=== PATIENT | female | born 1960 | race Caucasian/White ===

== ENCOUNTER → 2018-01-27 | Outpatient (CLI) | payer BC | END | disposition home or self-care (01) | LOC: KCIC 16:02 | DX: S13.150A Subluxation of C4/C5 cervical vertebrae, initial encounter (principal); M19.042 Primary osteoarthritis, left hand; M53.82 Other specified dorsopathies, cervical region; M47.892 Other spondylosis, cervical region; M25.78 Osteophyte, vertebrae; M48.02 Spinal stenosis, cervical region; X58.XXXA Exposure to other specified factors, initial encounter; Y93.89 Activity, other specified; Y92.89 Other specified places as the place of occurrence of the external cause; Y99.8 Other external cause status | CPT/HCPCS: 72020; 72170; 73120; 73565; 73620 ==

== ENCOUNTER → 2019-06-08 | Outpatient (CLI) | payer BC ==
--- NOTE | 2019-06-08 09:03 | KCIC ---
MRI of the thoracic spine without contrast 06/08/2019 CLINICAL HISTORY: Mid back pain. Thoracic compression fracture. TECHNIQUE: Unenhanced T1-weighted, T2-weighted and inversion recovery sagittal and T1-weighted and T2-weighted axial images of the thoracic spine were obtained. FINDINGS: Comparison is made to radiographs of the thoracic spine dated 06/01/2019. Mild S-shaped curvature of the thoracolumbar spine is seen degenerative signal changes are seen involving all of the disks of the thoracic spine. An acute compression fracture is seen involving the superior aspect of the T9 vertebral body. This vertebral body has lost approximately 15 percent of its normal height, centrally. No retropulsion of bone fragments into the central spinal canal is seen. No additional acute compression fracture of the thoracic vertebrae is noted. No area of abnormal signal intensity is seen involving the thoracic spinal cord. Prominent perineural cysts are seen scattered throughout the thoracic spine. These measure 8 mm to 2.6 cm in size. On the axial images relatively mild degenerative changes are seen involving the thoracic disc spaces. These consist of minimal to mild generalized disc bulges with small superimposed focal disc protrusions which measure 2 mm in AP diameter along with degenerative changes involving the facet joints. These findings do not result in significant central spinal canal or neural foraminal stenosis at any level. IMPRESSION: An acute compression fracture is seen involving the T9 vertebral body. No retropulsion of bone fragments into the central spinal canal is seen. Electronically signed by: Zackery Ernandez MD (06/08/2019 9:00 AM) [facility]
== END | disposition home or self-care (01) ==
LOC: KCIC MRI 07:43
PROVIDERS: ATTEND Physician Assistant Medical
DX: S22.070A Wedge compression fracture of T9-T10 vertebra, initial encounter for closed fracture (principal); M47.814 Spondylosis without myelopathy or radiculopathy, thoracic region; M51.24 Other intervertebral disc displacement, thoracic region; X58.XXXA Exposure to other specified factors, initial encounter; Y93.89 Activity, other specified; Y92.89 Other specified places as the place of occurrence of the external cause; Y99.8 Other external cause status
CPT/HCPCS: 72146

== ENCOUNTER → 2019-06-23 | Day surgery (SDC) | payer BC ==
[~2019-06-23] MED LIST: ESOM20CA PO; IV RINGERS,LACTATED 1000ML 1,000 ML IV SCH; LIDOCAINE 2% PF 5 ML VIAL. ONE; LORA1TAB47 PO; PROPOFOL 40 ML IV ONE; SULF500T7 PO; TRAM50TA PO
[2019-06-23 17:16] VITALS: BP 124/74
--- NOTE | 2019-06-26 08:45 | PATHOLOGY ---
[facility] Accession Number: [id number] . 01 Material submitted: . esophagus - DISTAL ESOPHAGUS BX. Modifiers: distal . 01 Clinical history: . Pre-OP DX: Thickness of stomach wall Post-OP DX: Reflux, esophagitis, rule out Narayanan's . 02 Diagnosis: Esophageal biopsies, distal esophagus: - Segments of hyperplastic squamous esophageal mucosa consistent with reflux esophagitis. (JPM:[facility] 06/25/2019) QTP/06/25/2019 . 02 Comment: Sections of the distal esophageal biopsy reveal segments of focally tangentially oriented hyperplastic squamous esophageal mucosa. There is focal acute inflammatory exudate. The findings are consistent with reflux esophagitis. There is no evidence of Narayanan's change, dysplasia, or malignancy. (JPM:[facility] 06/25/2019) . 02 Electronically signed: . Palomo Zeng MD, Pathologist NPI- [id number] . 01 Gross description: . Received in formalin labeled "Mayi Simpson, distal esophagus BX," are multiple segments of hewitt soft tissue measuring 1.5 x 0.3 x 0.1 cm in aggregate dimensions. The specimen is filtered and entirely submitted in cassette A1. (TSD; 06/24/2019) TOB/TOB . 02 Pathologist provided ICD-10: K21.0 . 02 CPT . 184862 Specimen Comment: A courtesy copy of this report has been sent to Specimen Comment: [phone], . Specimen Comment: Report sent to and Performed at: [address], [place], [place] [id number] MD Reed Puente MD Phone: [phone] Performed at: 02 [facility] [address] [place], [place] [id number] MD Palomo Zeng MD Phone: [phone]
== END ==
LOC: ENDOS 15:53
PROVIDERS: ATTEND Internal Medicine Gastroenterology
DX: K29.50 Unspecified chronic gastritis without bleeding (principal); K21.0 Gastro-esophageal reflux disease with esophagitis; F15.90 Other stimulant use, unspecified, uncomplicated; Z72.89 Other problems related to lifestyle; Z88.5 Allergy status to narcotic agent; Z87.39 Personal history of other diseases of the musculoskeletal system and connective tissue; Z87.891 Personal history of nicotine dependence; Z98.51 Tubal ligation status; Z98.890 Other specified postprocedural states
CPT/HCPCS: 43239; 88305; J2001; J2704

== ENCOUNTER 2020-05-25 15:15 | Inpatient (IN) | payer BC ==
[~2020-05-25] VITALS: Ht 167.6 cm; Wt 79.4 kg
[2020-05-25 15:15] VITALS: BP 128/71
[~2020-05-25 15:15] MED LIST changes: -IV RINGERS,LACTATED 1000ML 1,000 ML IV SCH; -LIDOCAINE 2% PF 5 ML VIAL. ONE; -PROPOFOL 40 ML IV ONE
[2020-05-25] MEDS ORDERED: ONDANSETRON PF 4 MG/2 ML VIAL. IVP PRN (15:30)
[2020-05-25] MEDS ORDERED: PANT20TA2 PO (16:07)
[2020-05-25] MEDS ORDERED: SULF500T7 PO (16:07)
[2020-05-25 16:33] LABS: PROTHROMBIN TIME PATIENT 13.7 SEC (11.7-14.0)
[2020-05-25] MEDS: PIPERACILLIN/TAZOBACTAM 3.375 GM in IV NORMAL SALINE 50ML 50 ML IV SCH (16:58)
[2020-05-25] MEDS: POTASSIUM CL 20MEQ D5-0.45NACL 1,000 ML IV SCH (16:59)
[2020-05-25] MEDS ORDERED: ACETAMINOPHEN 650 MG SUPP.RECT. PR PRN (18:00)
[2020-05-25] MEDS ORDERED: ACETAMINOPHEN 325 MG TABLET. PO PRN (18:00)
[2020-05-25] MEDS: fentaNYL PF VIAL 100 MCG/2 ML VIAL IVP PRN (18:23)
[2020-05-25 19:00] VITALS: BP 105/56
[2020-05-25 23:00] VITALS: BP 101/62
[2020-05-26] MEDS: POTASSIUM CL 20MEQ D5-0.45NACL 1,000 ML IV SCH ×2 (00:32→11:52)
[2020-05-26] MEDS: PIPERACILLIN/TAZOBACTAM 3.375 GM in IV NORMAL SALINE 50ML 50 ML IV SCH ×5 (00:32→23:59)
[2020-05-26 03:00] VITALS: BP 106/64
[2020-05-26] MEDS: fentaNYL PF VIAL 100 MCG/2 ML VIAL IVP PRN ×4 (03:08→16:47)
[2020-05-26 05:52] LABS: BASO % 0 % (0-3); EOS % 0 % (0-3); HEMATOCRIT 36.7 % (36.0-47.0); HEMOGLOBIN 12.2 g/dL (12.0-15.5); LYMPH # 0.8 x10^3/uL (1.0-4.8); LYMPH % 6 % (24-48); MEAN CORPUSCULAR HEMOGLOBIN 30 pg (25-35); MEAN CORPUSCULAR HGB CONC 33 g/dL (31-37); MEAN CORPUSCULAR VOLUME 90 fL (79-100); MONO # 0.8 x10^3/uL (0.0-1.1); MONO % 5 % (0-9); NEUT % 88 % (31-73); PLATELET COUNT 180 x10^3/uL (140-400); RED CELL DISTRIBUTION WIDTH 18.1 % (11.5-14.5); WHITE BLOOD COUNT 14.7 x10^3/uL (4.0-11.0)
[2020-05-26 06:22] LABS: ALBUMIN 2.6 g/dL (3.4-5.0); CALCIUM 8.1 mg/dL (8.5-10.1); CREATININE 0.8 mg/dL (0.6-1.0); GFR 72.9; POTASSIUM 3.4 mmol/L (3.5-5.1); TOTAL BILIRUBIN 0.7 mg/dL (0.2-1.0); TOTAL PROTEIN 5.2 g/dL (6.4-8.2)
[2020-05-26 07:00] VITALS: BP 112/72
[2020-05-26 07:55] LABS: PROTHROMBIN TIME PATIENT 14.9 SEC (11.7-14.0)
--- NOTE | 2020-05-26 08:53 | PDOC2 ---
ANGÉLICA HENRY FACILITY MANAGER HISTOLOGY 05/26/20 0853: CONSULT Date of Consult Date of Consult DATE: 05/26/20 TIME: 08:45 Reason for Consult Reason for Consult: diverticulitis with abscess Referring Physician Referring Physician: Dr Gupta Identification/Chief Complaint Chief Complaint abdominal pain Source Source: Chart review, Patient History of Present Illness Reason for Visit: Worsening of ongoing issues. Notes has been having trouble for a couple months, has been on steroids and antibiotics. Cts noted from January and early April for acute diverticulitis. She was scheduled for a colonoscopy but had worsening pain. CT concerning for abscess and ongoing diverticulitis. + weight gain with steroids. Loose stools but no diarrhea, + blood in stool. Eating aggravates symptoms. Associated nausea and emesis. Past Medical History Pulmonary: Asthma GI: GERD Past Surgical History Past Surgical History: (x2) Family History Family History: Other (noncontributory to current illness ) Social History No ALCOHOL: occassional Drugs: None Lives: with Family Current Medications Current Medications Current Medications Fentanyl Citrate (Fentanyl 2ml Vial) 50 mcg PRN Q3HRS PRN IVP PAIN Last administered on 05/26/20at 06:14; Start 05/25/20 at 15:30 Ondansetron HCl (Zofran) 4 mg PRN Q4HRS PRN IVP NAUSEA/VOMITING; Start 05/25/20 at 15:30 Piperacillin Sod/ Tazobactam Sod 3.375 gm/Sodium Chloride 50 ml @ 100 mls/hr Q6HRS IV Last administered on 05/26/20at 06:02; Start 05/25/20 at 18:00 Potassium Chloride/Dextrose/ Sod Cl 1,000 ml @ 100 mls/hr Q10H IV Last ad ministered on 05/26/20at 00:32; Start 05/25/20 at 15:30 Acetaminophen (Tylenol) 650 mg PRN Q6HRS PRN PO FEVER > 100.5'F Last adm inistered on 05/25/20at 18:18; Start 05/25/20 at 18:00 Acetaminophen (Tylenol Supp) 650 mg PRN Q6HRS PRN [place] MILD PAIN / TEMP > 1 00.3'F; Start 05/25/20 at 18:00 Active Scripts Active Reported Protonix (Pantoprazole Sodium) 20 Mg Tablet.dr 40 Mg PO DAILY Sulfasalazine 500 Mg Tablet 1,000 Mg PO BID Claritin-D 12 Hour Tablet (Loratadine/Pseudoephedrine) 1 Each Tab.er.12h 1 Tab PO BID Nexium Capsule (Esomeprazole Magnesium) 20 Mg Capsule.dr 20 Mg PO DAILYAC Tramadol Hcl 50 Mg Tablet 50 Mg PO Q6HRS PRN Sulfasalazine 500 Mg Tablet 500 Mg PO QID Allergies Allergies: Coded Allergies: tizanidine (Verified Allergy, Severe, 05/25/20) Swelling of the tongue and throat oxycodone (Verified Allergy, Intermediate, PRURITIS, 05/25/20) ROS General: YES: Chills, Fatigue PSYCHOLOGICAL ROS: No: Anxiety, Depression Eyes: No Blurry vision, No Double vision HEENT: No: Heacaches, Sore Throat Hematological and Lymphatic: No: Bleeding Problems, Blood Clots Respiratory: No: Cough, Shortness of breath Cardiovascular: No Chest Pain, No Palpitations Gastrointestinal: Yes Other (see HPI) Genitourinary: YES Dysuria; No Hematuria Musculoskeletal: No Joint Pain, No Muscle Pain Neurological: No Impaired Coord/balance, No Numbness/Tingling Skin: No Pruritus, No Rash Physical Exam General: Alert, Oriented X3, Cooperative HEENT: Atraumatic, PERRLA Lungs: Clear to auscultation, Normal air movement Heart: Regular rate, Normal S1, Normal S2 Abdomen: Soft, Other (moderate TTP LLQ with guarding, mdiline scar from c secti ons ) Extremities: No clubbing, No cyanosis Skin: No rashes, No breakdown Neuro: Normal gait, Normal speech Psych/Mental Status: Mental status NL, Mood NL MUSCULOSKELETAL: No deformity, No swelling Vitals VITALS Vital Signs Date Time Temp Pulse Resp B/P (MAP) Pulse Ox O2 Delivery O2 Flow Rate FiO2 05/26/20 07:12 16 Room Air 05/26/20 07:00 97.8 86 112/72 (85) 93 97.8 Labs Labs Laboratory Tests Test 05/25/20 16:15 05/26/20 05:10 Prothrombin Time 13.7 SEC (11.7-14.0) 14.9 SEC (11.7-14.0) Prothromb Time International Ratio 1.1 (0.8-1.1) 1.2 (0.8-1.1) White Blood Count 14.7 x10^3/uL (4.0-11.0) Red Blood Count 4.10 x10^6/uL (3.50-5.40) Hemoglobin 12.2 g/dL (12.0-15.5) Hematocrit 36.7 % (36.0-47.0) Mean Corpuscular Volume 90 fL (79-100) Mean Corpuscular Hemoglobin 30 pg (25-35) Mean Corpuscular Hemoglobin Concent 33 g/dL (31-37) Red Cell Distribution Width 18.1 % (11.5-14.5) Platelet Count 180 x10^3/uL (140-400) Neutrophils (%) (Auto) 88 % (31-73) Lymphocytes (%) (Auto) 6 % (24-48) Monocytes (%) (Auto) 5 % (0-9) Eosinophils (%) (Auto) 0 % (0-3) Basophils (%) (Auto) 0 % (0-3) Neutrophils # (Auto) 13.0 x10^3/uL (1.8-7.7) Lymphocytes # (Auto) 0.8 x10^3/uL (1.0-4.8) Monocytes # (Auto) 0.8 x10^3/uL (0.0-1.1) Eosinophils # (Auto) 0.0 x10^3/uL (0.0-0.7) Basophils # (Auto) 0.0 x10^3/uL (0.0-0.2) Sodium Level 138 mmol/L (136-145) Potassium Level 3.4 mmol/L (3.5-5.1) Chloride Level 105 mmol/L (98-107) Carbon Dioxide Level 25 mmol/L (21-32) Anion Gap 8 (6-14) Blood Urea Nitrogen 10 mg/dL (7-20) Creatinine 0.8 mg/dL (0.6-1.0) Estimated GFR (Cockcroft-Gault) 72.9 BUN/Creatinine Ratio 13 (6-20) Glucose Level 136 mg/dL (70-99) Calcium Level 8.1 mg/dL (8.5-10.1) Total Bilirubin 0.7 mg/dL (0.2-1.0) Aspartate Amino Transf (AST/SGOT) 10 U/L (15-37) Alanine Aminotransferase (ALT/SGPT) 14 U/L (14-59) Alkaline Phosphatase 71 U/L (46-116) Total Protein 5.2 g/dL (6.4-8.2) Albumin 2.6 g/dL (3.4-5.0) Albumin/Globulin Ratio 1.0 (1.0-1.7) Laboratory Tests Test 05/25/20 16:15 05/26/20 05:10 Prothrombin Time 13.7 SEC (11.7-14.0) 14.9 SEC (11.7-14.0) Prothromb Time International Ratio 1.1 (0.8-1.1) 1.2 (0.8-1.1) White Blood Count 14.7 x10^3/uL (4.0-11.0) Red Blood Count 4.10 x10^6/uL (3.50-5.40) Hemoglobin 12.2 g/dL (12.0-15.5) Hematocrit 36.7 % (36.0-47.0) Mean Corpuscular Volume 90 fL (79-100) Mean Corpuscular Hemoglobin 30 pg (25-35) Mean Corpuscular Hemoglobin Concent 33 g/dL (31-37) Red Cell Distribution Width 18.1 % (11.5-14.5) Platelet Count 180 x10^3/uL (140-400) Neutrophils (%) (Auto) 88 % (31-73) Lymphocytes (%) (Auto) 6 % (24-48) Monocytes (%) (Auto) 5 % (0-9) Eosinophils (%) (Auto) 0 % (0-3) Basophils (%) (Auto) 0 % (0-3) Neutrophils # (Auto) 13.0 x10^3/uL (1.8-7.7) Lymphocytes # (Auto) 0.8 x10^3/uL (1.0-4.8) Monocytes # (Auto) 0.8 x10^3/uL (0.0-1.1) Eosinophils # (Auto) 0.0 x10^3/uL (0.0-0.7) Basophils # (Auto) 0.0 x10^3/uL (0.0-0.2) Sodium Level 138 mmol/L (136-145) Potassium Level 3.4 mmol/L (3.5-5.1) Chloride Level 105 mmol/L (98-107) Carbon Dioxide Level 25 mmol/L (21-32) Anion Gap 8 (6-14) Blood Urea Nitrogen 10 mg/dL (7-20) Creatinine 0.8 mg/dL (0.6-1.0) Estimated GFR (Cockcroft-Gault) 72.9 BUN/Creatinine Ratio 13 (6-20) Glucose Level 136 mg/dL (70-99) Calcium Level 8.1 mg/dL (8.5-10.1) Total Bilirubin 0.7 mg/dL (0.2-1.0) Aspartate Amino Transf (AST/SGOT) 10 U/L (15-37) Alanine Aminotransferase (ALT/SGPT) 14 U/L (14-59) Alkaline Phosphatase 71 U/L (46-116) Total Protein 5.2 g/dL (6.4-8.2) Albumin 2.6 g/dL (3.4-5.0) Albumin/Globulin Ratio 1.0 (1.0-1.7) Assessment/Plan Assessment/Plan diverticulitis, abscess will ask IR to eval if amendable to perc drain IV abx bowel rest HERNANDEZ GARZA MD 05/27/20 2213: CONSULT Assessment/Plan Assessment/Plan Pt seen and examined on 05/26 (late entry of note); Pt presented with lower abdominal pain, prior outpatient treatment of diverticulitis; pt was on abx/steroids by PCP; ER evaluation showed diverticulitis with abscess; PMH/PSH/ROS/SH as above; exam: alert, oriented, no distress, no neck masses, lungs clear, heart RR and R, abdomen soft, tender with palpation low abdomen, ext neg for edema; CT and labs reviewed; A/P) Suspect diverticulitis with abscess, IR consulted, prefers medical management at this time; we will follow ANGÉLICA HENRY APRN May 26, 2020 08:53 HERNANDEZ GARZA MD May 27, 2020 22:13
[2020-05-26 09:04] LABS: % BANDS 1 % (0-9); % LYMPHS 8 % (24-48); % MONOS 3 % (0-10); % SEGS 88 % (35-66); ANISOCYTOSIS SLIGHT; PLT ESTIMATE ADEQUATE (ADEQUATE)
--- NOTE | 2020-05-26 09:36 | PDOC ---
Infectious Disease Note Vital Sign Vital Signs Vital Signs Date Time Temp Pulse Resp B/P (MAP) Pulse Ox O2 Delivery O2 Flow Rate FiO2 05/26/20 08:48 Room Air 05/26/20 07:12 16 05/26/20 07:00 97.8 86 112/72 (85) 93 97.8 Labs Lab Laboratory Tests Test 05/25/20 16:15 05/26/20 05:10 Prothrombin Time 13.7 SEC (11.7-14.0) 14.9 SEC (11.7-14.0) Prothromb Time International Ratio 1.1 (0.8-1.1) 1.2 (0.8-1.1) White Blood Count 14.7 x10^3/uL (4.0-11.0) Red Blood Count 4.10 x10^6/uL (3.50-5.40) Hemoglobin 12.2 g/dL (12.0-15.5) Hematocrit 36.7 % (36.0-47.0) Mean Corpuscular Volume 90 fL (79-100) Mean Corpuscular Hemoglobin 30 pg (25-35) Mean Corpuscular Hemoglobin Concent 33 g/dL (31-37) Red Cell Distribution Width 18.1 % (11.5-14.5) Platelet Count 180 x10^3/uL (140-400) Neutrophils (%) (Auto) 88 % (31-73) Lymphocytes (%) (Auto) 6 % (24-48) Monocytes (%) (Auto) 5 % (0-9) Eosinophils (%) (Auto) 0 % (0-3) Basophils (%) (Auto) 0 % (0-3) Neutrophils # (Auto) 13.0 x10^3/uL (1.8-7.7) Lymphocytes # (Auto) 0.8 x10^3/uL (1.0-4.8) Monocytes # (Auto) 0.8 x10^3/uL (0.0-1.1) Eosinophils # (Auto) 0.0 x10^3/uL (0.0-0.7) Basophils # (Auto) 0.0 x10^3/uL (0.0-0.2) Segmented Neutrophils % 88 % (35-66) Band Neutrophils % 1 % (0-9) Lymphocytes % 8 % (24-48) Monocytes % 3 % (0-10) Platelet Estimate Adequate (ADEQUATE) Anisocytosis Slight Sodium Level 138 mmol/L (136-145) Potassium Level 3.4 mmol/L (3.5-5.1) Chloride Level 105 mmol/L (98-107) Carbon Dioxide Level 25 mmol/L (21-32) Anion Gap 8 (6-14) Blood Urea Nitrogen 10 mg/dL (7-20) Creatinine 0.8 mg/dL (0.6-1.0) Estimated GFR (Cockcroft-Gault) 72.9 BUN/Creatinine Ratio 13 (6-20) Glucose Level 136 mg/dL (70-99) Calcium Level 8.1 mg/dL (8.5-10.1) Total Bilirubin 0.7 mg/dL (0.2-1.0) Aspartate Amino Transf (AST/SGOT) 10 U/L (15-37) Alanine Aminotransferase (ALT/SGPT) 14 U/L (14-59) Alkaline Phosphatase 71 U/L (46-116) Total Protein 5.2 g/dL (6.4-8.2) Albumin 2.6 g/dL (3.4-5.0) Albumin/Globulin Ratio 1.0 (1.0-1.7) Objective Assessment Diverticulitis Intra-abd abcess Immunosuppression - on steroids T 11 compression fracture RA Plan Plan of Care Cont Zosyn Add Fluconazole given abx use and steroids F/u labs and cults Await IR eval Compression fracture per primary D/w nursing D/w D/w Karley HABITAT CONSERVATION PLANNER - Gen surg Thank you # [id number] CASI PICHARDO MD May 26, 2020 09:36
--- NOTE | 2020-05-26 09:58 | PDOC ---
Provider Note Provider Note IR NOTE Consulted for possible drainage of diverticular abscess. CT reviewed. Abscess is small, and of a size where antibiotic therapy alone will be effective in the majority of cases. CT going back to january shows the same area of the colon to be thickened and inflamed. Given persistence over time, despite therapy endoscopy should be considered, when clinically feasible, to rule out an underlying neoplasm. Given failure to resolve with standard treatment, could consider aspiration of the abscess for cultures to guide antimicrobial therapy? Would defer to surgery/ID if that would be helpful.... Justicifation of Admission Dx: Justifications for Admission: Justification of Admission Dx: Yes Comments: Pericolonic abscess. Defer to primary service for admission criterion KYMBERLY STOREY MD May 26, 2020 09:58
--- NOTE | 2020-05-26 10:02 | CONS ---
DATE OF CONSULTATION: 05/26/2020 LOCATION: The patient's room is 426. REQUESTING PHYSICIAN: Tino Gupta MD REASON FOR CONSULTATION: Diverticulitis. HISTORY OF PRESENT ILLNESS: The patient is a 59-year-old female with a known history of rheumatoid arthritis for about 15 years, who in late February began to have some complications with some abdominal pain, subsequently was diagnosed with diverticulitis and had a CAT scan performed on 04/05. She was placed on ciprofloxacin as well as prednisone, but continued to have complications on 04/28, she began a 14-day course of Augmentin and Flagyl and was continued on prednisone as well. She then had a repeat CT scan on 05/09 and was then set up for evaluation by Dr. Schneider. She began to take a bowel prep the other day and was supposed to have her colonoscopy yesterday; however, her abdominal pain became very severe and she therefore presented to [facility]. She had a white count of 22.6. Creatinine was 1.1. She underwent a CT scan, which showed extensive inflammatory changes surrounding the mid sigmoid colon that has progressed since 04/28. There was an abscess that measures 3.5 x 4 x 4.6 along the sigmoid colon. Additionally, she was found to have a new superior endplate compression fracture around T11. She subsequently was stabilized and transferred to [facility] for further care and evaluation. She was placed on IV Zosyn. Currently, the patient is lying in bed. She is comfortable, but she states after the pain medicine wears off, her pain goes back to approximately an 8. She has not had any gross fevers or chills. She has some sweats. She has chronic sinus issues. She has no sore throat. No cough or chest pain. She was having some loose stools, but again she was having a bowel prep and she did just recently have a bloody stool since she has gotten here. She had a little bit of nausea. No dysuria, frequency or urgency, but she did vomit. Denies any rashes. PAST MEDICAL HISTORY: Positive for rheumatoid arthritis, gastroesophageal reflux disease, history of COPD, history of strep pneumonia for which she was treated with IV ceftriaxone. Also, history of urinary tract infection. PAST SURGICAL HISTORY: Positive for x 2, tonsillectomy after a mass was found, breast surgery after a mass was found, an ablation and hemorrhoids. REVIEW OF SYSTEMS: Otherwise negative except for what is mentioned above. ALLERGIES: LISTED MAGIC MOUTHWASH CAUSES SWELLING, OXYCODONE AND TIZANIDINE. SOCIAL HISTORY: Quit tobacco 6 years ago. She is , has a pit bull at home. FAMILY HISTORY: Positive for rheumatoid arthritis in her hand, diabetes in her family and her grandmother had stomach cancer and also breast cancers in the family as well. CURRENT MEDICATIONS: Include Zosyn, fentanyl, p.r.n. medications. PHYSICAL EXAMINATION: VITAL SIGNS: She has been afebrile since her presentation, temperature is 97.8, respirations 16, blood pressure 112/72, satting 93% on room air. CONSTITUTIONAL: She is lying in bed. She is cooperative. She is in no acute distress. She looks fairly comfortable currently. HEENT: Pupils equal and reactive. She had normal conjunctivae. Oral cavity, pharynx was clear. NECK: Supple. Good range of motion. LUNGS: Clear to auscultation bilaterally. HEART: S1, S2. ABDOMEN: Distended, soft. There is some tenderness and guarding. EXTREMITIES: Without clubbing, cyanosis or gross edema. SKIN: Warm to touch without signs of rash. NEUROLOGIC: She is nonfocal. PSYCHIATRIC: Affect is pleasant. LABORATORY DATA: White count of 14.7, hemoglobin of 12.2, platelets of 180, neutrophils were 88, bands were 1. Creatinine is 0.8, glucose 136, AST 10, ALT 14. RADIOLOGY: Reviewed in the history of present illness. IMPRESSION: 1. Diverticulitis. 2. Intraabdominal abscess. 3. Immunosuppression, had been on steroids. 4. T11 compression fracture. 5. Rheumatoid arthritis. RECOMMENDATIONS: We will continue the Zosyn for now. Given her immunosuppression, on steroids and recent antibiotic use, we will add fluconazole. Follow up labs and cultures. Await Interventional Radiology evaluation of compression fracture per primary. This was discussed with nursing, discussed with , discussed with Karley nurse practitioner for General Surgery. Thank you for letting me participate in the patient's care. Should you have any questions, please do not hesitate to contact me. CASI PICHARDO MD DR: MANDIE/rodo JOB#: [id number] / [id number] GRAYSON
[2020-05-26 11:00] VITALS: BP 120/76
--- NOTE | 2020-05-26 11:06 | NUR ---
SW following. Discussed with RN, pt from home with , room air, NPO. Some discussion about a drain with IR or a surgery and ID consult. SW will continue to follow.
[2020-05-26] MEDS: MORPHINE SULFATE 4 MG/ML VIAL. IV PRN ×2 (11:50→15:42)
[2020-05-26] MEDS: FLUCONAZOLE 400MG/200ML PREMIX 200 ML IV SCH (11:51)
[2020-05-26] MEDS: PANTOPRAZOLE 40 MG TABLET.DR. PO SCH (12:00)
--- NOTE | 2020-05-26 12:56 | PN ---
DATE: 05/26/2020 SUBJECTIVE: The patient is resting slightly propped up in bed, in no apparent distress. She was admitted last night as a transfer from [facility] Emergency Room where she was evaluated and was found to have acute diverticulitis and abscess. We did consult surgical team as well as the interventional radiologist and Infectious Disease, the surgical team did not recommend any surgical intervention and consulted Dr. Carter, and Dr. Carter apparently reviewed the CT scan. The abscess is small and of a size that with antibiotic therapy alone will be effective in the majority of cases. Apparently, ____, which showed the same area of the colon to be thickened and inflamed. Given persistence over time despite therapy, endoscopy would be considered when clinically feasible to rule out an underlying neoplasm given failure to resolve with standard treatment, could consider aspiration of the abscess for culture to guide antimicrobial therapy ____ ID if that would be helpful. PHYSICAL EXAMINATION: Helpful GENERAL: When I examined her this morning, she looked well and was clearly in no apparent respiratory distress. No pallor, jaundice, cyanosis, or thyromegaly. No jugular venous distention or limb edema. VITAL SIGNS: Her heart rate was 82, blood pressure was 120/76, temperature was 98.4, respiratory rate was 18, and oxygen saturation was 94%. HEENT: Normocephalic, atraumatic. NECK: Supple. HEART: Showed normal first and second heart sounds. No gallop or murmur. CHEST: Clear to auscultation. No crepitation or rhonchi. ABDOMEN: Distended with diffuse tenderness mostly in the lower quadrant. No guarding or rigidity. No organomegaly. All hernial orifice intact. Bowel sounds normal. NEUROLOGIC: She was grossly intact. Her intake and output are incompletely recorded. LABORATORY DATA: Her lab work this morning showed a white cell count 14,700, hemoglobin 12.2, hematocrit 36.7, MCV 90, and platelet count of 180,000. Her chemistry showed a serum sodium of 138, potassium of 3.4, chloride of 105, bicarbonate of 25, anion gap of 8, BUN 10, creatinine 0.8, estimated GFR was 73 mL per minute. Her glucose 136, calcium was 8.1. Total bilirubin, AST, ALT, alkaline phosphatase were normal. Total protein was 5.2, albumin was 2.6. Her prothrombin time was 14.9 and INR 1.2. IMPRESSION AND PLAN: In summary, this is a 59-year-old female patient with: 1. Acute diverticulitis. 2. Intraabdominal abscesses. 3. Immune suppression. She was given a large dose of steroids for T11 compression fracture. 4. Rheumatoid arthritis. The patient was continued on Zosyn and the Infectious Disease has added fluconazole. I will consult Dr. Schneider to assist with her management. ANIBAL HUSSEIN MD DR: JEFFREY/rodo JOB#: [id number] / [id number]
--- NOTE | 2020-05-26 14:30 | PDOC2 ---
CONSULT Date of Consult Date of Consult DATE: 05/26/20 TIME: 14:28 Reason for Consult Reason for Consult: Diverticulitis- with segmental colitis and abscess Past Medical History Pulmonary: Asthma GI: GERD Past Surgical History Past Surgical History: (x2) Family History Family History: Other (noncontributory to current illness ) Social History No ALCOHOL: occassional Drugs: None Lives: with Family Current Medications Current Medications Current Medications Fentanyl Citrate (Fentanyl 2ml Vial) 50 mcg PRN Q3HRS PRN IVP PAIN Last adminis tered on 05/26/20at 08:48; Start 05/25/20 at 15:30 Ondansetron HCl (Zofran) 4 mg PRN Q4HRS PRN IVP NAUSEA/VOMITING; Start 05/25/20 at 15:30 Piperacillin Sod/ Tazobactam Sod 3.375 gm/Sodium Chloride 50 ml @ 100 mls/hr Q6HRS IV Last administered on 05/26/20at 11:52; Start 05/25/20 at 18:00 Potassium Chloride/Dextrose/ Sod Cl 1,000 ml @ 100 mls/hr Q10H IV Last administered on 05/26/20at 11:52; Start 05/25/20 at 15:30 Acetaminophen (Tylenol) 650 mg PRN Q6HRS PRN PO FEVER > 100.5'F Last administered on 05/25/20at 18:18; Start 05/25/20 at 18:00 Acetaminophen (Tylenol Supp) 650 mg PRN Q6HRS PRN [place] MILD PAIN / TEMP > 100.3'F; Start 05/25/20 at 18:00 Fluconazole/ Sodium Chloride 200 ml @ 100 mls/hr Q24H IV Last administered on 05/26/20at 11:51; Start 05/26/20 at 10:00 Morphine Sulfate (Morphine Sulfate) 4 mg PRN Q4HRS PRN IV MODERATE TO SEVERE PAIN Last administered on 05/26/20at 11:50; Start 05/26/20 at 11:15 Sulfasalazine (Azulfidine) 1,000 mg BID PO ; Start 05/26/20 at 12:00 Pantoprazole Sodium (Protonix) 40 mg DAILYAC PO ; Start 05/26/20 at 12:00 Active Scripts Active Reported Protonix (Pantoprazole Sodium) 20 Mg Tablet.dr 40 Mg PO DAILY Sulfasalazine 500 Mg Tablet 1,000 Mg PO BID Claritin-D 12 Hour Tablet (Loratadine/Pseudoephedrine) 1 Each Tab.er.12h 1 Tab PO BID Nexium Capsule (Esomeprazole Magnesium) 20 Mg Capsule.dr 20 Mg PO DAILYAC Tramadol Hcl 50 Mg Tablet 50 Mg PO Q6HRS PRN Sulfasalazine 500 Mg Tablet 500 Mg PO QID Allergies Allergies: Coded Allergies: tizanidine (Verified Allergy, Severe, 05/25/20) Swelling of the tongue and throat oxycodone (Verified Allergy, Intermediate, PRURITIS, 05/25/20) Vitals VITALS Vital Signs Date Time Temp Pulse Resp B/P (MAP) Pulse Ox O2 Delivery O2 Flow Rate FiO2 05/26/20 11:50 Room Air 05/26/20 11:00 98.4 82 18 120/76 (91) 94 98.4 Labs Labs Laboratory Tests Test 05/25/20 16:15 05/26/20 05:10 Prothrombin Time 13.7 SEC (11.7-14.0) 14.9 SEC (11.7-14.0) Prothromb Time International Ratio 1.1 (0.8-1.1) 1.2 (0.8-1.1) White Blood Count 14.7 x10^3/uL (4.0-11.0) Red Blood Count 4.10 x10^6/uL (3.50-5.40) Hemoglobin 12.2 g/dL (12.0-15.5) Hematocrit 36.7 % (36.0-47.0) Mean Corpuscular Volume 90 fL (79-100) Mean Corpuscular Hemoglobin 30 pg (25-35) Mean Corpuscular Hemoglobin Concent 33 g/dL (31-37) Red Cell Distribution Width 18.1 % (11.5-14.5) Platelet Count 180 x10^3/uL (140-400) Neutrophils (%) (Auto) 88 % (31-73) Lymphocytes (%) (Auto) 6 % (24-48) Monocytes (%) (Auto) 5 % (0-9) Eosinophils (%) (Auto) 0 % (0-3) Basophils (%) (Auto) 0 % (0-3) Neutrophils # (Auto) 13.0 x10^3/uL (1.8-7.7) Lymphocytes # (Auto) 0.8 x10^3/uL (1.0-4.8) Monocytes # (Auto) 0.8 x10^3/uL (0.0-1.1) Eosinophils # (Auto) 0.0 x10^3/uL (0.0-0.7) Basophils # (Auto) 0.0 x10^3/uL (0.0-0.2) Segmented Neutrophils % 88 % (35-66) Band Neutrophils % 1 % (0-9) Lymphocytes % 8 % (24-48) Monocytes % 3 % (0-10) Platelet Estimate Adequate (ADEQUATE) Anisocytosis Slight Sodium Level 138 mmol/L (136-145) Potassium Level 3.4 mmol/L (3.5-5.1) Chloride Level 105 mmol/L (98-107) Carbon Dioxide Level 25 mmol/L (21-32) Anion Gap 8 (6-14) Blood Urea Nitrogen 10 mg/dL (7-20) Creatinine 0.8 mg/dL (0.6-1.0) Estimated GFR (Cockcroft-Gault) 72.9 BUN/Creatinine Ratio 13 (6-20) Glucose Level 136 mg/dL (70-99) Calcium Level 8.1 mg/dL (8.5-10.1) Total Bilirubin 0.7 mg/dL (0.2-1.0) Aspartate Amino Transf (AST/SGOT) 10 U/L (15-37) Alanine Aminotransferase (ALT/SGPT) 14 U/L (14-59) Alkaline Phosphatase 71 U/L (46-116) Total Protein 5.2 g/dL (6.4-8.2) Albumin 2.6 g/dL (3.4-5.0) Albumin/Globulin Ratio 1.0 (1.0-1.7) Laboratory Tests Test 05/25/20 16:15 05/26/20 05:10 Prothrombin Time 13.7 SEC (11.7-14.0) 14.9 SEC (11.7-14.0) Prothromb Time International Ratio 1.1 (0.8-1.1) 1.2 (0.8-1.1) White Blood Count 14.7 x10^3/uL (4.0-11.0) Red Blood Count 4.10 x10^6/uL (3.50-5.40) Hemoglobin 12.2 g/dL (12.0-15.5) Hematocrit 36.7 % (36.0-47.0) Mean Corpuscular Volume 90 fL (79-100) Mean Corpuscular Hemoglobin 30 pg (25-35) Mean Corpuscular Hemoglobin Concent 33 g/dL (31-37) Red Cell Distribution Width 18.1 % (11.5-14.5) Platelet Count 180 x10^3/uL (140-400) Neutrophils (%) (Auto) 88 % (31-73) Lymphocytes (%) (Auto) 6 % (24-48) Monocytes (%) (Auto) 5 % (0-9) Eosinophils (%) (Auto) 0 % (0-3) Basophils (%) (Auto) 0 % (0-3) Neutrophils # (Auto) 13.0 x10^3/uL (1.8-7.7) Lymphocytes # (Auto) 0.8 x10^3/uL (1.0-4.8) Monocytes # (Auto) 0.8 x10^3/uL (0.0-1.1) Eosinophils # (Auto) 0.0 x10^3/uL (0.0-0.7) Basophils # (Auto) 0.0 x10^3/uL (0.0-0.2) Segmented Neutrophils % 88 % (35-66) Band Neutrophils % 1 % (0-9) Lymphocytes % 8 % (24-48) Monocytes % 3 % (0-10) Platelet Estimate Adequate (ADEQUATE) Anisocytosis Slight Sodium Level 138 mmol/L (136-145) Potassium Level 3.4 mmol/L (3.5-5.1) Chloride Level 105 mmol/L (98-107) Carbon Dioxide Level 25 mmol/L (21-32) Anion Gap 8 (6-14) Blood Urea Nitrogen 10 mg/dL (7-20) Creatinine 0.8 mg/dL (0.6-1.0) Estimated GFR (Cockcroft-Gault) 72.9 BUN/Creatinine Ratio 13 (6-20) Glucose Level 136 mg/dL (70-99) Calcium Level 8.1 mg/dL (8.5-10.1) Total Bilirubin 0.7 mg/dL (0.2-1.0) Aspartate Amino Transf (AST/SGOT) 10 U/L (15-37) Alanine Aminotransferase (ALT/SGPT) 14 U/L (14-59) Alkaline Phosphatase 71 U/L (46-116) Total Protein 5.2 g/dL (6.4-8.2) Albumin 2.6 g/dL (3.4-5.0) Albumin/Globulin Ratio 1.0 (1.0-1.7) Assessment/Plan Assessment/Plan LLQ abdominal pain- secondary to complicated diverticulitis with both segmental colitis and abscess on CT imaging Plan antibiotics/gut rset with TPN serial CBCs FULL NOTE DICTATED HERNANDEZ CLARKE MD May 26, 2020 14:30
[2020-05-26 15:00] VITALS: BP 119/80
[2020-05-26] MEDS: sulfaSALAzine 500 MG TABLET PO SCH ×2 (15:42→21:24)
[2020-05-26] MEDS ORDERED: TPN PER PHARMACY MC PRN (16:15)
[2020-05-26] MEDS: KETOROLAC 15 MG/ML VIAL. IVP PRN (17:39)
--- NOTE | 2020-05-26 18:08 | HP ---
ADMIT DATE: 05/25/2020 HISTORY OF PRESENT ILLNESS: The patient is a 59-year-old female patient who is noted to have history of rheumatoid arthritis for the last ____. She apparently developed abdominal pain in late February and was subsequently diagnosed with diverticulitis and had a CT scan performed on 04/05/2020. She was placed on ciprofloxacin as well as prednisone, but continued to have complications. On 03/29/2020, she began a 14-day course of Augmentin and Flagyl was continued, prednisone as well and has had a repeat CT scan on 05/09/2020 and was then set up for evaluation by Dr. Schneider. She began to take a bowel prep and was supposed to have her colonoscopy done yesterday; however, her abdominal pain became very severe and [facility] was evaluated in the Emergency Room, was found to have a white cell count 22,600. She had another CT scan, which showed extensive inflammatory changes surrounding the mid sigmoid colon that has progressed since 04/28/2020. There was an abscess that measures 3.5 x 4 x 4.6 along the sigmoid colon. Additionally, she was found to have a new superior endplate compression fracture around T11. She subsequently was transferred [facility] for further evaluation to consult the surgical team as well as the Infectious Disease team as well as the interventional radiologist. PAST MEDICAL HISTORY: Significant for rheumatoid arthritis, gastroesophageal reflux disease, history of COPD, and has had a history of Streptococcus pneumoniae for which she was treated with IV ceftriaxone and history of urinary tract infection. PAST SURGICAL HISTORY: Significant for 2 C-sections, tonsillectomy after a mass was found, breast surgery after a mass was found and ablation as well as hemorrhoidectomy. ALLERGIES: SHE IS ALLERGIC TO MAGIC MOUTHWASH THAT CAUSED SWELLING, OXYCODONE, AND TIZANIDINE. FAMILY HISTORY: Positive for rheumatoid arthritis and diabetes in her family. Her grandmother had stomach cancer and also breast cancer in her family as well. SOCIAL HISTORY: She is and lives with her . She has 2 sons. Quit smoking about 6 years ago. Does not drink alcohol or use any recreational drugs. 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 MEDICATIONS: She is currently on following medications: She is on loratadine, pseudoephedrine, Claritin-D twice a day, sulfasalazine 500 mg 4 times a day, sulfasalazine 1000 mg twice a day, tramadol 50 mg every 6 hours, Nexium 20 mg once a day, and Protonix 40 mg once a day. PHYSICAL EXAMINATION: GENERAL: On arrival to the Emergency Room, she looked well and was clearly in no apparent respiratory distress. There is no pallor, jaundice, cyanosis or thyromegaly. No jugular venous distention. No lower limb edema. VITAL SIGNS: Her heart rate was 92, blood pressure was 129/78, temperature was 98.6, respiratory rate was 18 and oxygen saturation was 97%. HEAD, EYES, EARS, NOSE AND THROAT: Showed normocephalic, atraumatic. NECK: Supple. HEART: Showed normal first and second heart sounds. No gallop, rub or murmur. CHEST: Clear to auscultation. No crepitation or rhonchi. ABDOMEN: Distended with diffuse tenderness mostly in left lower quadrant; however, there are no pulsatile masses. No tenderness. No guarding or rigidity. Bowel sounds audible. NEUROLOGIC: She was awake, alert, oriented x 3 with normal motor and sensory function. LABORATORY DATA: While in the Emergency Room, she has had lab work done, which showed white cell count of 2600, hemoglobin 14.6, hematocrit 44.7, MCV 90 and platelet count 221,000 with a manual differential showed 90% polymorphs, 4% lymphocytes and 5% monocytes. Her chemistry showed a serum sodium 137, potassium 3.7, chloride 101, bicarbonate 29, anion gap of 7, BUN 15, creatinine 1.1, estimated GFR was 50 mL per minute. Her glucose was 144, calcium was 9. Total bilirubin, AST, ALT, alkaline phosphatase were normal. Total protein was 6.7, albumin was 3.7. Urinalysis was essentially unremarkable. She has had a CT scan of the abdomen and pelvis, which basically showed that she has worsened inflammatory changes centered around the mid sigmoid colon since 04/28/2020 given background diverticulosis. This is most compatible with worsening diverticulitis. There is now a rim enhancing fluid collection containing gas compatible with an abscess that tracks along both the right and left aspect of the sigmoid colon over a short length and extending down to about the upper margin of the uterus measuring up to 3.5 cm craniocaudal x 4 x 4.6 meters in anteroposterior diameter, small amount of free pelvic fluid elsewhere without peripheral enhancement to suggest an additional abscess. She has new from 04/28/2020, but appearing subacute to the superior endplate compression fracture of T11 with up to approximately 30-40% central height loss and no retropulsion. Therefore, the patient was started on Zosyn and was transferred to [facility], was kept n.p.o., continued IV fluid, IV antibiotic, IV pain medication, antiemetic and we did consult the surgical team, road roller operator as well as the interventional radiologist. ANIBAL HUSSEIN MD DR: JEFFREY/rodo JOB#: [id number] / [id number]
[2020-05-26 19:00] VITALS: BP 111/68
--- NOTE | 2020-05-26 20:28 | CONS ---
DATE OF CONSULTATION: 05/26/2020 REASONS FOR CONSULTATION: Diverticulitis, segmental colitis, and abscess. HISTORY OF PRESENT ILLNESS: This is a 59-year-old female, whose past medical history is significant for diverticular disease, rheumatoid arthritis, gastroesophageal reflux disease, strep pneumonia, chronic obstructive pulmonary disease, and urinary tract infection, is admitted to [facility] with worsening abdominal pain, diarrhea, and bleeding. The patient's imaging did reveal progression of her diverticular disease despite antibiotics and oral therapy and an abscess was found to be 3 x 4 x 4.5 cm in the sigmoid colon. She otherwise presently is feeling better with pain control with morphine and is without additional complaints. PAST MEDICAL HISTORY: Diverticulitis, rheumatoid arthritis, gastroesophageal reflux disease, chronic obstructive pulmonary disease, strep pneumonia, and urinary tract infection. PAST SURGICAL HISTORY: section x2, tonsillectomy, breast biopsy, ablation, hemorrhoid surgery. ALLERGIES: OXYCODONE AND TIZANIDINE. MEDICATIONS: Presently include pantoprazole, sulfasalazine, morphine, fluconazole, and piperacillin. SOCIAL HISTORY: She does not drink or smoke. FAMILY HISTORY: Noncontributory. REVIEW OF SYSTEMS: Per records. PHYSICAL EXAMINATION: GENERAL: Reveals a female, who is alert and cooperative, in mild distress. VITAL SIGNS: Temperature 98.4, pulse 80, respiratory rate 18, and blood pressure 120/76. LUNGS: Clear. CARDIOVASCULAR: Reveals S1 and S2 without S3, S4, or appreciable murmur. ABDOMEN: Reveals a soft abdomen with left lower quadrant tenderness to deep palpation without appreciable hepatosplenomegaly with multiple surgical incisions. EXTREMITIES: Reveal no cyanosis, clubbing, or edema. LABORATORY STUDIES: Sodium 138, potassium 3.4, chloride 105, BUN 10, creatinine 0.8, glucose 136, calcium is 8.1, total bilirubin 0.7, AST of 10, ALT of 14, alkaline phosphatase of 71, total protein 5.2; hemoglobin is 12.2, hematocrit 36.7, white count 14.7, and platelet count is 180,000; INR is 1.2. IMAGING: CT scan reveals a sigmoid abscess measuring 3.5 x 4 x 4.5 cm in size. IMPRESSION AND PLAN: Left lower quadrant abdominal pain, most likely secondary to diverticulitis with both the segmental colitis as well as the interval abscesses. We therefore recommend medical therapy, total parenteral nutrition, gut rest, serial blood counts, and antibiotics. I would like to thank Dr. Gupta for allowing us to consult and participate in the patient's care. HERNANDEZ CLARKE MD DR: PHOEBE/rodo JOB#: [id number] / [id number] ecc ,
[2020-05-26 22:09] LABS: CA 125 7.5 U/mL (0.0-38.1)
[2020-05-26 23:00] VITALS: BP 109/66
[2020-05-27] MEDS: POTASSIUM CL 20MEQ D5-0.45NACL 1,000 ML IV SCH ×3 (00:06→17:06)
[2020-05-27 03:00] VITALS: BP 110/61
[2020-05-27] MEDS: fentaNYL PF VIAL 100 MCG/2 ML VIAL IVP PRN (03:02)
[2020-05-27 04:20] LABS: BASO % 0 % (0-3); EOS # 0.1 x10^3/uL (0.0-0.7); EOS % 1 % (0-3); HEMOGLOBIN 11.4 g/dL (12.0-15.5); LYMPH # 0.8 x10^3/uL (1.0-4.8); LYMPH % 9 % (24-48); MEAN CORPUSCULAR HEMOGLOBIN 30 pg (25-35); MEAN CORPUSCULAR HGB CONC 34 g/dL (31-37); MEAN CORPUSCULAR VOLUME 91 fL (79-100); MONO # 0.5 x10^3/uL (0.0-1.1); MONO % 6 % (0-9); NEUT # 8.2 x10^3/uL (1.8-7.7); NEUT % 85 % (31-73); PLATELET COUNT 162 x10^3/uL (140-400); RED BLOOD COUNT 3.76 x10^6/uL (3.50-5.40); RED CELL DISTRIBUTION WIDTH 17.4 % (11.5-14.5); WHITE BLOOD COUNT 9.7 x10^3/uL (4.0-11.0)
[2020-05-27 04:39] LABS: CALCIUM 8.3 mg/dL (8.5-10.1); CREATININE 0.9 mg/dL (0.6-1.0); GFR 63.7; POTASSIUM 3.7 mmol/L (3.5-5.1)
[2020-05-27] MEDS: PIPERACILLIN/TAZOBACTAM 3.375 GM in IV NORMAL SALINE 50ML 50 ML IV SCH ×4 (05:41→23:45)
[2020-05-27] MEDS: KETOROLAC 15 MG/ML VIAL. IVP PRN ×3 (05:42→11:50)
[2020-05-27] MEDS: PANTOPRAZOLE 40 MG TABLET.DR. PO SCH (05:42)
[2020-05-27 07:44] VITALS: BP 134/71
[2020-05-27] MEDS: sulfaSALAzine 500 MG TABLET PO SCH ×2 (09:31→20:38)
[2020-05-27] MEDS: FLUCONAZOLE 400MG/200ML PREMIX 200 ML IV SCH (09:42)
--- NOTE | 2020-05-27 09:43 | PN ---
DATE: 05/27/2020 SUBJECTIVE: The patient is resting, slightly propped up in bed, in no apparent respiratory distress. On questioning her, she is feeling generally much better. Her pain is much better controlled. She was seen by Dr. Schneider and he recommended n.p.o., TPN and IV antibiotic. PHYSICAL EXAMINATION: GENERAL: When I examined her this morning, she looked well and was clearly in no apparent respiratory distress. Slightly pale, but no jaundice, cyanosis or thyromegaly. No jugular venous distention. No limb edema. VITAL SIGNS: Her heart rate was 74, blood pressure was 134/71, temperature 98.4, respiratory rate was 17, and oxygen saturation was 96%. HEAD, EYES, EARS, NOSE AND THROAT: Normocephalic, atraumatic. NECK: Supple. HEART: Normal first and second heart sounds. No gallop, rub or murmur. CHEST: Clear to auscultation. No crepitation or rhonchi. ABDOMEN: Distended, soft with tenderness mostly in the left lower quadrant. NEUROLOGIC: She was grossly intact. Her intake was 1050, no output was recorded. LABORATORY DATA: Her lab work as of this morning showed her white cell count is down to 9700, hemoglobin 11, hematocrit 34, MCV 91, and platelet count of 162,000. Serum sodium was 139, potassium 3.7, chloride 106, bicarbonate 25, anion gap of 8, BUN 5, creatinine 0.9, and estimated GFR was 64 mL per minute. Her glucose 121 and calcium was 8.3. Her prothrombin time and INR slightly elevated. ASSESSMENT: 1. Acute diverticulitis. 2. Intraabdominal abscess. 3. Immunosuppression. She was given large dose of steroids. 4. T11 compression fracture. 5. Rheumatoid arthritis. PLAN: To continue with IV Zosyn and fluconazole. The patient will be n.p.o. We will arrange for her to have a PICC line and start her on TPN. ANIBAL HUSSEIN MD DR: JEFFREY/rodo JOB#: [id number] / [id number]
--- NOTE | 2020-05-27 09:56 | PDOC ---
G I PROGRESS NOTE Reason for Follow-up Diverticulitis/LLQ pain Subjective Feeling better this am Physical Exam Lungs clear CV S1 S2 ABD hypoactive BS, +LLQ tenderness to palpation Review of Relevant I have reviewed the following items ladarius (where applicable) has been applied. Labs Laboratory Tests Test 05/25/20 16:15 05/26/20 05:10 05/27/20 03:45 Prothrombin Time 13.7 SEC (11.7-14.0) 14.9 SEC (11.7-14.0) Prothromb Time International Ratio 1.1 (0.8-1.1) 1.2 (0.8-1.1) White Blood Count 14.7 x10^3/uL (4.0-11.0) 9.7 x10^3/uL (4.0-11.0) Red Blood Count 4.10 x10^6/uL (3.50-5.40) 3.76 x10^6/uL (3.50-5.40) Hemoglobin 12.2 g/dL (12.0-15.5) 11.4 g/dL (12.0-15.5) Hematocrit 36.7 % (36.0-47.0) 34.0 % (36.0-47.0) Mean Corpuscular Volume 90 fL (79-100) 91 fL (79-100) Mean Corpuscular Hemoglobin 30 pg (25-35) 30 pg (25-35) Mean Corpuscular Hemoglobin Concent 33 g/dL (31-37) 34 g/dL (31-37) Red Cell Distribution Width 18.1 % (11.5-14.5) 17.4 % (11.5-14.5) Platelet Count 180 x10^3/uL (140-400) 162 x10^3/uL (140-400) Neutrophils (%) (Auto) 88 % (31-73) 85 % (31-73) Lymphocytes (%) (Auto) 6 % (24-48) 9 % (24-48) Monocytes (%) (Auto) 5 % (0-9) 6 % (0-9) Eosinophils (%) (Auto) 0 % (0-3) 1 % (0-3) Basophils (%) (Auto) 0 % (0-3) 0 % (0-3) Neutrophils # (Auto) 13.0 x10^3/uL (1.8-7.7) 8.2 x10^3/uL (1.8-7.7) Lymphocytes # (Auto) 0.8 x10^3/uL (1.0-4.8) 0.8 x10^3/uL (1.0-4.8) Monocytes # (Auto) 0.8 x10^3/uL (0.0-1.1) 0.5 x10^3/uL (0.0-1.1) Eosinophils # (Auto) 0.0 x10^3/uL (0.0-0.7) 0.1 x10^3/uL (0.0-0.7) Basophils # (Auto) 0.0 x10^3/uL (0.0-0.2) 0.0 x10^3/uL (0.0-0.2) Segmented Neutrophils % 88 % (35-66) Band Neutrophils % 1 % (0-9) Lymphocytes % 8 % (24-48) Monocytes % 3 % (0-10) Platelet Estimate Adequate (ADEQUATE) Anisocytosis Slight Sodium Level 138 mmol/L (136-145) 139 mmol/L (136-145) Potassium Level 3.4 mmol/L (3.5-5.1) 3.7 mmol/L (3.5-5.1) Chloride Level 105 mmol/L (98-107) 106 mmol/L (98-107) Carbon Dioxide Level 25 mmol/L (21-32) 25 mmol/L (21-32) Anion Gap 8 (6-14) 8 (6-14) Blood Urea Nitrogen 10 mg/dL (7-20) 5 mg/dL (7-20) Creatinine 0.8 mg/dL (0.6-1.0) 0.9 mg/dL (0.6-1.0) Estimated GFR (Cockcroft-Gault) 72.9 63.7 BUN/Creatinine Ratio 13 (6-20) Glucose Level 136 mg/dL (70-99) 121 mg/dL (70-99) Calcium Level 8.1 mg/dL (8.5-10.1) 8.3 mg/dL (8.5-10.1) Total Bilirubin 0.7 mg/dL (0.2-1.0) Aspartate Amino Transf (AST/SGOT) 10 U/L (15-37) Alanine Aminotransferase (ALT/SGPT) 14 U/L (14-59) Alkaline Phosphatase 71 U/L (46-116) Total Protein 5.2 g/dL (6.4-8.2) Albumin 2.6 g/dL (3.4-5.0) Albumin/Globulin Ratio 1.0 (1.0-1.7) CA 125 Antigen 7.5 U/mL (0.0-38.1) Laboratory Tests Test 05/27/20 03:45 White Blood Count 9.7 x10^3/uL (4.0-11.0) Red Blood Count 3.76 x10^6/uL (3.50-5.40) Hemoglobin 11.4 g/dL (12.0-15.5) Hematocrit 34.0 % (36.0-47.0) Mean Corpuscular Volume 91 fL (79-100) Mean Corpuscular Hemoglobin 30 pg (25-35) Mean Corpuscular Hemoglobin Concent 34 g/dL (31-37) Red Cell Distribution Width 17.4 % (11.5-14.5) Platelet Count 162 x10^3/uL (140-400) Neutrophils (%) (Auto) 85 % (31-73) Lymphocytes (%) (Auto) 9 % (24-48) Monocytes (%) (Auto) 6 % (0-9) Eosinophils (%) (Auto) 1 % (0-3) Basophils (%) (Auto) 0 % (0-3) Neutrophils # (Auto) 8.2 x10^3/uL (1.8-7.7) Lymphocytes # (Auto) 0.8 x10^3/uL (1.0-4.8) Monocytes # (Auto) 0.5 x10^3/uL (0.0-1.1) Eosinophils # (Auto) 0.1 x10^3/uL (0.0-0.7) Basophils # (Auto) 0.0 x10^3/uL (0.0-0.2) Sodium Level 139 mmol/L (136-145) Potassium Level 3.7 mmol/L (3.5-5.1) Chloride Level 106 mmol/L (98-107) Carbon Dioxide Level 25 mmol/L (21-32) Anion Gap 8 (6-14) Blood Urea Nitrogen 5 mg/dL (7-20) Creatinine 0.9 mg/dL (0.6-1.0) Estimated GFR (Cockcroft-Gault) 63.7 Glucose Level 121 mg/dL (70-99) Calcium Level 8.3 mg/dL (8.5-10.1) Medications Current Medications Fentanyl Citrate (Fentanyl 2ml Vial) 50 mcg PRN Q3HRS PRN IVP PAIN Last administered on 05/27/20 03:02; Start 05/25/20 at 15:30 Ondansetron HCl (Zofran) 4 mg PRN Q4HRS PRN IVP NAUSEA/VOMITING; Start 05/25/20 at 15:30 Piperacillin Sod/ Tazobactam Sod 3.375 gm/Sodium Chloride 50 ml @ 100 mls/hr Q6HRS IV Last administered on 05/27/20 05:41; Start 05/25/20 at 18:00 Potassium Chloride/Dextrose/ Sod Cl 1,000 ml @ 100 mls/hr Q10H IV Last administered on 05/27/20 09:42; Start 05/25/20 at 15:30 Acetaminophen (Tylenol) 650 mg PRN Q6HRS PRN PO FEVER > 100.5'F Last administered on 05/25/20at 18:18; Start 05/25/20 at 18:00 Acetaminophen (Tylenol Supp) 650 mg PRN Q6HRS PRN [place] MILD PAIN / TEMP > 100.3'F; Start 05/25/20 at 18:00 Fluconazole/ Sodium Chloride 200 ml @ 100 mls/hr Q24H IV Last administered on 05/27/20 09:42; Start 05/26/20 at 10:00 Morphine Sulfate (Morphine Sulfate) 4 mg PRN Q4HRS PRN IV MODERATE TO SEVERE PAIN Last administered on 05/26/20 15:42; Start 05/26/20 at 11:15 Sulfasalazine (Azulfidine) 1,000 mg BID PO Last administered on 05/27/20 09:31; Start 05/26/20 at 12:00 Pantoprazole Sodium (Protonix) 40 mg DAILYAC PO Last administered on 7/31/20at 05:42; Start 05/26/20 at 12:00 Info (Tpn Per Pharmacy) 1 each PRN DAILY PRN [facility] SEE COMMENTS; Start 05/26/20 at 16:15; Status Cancel Ketorolac Tromethamine (Toradol 15mg Vial) 15 mg PRN Q6HRS PRN IVP MODERATE PAIN Last administered on 05/27/20at 05:42; Start 05/26/20 at 17:00; Stop 05/27/20 at 17:00 Info (Tpn Per Pharmacy) 1 each PRN DAILY PRN [facility] SEE COMMENTS; Start 05/27/20 at 09:45 Active Scripts Active Reported Protonix (Pantoprazole Sodium) 20 Mg Tablet.dr 40 Mg PO DAILY Sulfasalazine 500 Mg Tablet 1,000 Mg PO BID Claritin-D 12 Hour Tablet (Loratadine/Pseudoephedrine) 1 Each Tab.er.12h 1 Tab PO BID Nexium Capsule (Esomeprazole Magnesium) 20 Mg Capsule.dr 20 Mg PO DAILYAC Tramadol Hcl 50 Mg Tablet 50 Mg PO Q6HRS PRN Sulfasalazine 500 Mg Tablet 500 Mg PO QID Vitals/I & O Vital Sign - Last 24 Hours 05/26/20 05/26/20 05/26/20 05/26/20 11:00 11:50 12:20 15:00 Temp 98.4 97.8 98.4 97.8 Pulse 82 74 Resp 18 18 B/P (MAP) 120/76 (91) 119/80 (93) Pulse Ox 94 98 O2 Delivery Room Air Room Air Room Air Room Air 05/26/20 05/26/20 05/26/20 05/26/20 15:42 16:12 16:47 17:17 O2 Delivery Room Air Room Air Room Air Room Air 05/26/20 05/26/20 05/26/20 05/27/20 19:00 20:00 23:00 03:00 Temp 98.8 99.0 98.2 98.8 99.0 98.2 Pulse 68 85 72 Resp 18 18 18 B/P (MAP) 111/68 (82) 109/66 (80) 110/61 (77) Pulse Ox 94 93 95 O2 Delivery Room Air Room Air Room Air Room Air 05/27/20 05/27/20 05/27/20 03:02 03:31 07:44 Temp 98.4 98.4 Pulse 74 Resp 18 17 B/P (MAP) 134/71 (92) Pulse Ox 93 93 96 O2 Delivery Room Air Room Air Room Air Intake and Output 0 05/26/20 05/26/20 05/27/20 15:00 23:00 07:00 Intake Total 50 ml 1050 ml Balance 50 ml 1050 ml Problem List Diverticulitis- with abscess, possible drainage last night per patient, continue with antibiotics and analgesics, interval CT early next week to reassess abscess, CPM Justicifation of Admission Dx: Justifications for Admission: Justification of Admission Dx: Yes HERNANDEZ CLARKE MD May 27, 2020 09:56
--- NOTE | 2020-05-27 10:04 | NUR ---
SW following. Discussed with RN, pt from home, room air, IV abx, NPo - getting PICC line today to start TPN tonight. RN advised pt will be here throughout the weekend. SW will continue to follow.
--- NOTE | 2020-05-27 10:29 | PDOC ---
ANGÉLICA HENRY BAG MACHINE OPERATOR 05/27/20 1029: SURGICAL PROGRESS NOTE Subjective feels much better no n/v Vital Signs Vital Signs Date Time Temp Pulse Resp B/P (MAP) Pulse Ox O2 Delivery O2 Flow Rate FiO2 05/27/20 07:44 98.4 74 17 134/71 (92) 96 Room Air 98.4 I&O Intake and Output 05/27/20 07:00 Intake Total 1100 ml Balance 1100 ml IV Total 1100 ml # Voids 4 General: Alert, Oriented X3, Cooperative Abdomen: Soft, No tenderness Labs Laboratory Tests Test 05/25/20 16:15 05/26/20 05:10 05/27/20 03:45 Prothrombin Time 13.7 SEC (11.7-14.0) 14.9 SEC (11.7-14.0) Prothromb Time International Ratio 1.1 (0.8-1.1) 1.2 (0.8-1.1) White Blood Count 14.7 x10^3/uL (4.0-11.0) 9.7 x10^3/uL (4.0-11.0) Red Blood Count 4.10 x10^6/uL (3.50-5.40) 3.76 x10^6/uL (3.50-5.40) Hemoglobin 12.2 g/dL (12.0-15.5) 11.4 g/dL (12.0-15.5) Hematocrit 36.7 % (36.0-47.0) 34.0 % (36.0-47.0) Mean Corpuscular Volume 90 fL (79-100) 91 fL (79-100) Mean Corpuscular Hemoglobin 30 pg (25-35) 30 pg (25-35) Mean Corpuscular Hemoglobin Concent 33 g/dL (31-37) 34 g/dL (31-37) Red Cell Distribution Width 18.1 % (11.5-14.5) 17.4 % (11.5-14.5) Platelet Count 180 x10^3/uL (140-400) 162 x10^3/uL (140-400) Neutrophils (%) (Auto) 88 % (31-73) 85 % (31-73) Lymphocytes (%) (Auto) 6 % (24-48) 9 % (24-48) Monocytes (%) (Auto) 5 % (0-9) 6 % (0-9) Eosinophils (%) (Auto) 0 % (0-3) 1 % (0-3) Basophils (%) (Auto) 0 % (0-3) 0 % (0-3) Neutrophils # (Auto) 13.0 x10^3/uL (1.8-7.7) 8.2 x10^3/uL (1.8-7.7) Lymphocytes # (Auto) 0.8 x10^3/uL (1.0-4.8) 0.8 x10^3/uL (1.0-4.8) Monocytes # (Auto) 0.8 x10^3/uL (0.0-1.1) 0.5 x10^3/uL (0.0-1.1) Eosinophils # (Auto) 0.0 x10^3/uL (0.0-0.7) 0.1 x10^3/uL (0.0-0.7) Basophils # (Auto) 0.0 x10^3/uL (0.0-0.2) 0.0 x10^3/uL (0.0-0.2) Segmented Neutrophils % 88 % (35-66) Band Neutrophils % 1 % (0-9) Lymphocytes % 8 % (24-48) Monocytes % 3 % (0-10) Platelet Estimate Adequate (ADEQUATE) Anisocytosis Slight Sodium Level 138 mmol/L (136-145) 139 mmol/L (136-145) Potassium Level 3.4 mmol/L (3.5-5.1) 3.7 mmol/L (3.5-5.1) Chloride Level 105 mmol/L (98-107) 106 mmol/L (98-107) Carbon Dioxide Level 25 mmol/L (21-32) 25 mmol/L (21-32) Anion Gap 8 (6-14) 8 (6-14) Blood Urea Nitrogen 10 mg/dL (7-20) 5 mg/dL (7-20) Creatinine 0.8 mg/dL (0.6-1.0) 0.9 mg/dL (0.6-1.0) Estimated GFR (Cockcroft-Gault) 72.9 63.7 BUN/Creatinine Ratio 13 (6-20) Glucose Level 136 mg/dL (70-99) 121 mg/dL (70-99) Calcium Level 8.1 mg/dL (8.5-10.1) 8.3 mg/dL (8.5-10.1) Total Bilirubin 0.7 mg/dL (0.2-1.0) Aspartate Amino Transf (AST/SGOT) 10 U/L (15-37) Alanine Aminotransferase (ALT/SGPT) 14 U/L (14-59) Alkaline Phosphatase 71 U/L (46-116) Total Protein 5.2 g/dL (6.4-8.2) Albumin 2.6 g/dL (3.4-5.0) Albumin/Globulin Ratio 1.0 (1.0-1.7) CA 125 Antigen 7.5 U/mL (0.0-38.1) Laboratory Tests Test 05/27/20 03:45 White Blood Count 9.7 x10^3/uL (4.0-11.0) Red Blood Count 3.76 x10^6/uL (3.50-5.40) Hemoglobin 11.4 g/dL (12.0-15.5) Hematocrit 34.0 % (36.0-47.0) Mean Corpuscular Volume 91 fL (79-100) Mean Corpuscular Hemoglobin 30 pg (25-35) Mean Corpuscular Hemoglobin Concent 34 g/dL (31-37) Red Cell Distribution Width 17.4 % (11.5-14.5) Platelet Count 162 x10^3/uL (140-400) Neutrophils (%) (Auto) 85 % (31-73) Lymphocytes (%) (Auto) 9 % (24-48) Monocytes (%) (Auto) 6 % (0-9) Eosinophils (%) (Auto) 1 % (0-3) Basophils (%) (Auto) 0 % (0-3) Neutrophils # (Auto) 8.2 x10^3/uL (1.8-7.7) Lymphocytes # (Auto) 0.8 x10^3/uL (1.0-4.8) Monocytes # (Auto) 0.5 x10^3/uL (0.0-1.1) Eosinophils # (Auto) 0.1 x10^3/uL (0.0-0.7) Basophils # (Auto) 0.0 x10^3/uL (0.0-0.2) Sodium Level 139 mmol/L (136-145) Potassium Level 3.7 mmol/L (3.5-5.1) Chloride Level 106 mmol/L (98-107) Carbon Dioxide Level 25 mmol/L (21-32) Anion Gap 8 (6-14) Blood Urea Nitrogen 5 mg/dL (7-20) Creatinine 0.9 mg/dL (0.6-1.0) Estimated GFR (Cockcroft-Gault) 63.7 Glucose Level 121 mg/dL (70-99) Calcium Level 8.3 mg/dL (8.5-10.1) Assessment/Plan improved with medical therapy continue abx Justicifation of Admission Dx: Justifications for Admission: Justification of Admission Dx: Yes HERNANDEZ GARZA MD 05/27/20 2209: SURGICAL PROGRESS NOTE Assessment/Plan Agree with above ANGÉLICA HENRY APRN May 27, 2020 10:29 HERNANDEZ GARZA MD May 27, 2020 22:09
[2020-05-27 11:01] VITALS: BP 113/78
--- NOTE | 2020-05-27 11:44 | PDOC ---
Infectious Disease Note Subjective Subjective Feeling better Less pain No F/C/S/N/v/D/SOA/rash + hungry ROS ROS o/w neg Vital Sign Vital Signs Vital Signs Date Time Temp Pulse Resp B/P (MAP) Pulse Ox O2 Delivery O2 Flow Rate FiO2 05/27/20 11:01 98.8 74 16 113/78 (90) 93 Room Air 98.8 Physical Exam PHYSICAL EXAM CONSTITUTIONAL: She is lying in bed. She is cooperative. She is in no acute distress. She looks comfortable currently. HEENT: Pupils equal and reactive. She had normal conjunctivae. Oral cavity, pharynx was clear. NECK: Supple. Good range of motion. LUNGS: Clear to auscultation bilaterally. HEART: S1, S2. ABDOMEN: Distended, soft. There is some tenderness still EXTREMITIES: Without clubbing, cyanosis or gross edema. SKIN: Warm to touch without signs of rash. NEUROLOGIC: She is nonfocal. PSYCHIATRIC: Affect is pleasant. Labs Lab Laboratory Tests Test 05/27/20 03:45 White Blood Count 9.7 x10^3/uL (4.0-11.0) Red Blood Count 3.76 x10^6/uL (3.50-5.40) Hemoglobin 11.4 g/dL (12.0-15.5) Hematocrit 34.0 % (36.0-47.0) Mean Corpuscular Volume 91 fL (79-100) Mean Corpuscular Hemoglobin 30 pg (25-35) Mean Corpuscular Hemoglobin Concent 34 g/dL (31-37) Red Cell Distribution Width 17.4 % (11.5-14.5) Platelet Count 162 x10^3/uL (140-400) Neutrophils (%) (Auto) 85 % (31-73) Lymphocytes (%) (Auto) 9 % (24-48) Monocytes (%) (Auto) 6 % (0-9) Eosinophils (%) (Auto) 1 % (0-3) Basophils (%) (Auto) 0 % (0-3) Neutrophils # (Auto) 8.2 x10^3/uL (1.8-7.7) Lymphocytes # (Auto) 0.8 x10^3/uL (1.0-4.8) Monocytes # (Auto) 0.5 x10^3/uL (0.0-1.1) Eosinophils # (Auto) 0.1 x10^3/uL (0.0-0.7) Basophils # (Auto) 0.0 x10^3/uL (0.0-0.2) Sodium Level 139 mmol/L (136-145) Potassium Level 3.7 mmol/L (3.5-5.1) Chloride Level 106 mmol/L (98-107) Carbon Dioxide Level 25 mmol/L (21-32) Anion Gap 8 (6-14) Blood Urea Nitrogen 5 mg/dL (7-20) Creatinine 0.9 mg/dL (0.6-1.0) Estimated GFR (Cockcroft-Gault) 63.7 Glucose Level 121 mg/dL (70-99) Calcium Level 8.3 mg/dL (8.5-10.1) Objective Assessment Diverticulitis Leukocytosis - better Intra-abd abcess IR did not drain Immunosuppression - on steroids T 11 compression fracture RA Plan Plan of Care Cont Zosyn/Fluconazole given abx use and steroids F/u labs and cults PICC today Compression fracture per primary D/w nursing CASI PICHARDO MD May 27, 2020 11:44
[2020-05-27] MEDS: TPN PER PHARMACY MC PRN (13:20)
--- NOTE | 2020-05-27 13:26 | NUR ---
Pharmacy TPN Dosing Note S: JANICE RAMIREZ is a 59 year old F Currently receiving Central Continuous TPN started 05/27/20 B:Pertinent PMH: Diverticulitis with Abscess, NPO Current diet: NPO LABS: Sodium: 139 Potassium: 3.7 Chloride: 106 Calcium: 8.3 Corrected Calcium: 9.42 Magnesium: - CO2: 25 SCr: 0.9 Glucose: 121 Albumin: 2.6 AST: 10 ALT: 14 TPN FORMULA: TPN TYPE: Central Continuous AMINO ACIDS: 80 gm DEXTROSE: 250 gm LIPIDS: 30 gm SODIUM CHLORIDE: 90 mEq SODIUM ACETATE: - mEq SODIUM PHOSPHATE: - mmol POTASSIUM CHLORIDE: 50 mEq POTASSIUM ACETATE: - mEq POTASSIUM PHOSPHATE: 13.6 mmol MAGNESIUM: 10 mEq CALCIUM: 10 mEq INSULIN: - units MULTIPLE VITAMIN: 10 ml TRACE ELEMENTS: 1 ml ml(s) TPN PLAN: 05/27 START TPN, MACROS PER SIDE HEMMER RECOMMENDATION, STANDARD LYTES R: Begin TPN tonight Will monitor electrolytes, glucose, and tolerance to TPN. DOUG FOSTER RP, 05/27/20 0756
[2020-05-27] MEDS: MORPHINE SULFATE 4 MG/ML VIAL. IV PRN ×2 (14:11→21:13)
[2020-05-27] MEDS ORDERED: LIDOCAINE WITH 8.4% SOD BICARB 3 ML DISP.SYRIN. ONE (14:37)
[2020-05-27] MEDS ORDERED: LIDOCAINE WITH 8.4% SOD BICARB 3 ML DISP.SYRIN. INJ ONE (14:45)
[2020-05-27 14:51] VITALS: BP 137/81
--- NOTE | 2020-05-27 15:01 | NUR ---
Pt to IR fo PICC line insertion, Tolerated well, no c/o. Returned to room via wheelchair ARIADNA FREIRE
--- NOTE | 2020-05-27 15:16 | RAD ---
Exam: Fluoroscopic and ultrasound guided right percutaneous inserted central venous catheter placement 05/27/2020 1:12 PM .Indication: TPN Technique: Informed oral and written consent were obtained. The right upper extremity was prepped and draped using sterile barrier technique. All elements of maximal sterile barrier technique including the use of a cap, mask, sterile gown, sterile gloves, large sterile sheet, appropriate hand hygiene, and 2% chlorhexidine for cutaneous antisepsis (or acceptable alternative antiseptic per current guidelines) were followed for this procedure.. Real-time ultrasound demonstrated a patent right basilic vein which was prepped and draped in usual sterile fashion. 1% lidocaine used for local anesthesia. Using real-time ultrasound guidance the access needle percutaneously punctured the selected right basilic vein. Reference ultrasound images were saved to the medical record. A guidewire was advanced through the needle to the cavoatrial junction, and a peel-away sheath placed. The catheter was cut to length and inserted through the peel-away sheath such that its tip is at the cavoatrial junction. The wire and sheath were removed, and the catheter secured in place, and a sterile dressing was applied. Catheter was found to flush and aspirate normally. No immediate complications are identified. FLUORO TIME: 1.1 DOSE AREA PRODUCT: 1 Gycm2 Impression: Ultrasound and fluoroscopically guided placement of a right upper extremity PICC line.
[2020-05-27 17:11] LABS: CEA 3.2 ng/mL (0.0-4.7)
[2020-05-27 19:00] VITALS: BP 125/73
[2020-05-27] MEDS ORDERED: [UNRECOGNIZED DRUG - OTHER] IV SCH (22:00)
[2020-05-27] MEDS ORDERED: DEXTROSE 70% IV SCH (22:00)
[2020-05-27] MEDS ORDERED: TOTAL PARENTERAL NUTRITION IV SCH (22:00)
[2020-05-27] MEDS ORDERED: AMINO ACID IV SCH (22:00)
[2020-05-27 23:00] VITALS: BP 125/71
[2020-05-28 03:00] VITALS: BP 135/78
[2020-05-28] MEDS: POTASSIUM CL 20MEQ D5-0.45NACL 1,000 ML IV SCH ×3 (03:30→23:30)
[2020-05-28] MEDS: MORPHINE SULFATE 4 MG/ML VIAL. IV PRN ×5 (03:57→22:05)
[2020-05-28 05:01] LABS: ALBUMIN 2.5 g/dL (3.4-5.0); ALBUMIN/GLOBULIN RATIO 0.8 (1.0-1.7); CALCIUM 8.2 mg/dL (8.5-10.1); CREATININE 0.9 mg/dL (0.6-1.0); GFR 63.7; MAGNESIUM 2.1 mg/dL (1.8-2.4); POTASSIUM 3.8 mmol/L (3.5-5.1); TOTAL BILIRUBIN 0.5 mg/dL (0.2-1.0); TOTAL PROTEIN 5.5 g/dL (6.4-8.2)
[2020-05-28] MEDS: PIPERACILLIN/TAZOBACTAM 3.375 GM in IV NORMAL SALINE 50ML 50 ML IV SCH ×3 (05:48→17:39)
[2020-05-28 07:00] VITALS: BP 125/78
[2020-05-28] MEDS: PANTOPRAZOLE 40 MG TABLET.DR. PO SCH (07:30)
--- NOTE | 2020-05-28 08:10 | PDOC ---
Infectious Disease Note Subjective Subjective Feeling better Less pain No F/C/S/N/v/D/SOA/rash + hungry Vital Sign Vital Signs Vital Signs Date Time Temp Pulse Resp B/P (MAP) Pulse Ox O2 Delivery O2 Flow Rate FiO2 05/28/20 04:30 Room Air 05/28/20 03:00 98.4 84 18 135/78 (97) 94 98.4 Physical Exam PHYSICAL EXAM CONSTITUTIONAL: She is lying in bed. She is cooperative. She is in no acute distress. She looks comfortable currently. looks well HEENT: Pupils equal and reactive. She had normal conjunctivae. Oral cavity, pharynx was clear. NECK: Supple. Good range of motion. LUNGS: Clear to auscultation bilaterally. HEART: S1, S2. ABDOMEN: Distended, soft. There is some tenderness still EXTREMITIES: Without clubbing, cyanosis or gross edema. SKIN: Warm to touch without signs of rash. NEUROLOGIC: She is nonfocal. PSYCHIATRIC: Affect is pleasant. Labs Lab Laboratory Tests Test 05/28/20 04:38 Sodium Level 138 mmol/L (136-145) Potassium Level 3.8 mmol/L (3.5-5.1) Chloride Level 105 mmol/L (98-107) Carbon Dioxide Level 26 mmol/L (21-32) Anion Gap 7 (6-14) Blood Urea Nitrogen 8 mg/dL (7-20) Creatinine 0.9 mg/dL (0.6-1.0) Estimated GFR (Cockcroft-Gault) 63.7 BUN/Creatinine Ratio 9 (6-20) Glucose Level 88 mg/dL (70-99) Calcium Level 8.2 mg/dL (8.5-10.1) Phosphorus Level 3.0 mg/dL (2.6-4.7) Magnesium Level 2.1 mg/dL (1.8-2.4) Total Bilirubin 0.5 mg/dL (0.2-1.0) Aspartate Amino Transf (AST/SGOT) 11 U/L (15-37) Alanine Aminotransferase (ALT/SGPT) 11 U/L (14-59) Alkaline Phosphatase 105 U/L (46-116) Total Protein 5.5 g/dL (6.4-8.2) Albumin 2.5 g/dL (3.4-5.0) Albumin/Globulin Ratio 0.8 (1.0-1.7) Triglycerides Level 89 mg/dL (0-150) Objective Assessment Diverticulitis Leukocytosis - better Intra-abd abcess IR did not drain Immunosuppression - on steroids T 11 compression fracture RA Plan Plan of Care Cont Zosyn/Fluconazole given abx use and steroids F/u labs and cults PICC today Compression fracture per primary D/w D/w nursing CASI PICHARDO MD May 28, 2020 08:10
[2020-05-28] MEDS: sulfaSALAzine 500 MG TABLET PO SCH ×2 (09:00→21:54)
--- NOTE | 2020-05-28 10:30 | PN ---
DATE: 05/28/2020 SUBJECTIVE: The patient is resting, slightly propped up in bed, in no apparent respiratory distress. She said her pain is much improved, has had no nausea, no vomiting. Did have loose bowel movement this morning. PHYSICAL EXAMINATION: GENERAL: When I examined her, she looked well and was clearly in no apparent respiratory distress, pale, but no jaundice, cyanosis or thyromegaly. No jugular venous distention. No lower limb edema. VITAL SIGNS: Her heart rate was 80, blood pressure was 125/78, temperature was 98.4, respiratory rate was 18 and oxygen saturation was 94%. HEAD, EYES, EARS, NOSE AND THROAT: Showed normocephalic, atraumatic. NECK: Supple. HEART: Showed normal first and second heart sounds. No gallop or murmur. CHEST: Clear to auscultation. No crepitation or rhonchi. ABDOMEN: Distended, soft, nontender. NEUROLOGIC: She was grossly intact. Her intake over the last 24 hours was 1100, 1015 output was recorded. LABORATORY DATA: As of this morning, her serum sodium was 138, potassium 3.8, chloride 105, bicarbonate 26, anion gap of 7, BUN 8, creatinine 0.9, estimated GFR was 64 mL per minute. Her glucose was 88, calcium was 8.2, phosphorus 3, magnesium was 2.1. Total bilirubin, AST, ALT, alkaline phosphatase were normal. Total protein was 5.5, albumin was 2.5. Serum triglycerides were 89. Her carcinoembryonic antigen, CA 19-9 and CA-125 are all within normal range. ASSESSMENT: 1. Acute diverticulitis. 2. Intra-abdominal abscess not drainable according to the interventional radiologist. 3. Immunosuppression, as she was on large doses of steroids. 4. T11 compression fracture. 5. Rheumatoid arthritis. PLAN: Obviously to continue with IV Zosyn and fluconazole. Continue with TPN. Continue pain management. If the patient requires this treatment for extended period of time, she might qualify to be admitted to [facility]. ANIBAL HUSSEIN MD DR: JEFFREY/rodo JOB#: [id number] / [id number]
[2020-05-28 11:00] VITALS: BP 131/79
--- NOTE | 2020-05-28 11:13 | PDOC ---
SURGICAL PROGRESS NOTE Subjective Pt feels better, pain less, no n/V, thirsty Vital Signs Vital Signs Date Time Temp Pulse Resp B/P (MAP) Pulse Ox O2 Delivery O2 Flow Rate FiO2 05/28/20 09:04 Room Air 05/28/20 07:00 98.4 80 18 125/78 (94) 94 98.4 I&O Intake and Output 05/28/20 07:00 Intake Total 0 ml Balance 0 ml Intake Oral 0 ml # Voids 4 General: Alert, Oriented X3, Cooperative, No acute distress Abdomen: Soft, Other (min TTP LLQ) Labs Laboratory Tests Test 05/27/20 03:45 05/28/20 04:38 White Blood Count 9.7 x10^3/uL (4.0-11.0) Red Blood Count 3.76 x10^6/uL (3.50-5.40) Hemoglobin 11.4 g/dL (12.0-15.5) Hematocrit 34.0 % (36.0-47.0) Mean Corpuscular Volume 91 fL (79-100) Mean Corpuscular Hemoglobin 30 pg (25-35) Mean Corpuscular Hemoglobin Concent 34 g/dL (31-37) Red Cell Distribution Width 17.4 % (11.5-14.5) Platelet Count 162 x10^3/uL (140-400) Neutrophils (%) (Auto) 85 % (31-73) Lymphocytes (%) (Auto) 9 % (24-48) Monocytes (%) (Auto) 6 % (0-9) Eosinophils (%) (Auto) 1 % (0-3) Basophils (%) (Auto) 0 % (0-3) Neutrophils # (Auto) 8.2 x10^3/uL (1.8-7.7) Lymphocytes # (Auto) 0.8 x10^3/uL (1.0-4.8) Monocytes # (Auto) 0.5 x10^3/uL (0.0-1.1) Eosinophils # (Auto) 0.1 x10^3/uL (0.0-0.7) Basophils # (Auto) 0.0 x10^3/uL (0.0-0.2) Sodium Level 139 mmol/L (136-145) 138 mmol/L (136-145) Potassium Level 3.7 mmol/L (3.5-5.1) 3.8 mmol/L (3.5-5.1) Chloride Level 106 mmol/L (98-107) 105 mmol/L (98-107) Carbon Dioxide Level 25 mmol/L (21-32) 26 mmol/L (21-32) Anion Gap 8 (6-14) 7 (6-14) Blood Urea Nitrogen 5 mg/dL (7-20) 8 mg/dL (7-20) Creatinine 0.9 mg/dL (0.6-1.0) 0.9 mg/dL (0.6-1.0) Estimated GFR (Cockcroft-Gault) 63.7 63.7 Glucose Level 121 mg/dL (70-99) 88 mg/dL (70-99) Calcium Level 8.3 mg/dL (8.5-10.1) 8.2 mg/dL (8.5-10.1) BUN/Creatinine Ratio 9 (6-20) Phosphorus Level 3.0 mg/dL (2.6-4.7) Magnesium Level 2.1 mg/dL (1.8-2.4) Total Bilirubin 0.5 mg/dL (0.2-1.0) Aspartate Amino Transf (AST/SGOT) 11 U/L (15-37) Alanine Aminotransferase (ALT/SGPT) 11 U/L (14-59) Alkaline Phosphatase 105 U/L (46-116) Total Protein 5.5 g/dL (6.4-8.2) Albumin 2.5 g/dL (3.4-5.0) Albumin/Globulin Ratio 0.8 (1.0-1.7) Triglycerides Level 89 mg/dL (0-150) Laboratory Tests Test 05/28/20 04:38 Sodium Level 138 mmol/L (136-145) Potassium Level 3.8 mmol/L (3.5-5.1) Chloride Level 105 mmol/L (98-107) Carbon Dioxide Level 26 mmol/L (21-32) Anion Gap 7 (6-14) Blood Urea Nitrogen 8 mg/dL (7-20) Creatinine 0.9 mg/dL (0.6-1.0) Estimated GFR (Cockcroft-Gault) 63.7 BUN/Creatinine Ratio 9 (6-20) Glucose Level 88 mg/dL (70-99) Calcium Level 8.2 mg/dL (8.5-10.1) Phosphorus Level 3.0 mg/dL (2.6-4.7) Magnesium Level 2.1 mg/dL (1.8-2.4) Total Bilirubin 0.5 mg/dL (0.2-1.0) Aspartate Amino Transf (AST/SGOT) 11 U/L (15-37) Alanine Aminotransferase (ALT/SGPT) 11 U/L (14-59) Alkaline Phosphatase 105 U/L (46-116) Total Protein 5.5 g/dL (6.4-8.2) Albumin 2.5 g/dL (3.4-5.0) Albumin/Globulin Ratio 0.8 (1.0-1.7) Triglycerides Level 89 mg/dL (0-150) Problem List diverticulitis appears to be improving will try clears Justicifation of Admission Dx: Justifications for Admission: Justification of Admission Dx: Yes BRANDON ELLIOTT MD May 28, 2020 11:13
[2020-05-28] MEDS: TPN PER PHARMACY MC PRN (11:30)
--- NOTE | 2020-05-28 11:34 | NUR ---
Pharmacy TPN Dosing Note S: JANICE RAMIREZ is a 59 year old F Currently receiving Central Continuous TPN started 05/27/20 B:Pertinent PMH: Diverticulitis with Abscess, NPO Height: 5 feet, 6 inches Weight: 79.921904 kg Current diet: NPO LABS: Sodium: 138 Potassium: 3.8 Chloride: 105 Calcium: 8.2 Corrected Calcium: 9.40 Magnesium: 2.1 CO2: 25 SCr: 0.9 Glucose: 88/121 Albumin: 2.5 AST: 10 ALT: 14 TPN FORMULA: TPN TYPE: Central Continuous AMINO ACIDS: 80 gm DEXTROSE: 250 gm LIPIDS: 30 gm SODIUM CHLORIDE: 90 mEq SODIUM ACETATE: - mEq SODIUM PHOSPHATE: - mmol POTASSIUM CHLORIDE: 50 mEq POTASSIUM ACETATE: - mEq POTASSIUM PHOSPHATE: 13.6 mmol MAGNESIUM: 10 mEq CALCIUM: 10 mEq INSULIN: - units MULTIPLE VITAMIN: 10 ml TRACE ELEMENTS: 1 ml ml(s) TPN PLAN: lytes stable, cont same. R: Continue TPN AT 63 ML/HR Will monitor electrolytes, glucose, and tolerance to TPN. [facility], 05/28/20 1134
[2020-05-28] MEDS: FLUCONAZOLE 400MG/200ML PREMIX 200 ML IV SCH (11:56)
[2020-05-28 15:00] VITALS: BP 120/72
[2020-05-28 19:00] VITALS: BP 131/76
[2020-05-28] MEDS ORDERED: DEXTROSE 70% IV SCH (22:00)
[2020-05-28] MEDS ORDERED: [UNRECOGNIZED DRUG - OTHER] IV SCH (22:00)
[2020-05-28] MEDS ORDERED: TOTAL PARENTERAL NUTRITION IV SCH (22:00)
[2020-05-28] MEDS ORDERED: AMINO ACID IV SCH (22:00)
[2020-05-28 23:00] VITALS: BP 137/68
[2020-05-29] MEDS: PIPERACILLIN/TAZOBACTAM 3.375 GM in IV NORMAL SALINE 50ML 50 ML IV SCH ×4 (00:16→17:54)
[2020-05-29 03:00] VITALS: BP 139/76
[2020-05-29 06:36] LABS: CREATININE 0.8 mg/dL (0.6-1.0); GFR 72.9; MAGNESIUM 2.1 mg/dL (1.8-2.4); PHOSPHORUS 2.8 mg/dL (2.6-4.7); POTASSIUM 3.8 mmol/L (3.5-5.1)
[2020-05-29 06:52] LABS: RED BLOOD COUNT 3.71 x10^6/uL (3.50-5.40); RED CELL DISTRIBUTION WIDTH 16.6 % (11.5-14.5); WHITE BLOOD COUNT 8.1 x10^3/uL (4.0-11.0)
[2020-05-29 07:27] VITALS: BP 140/82
--- NOTE | 2020-05-29 07:32 | PDOC ---
Infectious Disease Note Subjective Subjective Feeling ok Had fever No BM or flatus Less pain No C/S/N/v/D/SOA/rash + hungry Vital Sign Vital Signs Vital Signs Date Time Temp Pulse Resp B/P (MAP) Pulse Ox O2 Delivery O2 Flow Rate FiO2 05/29/20 03:00 98.1 85 18 139/76 (97) 95 Room Air 98.1 Physical Exam PHYSICAL EXAM CONSTITUTIONAL: She is lying in bed. She is cooperative. She is in no acute distress. She looks comfortable currently. looks well HEENT: Pupils equal and reactive. She had normal conjunctivae. Oral cavity, pharynx was clear. NECK: Supple. Good range of motion. LUNGS: Clear to auscultation bilaterally. HEART: S1, S2. ABDOMEN: More Distended, soft. + BS. There is some tenderness still in low quad EXTREMITIES: Without clubbing, cyanosis or gross edema. SKIN: Warm to touch without signs of rash. NEUROLOGIC: She is nonfocal. PSYCHIATRIC: Affect is pleasant. Labs Lab Laboratory Tests Test 05/29/20 06:05 White Blood Count 8.1 x10^3/uL (4.0-11.0) Red Blood Count 3.71 x10^6/uL (3.50-5.40) Hemoglobin 11.0 g/dL (12.0-15.5) Hematocrit 33.0 % (36.0-47.0) Mean Corpuscular Volume 89 fL (79-100) Mean Corpuscular Hemoglobin 30 pg (25-35) Mean Corpuscular Hemoglobin Concent 33 g/dL (31-37) Red Cell Distribution Width 16.6 % (11.5-14.5) Platelet Count 197 x10^3/uL (140-400) Sodium Level 137 mmol/L (136-145) Potassium Level 3.8 mmol/L (3.5-5.1) Chloride Level 104 mmol/L (98-107) Carbon Dioxide Level 24 mmol/L (21-32) Anion Gap 9 (6-14) Blood Urea Nitrogen 11 mg/dL (7-20) Creatinine 0.8 mg/dL (0.6-1.0) Estimated GFR (Cockcroft-Gault) 72.9 Glucose Level 121 mg/dL (70-99) Calcium Level 8.0 mg/dL (8.5-10.1) Phosphorus Level 2.8 mg/dL (2.6-4.7) Magnesium Level 2.1 mg/dL (1.8-2.4) Objective Assessment ? Developing Ileus Fever ? sec to above WBC better Diverticulitis Leukocytosis - better Intra-abd abcess IR did not drain Immunosuppression - on steroids T 11 compression fracture RA Plan Plan of Care Cont Zosyn/Fluconazole given abx use and steroids F/u labs and cults PICC today Compression fracture per primary D/w D/w nursing CASI PICHARDO MD May 29, 2020 07:32
[2020-05-29] MEDS: PANTOPRAZOLE 40 MG TABLET.DR. PO SCH (07:33)
[2020-05-29] MEDS: MORPHINE SULFATE 4 MG/ML VIAL. IV PRN ×4 (07:33→20:37)
[2020-05-29] MEDS: sulfaSALAzine 500 MG TABLET PO SCH ×2 (08:31→20:35)
[2020-05-29] MEDS: POTASSIUM CL 20MEQ D5-0.45NACL 1,000 ML IV SCH ×2 (09:30→19:30)
--- NOTE | 2020-05-29 09:31 | PN ---
DATE: 05/29/2020 SUBJECTIVE: The patient is resting, slightly propped up in bed, in no apparent respiratory distress. She apparently had low-grade fever yesterday up to 100.6. She said she continued to have pain and feels bloated and has not had any bowel movement or passed any gas this morning, although she was allowed to be on clear liquid diet. PHYSICAL EXAMINATION: GENERAL: When I examined her, she looked pale. No jaundice, cyanosis or thyromegaly. No jugular venous distention. No lower limb edema. VITAL SIGNS: Her heart rate was 84, blood pressure was 140/82, temperature was 99.4, respiratory rate was 18 and oxygen saturation was 95%. HEENT: Normocephalic, atraumatic. NECK: Supple. HEART: Showed normal first and second heart sounds. No gallop, rub or murmur. CHEST: Clear to auscultation. No crepitation or rhonchi. ABDOMEN: Distended, soft. Bowel sounds present. Continued to have mild tenderness in both lower quadrants. NEUROLOGIC: She was awake, alert, responding appropriately. Her intake and output were incompletely recorded. LABORATORY WORK: This morning showed a white cell count is down to 8100, hemoglobin 11, hematocrit 33, MCV 89 and platelet count of 197,000. Her chemistry showed a serum sodium 137, potassium 3.8, chloride 104, bicarbonate 24, anion gap of 9, BUN 11, creatinine is 0.8, estimated GFR was 73 mL per minute. Her glucose was 121, calcium was 8, phosphorus 2.8, magnesium 2.1. ASSESSMENT: 1. Acute diverticulitis. 2. Intraabdominal abscess, not drainable according to interventional radiologist. 3. Immunosuppression and she was on large doses of steroids. 4. T11 compression fracture. 5. Rheumatoid arthritis. 6. Chronic obstructive pulmonary disease. PLAN: To continue with IV antibiotic in the form of Zosyn as well as fluconazole. Continue with TPN. Continue with pain management. The patient continued to be bloated, has had no bowel movement and she did not pass any flatus concerning for developing paralytic ileus. ANIBAL HUSSEIN MD DR: JEFFREY/rodo JOB#: [id number] / [id number]
[2020-05-29] MEDS: FLUCONAZOLE 400MG/200ML PREMIX 200 ML IV SCH (10:03)
[2020-05-29] MEDS: TPN PER PHARMACY MC PRN (11:14)
[2020-05-29 11:24] VITALS: BP 136/76
--- NOTE | 2020-05-29 13:45 | NUR ---
Pharmacy TPN Dosing Note S: JANICE RAMIREZ is a 59 year old F Currently receiving Central Continuous TPN started 05/27/20 B:Pertinent PMH: Diverticulitis with Abscess, NPO Height: 5 feet, 6 inches Weight: 79.113423 kg Current diet: NPO LABS: Sodium: 137 Potassium: 3.8 Chloride: 104 Calcium: 8.0 Corrected Calcium: 9.20 Magnesium: 2.1 CO2: 24 SCr: 0.9 Glucose: 121 Albumin: 2.5 AST: 10 ALT: 14 TPN FORMULA: TPN TYPE: Central Continuous AMINO ACIDS: 80 gm DEXTROSE: 250 gm LIPIDS: 30 gm SODIUM CHLORIDE: 110 mEq SODIUM ACETATE: - mEq SODIUM PHOSPHATE: - mmol POTASSIUM CHLORIDE: 50 mEq POTASSIUM ACETATE: - mEq POTASSIUM PHOSPHATE: 13.6 mmol MAGNESIUM: 10 mEq CALCIUM: 10 mEq INSULIN: - units MULTIPLE VITAMIN: 10 ml TRACE ELEMENTS: 1 ml ml(s) TPN PLAN: increase nacl to 110 meq R: Continue TPN at 63ml/hr Will monitor electrolytes, glucose, and tolerance to TPN. [facility], 05/29/20 7005
--- NOTE | 2020-05-29 15:26 | PDOC ---
SURGICAL PROGRESS NOTE Subjective Pt feels somewhat better, randa clears Vital Signs Vital Signs Date Time Temp Pulse Resp B/P (MAP) Pulse Ox O2 Delivery O2 Flow Rate FiO2 05/29/20 11:35 Room Air 05/29/20 11:24 99.9 75 18 136/76 (96) 95 99.9 I&O Intake and Output 05/29/20 07:00 Intake Total 2301 ml Balance 2301 ml Intake Oral 720 ml IV Total 756 ml Other 825 ml # Voids 5 General: Alert, Oriented X3, Cooperative, No acute distress Abdomen: Soft, No tenderness Labs Laboratory Tests Test 05/28/20 04:38 05/29/20 06:05 Sodium Level 138 mmol/L (136-145) 137 mmol/L (136-145) Potassium Level 3.8 mmol/L (3.5-5.1) 3.8 mmol/L (3.5-5.1) Chloride Level 105 mmol/L (98-107) 104 mmol/L (98-107) Carbon Dioxide Level 26 mmol/L (21-32) 24 mmol/L (21-32) Anion Gap 7 (6-14) 9 (6-14) Blood Urea Nitrogen 8 mg/dL (7-20) 11 mg/dL (7-20) Creatinine 0.9 mg/dL (0.6-1.0) 0.8 mg/dL (0.6-1.0) Estimated GFR (Cockcroft-Gault) 63.7 72.9 BUN/Creatinine Ratio 9 (6-20) Glucose Level 88 mg/dL (70-99) 121 mg/dL (70-99) Calcium Level 8.2 mg/dL (8.5-10.1) 8.0 mg/dL (8.5-10.1) Phosphorus Level 3.0 mg/dL (2.6-4.7) 2.8 mg/dL (2.6-4.7) Magnesium Level 2.1 mg/dL (1.8-2.4) 2.1 mg/dL (1.8-2.4) Total Bilirubin 0.5 mg/dL (0.2-1.0) Aspartate Amino Transf (AST/SGOT) 11 U/L (15-37) Alanine Aminotransferase (ALT/SGPT) 11 U/L (14-59) Alkaline Phosphatase 105 U/L (46-116) Total Protein 5.5 g/dL (6.4-8.2) Albumin 2.5 g/dL (3.4-5.0) Albumin/Globulin Ratio 0.8 (1.0-1.7) Triglycerides Level 89 mg/dL (0-150) White Blood Count 8.1 x10^3/uL (4.0-11.0) Red Blood Count 3.71 x10^6/uL (3.50-5.40) Hemoglobin 11.0 g/dL (12.0-15.5) Hematocrit 33.0 % (36.0-47.0) Mean Corpuscular Volume 89 fL (79-100) Mean Corpuscular Hemoglobin 30 pg (25-35) Mean Corpuscular Hemoglobin Concent 33 g/dL (31-37) Red Cell Distribution Width 16.6 % (11.5-14.5) Platelet Count 197 x10^3/uL (140-400) Laboratory Tests Test 05/29/20 06:05 White Blood Count 8.1 x10^3/uL (4.0-11.0) Red Blood Count 3.71 x10^6/uL (3.50-5.40) Hemoglobin 11.0 g/dL (12.0-15.5) Hematocrit 33.0 % (36.0-47.0) Mean Corpuscular Volume 89 fL (79-100) Mean Corpuscular Hemoglobin 30 pg (25-35) Mean Corpuscular Hemoglobin Concent 33 g/dL (31-37) Red Cell Distribution Width 16.6 % (11.5-14.5) Platelet Count 197 x10^3/uL (140-400) Sodium Level 137 mmol/L (136-145) Potassium Level 3.8 mmol/L (3.5-5.1) Chloride Level 104 mmol/L (98-107) Carbon Dioxide Level 24 mmol/L (21-32) Anion Gap 9 (6-14) Blood Urea Nitrogen 11 mg/dL (7-20) Creatinine 0.8 mg/dL (0.6-1.0) Estimated GFR (Cockcroft-Gault) 72.9 Glucose Level 121 mg/dL (70-99) Calcium Level 8.0 mg/dL (8.5-10.1) Phosphorus Level 2.8 mg/dL (2.6-4.7) Magnesium Level 2.1 mg/dL (1.8-2.4) Problem List diverticulitis will try advancing diet cont supportive care and abx. Justicifation of Admission Dx: Justifications for Admission: Justification of Admission Dx: Yes BRANDON ELLIOTT MD May 29, 2020 15:26
[2020-05-29 15:31] VITALS: BP 150/72
[2020-05-29 19:00] VITALS: BP 132/72
[2020-05-29] MEDS ORDERED: AMINO ACID IV SCH (22:00)
[2020-05-29] MEDS ORDERED: DEXTROSE 70% IV SCH (22:00)
[2020-05-29] MEDS ORDERED: TOTAL PARENTERAL NUTRITION IV SCH (22:00)
[2020-05-29] MEDS ORDERED: [UNRECOGNIZED DRUG - OTHER] IV SCH (22:00)
[2020-05-29 23:00] VITALS: BP 127/74
[2020-05-30] MEDS: PIPERACILLIN/TAZOBACTAM 3.375 GM in IV NORMAL SALINE 50ML 50 ML IV SCH ×4 (00:07→17:42)
[2020-05-30] MEDS: MORPHINE SULFATE 4 MG/ML VIAL. IV PRN ×5 (00:40→19:44)
[2020-05-30 03:00] VITALS: BP 122/69
[2020-05-30] MEDS: POTASSIUM CL 20MEQ D5-0.45NACL 1,000 ML IV SCH ×2 (05:30→11:18)
[2020-05-30 06:29] LABS: ALBUMIN 2.6 g/dL (3.4-5.0); ALBUMIN/GLOBULIN RATIO 0.7 (1.0-1.7); CALCIUM 8.5 mg/dL (8.5-10.1); CREATININE 0.9 mg/dL (0.6-1.0); GFR 63.7; MAGNESIUM 2.2 mg/dL (1.8-2.4); PHOSPHORUS 3.1 mg/dL (2.6-4.7); POTASSIUM 4.3 mmol/L (3.5-5.1); TOTAL BILIRUBIN 0.6 mg/dL (0.2-1.0); TOTAL PROTEIN 6.3 g/dL (6.4-8.2)
[2020-05-30 07:29] VITALS: BP 124/72
[2020-05-30] MEDS: sulfaSALAzine 500 MG TABLET PO SCH ×2 (07:30→19:45)
[2020-05-30] MEDS: PANTOPRAZOLE 40 MG TABLET.DR. PO SCH (07:30)
--- NOTE | 2020-05-30 08:41 | PDOC ---
Infectious Disease Note Subjective Subjective feeling ok, pain is somewhat better ROS ROS no n/v/d/sob Vital Sign Vital Signs Vital Signs Date Time Temp Pulse Resp B/P (MAP) Pulse Ox O2 Delivery O2 Flow Rate FiO2 05/30/20 07:29 98.2 75 16 124/72 (89) 93 Room Air 98.2 Physical Exam PHYSICAL EXAM CONSTITUTIONAL: She is lying in bed. She is cooperative. She is in no acute distress. She looks comfortable currently. looks well HEENT: Pupils equal and reactive. She had normal conjunctivae. Oral cavity, pharynx was clear. NECK: Supple. Good range of motion. LUNGS: Clear to auscultation bilaterally. HEART: S1, S2. ABDOMEN: More Distended, soft. + BS. There is some tenderness still in low quad EXTREMITIES: Without clubbing, cyanosis or gross edema. SKIN: Warm to touch without signs of rash. NEUROLOGIC: She is nonfocal. PSYCHIATRIC: Affect is pleasant. Labs Lab Laboratory Tests Test 05/30/20 06:00 Sodium Level 136 mmol/L (136-145) Potassium Level 4.3 mmol/L (3.5-5.1) Chloride Level 103 mmol/L (98-107) Carbon Dioxide Level 24 mmol/L (21-32) Anion Gap 9 (6-14) Blood Urea Nitrogen 12 mg/dL (7-20) Creatinine 0.9 mg/dL (0.6-1.0) Estimated GFR (Cockcroft-Gault) 63.7 BUN/Creatinine Ratio 13 (6-20) Glucose Level 97 mg/dL (70-99) Calcium Level 8.5 mg/dL (8.5-10.1) Phosphorus Level 3.1 mg/dL (2.6-4.7) Magnesium Level 2.2 mg/dL (1.8-2.4) Total Bilirubin 0.6 mg/dL (0.2-1.0) Aspartate Amino Transf (AST/SGOT) 25 U/L (15-37) Alanine Aminotransferase (ALT/SGPT) 35 U/L (14-59) Alkaline Phosphatase 306 U/L (46-116) Total Protein 6.3 g/dL (6.4-8.2) Albumin 2.6 g/dL (3.4-5.0) Albumin/Globulin Ratio 0.7 (1.0-1.7) Objective Assessment Fever improving Diverticulitis with abscess Leukocytosis - better Intra-abd abcess IR did not drain Immunosuppression - on steroids T 11 compression fracture RA Plan Plan of Care Cont Zosyn/Fluconazole given abx use and steroids F/u labs and cults PICC today Compression fracture per primary D/w D/w nursing YADI DE JESUS MD May 30, 2020 08:41
--- NOTE | 2020-05-30 09:16 | PDOC ---
ANGÉLICA HENRY VISUAL INSPECTOR 05/30/20 0916: SURGICAL PROGRESS NOTE Subjective tolerating diet still with moderate pain Vital Signs Vital Signs Date Time Temp Pulse Resp B/P (MAP) Pulse Ox O2 Delivery O2 Flow Rate FiO2 05/30/20 07:29 98.2 75 16 124/72 (89) 93 Room Air 98.2 I&O Intake and Output 05/30/20 07:00 Intake Total 2700 ml Balance 2700 ml Intake Oral 1180 ml IV Total 760 ml Other 760 ml # Voids 2 General: Alert, Oriented X3, Cooperative Abdomen: Soft, Other (TTP lower abd) Labs Laboratory Tests Test 05/29/20 06:05 05/30/20 06:00 White Blood Count 8.1 x10^3/uL (4.0-11.0) Red Blood Count 3.71 x10^6/uL (3.50-5.40) Hemoglobin 11.0 g/dL (12.0-15.5) Hematocrit 33.0 % (36.0-47.0) Mean Corpuscular Volume 89 fL (79-100) Mean Corpuscular Hemoglobin 30 pg (25-35) Mean Corpuscular Hemoglobin Concent 33 g/dL (31-37) Red Cell Distribution Width 16.6 % (11.5-14.5) Platelet Count 197 x10^3/uL (140-400) Sodium Level 137 mmol/L (136-145) 136 mmol/L (136-145) Potassium Level 3.8 mmol/L (3.5-5.1) 4.3 mmol/L (3.5-5.1) Chloride Level 104 mmol/L (98-107) 103 mmol/L (98-107) Carbon Dioxide Level 24 mmol/L (21-32) 24 mmol/L (21-32) Anion Gap 9 (6-14) 9 (6-14) Blood Urea Nitrogen 11 mg/dL (7-20) 12 mg/dL (7-20) Creatinine 0.8 mg/dL (0.6-1.0) 0.9 mg/dL (0.6-1.0) Estimated GFR (Cockcroft-Gault) 72.9 63.7 Glucose Level 121 mg/dL (70-99) 97 mg/dL (70-99) Calcium Level 8.0 mg/dL (8.5-10.1) 8.5 mg/dL (8.5-10.1) Phosphorus Level 2.8 mg/dL (2.6-4.7) 3.1 mg/dL (2.6-4.7) Magnesium Level 2.1 mg/dL (1.8-2.4) 2.2 mg/dL (1.8-2.4) BUN/Creatinine Ratio 13 (6-20) Total Bilirubin 0.6 mg/dL (0.2-1.0) Aspartate Amino Transf (AST/SGOT) 25 U/L (15-37) Alanine Aminotransferase (ALT/SGPT) 35 U/L (14-59) Alkaline Phosphatase 306 U/L (46-116) Total Protein 6.3 g/dL (6.4-8.2) Albumin 2.6 g/dL (3.4-5.0) Albumin/Globulin Ratio 0.7 (1.0-1.7) Laboratory Tests Test 05/30/20 06:00 Sodium Level 136 mmol/L (136-145) Potassium Level 4.3 mmol/L (3.5-5.1) Chloride Level 103 mmol/L (98-107) Carbon Dioxide Level 24 mmol/L (21-32) Anion Gap 9 (6-14) Blood Urea Nitrogen 12 mg/dL (7-20) Creatinine 0.9 mg/dL (0.6-1.0) Estimated GFR (Cockcroft-Gault) 63.7 BUN/Creatinine Ratio 13 (6-20) Glucose Level 97 mg/dL (70-99) Calcium Level 8.5 mg/dL (8.5-10.1) Phosphorus Level 3.1 mg/dL (2.6-4.7) Magnesium Level 2.2 mg/dL (1.8-2.4) Total Bilirubin 0.6 mg/dL (0.2-1.0) Aspartate Amino Transf (AST/SGOT) 25 U/L (15-37) Alanine Aminotransferase (ALT/SGPT) 35 U/L (14-59) Alkaline Phosphatase 306 U/L (46-116) Total Protein 6.3 g/dL (6.4-8.2) Albumin 2.6 g/dL (3.4-5.0) Albumin/Globulin Ratio 0.7 (1.0-1.7) Problem List will repeat CT today Justicifation of Admission Dx: Justifications for Admission: Justification of Admission Dx: Yes HERNANDEZ GARZA MD 05/30/20 1106: SURGICAL PROGRESS NOTE Assessment/Plan Reviewed, recommend repeat CT scan to reassess response to therapy ANGÉLICA HENRY APRN May 30, 2020 09:16 HERNANDEZ GARZA MD May 30, 2020 11:06
[2020-05-30] MEDS ORDERED: IOHEXOL 240 MG/ML 50ML VIAL. PO ONE (09:30)
[2020-05-30] MEDS ORDERED: IOHEXOL 300 MG/ML 100ML VIAL. IV ONE (09:30)
[2020-05-30] MEDS ORDERED: CONTRAST GIVEN. MC PRN (09:45)
--- NOTE | 2020-05-30 09:50 | PDOC ---
Subjective: Subjective: Feels the same. Pain across lower abdomen. Constant, bloating. Morphine helps for three hours. Belching. Started full liquid diet last night. Says was prepping for colonoscopy to check for diverticulitis or Crohn's. Colonoscopy long ago reportedly normal. Had repeated prednisone tapers for months, also antibiotics. Objective: Objective: On TPN, PO PPI BID, sulfasalazine. Tmax 99.9. Vital Signs: Vital Signs Date Time Temp Pulse Resp B/P (MAP) Pulse Ox O2 Delivery O2 Flow Rate FiO2 05/30/20 07:29 98.2 75 16 124/72 (89) 93 Room Air 98.2 Labs: Laboratory Tests Test 05/30/20 06:00 Sodium Level 136 mmol/L Potassium Level 4.3 mmol/L Chloride Level 103 mmol/L Carbon Dioxide Level 24 mmol/L Anion Gap 9 Blood Urea Nitrogen 12 mg/dL Creatinine 0.9 mg/dL Estimated GFR (Cockcroft-Gault) 63.7 BUN/Creatinine Ratio 13 Glucose Level 97 mg/dL Calcium Level 8.5 mg/dL Phosphorus Level 3.1 mg/dL Magnesium Level 2.2 mg/dL Total Bilirubin 0.6 mg/dL Aspartate Amino Transf (AST/SGOT) 25 U/L Alanine Aminotransferase (ALT/SGPT) 35 U/L Alkaline Phosphatase 306 U/L Total Protein 6.3 g/dL Albumin 2.6 g/dL Albumin/Globulin Ratio 0.7 PE: GEN: NAD, supportive present LUNGS: CTAB HEART: RRR ABD: hyperactive BS, distended, uncomfortable BLQ NEURO/PSYCH: A & O 3 A/P: Diverticulitis/abscess - surgery and ID following, no drain per IR H/o RA Normocytic anemia, elevated Alk Phos -- Since I have seen, interval CT ordered - await this. Justicifation of Admission Dx: Justifications for Admission: Justification of Admission Dx: Yes RONY CARDOZA May 30, 2020 09:50
--- NOTE | 2020-05-30 10:31 | PN ---
DATE: 05/30/2020 SUBJECTIVE: The patient is resting, slightly propped up in bed, in no apparent distress. She denied any complaint. Denied any nausea or vomiting. She is now on a clear liquid diet. She continues on TPN and antibiotic and pain management. PHYSICAL EXAMINATION: GENERAL: When I examined her, she looked pale, but no jaundice, cyanosis or thyromegaly. No jugular venous distention. No limb edema. VITAL SIGNS: Her heart rate was 75, blood pressure 124/72, temperature 98.2, respiratory rate was 16, and oxygen saturation was 93%. HEAD, EYES, EARS, NOSE, AND THROAT: Showed normocephalic, atraumatic. NECK: Supple. HEART: Showed normal first and second heart sounds. No gallop or murmur. CHEST: Clear to auscultation. No crepitation or rhonchi. ABDOMEN: Distended, soft, nontender. NEUROLOGIC: She was awake, alert, responding appropriately. All cranial nerves intact. She moves extremities without difficulty. She ambulates without assistance or assistive devices. Her intake was 2300, no output was recorded. LABORATORY DATA: As of this morning, her serum sodium was 136, potassium 4.3, chloride 103, bicarbonate 24, anion gap of 9, BUN 12, creatinine 0.9, estimated GFR was 64 mL per minute. Her glucose was 97, calcium was 8.5, phosphorus 3.1, magnesium was 2.2. Total bilirubin, AST, ALT normal. Alkaline phosphatase slightly elevated. Total protein was 6.3, albumin was 2.6. ASSESSMENT: 1. Acute diverticulitis. 2. Intra-abdominal abscess, not drainable according to interventional radiologist. 3. Immunosuppression. She was on large doses of steroids. 4. T11 compression fracture. 5. Rheumatoid arthritis. 6. Chronic obstructive pulmonary disease. PLAN: Continue with IV antibiotic in the form of Zosyn as well as fluconazole. Continue with TPN. Continue with pain management. We will advance diet as tolerated and she is on a regular diet, we can discontinue TPN, can be discharged home on IV antibiotic. ANIBAL HUSSEIN MD DR: JEFFREY/rodo JOB#: [id number] / [id number]
[2020-05-30] MEDS: FLUCONAZOLE 400MG/200ML PREMIX 200 ML IV SCH (11:02)
[2020-05-30 11:11] VITALS: BP 134/79
--- NOTE | 2020-05-30 12:15 | NUR ---
SW following. Discussed with RN, TPN stopped today, still on IV zosyn, full liquid diet. CT scan being repeated today. SW will continue to follow.
--- NOTE | 2020-05-30 14:13 | RAD ---
CT abdomen pelvis with contrast dated 05/30/2020. No comparison available. CLINICAL INDICATION: Pain. History of diverticulitis. TECHNIQUE: Continues axial imaging the abdomen pelvis performed after the administration of 75 cc Isovue-370. One or more of the following individualized dose reduction techniques were utilized for this examination: 1. Automated exposure control 2. Adjustment of the mA and/or kV according to patient size 3. Use of iterative reconstruction technique FINDINGS: Limited images of lung bases show linear bands of increased density in the lower lobes, right middle lobe and lingula, likely scar or atelectasis. There is mild bronchial wall thickening. Heart size is upper limits of normal. No pleural or pericardial effusion. Liver is homogeneous. No apparent mass. No biliary ductal dilatation. The gallbladder is unremarkable. Spleen is normal in size. Pancreas, adrenal glands unremarkable. There is mild left-sided hydronephrosis and proximal hydroureter to the level of the pelvic brim. No apparent calcific stone. The right kidney is unremarkable. Focal area of wall thickening involving the sigmoid colon with adjacent pocket of fluid and gas along the anterior wall that measures up to 6.8 cm. There is also a small pocket of fluid along the posterior wall that measures about 3.2 cm that May communicate with the anterior pocket inferiorly. There are scattered diverticula within the colon. No harshil pneumoperitoneum. The appendix is normal in caliber. No small bowel dilation. The proximal colon is mildly dilated and filled with fluid and gas. Images of pelvis are otherwise unremarkable. Urinary bladder is collapsed and not well evaluated. The uterus is unremarkable. There is a trace amount of free fluid. No pelvic lymphadenopathy. Bone windows show superior endplate compression deformities of T9 and T11, age indeterminate. Multilevel spondylosis. Compared to the prior exam, the degree of inflammation surrounding the sigmoid colon has slightly improved however the pocket of fluid and gas is increased in size measuring 6.8 cm maximum dimension versus 3.1 cm previously. Left sided hydronephrosis is new. IMPRESSION: 1. Findings consistent with acute diverticulitis involving sigmoid colon. There is a prominent pocket of fluid and gas along the inflamed sigmoid suggestive of localized perforation and abscess that has increased in size from prior study.. 2. Mild left-sided hydronephrosis and hydroureter likely related to compressive effects from sigmoid diverticulitis. 3. Trace amount of free pelvic fluid. 4. Linear bibasilar opacities, likely scar or atelectasis. Electronically signed by: Ignacio Cantu MD (05/30/2020 2:11 PM) EVELYN
[2020-05-30] MEDS: TPN PER PHARMACY MC PRN (14:17)
--- NOTE | 2020-05-30 14:18 | NUR ---
Pharmacy TPN Dosing Note S: JANICE RAMIREZ is a 59 year old F Currently receiving Central Continuous TPN started 05/27/20 B:Pertinent PMH: Diverticulitis with Abscess, NPO Height: 5 feet, 6 inches Weight: 79.145495 kg Current diet: NPO LABS: Sodium: 136 Potassium: 4.3 Chloride: 103 Calcium: 8.5 Corrected Calcium: 9.62 Magnesium: 2.2 CO2: 24 SCr: 0.9 Glucose: 97 Albumin: 2.6 AST: 25 ALT: 35 TPN FORMULA: TPN TYPE: Central Continuous AMINO ACIDS: 80 gm DEXTROSE: 250 gm LIPIDS: 30 gm SODIUM CHLORIDE: 110 mEq SODIUM ACETATE: - mEq SODIUM PHOSPHATE: - mmol POTASSIUM CHLORIDE: 50 mEq POTASSIUM ACETATE: - mEq POTASSIUM PHOSPHATE: 13.6 mmol MAGNESIUM: 10 mEq CALCIUM: 10 mEq INSULIN: - units MULTIPLE VITAMIN: 10 ml TRACE ELEMENTS: 1 ml ml(s) TPN PLAN: Spoke w/ RN, TPN to continue Continue same Labs in the am R: Continue TPN as written above. Will monitor electrolytes, glucose, and tolerance to TPN. ERINN MORALES [facility], 05/30/20 [id number]
[2020-05-30 15:30] VITALS: BP 116/73
--- NOTE | 2020-05-30 17:45 | NUR ---
Left message for Dr Hardy on IR phone re percutaneous drainage of abcess after notifying Dr Chaidez of CT results. Will keep pt npo after midnight tonight. Orders placed for IR as well.
[2020-05-30 19:00] VITALS: BP 158/85
[2020-05-30] MEDS ORDERED: TOTAL PARENTERAL NUTRITION IV SCH (22:00)
[2020-05-30] MEDS ORDERED: AMINO ACID IV SCH (22:00)
[2020-05-30] MEDS ORDERED: [UNRECOGNIZED DRUG - OTHER] IV SCH (22:00)
[2020-05-30] MEDS ORDERED: DEXTROSE 70% IV SCH (22:00)
[2020-05-30 23:00] VITALS: BP 136/79
[2020-05-31] VITALS (17 sets, daily range): BP systolic 115–140; BP diastolic 67–85
[2020-05-31] MEDS: MORPHINE SULFATE 4 MG/ML VIAL. IV PRN ×5 (00:08→21:27)
[2020-05-31] MEDS: PIPERACILLIN/TAZOBACTAM 3.375 GM in IV NORMAL SALINE 50ML 50 ML IV SCH ×4 (00:13→17:54)
[2020-05-31] MEDS: PANTOPRAZOLE 40 MG TABLET.DR. PO SCH (07:30)
[2020-05-31] MEDS: sulfaSALAzine 500 MG TABLET PO SCH ×2 (07:50→21:27)
[2020-05-31 09:32] LABS: CALCIUM 8.6 mg/dL (8.5-10.1); CREATININE 0.8 mg/dL (0.6-1.0); GFR 72.9; MAGNESIUM 2.2 mg/dL (1.8-2.4); PHOSPHORUS 3.7 mg/dL (2.6-4.7); POTASSIUM 4.1 mmol/L (3.5-5.1)
--- NOTE | 2020-05-31 09:32 | NUR ---
SW following. Discussed with RN, pt NPO for possibly drain placement today. Pt still on TPN. Possibility of needing IV abx at discharge. SW will continue to follow.
--- NOTE | 2020-05-31 09:39 | PDOC ---
Date of Service: DATE: 05/31/20 TIME: 09:35 Subjective: Subjective: More bloated, still lower abd pain, has been NPO since yesterday. Diarrhea and flatus. Objective: Objective: D/w nurse and reviewed chart - IR to re-eval re: drain. Vital Signs: Vital Signs Date Time Temp Pulse Resp B/P (MAP) Pulse Ox O2 Delivery O2 Flow Rate FiO2 05/31/20 09:08 Room Air 05/31/20 07:16 98.2 75 18 131/77 (95) 95 98.2 Labs: Laboratory Tests Test 05/31/20 09:00 Sodium Level 136 mmol/L Potassium Level 4.1 mmol/L Chloride Level 103 mmol/L Carbon Dioxide Level 24 mmol/L Anion Gap 9 Blood Urea Nitrogen 13 mg/dL Creatinine 0.8 mg/dL Estimated GFR (Cockcroft-Gault) 72.9 Glucose Level 110 mg/dL Calcium Level 8.6 mg/dL Phosphorus Level 3.7 mg/dL Magnesium Level 2.2 mg/dL Imaging: CT A/P 05/30 IMPRESSION: 1. Findings consistent with acute diverticulitis involving sigmoid colon. There is a prominent pocket of fluid and gas along the inflamed sigmoid suggestive of localized perforation and abscess that has increased in size from prior study. 2. Mild left-sided hydronephrosis and hydroureter likely related to compressive effects from sigmoid diverticulitis. 3. Trace amount of free pelvic fluid. 4. Linear bibasilar opacities, likely scar or atelectasis. PE: GEN: NAD - present LUNGS: CTAB HEART: RRR ABD: echoing BS on left, more distended, BLQ discomfort NEURO/PSYCH: A & O 3 A/P: Diverticulitis w/ perf/abscess - interval CT as above -- Plans as above, will follow. Justicifation of Admission Dx: Justifications for Admission: Justification of Admission Dx: Yes RONY CARDOZA May 31, 2020 09:39
--- NOTE | 2020-05-31 09:58 | PDOC ---
Infectious Disease Note Subjective Subjective feeling ok, pain is about the same ROS ROS no n/v/d/sob Vital Sign Vital Signs Vital Signs Date Time Temp Pulse Resp B/P (MAP) Pulse Ox O2 Delivery O2 Flow Rate FiO2 05/31/20 09:08 Room Air 05/31/20 07:16 98.2 75 18 131/77 (95) 95 98.2 Physical Exam PHYSICAL EXAM CONSTITUTIONAL: She is lying in bed. She is cooperative. She is in no acute distress. She looks comfortable currently. looks well HEENT: Pupils equal and reactive. She had normal conjunctivae. Oral cavity, pharynx was clear. NECK: Supple. Good range of motion. LUNGS: Clear to auscultation bilaterally. HEART: S1, S2. ABDOMEN: More Distended, soft. + BS. There is some tenderness still in low quad EXTREMITIES: Without clubbing, cyanosis or gross edema. SKIN: Warm to touch without signs of rash. NEUROLOGIC: She is nonfocal. PSYCHIATRIC: Affect is pleasant. Labs Lab Laboratory Tests Test 05/31/20 09:00 Sodium Level 136 mmol/L (136-145) Potassium Level 4.1 mmol/L (3.5-5.1) Chloride Level 103 mmol/L (98-107) Carbon Dioxide Level 24 mmol/L (21-32) Anion Gap 9 (6-14) Blood Urea Nitrogen 13 mg/dL (7-20) Creatinine 0.8 mg/dL (0.6-1.0) Estimated GFR (Cockcroft-Gault) 72.9 Glucose Level 110 mg/dL (70-99) Calcium Level 8.6 mg/dL (8.5-10.1) Phosphorus Level 3.7 mg/dL (2.6-4.7) Magnesium Level 2.2 mg/dL (1.8-2.4) Micro CT abd IMPRESSION: 1. Findings consistent with acute diverticulitis involving sigmoid colon. There is a prominent pocket of fluid and gas along the inflamed sigmoid suggestive of localized perforation and abscess that has increased in size from prior study.. 2. Mild left-sided hydronephrosis and hydroureter likely related to compressive effects from sigmoid diverticulitis. 3. Trace amount of free pelvic fluid. 4. Linear bibasilar opacities, likely scar or atelectasis. Objective Assessment Fever improving Diverticulitis with abscess Leukocytosis - better Intra-abd abcess IR did not drain Immunosuppression - on steroids T 11 compression fracture RA Plan Plan of Care Cont Zosyn/Fluconazole given abx use and steroids F/u labs and cults PICC today IR to drain abscess D/w D/w nursing YADI DE JESUS MD May 31, 2020 09:58
[2020-05-31] MEDS: FLUCONAZOLE 400MG/200ML PREMIX 200 ML IV SCH (10:09)
[2020-05-31] MEDS: PANTOPRAZOLE IV PUSH 40 MG VIAL. IVP SCH (10:09)
--- NOTE | 2020-05-31 10:44 | PN ---
DATE: SUBJECTIVE: The patient is resting, slightly propped up in bed, in no apparent distress. She states that her abdominal pain has much improved. She has no nausea, no vomiting. She had 2 bowel movements yesterday and 1 movement this morning. She denied any chills, rigors, or fever. She apparently had had a CT scan of the abdomen and pelvis done last night with oral and IV contrast, which showed that the patient has finding consistent with acute diverticulitis involving the sigmoid colon. There is a prominent pocket of fluid and gas along the inflamed sigmoid suggestive of localized perforation and abscess that has increased in size from prior study. She has also mild left-sided hydronephrosis and hydroureter, likely related to compressive effects from sigmoid diverticulitis. She was found to have trace amount of free pelvic fluid and linear bibasilar opacities, likely scarred atelectasis and apparently the interventional radiologist was consulted for drainage of the intraabdominal abscess. She is n.p.o. She continued to be on TPN and IV antibiotics. PHYSICAL EXAMINATION: GENERAL: When I saw her this morning, she looked pale. No jaundice, cyanosis, or thyromegaly. No jugular venous distension. No limb edema. VITAL SIGNS: Her heart rate was 75, blood pressure was 131/77, temperature 98.2, respiratory rate was 18, and oxygen saturation was 95%. The rest of clinical exam is stable. Her intake is 2700, no output was recorded. LABORATORY DATA: Her most recent lab work showed a white cell count of 8100, hemoglobin 11, hematocrit 33, MCV 89 and platelet count of 197,000. Her chemistry showed a serum sodium 136, potassium 4.1, chloride 103, bicarbonate 24, anion gap of 9, BUN 13, creatinine 0.8, estimated GFR was 72 mL per minute. Her glucose was 110, calcium was 8.6, phosphorus 3.7, magnesium was 2.2. ASSESSMENT: Diverticulitis and abscess; immunosuppression, on steroids; T11 compression fracture; rheumatoid arthritis. PLAN: To continue Zosyn and fluconazole. Continue to monitor her lab work. Apparently, the interventional radiologist was consulted to drain the abscess. ANIBAL HUSSEIN MD DR: JEFFREY/rodo JOB#: [id number] / [id number]
[2020-05-31] MEDS: TPN PER PHARMACY MC PRN (10:48)
[2020-05-31] MEDS ORDERED: LIDOCAINE WITH 8.4% SOD BICARB 3 ML DISP.SYRIN. ONE (11:54)
[2020-05-31] MEDS ORDERED: fentaNYL PF VIAL 100 MCG/2 ML VIAL ONE (12:36)
[2020-05-31] MEDS ORDERED: MIDAZOLAM HCL/PF 2 MG/2 ML VIAL. ONE (12:36)
--- NOTE | 2020-05-31 12:36 | PDOC ---
ANGÉLICA HENRY RADIO COMMUNICATION COORDINATOR 05/31/20 1236: SURGICAL PROGRESS NOTE DATE: 05/31/20 TIME: 12:35 Subjective down for perc drain will FU in AM Vital Signs Vital Signs Date Time Temp Pulse Resp B/P (MAP) Pulse Ox O2 Delivery O2 Flow Rate FiO2 05/31/20 10:48 98.5 82 20 128/77 (94) 96 Room Air 98.5 I&O Intake and Output 05/31/20 07:00 Intake Total 3592 ml Balance 3592 ml Intake Oral 1550 ml IV Total 2042 ml # Voids 9 Labs Laboratory Tests Test 05/30/20 06:00 05/31/20 09:00 Sodium Level 136 mmol/L (136-145) 136 mmol/L (136-145) Potassium Level 4.3 mmol/L (3.5-5.1) 4.1 mmol/L (3.5-5.1) Chloride Level 103 mmol/L (98-107) 103 mmol/L (98-107) Carbon Dioxide Level 24 mmol/L (21-32) 24 mmol/L (21-32) Anion Gap 9 (6-14) 9 (6-14) Blood Urea Nitrogen 12 mg/dL (7-20) 13 mg/dL (7-20) Creatinine 0.9 mg/dL (0.6-1.0) 0.8 mg/dL (0.6-1.0) Estimated GFR (Cockcroft-Gault) 63.7 72.9 BUN/Creatinine Ratio 13 (6-20) Glucose Level 97 mg/dL (70-99) 110 mg/dL (70-99) Calcium Level 8.5 mg/dL (8.5-10.1) 8.6 mg/dL (8.5-10.1) Phosphorus Level 3.1 mg/dL (2.6-4.7) 3.7 mg/dL (2.6-4.7) Magnesium Level 2.2 mg/dL (1.8-2.4) 2.2 mg/dL (1.8-2.4) Total Bilirubin 0.6 mg/dL (0.2-1.0) Aspartate Amino Transf (AST/SGOT) 25 U/L (15-37) Alanine Aminotransferase (ALT/SGPT) 35 U/L (14-59) Alkaline Phosphatase 306 U/L (46-116) Total Protein 6.3 g/dL (6.4-8.2) Albumin 2.6 g/dL (3.4-5.0) Albumin/Globulin Ratio 0.7 (1.0-1.7) Laboratory Tests Test 05/31/20 09:00 Sodium Level 136 mmol/L (136-145) Potassium Level 4.1 mmol/L (3.5-5.1) Chloride Level 103 mmol/L (98-107) Carbon Dioxide Level 24 mmol/L (21-32) Anion Gap 9 (6-14) Blood Urea Nitrogen 13 mg/dL (7-20) Creatinine 0.8 mg/dL (0.6-1.0) Estimated GFR (Cockcroft-Gault) 72.9 Glucose Level 110 mg/dL (70-99) Calcium Level 8.6 mg/dL (8.5-10.1) Phosphorus Level 3.7 mg/dL (2.6-4.7) Magnesium Level 2.2 mg/dL (1.8-2.4) Justicifation of Admission Dx: Justifications for Admission: Justification of Admission Dx: Yes HERNANDEZ GARZA MD 05/31/20 1429: SURGICAL PROGRESS NOTE Assessment/Plan Drain placed, will monitor response; continue abx/drainage ANGÉLICA HENRY APRN May 31, 2020 12:36 HERNANDEZ GARZA MD May 31, 2020 14:29
[2020-05-31] MEDS ORDERED: IOHEXOL 240 MG/ML 50ML VIAL. ONE (12:59)
[2020-05-31] MEDS ORDERED: MIDAZOLAM HCL/PF 2 MG/2 ML VIAL. IV ONE (13:00)
[2020-05-31] MEDS ORDERED: fentaNYL PF VIAL 100 MCG/2 ML VIAL IV ONE (13:00)
[2020-05-31] MEDS ORDERED: LIDOCAINE WITH 8.4% SOD BICARB 3 ML DISP.SYRIN. IJ ONE (13:00)
--- NOTE | 2020-05-31 13:08 | PDOC ---
MODERATE SEDATION ASSESSMENT RISKS/ALTERNATIVES Risks/Alternatives Risks and alternatives of this type of sedation and procedure discussed with: RISK/ALTERNATIVES: Patient H & P ON CHART H & P H & P on chart and reviewed for co-morbid conditions and appropriate labs. H&P ON CHART: Yes STATUS PREG STATUS ASSESSED: Yes MEDS/ALLERGIES REVIEWED Meds/Allergies Reviewed Medications and Allergies including time and route of recently administered narcotics and sedatives. MEDS/ALLERGIES REVIEWED: Yes ASA RATING ASA RATING: II AIRWAY ASSESSMENT Airway Assessment Airway patency, oral function limitations, presence of caps, crowns, dentures, partials, and ability to extend neck assessed. AIRWAY ASSESSMENT: Yes MALLAMPATI SCORE MALLAMPATI SCORE: II PRE-SEDATION ASSESSMENT PRE-SEDATION ASSESSMENT: Yes ANALISA NICHOLE MD May 31, 2020 13:08
--- NOTE | 2020-05-31 13:09 | PDOC ---
BRIEF OPERATIVE NOTE Pre-Op Diagnosis Pelvic abscess Post-Op Diagnosis same Procedure Performed CT pelvic drain Surgeon Melanie Anesthesia Type: Conscious Sedation Specimens Obtained 20cc harshil pus and stool Findings Abscess with harshil pus and stool. 12F drain placed. 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
[2020-05-31] MEDS ORDERED: CONTRAST GIVEN. MC PRN (13:15)
[2020-05-31] MEDS ORDERED: IOHEXOL 240 MG/ML 50ML VIAL. IJ ONE (13:15)
--- NOTE | 2020-05-31 13:30 | NUR ---
Pt. back from IR, ABIGAIL drain to Mid Lower abd CDI, creamy, purulent drainage. Pt. rates pain at 0/10, at bedside. Pt's HOB at 30 degrees.
--- NOTE | 2020-05-31 15:21 | RAD ---
Procedure: CT-guided pelvic drain placement Clinical Indication: Adult female with diverticular abscess Sedation: Conscious sedation was administered with a total intraprocedural [id number] time of 24 minutes. The patient was monitored by a qualified independent observer throughout the time of sedation. Please refer to the medical record for exact doses of medications utilized to achieve moderate sedation. Antibiotics: None Sterility: The procedure was performed in its entirety using appropriate elements of sterile technique. Consent: The procedure was explained in its entirety to the patient or the patients designated technical services representative by a member of the treatment team, including a discussion of the risks, benefits and commonly accepted alternatives to the procedure, as well as the expected consequences of no therapy whatsoever. Discussion of the risks included, but was not limited to, those that are most frequent and those that are rare but possibly severe or life-threatening, as well as the possibility of unforeseen complications. Technique and Findings: Following informed consent, the patient was prepped and draped in usual sterile fashion. Preliminary CT scan of the area of interest was performed. 1% lidocaine was used to achieve local anesthesia over the area of interest. A small dermatotomy was made. Under periodic CT surveillance, a 19-gauge needle guide was advanced into the pericolonic fluid collection and harshil pus was aspirated. The needle was exchanged over wire for a 12 [place] pigtail drainage catheter. This was used to aspirate 20 cc of harshil pus. Near the terminal aspiration however, this became somewhat feculent, raising concern for the possibility of a colonic fistula. 10 cc of dilute contrast media was then injected into the catheter and completion CT scan was performed demonstrating relative containment of contrast material within the abscess cavity without definitive fistulization identified. The catheter was then sutured to the skin and placed to bulb suction. Complications: No immediate Impression: 1. CT-guided deep pelvic abscess as described. This produced pus with some admixture of feculent debris, which could indicate presence of an occult fistula, though no such fistula was definitely identified on today's exam. PQRS Compliance Statement: One or more of the following individualized dose reduction techniques were utilized for this examination: 1. Automated exposure control 2. Adjustment of the mA and/or kV according to patient size 3. Use of iterative reconstruction technique
[2020-05-31] MEDS: fentaNYL PF VIAL 100 MCG/2 ML VIAL IVP PRN (18:00)
[2020-05-31] MEDS ORDERED: TOTAL PARENTERAL NUTRITION IV SCH (22:00)
[2020-05-31] MEDS ORDERED: AMINO ACID IV SCH (22:00)
[2020-05-31] MEDS ORDERED: [UNRECOGNIZED DRUG - OTHER] IV SCH (22:00)
[2020-05-31] MEDS ORDERED: DEXTROSE 70% IV SCH (22:00)
[2020-06-01] MEDS: PIPERACILLIN/TAZOBACTAM 3.375 GM in IV NORMAL SALINE 50ML 50 ML IV SCH ×4 (00:31→17:31)
[2020-06-01 03:56] VITALS: BP 116/80
[2020-06-01] MEDS: PANTOPRAZOLE IV PUSH 40 MG VIAL. IVP SCH (05:16)
[2020-06-01 05:29] LABS: HEMATOCRIT 35.3 % (36.0-47.0); HEMOGLOBIN 11.8 g/dL (12.0-15.5); RED BLOOD COUNT 4.01 x10^6/uL (3.50-5.40); RED CELL DISTRIBUTION WIDTH 16.7 % (11.5-14.5); WHITE BLOOD COUNT 6.1 x10^3/uL (4.0-11.0)
[2020-06-01 05:39] LABS: ALBUMIN 2.4 g/dL (3.4-5.0); ALBUMIN/GLOBULIN RATIO 0.6 (1.0-1.7); CALCIUM 8.5 mg/dL (8.5-10.1); CREATININE 0.8 mg/dL (0.6-1.0); GFR 72.9; POTASSIUM 4.2 mmol/L (3.5-5.1); TOTAL BILIRUBIN 0.3 mg/dL (0.2-1.0); TOTAL PROTEIN 6.2 g/dL (6.4-8.2)
[2020-06-01 07:00] VITALS: BP 126/74
[2020-06-01] MEDS: sulfaSALAzine 500 MG TABLET PO SCH ×2 (08:47→21:35)
--- NOTE | 2020-06-01 09:08 | PDOC ---
Infectious Disease Note Subjective Subjective feeling ok, pain is about the same ROS ROS no n/v/d/sob Vital Sign Vital Signs Vital Signs Date Time Temp Pulse Resp B/P (MAP) Pulse Ox O2 Delivery O2 Flow Rate FiO2 06/01/20 07:00 97.5 74 16 126/74 (91) 95 Room Air 97.5 05/31/20 13:14 2.0 Physical Exam PHYSICAL EXAM CONSTITUTIONAL: She is lying in bed. She is cooperative. She is in no acute distress. She looks comfortable currently. looks well HEENT: Pupils equal and reactive. She had normal conjunctivae. Oral cavity, pharynx was clear. NECK: Supple. Good range of motion. LUNGS: Clear to auscultation bilaterally. HEART: S1, S2. ABDOMEN: More Distended, soft. + BS. There is some tenderness still in low quad EXTREMITIES: Without clubbing, cyanosis or gross edema. SKIN: Warm to touch without signs of rash. NEUROLOGIC: She is nonfocal. PSYCHIATRIC: Affect is pleasant. Labs Lab Laboratory Tests Test 06/01/20 05:15 White Blood Count 6.1 x10^3/uL (4.0-11.0) Red Blood Count 4.01 x10^6/uL (3.50-5.40) Hemoglobin 11.8 g/dL (12.0-15.5) Hematocrit 35.3 % (36.0-47.0) Mean Corpuscular Volume 88 fL (79-100) Mean Corpuscular Hemoglobin 29 pg (25-35) Mean Corpuscular Hemoglobin Concent 33 g/dL (31-37) Red Cell Distribution Width 16.7 % (11.5-14.5) Platelet Count 252 x10^3/uL (140-400) Sodium Level 137 mmol/L (136-145) Potassium Level 4.2 mmol/L (3.5-5.1) Chloride Level 104 mmol/L (98-107) Carbon Dioxide Level 24 mmol/L (21-32) Anion Gap 9 (6-14) Blood Urea Nitrogen 13 mg/dL (7-20) Creatinine 0.8 mg/dL (0.6-1.0) Estimated GFR (Cockcroft-Gault) 72.9 BUN/Creatinine Ratio 16 (6-20) Glucose Level 103 mg/dL (70-99) Calcium Level 8.5 mg/dL (8.5-10.1) Iron Level 22 ug/dL (50-170) Total Iron Binding Capacity 135 ug/dL (250-450) Iron Saturation 16 % (15-34) Total Bilirubin 0.3 mg/dL (0.2-1.0) Aspartate Amino Transf (AST/SGOT) 18 U/L (15-37) Alanine Aminotransferase (ALT/SGPT) 28 U/L (14-59) Alkaline Phosphatase 295 U/L (46-116) Total Protein 6.2 g/dL (6.4-8.2) Albumin 2.4 g/dL (3.4-5.0) Albumin/Globulin Ratio 0.6 (1.0-1.7) Micro CT abd IMPRESSION: 1. Findings consistent with acute diverticulitis involving sigmoid colon. There is a prominent pocket of fluid and gas along the inflamed sigmoid suggestive of localized perforation and abscess that has increased in size from prior study.. 2. Mild left-sided hydronephrosis and hydroureter likely related to compressive effects from sigmoid diverticulitis. 3. Trace amount of free pelvic fluid. 4. Linear bibasilar opacities, likely scar or atelectasis. Objective Assessment Fever improving Diverticulitis with abscess s/p drainage Leukocytosis - better Immunosuppression - on steroids T 11 compression fracture RA Plan Plan of Care Cont Zosyn/Fluconazole F/u labs and cults PICC today culture pending D/w D/w nursing YADI DE JESUS MD Jun 01, 2020 09:08
--- NOTE | 2020-06-01 10:13 | NUR ---
SW following. Discussed with RN, pt had drain placed yesterday. SW spoke with Dr. Clifton, not sure of which IV abx will be needed yet. Cultures of fluid drained sent yesterday. SW will continue to follow.
[2020-06-01] MEDS: FLUCONAZOLE 400MG/200ML PREMIX 200 ML IV SCH (10:20)
[2020-06-01 11:00] VITALS: BP 134/90
[2020-06-01] MEDS: TPN PER PHARMACY MC PRN (11:26)
--- NOTE | 2020-06-01 11:35 | NUR ---
Pharmacy TPN Dosing Note S: JANICE RAMIREZ is a 59 year old F Currently receiving Central Continuous TPN started 05/27/20 B:Pertinent PMH: Diverticulitis with Abscess, NPO Height: 5 feet, 6 inches Weight: 79.522616 kg Current diet: NPO LABS: Sodium: 137 Potassium: 4.2 Chloride: 104 Calcium: 8.5 Corrected Calcium: 9.78 Magnesium: 2.2 CO2: 24 SCr: 0.8 Glucose: 103 Albumin: 2.4 AST: 18 ALT: 28 TPN FORMULA: TPN TYPE: Central Continuous AMINO ACIDS: 80 gm DEXTROSE: 250 gm LIPIDS: 30 gm SODIUM CHLORIDE: 110 mEq POTASSIUM CHLORIDE: 50 mEq POTASSIUM PHOSPHATE: 13.6 mmol MAGNESIUM: 10 mEq CALCIUM: 10 mEq MULTIPLE VITAMIN: 10 ml TRACE ELEMENTS: 1 ml ml(s) TPN PLAN: All electrolytes WNL. Continue same TPN. R: Continue TPN Will monitor electrolytes, glucose, and tolerance to TPN. Polo Reyes [facility], 06/01/20 1137
--- NOTE | 2020-06-01 11:42 | PDOC ---
PROGRESS NOTES Date of Service DATE: 06/01/20 TIME: 11:39 Subjective Subjective pt much improved after placement of drain, pain minimal Objective Objective Vital Signs Date Time Temp Pulse Resp B/P (MAP) Pulse Ox O2 Delivery O2 Flow Rate FiO2 06/01/20 07:15 Room Air 06/01/20 07:00 97.5 74 16 126/74 (91) 95 97.5 05/31/20 13:14 2.0 Intake and Output 06/01/20 07:00 Intake Total 200 ml Output Total 120 ml Balance 80 ml Intake Oral 200 ml Drainage Total 90 ml Other 30 ml # Voids 1 Physical Exam Abdomen: Soft (ABIGAIL with green liquid) Heart: Regular rate Extremities: No clubbing, No cyanosis General: Alert, Oriented X3 Lungs: Clear to auscultation Neuro: Normal speech Psych/Mental Status: Mental status NL Assessment Assessment Diverticulitis with perforation Plan Plan of Care Improvement of pain with placement of drain, afebrile, WBC ok; green liquid output in drain, IR note seen, suspect controlled fistula; continue with abx/drainage. Fistula may close over time, but if persists surgery may become necessary in the future Comment Review of Relevant I have reviewed the following items ladarius (where applicable) has been applied. Labs Laboratory Tests Test 05/31/20 09:00 06/01/20 05:15 Sodium Level 136 mmol/L (136-145) 137 mmol/L (136-145) Potassium Level 4.1 mmol/L (3.5-5.1) 4.2 mmol/L (3.5-5.1) Chloride Level 103 mmol/L (98-107) 104 mmol/L (98-107) Carbon Dioxide Level 24 mmol/L (21-32) 24 mmol/L (21-32) Anion Gap 9 (6-14) 9 (6-14) Blood Urea Nitrogen 13 mg/dL (7-20) 13 mg/dL (7-20) Creatinine 0.8 mg/dL (0.6-1.0) 0.8 mg/dL (0.6-1.0) Estimated GFR (Cockcroft-Gault) 72.9 72.9 Glucose Level 110 mg/dL (70-99) 103 mg/dL (70-99) Calcium Level 8.6 mg/dL (8.5-10.1) 8.5 mg/dL (8.5-10.1) Phosphorus Level 3.7 mg/dL (2.6-4.7) Magnesium Level 2.2 mg/dL (1.8-2.4) White Blood Count 6.1 x10^3/uL (4.0-11.0) Red Blood Count 4.01 x10^6/uL (3.50-5.40) Hemoglobin 11.8 g/dL (12.0-15.5) Hematocrit 35.3 % (36.0-47.0) Mean Corpuscular Volume 88 fL (79-100) Mean Corpuscular Hemoglobin 29 pg (25-35) Mean Corpuscular Hemoglobin Concent 33 g/dL (31-37) Red Cell Distribution Width 16.7 % (11.5-14.5) Platelet Count 252 x10^3/uL (140-400) BUN/Creatinine Ratio 16 (6-20) Iron Level 22 ug/dL (50-170) Total Iron Binding Capacity 135 ug/dL (250-450) Iron Saturation 16 % (15-34) Total Bilirubin 0.3 mg/dL (0.2-1.0) Aspartate Amino Transf (AST/SGOT) 18 U/L (15-37) Alanine Aminotransferase (ALT/SGPT) 28 U/L (14-59) Alkaline Phosphatase 295 U/L (46-116) Total Protein 6.2 g/dL (6.4-8.2) Albumin 2.4 g/dL (3.4-5.0) Albumin/Globulin Ratio 0.6 (1.0-1.7) Vitamin B12 Level 714 pg/mL (247-911) Laboratory Tests Test 06/01/20 05:15 White Blood Count 6.1 x10^3/uL (4.0-11.0) Red Blood Count 4.01 x10^6/uL (3.50-5.40) Hemoglobin 11.8 g/dL (12.0-15.5) Hematocrit 35.3 % (36.0-47.0) Mean Corpuscular Volume 88 fL (79-100) Mean Corpuscular Hemoglobin 29 pg (25-35) Mean Corpuscular Hemoglobin Concent 33 g/dL (31-37) Red Cell Distribution Width 16.7 % (11.5-14.5) Platelet Count 252 x10^3/uL (140-400) Sodium Level 137 mmol/L (136-145) Potassium Level 4.2 mmol/L (3.5-5.1) Chloride Level 104 mmol/L (98-107) Carbon Dioxide Level 24 mmol/L (21-32) Anion Gap 9 (6-14) Blood Urea Nitrogen 13 mg/dL (7-20) Creatinine 0.8 mg/dL (0.6-1.0) Estimated GFR (Cockcroft-Gault) 72.9 BUN/Creatinine Ratio 16 (6-20) Glucose Level 103 mg/dL (70-99) Calcium Level 8.5 mg/dL (8.5-10.1) Iron Level 22 ug/dL (50-170) Total Iron Binding Capacity 135 ug/dL (250-450) Iron Saturation 16 % (15-34) Total Bilirubin 0.3 mg/dL (0.2-1.0) Aspartate Amino Transf (AST/SGOT) 18 U/L (15-37) Alanine Aminotransferase (ALT/SGPT) 28 U/L (14-59) Alkaline Phosphatase 295 U/L (46-116) Total Protein 6.2 g/dL (6.4-8.2) Albumin 2.4 g/dL (3.4-5.0) Albumin/Globulin Ratio 0.6 (1.0-1.7) Vitamin B12 Level 714 pg/mL (247-911) Medications Current Medications Fentanyl Citrate (Fentanyl 2ml Vial) 50 mcg PRN Q3HRS PRN IVP MOD-SEVERE PAIN, 1st CHOICE Last administered on 05/31/20at 18:00; Start 05/25/20 at 15:30 Ondansetron HCl (Zofran) 4 mg PRN Q4HRS PRN IVP NAUSEA/VOMITING; Start 05/25/20 at 15:30 Piperacillin Sod/ Tazobactam Sod 3.375 gm/Sodium Chloride 50 ml @ 100 mls/hr Q6HRS IV Last administered on 06/01/20at 05:18; Start 05/25/20 at 18:00 Potassium Chloride/Dextrose/ Sod Cl 1,000 ml @ 100 mls/hr Q10H IV Last administered on 05/27/20at 09:42; Start 05/25/20 at 15:30; Stop 05/30/20 at 11:20; Status DC Acetaminophen (Tylenol) 650 mg PRN Q6HRS PRN PO FEVER > 100.5'F Last administered on 05/25/20at 18:18; Start 05/25/20 at 18:00 Acetaminophen (Tylenol Supp) 650 mg PRN Q6HRS PRN [place] MILD PAIN / TEMP > 100.3'F; Start 05/25/20 at 18:00 Fluconazole/ Sodium Chloride 200 ml @ 100 mls/hr Q24H IV Last administered on 06/01/20at 10:20; Start 05/26/20 at 10:00 Morphine Sulfate (Morphine Sulfate) 4 mg PRN Q4HRS PRN IV MOD-SEVERE PAIN, 2nd CHOICE Last administered on 05/31/20at 21:27; Start 05/26/20 at 11:15 Sulfasalazine (Azulfidine) 1,000 mg BID PO Last administered on 06/01/20at 08:47; Start 05/26/20 at 12:00 Pantoprazole Sodium (Protonix) 40 mg DAILYAC PO Last administered on 05/30/20at 07:30; Start 05/26/20 at 12:00; Stop 05/31/20 at 09:41; Status DC Info (Tpn Per Pharmacy) 1 each PRN DAILY PRN MC SEE COMMENTS; Start 05/26/20 at 16:15; Status Cancel Ketorolac Tromethamine (Toradol 15mg Vial) 15 mg PRN Q6HRS PRN IVP MODERATE PAIN Last administered on 05/27/20at 11:50; Start 05/26/20 at 17:00; Stop 05/27 at 17:00; Status DC Info (Tpn Per Pharmacy) 1 each PRN DAILY PRN MC SEE COMMENTS Last administered on 06/01/20at 11:26; Start 05/27/20 at 09:45 Sodium Chloride 90 meq/Potassium Chloride 50 meq/ Potassium Phosphate 13.6 mmol/Magnesium Sulfate 10 meq/ Calcium Gluconate 10 meq/ Multivitamins 10 ml/Chromium/ Copper/Manganese/ Seleni/Zn 1 ml/ Total Parenteral Nutrition/Amino Acids/Dextrose/ Fat Emulsion Intravenous 1,512 ml @ 63 mls/hr TPN CONT IV Last administered on 05/27/20at 22:03; Start 05/27/20 at 22:00; Stop 05/28/20 at 21:59; Status DC Lidocaine HCl (Buffered Lidocaine 1%) 3 ml STK-MED ONCE .ROUTE ; Start 05/27/20 at 14:37; Stop 05/27/20 at 14:38; Status DC Lidocaine HCl (Buffered Lidocaine 1%) 6 ml 1X ONCE INJ Last administered on 05/27/20at 14:50; Start 05/27/20 at 14:45; Stop 05/27/20 at 14:46; Status DC Sodium Chloride 90 meq/Potassium Chloride 50 meq/ Potassium Phosphate 13.6 mmol/Magnesium Sulfate 10 meq/ Calcium Gluconate 10 meq/ Multivitamins 10 ml/Chromium/ Copper/Manganese/ Seleni/Zn 1 ml/ Total Parenteral Nutrition/Amino Acids/Dextrose/ Fat Emulsion Intravenous 1,512 ml @ 63 mls/hr TPN CONT IV Last administered on 05/28/20at 22:07; Start 05/28/20 at 22:00; Stop 05/29/20 at 21:59; Status DC Sodium Chloride 110 meq/Potassium Chloride 50 meq/ Potassium Phosphate 13.6 mmol/Magnesium Sulfate 10 meq/ Calcium Gluconate 10 meq/ Multivitamins 10 ml/Chromium/ Copper/Manganese/ Seleni/Zn 1 ml/ Total Parenteral Nutrition/Amino Acids/Dextrose/ Fat Emulsion Intravenous 1,512 ml @ 63 mls/hr TPN CONT IV Last administered on 05/29/20at 21:53; Start 05/29/20 at 22:00; Stop 05/30/20 at 21:59; Status DC Iohexol (Omnipaque 240 Mg/ml) 30 ml 1X ONCE PO Last administered on 05/30/20at 09:30; Start 05/30/20 at 09:30; Stop 05/30/20 at 09:31; Status DC Iohexol (Omnipaque 300 Mg/ml) 75 ml 1X ONCE IV Last administered on 05/30/20at 09:30; Start 05/30/20 at 09:30; Stop 05/30/20 at 09:31; Status DC Info (CONTRAST GIVEN -- Rx MONITORING) 1 each PRN DAILY PRN MC SEE COMMENTS; Start 05/30/20 at 09:45; Stop 06/01/20 at 09:44; Status DC Sodium Chloride 110 meq/Potassium Chloride 50 meq/ Potassium Phosphate 13.6 mmol/Magnesium Sulfate 10 meq/ Calcium Gluconate 10 meq/ Multivitamins 10 ml/Chromium/ Copper/Manganese/ Seleni/Zn 1 ml/ Total Parenteral Nutrition/Amino Acids/Dextrose/ Fat Emulsion Intravenous 1,512 ml @ 63 mls/hr TPN CONT IV Last administered on 05/30/20at 22:17; Start 05/30/20 at 22:00; Stop 05/31/20 at 21:59; Status DC Pantoprazole Sodium (PROTONIX VIAL for IV PUSH) 40 mg DAILYAC IVP Last administered on 06/01/20at 05:16; Start 05/31/20 at 10:30 Sodium Chloride 110 meq/Potassium Chloride 50 meq/ Potassium Phosphate 13.6 mmol/Magnesium Sulfate 10 meq/ Calcium Gluconate 10 meq/ Multivitamins 10 ml/Chromium/ Copper/Manganese/ Seleni/Zn 1 ml/ Total Parenteral Nutrition/Amino Acids/Dextrose/ Fat Emulsion Intravenous 1,512 ml @ 63 mls/hr TPN CONT IV Last administered on 05/31/20at 21:30; Start 05/31/20 at 22:00; Stop 06/01/20 at 21:59 Lidocaine HCl (Buffered Lidocaine 1%) 3 ml STK-MED ONCE .ROUTE ; Start 05/31/20 at 11:54; Stop 05/31/20 at 11:55; Status DC Midazolam HCl (Versed) 2 mg STK-MED ONCE .ROUTE ; Start 05/31/20 at 12:36; Stop 05/31/20 at 12:36; Status DC Fentanyl Citrate (Fentanyl 2ml Vial) 100 mcg STK-MED ONCE .ROUTE ; Start 05/31/20 at 12:36; Stop 05/31/20 at 12:37; Status DC Lidocaine HCl (Buffered Lidocaine 1%) 4 ml 1X ONCE IJ Last administered on 05/31/20at 13:08; Start 05/31/20 at 13:00; Stop 05/31/20 at 13:10; Status DC Midazolam HCl (Versed) 1 mg 1X ONCE IV Last administered on 05/31/20at 13:08; Start 05/31/20 at 13:00; Stop 05/31/20 at 13:10; Status DC Fentanyl Citrate (Fentanyl 2ml Vial) 50 mcg 1X ONCE IV Last administered on 05/31/20at 13:08; Start 05/31/20 at 13:00; Stop 05/31/20 at 13:10; Status DC Iohexol (Omnipaque 240 Mg/ml) 50 ml STK-MED ONCE .ROUTE ; Start 05/31/20 at 12:59; Stop 05/31/20 at 13:00; Status DC Iohexol (Omnipaque 240 Mg/ml) 2 ml 1X ONCE IJ Last administered on 05/31/20at 13 :07; Start 05/31/20 at 13:15; Stop 05/31/20 at 13:16; Status DC Info (CONTRAST GIVEN -- Rx MONITORING) 1 each PRN DAILY PRN MC SEE COMMENTS; Start 05/31/20 at 13:15; Stop 06/02/20 at 13:14 Sodium Chloride 110 meq/Potassium Chloride 50 meq/ Potassium Phosphate 13.6 mmol/Magnesium Sulfate 10 meq/ Calcium Gluconate 10 meq/ Multivitamins 10 ml/Chromium/ Copper/Manganese/ Seleni/Zn 1 ml/ Total Parenteral Nutrition/Amino Acids/Dextrose/ Fat Emulsion Intravenous 1,512 ml @ 63 mls/hr TPN CONT IV ; Start 06/01/20 at 22:00; Stop 06/02/20 at 21:59 Active Scripts Active Reported Protonix (Pantoprazole Sodium) 20 Mg Tablet.dr 40 Mg PO DAILY Sulfasalazine 500 Mg Tablet 1,000 Mg PO BID Claritin-D 12 Hour Tablet (Loratadine/Pseudoephedrine) 1 Each Tab.er.12h 1 Tab PO BID Nexium Capsule (Esomeprazole Magnesium) 20 Mg Capsule.dr 20 Mg PO DAILYAC Tramadol Hcl 50 Mg Tablet 50 Mg PO Q6HRS PRN Sulfasalazine 500 Mg Tablet 500 Mg PO QID Vitals/I & O Vital Sign - Last 24 Hours 05/31/20 05/31/20 05/31/20 05/31/20 12:51 12:56 13:01 13:06 Pulse 79 75 79 80 Resp 24 27 26 22 Pulse Ox 100 100 98 98 O2 Delivery Nasal Cannula Nasal Cannula Nasal Cannula Nasal Cannula O2 Flow Rate 2.0 2.0 2.0 2.0 05/31/20 05/31/20 05/31/20 05/31/20 13:08 13:14 13:29 13:38 Temp 98.6 98.6 Pulse 79 76 Resp 26 22 18 B/P (MAP) 139/79 (99) Pulse Ox 98 98 95 O2 Delivery Nasal Cannula Nasal Cannula Room Air Room Air O2 Flow Rate 2.0 2.0 05/31/20 05/31/20 05/31/20 05/31/20 13:45 14:00 14:15 14:45 Temp 97.9 97.9 Pulse 71 Resp 20 B/P (MAP) 136/77 (96) 129/70 (89) 133/67 (89) 128/69 (88) Pulse Ox 97 O2 Delivery Room Air 05/31/20 05/31/20 05/31/20 05/31/20 14:50 15:30 15:56 17:09 Temp 98.1 98.2 98.1 98.2 Pulse 71 88 Resp 18 20 B/P (MAP) 136/71 (92) 140/85 (103) Pulse Ox 96 95 O2 Delivery Room Air Room Air Room Air Room Air 05/31/20 05/31/20 05/31/20 05/31/20 18:00 19:50 20:00 21:27 Temp 98.8 98.8 Pulse 80 Resp 16 20 B/P (MAP) 126/78 (94) Pulse Ox 99 99 O2 Delivery Room Air Room Air Room Air Room Air 05/31/20 05/31/20 06/01/20 06/01/20 21:57 22:49 03:56 07:00 Temp 98.3 98.0 97.5 98.3 98.0 97.5 Pulse 85 75 74 Resp 20 16 16 16 B/P (MAP) 127/67 (87) 116/80 (92) 126/74 (91) Pulse Ox 95 95 94 95 O2 Delivery Room Air Room Air Room Air Room Air 06/01/20 07:15 O2 Delivery Room Air Intake and Output 05/31/20 05/31/20 06/01/20 15:00 23:00 07:00 Intake Total 0 ml 200 ml Output Total 60 ml 60 ml Balance -60 ml 140 ml Justicifation of Admission Dx: Justifications for Admission: Justification of Admission Dx: Yes HERNANDEZ GARZA MD Jun 01, 2020 11:41
--- NOTE | 2020-06-01 11:51 | PDOC ---
Date of Service: DATE: 06/01/20 TIME: 11:47 Subjective: Subjective: Feels much better - less distended, pain 2/10, "off" morphine. First drainage "looked like infection" but this morning has been "green." Looking forward to shower. Objective: Objective: D/w nurse. IR note reviewed - Abscess with harshil pus and stool. 12F drain placed. 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 Fistula may close over time, but if persists surgery may become necessary in the future Vital Signs: Vital Signs Date Time Temp Pulse Resp B/P (MAP) Pulse Ox O2 Delivery O2 Flow Rate FiO2 06/01/20 07:15 Room Air 06/01/20 07:00 97.5 74 16 126/74 (91) 95 97.5 05/31/20 13:14 2.0 Labs: Laboratory Tests Test 06/01/20 05:15 White Blood Count 6.1 x10^3/uL Red Blood Count 4.01 x10^6/uL Hemoglobin 11.8 g/dL Hematocrit 35.3 % Mean Corpuscular Volume 88 fL Mean Corpuscular Hemoglobin 29 pg Mean Corpuscular Hemoglobin Concent 33 g/dL Red Cell Distribution Width 16.7 % Platelet Count 252 x10^3/uL Sodium Level 137 mmol/L Potassium Level 4.2 mmol/L Chloride Level 104 mmol/L Carbon Dioxide Level 24 mmol/L Anion Gap 9 Blood Urea Nitrogen 13 mg/dL Creatinine 0.8 mg/dL Estimated GFR (Cockcroft-Gault) 72.9 BUN/Creatinine Ratio 16 Glucose Level 103 mg/dL Calcium Level 8.5 mg/dL Iron Level 22 ug/dL Total Iron Binding Capacity 135 ug/dL Iron Saturation 16 % Total Bilirubin 0.3 mg/dL Aspartate Amino Transf (AST/SGOT) 18 U/L Alanine Aminotransferase (ALT/SGPT) 28 U/L Alkaline Phosphatase 295 U/L Total Protein 6.2 g/dL Albumin 2.4 g/dL Albumin/Globulin Ratio 0.6 Vitamin B12 Level 714 pg/mL PE: GEN: NAD - appears more comfortable, present LUNGS: CTAB HEART: RRR ABD: much less tender, less distended, drain dark greenish NEURO/PSYCH: A & O 3 A/P: Diverticulitis/abscess s/p drain, suspected fistula - surgery following, on TPN -- Continue same. Justicifation of Admission Dx: Justifications for Admission: Justification of Admission Dx: Yes RONY CARDOZA Jun 01, 2020 11:51
--- NOTE | 2020-06-01 12:13 | PN ---
DATE: 06/01/2020 SUBJECTIVE: The patient is resting, slightly propped up in bed, in no apparent distress. On questioning her, she stated that she has no more pain. She is afebrile and then she has had her abscess drained yesterday successfully. The drainage color has changed today to greenish, perhaps fecal material, but the patient herself denied any pain. She was only allowed to have clear liquid diet as her surgical recommendation. PHYSICAL EXAMINATION: GENERAL: When I saw her this morning, she looked well and was clearly in no apparent respiratory distress, pale. No jaundice, cyanosis, or thyromegaly. No jugular venous distention. No lower limb edema. VITAL SIGNS: Her heart rate was 74, blood pressure was 126/74, temperature 97.5, respiratory rate was 16, and oxygen saturation was 95%. HEAD, EYES, EARS, NOSE, AND THROAT: Showed normocephalic, atraumatic. NECK: Supple. HEART: Normal first and second heart sounds. No gallop or murmur. CHEST: Clear to auscultation. No crepitation or rhonchi. ABDOMEN: Distended, soft, nontender. NEUROLOGIC: She was awake, alert, responding appropriately. All cranial nerves are intact. She moves extremities without difficulty. She ambulates without assistance. Her intake over the last 24 hours was 3590, no output was recorded. LABORATORY DATA: Her lab work this morning showed a white cell count 6100; hemoglobin 12; hematocrit 35; MCV 88; and platelet count 252,000. Her chemistry showed a serum sodium 137, potassium 4.2, chloride 104, bicarbonate 24, anion gap of 9, BUN 13, creatinine 0.8, estimated GFR was 73 mL per minute. Her glucose 103, calcium was 8.5. Serum iron, TIBC, and iron saturation are all consistent with anemia of chronic disease. Her vitamin B12 was normal at 714. Her total bilirubin, AST, ALT were normal. Alkaline phosphatase slightly elevated. Total protein 6.2. Albumin 2.4. ASSESSMENT: 1. Diverticulitis with an abscess, status post drainage. 2. Immunosuppression, on steroids. 3. T11 compression fracture. 4. Rheumatoid arthritis. PLAN: To continue with Zosyn and fluconazole. Continue to monitor her lab work. Await the result of the culture and sensitivity. ANIBAL HUSSEIN MD DR: Hoda JOB#: [id number] / [id number]
--- NOTE | 2020-06-01 12:30 | NUR ---
Nicole ABIGAIL flushed with 10cc NS.
[2020-06-01 15:00] VITALS: BP 144/81
[2020-06-01 19:35] VITALS: BP 129/60
[2020-06-01] MEDS ORDERED: AMINO ACID IV SCH (22:00)
[2020-06-01] MEDS ORDERED: TOTAL PARENTERAL NUTRITION IV SCH (22:00)
[2020-06-01] MEDS ORDERED: DEXTROSE 70% IV SCH (22:00)
[2020-06-01] MEDS ORDERED: [UNRECOGNIZED DRUG - OTHER] IV SCH (22:00)
[2020-06-01 23:58] VITALS: BP 137/82
[2020-06-02] MEDS: PIPERACILLIN/TAZOBACTAM 3.375 GM in IV NORMAL SALINE 50ML 50 ML IV SCH ×4 (00:06→18:01)
[2020-06-02 03:39] VITALS: BP 126/65
[2020-06-02 06:30] LABS: ALBUMIN 2.5 g/dL (3.4-5.0); ALBUMIN/GLOBULIN RATIO 0.6 (1.0-1.7); CALCIUM 8.5 mg/dL (8.5-10.1); CREATININE 0.7 mg/dL (0.6-1.0); GFR 85.1; HEMATOCRIT 36.7 % (36.0-47.0); MAGNESIUM 2.2 mg/dL (1.8-2.4); PHOSPHORUS 3.4 mg/dL (2.6-4.7); POTASSIUM 4.2 mmol/L (3.5-5.1); RED BLOOD COUNT 4.15 x10^6/uL (3.50-5.40); RED CELL DISTRIBUTION WIDTH 17.2 % (11.5-14.5); TOTAL BILIRUBIN 0.3 mg/dL (0.2-1.0); TOTAL PROTEIN 6.4 g/dL (6.4-8.2); WHITE BLOOD COUNT 6.6 x10^3/uL (4.0-11.0)
[2020-06-02 07:00] VITALS: BP 137/77
[2020-06-02] MEDS: PANTOPRAZOLE IV PUSH 40 MG VIAL. IVP SCH (07:21)
[2020-06-02] MEDS: fentaNYL PF VIAL 100 MCG/2 ML VIAL IVP PRN ×3 (07:22→16:03)
--- NOTE | 2020-06-02 08:42 | PDOC ---
Infectious Disease Note Subjective Subjective feeling much better, no abd pain ROS ROS no n/v/d/ Vital Sign Vital Signs Vital Signs Date Time Temp Pulse Resp B/P (MAP) Pulse Ox O2 Delivery O2 Flow Rate FiO2 06/02/20 07:55 16 Room Air 06/02/20 07:22 96 06/02/20 07:00 98.3 65 137/77 (97) 98.3 Physical Exam PHYSICAL EXAM CONSTITUTIONAL: She is lying in bed. She is cooperative. She is in no acute distress. She looks comfortable currently. looks well HEENT: Pupils equal and reactive. She had normal conjunctivae. Oral cavity, pharynx was clear. NECK: Supple. Good range of motion. LUNGS: Clear to auscultation bilaterally. HEART: S1, S2. ABDOMEN: More Distended, soft. + BS. There is some tenderness still in low quad EXTREMITIES: Without clubbing, cyanosis or gross edema. SKIN: Warm to touch without signs of rash. NEUROLOGIC: She is nonfocal. PSYCHIATRIC: Affect is pleasant. Labs Lab Laboratory Tests Test 06/02/20 05:45 White Blood Count 6.6 x10^3/uL (4.0-11.0) Red Blood Count 4.15 x10^6/uL (3.50-5.40) Hemoglobin 12.0 g/dL (12.0-15.5) Hematocrit 36.7 % (36.0-47.0) Mean Corpuscular Volume 89 fL (79-100) Mean Corpuscular Hemoglobin 29 pg (25-35) Mean Corpuscular Hemoglobin Concent 33 g/dL (31-37) Red Cell Distribution Width 17.2 % (11.5-14.5) Platelet Count 256 x10^3/uL (140-400) Sodium Level 139 mmol/L (136-145) Potassium Level 4.2 mmol/L (3.5-5.1) Chloride Level 106 mmol/L (98-107) Carbon Dioxide Level 25 mmol/L (21-32) Anion Gap 8 (6-14) Blood Urea Nitrogen 11 mg/dL (7-20) Creatinine 0.7 mg/dL (0.6-1.0) Estimated GFR (Cockcroft-Gault) 85.1 BUN/Creatinine Ratio 16 (6-20) Glucose Level 102 mg/dL (70-99) Calcium Level 8.5 mg/dL (8.5-10.1) Phosphorus Level 3.4 mg/dL (2.6-4.7) Magnesium Level 2.2 mg/dL (1.8-2.4) Total Bilirubin 0.3 mg/dL (0.2-1.0) Aspartate Amino Transf (AST/SGOT) 14 U/L (15-37) Alanine Aminotransferase (ALT/SGPT) 27 U/L (14-59) Alkaline Phosphatase 286 U/L (46-116) Total Protein 6.4 g/dL (6.4-8.2) Albumin 2.5 g/dL (3.4-5.0) Albumin/Globulin Ratio 0.6 (1.0-1.7) Triglycerides Level 87 mg/dL (0-150) Micro CT abd IMPRESSION: 1. Findings consistent with acute diverticulitis involving sigmoid colon. There is a prominent pocket of fluid and gas along the inflamed sigmoid suggestive of localized perforation and abscess that has increased in size from prior study.. 2. Mild left-sided hydronephrosis and hydroureter likely related to compressive effects from sigmoid diverticulitis. 3. Trace amount of free pelvic fluid. 4. Linear bibasilar opacities, likely scar or atelectasis. Objective Assessment Fever improving Diverticulitis with abscess s/p drainage Leukocytosis - better Immunosuppression - on steroids T 11 compression fracture RA Plan Plan of Care Cont Zosyn/Fluconazole F/u labs and cults PICC today culture pending D/w D/w nursing YADI DE JESUS MD Jun 02, 2020 08:42
[2020-06-02] MEDS: FLUCONAZOLE 400MG/200ML PREMIX 200 ML IV SCH (09:26)
[2020-06-02] MEDS: sulfaSALAzine 500 MG TABLET PO SCH ×2 (09:26→21:24)
--- NOTE | 2020-06-02 09:40 | NUR ---
SW following. Discussed with RN, pt still on TPN, drain placed, IV abx - awaiting cultures and sensitivities. SW will continue to follow.
--- NOTE | 2020-06-02 09:59 | PN ---
DATE: 06/02/2020 SUBJECTIVE: The patient is resting, slightly propped up in bed, in no apparent respiratory distress. She is awake, alert, said that her abdominal pain has became a little bit worse this morning; however, she has denied any nausea or vomiting, has had multiple loose bowel movements. She is eating a little bit more, tolerating her diet without any problem. PHYSICAL EXAMINATION: GENERAL: When I examined her, she was pale, but no jaundice, cyanosis or thyromegaly. No jugular venous distention. No lower limb edema. VITAL SIGNS: Her heart rate was 65, blood pressure was 137/77, temperature was 98.3, respiratory rate was 18 and oxygen saturation was 96% on 2 liters of oxygen. HEAD, EYES, EARS, NOSE, AND THROAT: Showed normocephalic, atraumatic. NECK: Supple. HEART: Normal first and second heart sounds. No gallop, rub or murmur. CHEST: Clear to auscultation. No crepitation or rhonchi. ABDOMEN: Distended, soft, nontender. There is no guarding or rigidity. No organomegaly. All hernial orifices intact. Bowel sounds normal. NEUROLOGIC: She is grossly intact. Her intake over the last 24 hours was incompletely recorded. LABORATORY DATA: As of this morning showed that her white cell count is down to 6600, hemoglobin 12, hematocrit 36, MCV 89, and platelet count 256,000. Her chemistry showed a serum sodium 139, potassium 4.2, chloride 106, bicarbonate 25, anion gap of 8, BUN 11, creatinine 0.7, estimated GFR was 85 mL per minute. Her glucose 102, calcium was 8.5, serum phosphorus 3.4, magnesium was 2.2. Total bilirubin, AST, ALT were normal. Alkaline phosphatase slightly elevated. Total protein 6.4, albumin 2.5. Serum triglycerides were 87. ASSESSMENT: 1. Diverticulitis and abscess, status post drainage. 2. Immunosuppression, on steroids. 3. T11 compression fracture. 4. Rheumatoid arthritis. 5. Protein-calorie malnutrition. PLAN: To continue with TPN, continue with Zosyn and fluconazole. Await the culture and sensitivity. The preliminary aerobic culture showed growth of moderate gram-negative rods identified as Escherichia coli. The sensitivity is still pending at the time of this dictation. ANIBAL HUSSEIN MD DR: Hoda JOB#: [id number] / [id number]
--- NOTE | 2020-06-02 10:48 | PDOC ---
Date of Service: DATE: 06/02/20 TIME: 10:47 Subjective: Subjective: Abdomen feels better. Tolerating full liquids. Today is her anniversary. Objective: Vital Signs: Vital Signs Date Time Temp Pulse Resp B/P (MAP) Pulse Ox O2 Delivery O2 Flow Rate FiO2 06/02/20 10:29 16 Room Air 06/02/20 08:00 2.0 06/02/20 07:22 96 06/02/20 07:00 98.3 65 137/77 (97) 98.3 Labs: Laboratory Tests Test 06/02/20 05:45 White Blood Count 6.6 x10^3/uL Red Blood Count 4.15 x10^6/uL Hemoglobin 12.0 g/dL Hematocrit 36.7 % Mean Corpuscular Volume 89 fL Mean Corpuscular Hemoglobin 29 pg Mean Corpuscular Hemoglobin Concent 33 g/dL Red Cell Distribution Width 17.2 % Platelet Count 256 x10^3/uL Sodium Level 139 mmol/L Potassium Level 4.2 mmol/L Chloride Level 106 mmol/L Carbon Dioxide Level 25 mmol/L Anion Gap 8 Blood Urea Nitrogen 11 mg/dL Creatinine 0.7 mg/dL Estimated GFR (Cockcroft-Gault) 85.1 BUN/Creatinine Ratio 16 Glucose Level 102 mg/dL Calcium Level 8.5 mg/dL Phosphorus Level 3.4 mg/dL Magnesium Level 2.2 mg/dL Total Bilirubin 0.3 mg/dL Aspartate Amino Transf (AST/SGOT) 14 U/L Alanine Aminotransferase (ALT/SGPT) 27 U/L Alkaline Phosphatase 286 U/L Total Protein 6.4 g/dL Albumin 2.5 g/dL Albumin/Globulin Ratio 0.6 Triglycerides Level 87 mg/dL PE: GEN: NAD LUNGS: CTAB HEART: RRR ABD: softer, less distended, non-tender, drain green NEURO/PSYCH: A & O 3 A/P: Diverticulitis/abscess s/p drain, suspected fistula -- Continue per surgery and ID. Justicifation of Admission Dx: Justifications for Admission: Justification of Admission Dx: Yes RONY CARDOZA Jun 02, 2020 10:48
[2020-06-02 11:00] VITALS: BP 140/78
[2020-06-02] MEDS: MORPHINE SULFATE 4 MG/ML VIAL. IV PRN ×2 (12:27→18:58)
[2020-06-02] MEDS: TPN PER PHARMACY MC PRN (13:10)
--- NOTE | 2020-06-02 14:25 | PDOC ---
ANGÉLICA HENRY MANAGER COMMODITIES 06/02/20 1425: SURGICAL PROGRESS NOTE DATE: 06/02/20 TIME: 14:24 Subjective feeling better no n/v Vital Signs Vital Signs Date Time Temp Pulse Resp B/P (MAP) Pulse Ox O2 Delivery O2 Flow Rate FiO2 06/02/20 13:07 16 Room Air 06/02/20 11:00 98.2 62 140/78 (98) 96 98.2 06/02/20 08:00 2.0 I&O Intake and Output 06/02/20 07:00 Intake Total 5094 ml Output Total 40 ml Balance 5054 ml Intake Oral 1670 ml IV Total 3424 ml Drainage Total 40 ml # Voids 5 # Bowel Movements 1 General: Alert, Oriented X3, Cooperative Abdomen: Soft, Other (NTTP, drain with green drainage ) Labs Laboratory Tests Test 06/01/20 05:15 06/02/20 05:45 White Blood Count 6.1 x10^3/uL (4.0-11.0) 6.6 x10^3/uL (4.0-11.0) Red Blood Count 4.01 x10^6/uL (3.50-5.40) 4.15 x10^6/uL (3.50-5.40) Hemoglobin 11.8 g/dL (12.0-15.5) 12.0 g/dL (12.0-15.5) Hematocrit 35.3 % (36.0-47.0) 36.7 % (36.0-47.0) Mean Corpuscular Volume 88 fL (79-100) 89 fL (79-100) Mean Corpuscular Hemoglobin 29 pg (25-35) 29 pg (25-35) Mean Corpuscular Hemoglobin Concent 33 g/dL (31-37) 33 g/dL (31-37) Red Cell Distribution Width 16.7 % (11.5-14.5) 17.2 % (11.5-14.5) Platelet Count 252 x10^3/uL (140-400) 256 x10^3/uL (140-400) Sodium Level 137 mmol/L (136-145) 139 mmol/L (136-145) Potassium Level 4.2 mmol/L (3.5-5.1) 4.2 mmol/L (3.5-5.1) Chloride Level 104 mmol/L (98-107) 106 mmol/L (98-107) Carbon Dioxide Level 24 mmol/L (21-32) 25 mmol/L (21-32) Anion Gap 9 (6-14) 8 (6-14) Blood Urea Nitrogen 13 mg/dL (7-20) 11 mg/dL (7-20) Creatinine 0.8 mg/dL (0.6-1.0) 0.7 mg/dL (0.6-1.0) Estimated GFR (Cockcroft-Gault) 72.9 85.1 BUN/Creatinine Ratio 16 (6-20) 16 (6-20) Glucose Level 103 mg/dL (70-99) 102 mg/dL (70-99) Calcium Level 8.5 mg/dL (8.5-10.1) 8.5 mg/dL (8.5-10.1) Iron Level 22 ug/dL (50-170) Total Iron Binding Capacity 135 ug/dL (250-450) Iron Saturation 16 % (15-34) Total Bilirubin 0.3 mg/dL (0.2-1.0) 0.3 mg/dL (0.2-1.0) Aspartate Amino Transf (AST/SGOT) 18 U/L (15-37) 14 U/L (15-37) Alanine Aminotransferase (ALT/SGPT) 28 U/L (14-59) 27 U/L (14-59) Alkaline Phosphatase 295 U/L (46-116) 286 U/L (46-116) Total Protein 6.2 g/dL (6.4-8.2) 6.4 g/dL (6.4-8.2) Albumin 2.4 g/dL (3.4-5.0) 2.5 g/dL (3.4-5.0) Albumin/Globulin Ratio 0.6 (1.0-1.7) 0.6 (1.0-1.7) Vitamin B12 Level 714 pg/mL (247-911) Phosphorus Level 3.4 mg/dL (2.6-4.7) Magnesium Level 2.2 mg/dL (1.8-2.4) Triglycerides Level 87 mg/dL (0-150) Laboratory Tests Test 06/02/20 05:45 White Blood Count 6.6 x10^3/uL (4.0-11.0) Red Blood Count 4.15 x10^6/uL (3.50-5.40) Hemoglobin 12.0 g/dL (12.0-15.5) Hematocrit 36.7 % (36.0-47.0) Mean Corpuscular Volume 89 fL (79-100) Mean Corpuscular Hemoglobin 29 pg (25-35) Mean Corpuscular Hemoglobin Concent 33 g/dL (31-37) Red Cell Distribution Width 17.2 % (11.5-14.5) Platelet Count 256 x10^3/uL (140-400) Sodium Level 139 mmol/L (136-145) Potassium Level 4.2 mmol/L (3.5-5.1) Chloride Level 106 mmol/L (98-107) Carbon Dioxide Level 25 mmol/L (21-32) Anion Gap 8 (6-14) Blood Urea Nitrogen 11 mg/dL (7-20) Creatinine 0.7 mg/dL (0.6-1.0) Estimated GFR (Cockcroft-Gault) 85.1 BUN/Creatinine Ratio 16 (6-20) Glucose Level 102 mg/dL (70-99) Calcium Level 8.5 mg/dL (8.5-10.1) Phosphorus Level 3.4 mg/dL (2.6-4.7) Magnesium Level 2.2 mg/dL (1.8-2.4) Total Bilirubin 0.3 mg/dL (0.2-1.0) Aspartate Amino Transf (AST/SGOT) 14 U/L (15-37) Alanine Aminotransferase (ALT/SGPT) 27 U/L (14-59) Alkaline Phosphatase 286 U/L (46-116) Total Protein 6.4 g/dL (6.4-8.2) Albumin 2.5 g/dL (3.4-5.0) Albumin/Globulin Ratio 0.6 (1.0-1.7) Triglycerides Level 87 mg/dL (0-150) Problem List continue drain abx Justicifation of Admission Dx: Justifications for Admission: Justification of Admission Dx: Yes HERNANDEZ GARZA MD 06/03/20 1159: SURGICAL PROGRESS NOTE Assessment/Plan Agree with above ANGÉLICA HENRY MANAGER COMMODITIES Jun 02, 2020 14:25 HERNANDEZ GARZA MD Jun 03, 2020 11:59
[2020-06-02 15:00] VITALS: BP 133/70
[2020-06-02 19:00] VITALS: BP 96/70
[2020-06-02] MEDS ORDERED: TOTAL PARENTERAL NUTRITION IV SCH (22:00)
[2020-06-02] MEDS ORDERED: AMINO ACID IV SCH (22:00)
[2020-06-02] MEDS ORDERED: [UNRECOGNIZED DRUG - OTHER] IV SCH (22:00)
[2020-06-02] MEDS ORDERED: DEXTROSE 70% IV SCH (22:00)
[2020-06-02 23:00] VITALS: BP 141/72
[2020-06-03] MEDS: fentaNYL PF VIAL 100 MCG/2 ML VIAL IVP PRN ×2 (01:02→06:21)
[2020-06-03 03:00] VITALS: BP 118/78
[2020-06-03] MEDS: PIPERACILLIN/TAZOBACTAM 3.375 GM in IV NORMAL SALINE 50ML 50 ML IV SCH ×5 (06:20→23:59)
[2020-06-03] MEDS: PANTOPRAZOLE IV PUSH 40 MG VIAL. IVP SCH (06:20)
[2020-06-03 06:41] LABS: HEMATOCRIT 35.5 % (36.0-47.0); HEMOGLOBIN 11.8 g/dL (12.0-15.5); RED BLOOD COUNT 4.04 x10^6/uL (3.50-5.40); RED CELL DISTRIBUTION WIDTH 17.3 % (11.5-14.5); WHITE BLOOD COUNT 7.9 x10^3/uL (4.0-11.0)
[2020-06-03 06:51] LABS: CALCIUM 8.6 mg/dL (8.5-10.1); CREATININE 0.7 mg/dL (0.6-1.0); GFR 85.1; POTASSIUM 4.2 mmol/L (3.5-5.1)
[2020-06-03 07:00] VITALS: BP 113/59
[2020-06-03] MEDS ORDERED: diphenhydrAMINE HCL 25 MG CAPSULE PO PRN (09:15)
--- NOTE | 2020-06-03 09:23 | PDOC ---
Infectious Disease Note Subjective Subjective feeling much better, no abd pain ROS ROS no n/v/d/ Vital Sign Vital Signs Vital Signs Date Time Temp Pulse Resp B/P (MAP) Pulse Ox O2 Delivery O2 Flow Rate FiO2 06/03/20 07:21 16 Room Air 06/03/20 07:00 98.5 75 113/59 (77) 94 98.5 06/02/20 08:00 2.0 Physical Exam PHYSICAL EXAM CONSTITUTIONAL: She is lying in bed. She is cooperative. She is in no acute distress. She looks comfortable currently. looks well HEENT: Pupils equal and reactive. She had normal conjunctivae. Oral cavity, pharynx was clear. NECK: Supple. Good range of motion. LUNGS: Clear to auscultation bilaterally. HEART: S1, S2. ABDOMEN: More Distended, soft. + BS. There is some tenderness still in low quad EXTREMITIES: Without clubbing, cyanosis or gross edema. SKIN: Warm to touch without signs of rash. NEUROLOGIC: She is nonfocal. PSYCHIATRIC: Affect is pleasant. Labs Lab Laboratory Tests Test 06/03/20 06:25 White Blood Count 7.9 x10^3/uL (4.0-11.0) Red Blood Count 4.04 x10^6/uL (3.50-5.40) Hemoglobin 11.8 g/dL (12.0-15.5) Hematocrit 35.5 % (36.0-47.0) Mean Corpuscular Volume 88 fL (79-100) Mean Corpuscular Hemoglobin 29 pg (25-35) Mean Corpuscular Hemoglobin Concent 33 g/dL (31-37) Red Cell Distribution Width 17.3 % (11.5-14.5) Platelet Count 275 x10^3/uL (140-400) Sodium Level 139 mmol/L (136-145) Potassium Level 4.2 mmol/L (3.5-5.1) Chloride Level 105 mmol/L (98-107) Carbon Dioxide Level 25 mmol/L (21-32) Anion Gap 9 (6-14) Blood Urea Nitrogen 14 mg/dL (7-20) Creatinine 0.7 mg/dL (0.6-1.0) Estimated GFR (Cockcroft-Gault) 85.1 Glucose Level 76 mg/dL (70-99) Calcium Level 8.6 mg/dL (8.5-10.1) Micro GRAM STAIN Final Final GRAM NEGATIVE RODS:FEW GRAM POSITIVE COCCI:FEW SQUAMOUS EPI CELL:NOT APPLICABLE PMN (WBCs):MANY ANAEROBIC-AEROBIC CULTURE Preliminary Preliminary MODERATE GRAM NEGATIVE RODS on 06/01/20 at 1048 FINAL ID= [ESCHERICHIA COLI] RARE ANAEROBIC GRAM NEGATIVE RODS on 06/02/20 at 1447 FINAL ID= [BACTEROIDES OVATUS GROUP] ESCHERICHIA COLI LACTOBACILLUS RHAMNOSUS BACTEROIDES OVATUS GROUP Unless otherwise specified, Testing Performed by: [address] [address] For Inquires, the Physician may contact the Microbiology department at [phone] Objective Assessment Fever improving Diverticulitis with abscess s/p drainage Leukocytosis - better Immunosuppression - on steroids T 11 compression fracture RA Plan Plan of Care Cont Zosyn/Fluconazole F/u labs and cults PICC today culture pending D/w D/w nursing repeat ct saturday YADI DE JESUS MD Jun 03, 2020 09:22
--- NOTE | 2020-06-03 10:11 | PDOC ---
Date of Service: DATE: 06/03/20 TIME: 10:09 Subjective: Subjective: Wants to go home, feeling better. Objective: Vital Signs: Vital Signs Date Time Temp Pulse Resp B/P (MAP) Pulse Ox O2 Delivery O2 Flow Rate FiO2 06/03/20 07:21 16 Room Air 06/03/20 07:00 98.5 75 113/59 (77) 94 98.5 06/02/20 08:00 2.0 Labs: Laboratory Tests Test 06/03/20 06:25 White Blood Count 7.9 x10^3/uL Red Blood Count 4.04 x10^6/uL Hemoglobin 11.8 g/dL Hematocrit 35.5 % Mean Corpuscular Volume 88 fL Mean Corpuscular Hemoglobin 29 pg Mean Corpuscular Hemoglobin Concent 33 g/dL Red Cell Distribution Width 17.3 % Platelet Count 275 x10^3/uL Sodium Level 139 mmol/L Potassium Level 4.2 mmol/L Chloride Level 105 mmol/L Carbon Dioxide Level 25 mmol/L Anion Gap 9 Blood Urea Nitrogen 14 mg/dL Creatinine 0.7 mg/dL Estimated GFR (Cockcroft-Gault) 85.1 Glucose Level 76 mg/dL Calcium Level 8.6 mg/dL ORDERED: ANAER/AERNOE/JORGE COMMENTS: ABDOMINAL ABSCESS FLUID --------- --- Procedure Result GRAM STAIN Final Final GRAM NEGATIVE RODS:FEW GRAM POSITIVE COCCI:FEW SQUAMOUS EPI CELL:NOT APPLICABLE PMN (WBCs):MANY ANAEROBIC-AEROBIC CULTURE Preliminary Preliminary MODERATE GRAM NEGATIVE RODS on 06/01/20 at 1048 FINAL ID= [ESCHERICHIA COLI] RARE ANAEROBIC GRAM NEGATIVE RODS on 06/02/20 at 1447 FINAL ID= [BACTEROIDES OVATUS GROUP] ESCHERICHIA COLI LACTOBACILLUS RHAMNOSUS BACTEROIDES OVATUS GROUP PE: GEN: NAD LUNGS: CTAB HEART: RRR ABD: drain brownish-greenish, abd soft and non-tender NEURO/PSYCH: A & O 3 A/P: Diverticulitis/abscess/fistula - s/p drain Elevated Alk Phos -- Plans to repeat CT Saturday. Justicifation of Admission Dx: Justifications for Admission: Justification of Admission Dx: Yes RONY CARDOZA Jun 03, 2020 10:11
[2020-06-03] MEDS: sulfaSALAzine 500 MG TABLET PO SCH ×2 (10:39→20:56)
[2020-06-03] MEDS: FLUCONAZOLE 400MG/200ML PREMIX 200 ML IV SCH (10:39)
[2020-06-03] MEDS: HYDROcodone/APAP 5/325MG 1 TAB TABLET PO PRN ×3 (10:44→20:57)
--- NOTE | 2020-06-03 10:50 | PN ---
DATE: SUBJECTIVE: The patient is resting, slightly propped up in bed, in no apparent distress. She is feeling generally much improved. Did complain of abdominal pain, but pain medication effects does not last long, would like to try oral pain medication. PHYSICAL EXAMINATION: GENERAL: When I examined her, she looked well and was clearly in no apparent respiratory distress. No pallor, jaundice, cyanosis or thyromegaly. No jugular venous distention. No limb edema. HEART: Showed normal first and second heart sounds. No gallop or murmur. CHEST: Clear to auscultation. No crepitation or rhonchi. ABDOMEN: Distended, soft, nontender. Bowel sounds are normal. NEUROLOGIC: She is grossly intact. Her intake over the last 24 hours was 5900. No output was recorded. LABORATORY DATA: Her lab work this morning showed a white cell count 7900, hemoglobin 11.8, hematocrit 36, MCV 88 and platelet count 275,000. Serum sodium was 139, potassium 4.2, chloride 105, bicarbonate 25, anion gap of 9, BUN 14, creatinine 0.7, estimated GFR was 85 mL per minute. Her glucose was 76, calcium was 8.6. ASSESSMENT: 1. Diverticulitis and abscess, status post drainage. 2. Immunosuppression, on steroids. 3. T11 compression fracture. 4. Rheumatoid arthritis. 5. Protein-calorie malnutrition. 6. Chronic obstructive pulmonary disease. PLAN: Plan is to continue with IV Zosyn, fluconazole. The culture from the abscess showed growth of Escherichia coli as well as Bacteroides ovatus group and Lactobacillus rhamnosus. The sensitivity is still pending at the time of this dictation. Plan is obviously to continue with TPN. Continue with pain management. ANIBAL HUSSEIN MD DR: JEFFREY/rodo JOB#: [id number] / [id number]
[2020-06-03 11:00] VITALS: BP 100/60
[2020-06-03] MEDS: TPN PER PHARMACY MC PRN (12:53)
--- NOTE | 2020-06-03 12:53 | PDOC ---
ANGÉLICA HENRY AQUATICS SPECIALIST 06/03/20 1253: SURGICAL PROGRESS NOTE DATE: 06/03/20 TIME: 12:52 Subjective feels much better no n/v would like more to eat Vital Signs Vital Signs Date Time Temp Pulse Resp B/P (MAP) Pulse Ox O2 Delivery O2 Flow Rate FiO2 06/03/20 11:00 97.6 78 18 100/60 (73) 95 Room Air 97.6 06/03/20 10:44 2.0 I&O Intake and Output 06/03/20 07:00 Intake Total 2000 ml Output Total 25 ml Balance 1975 ml Intake Oral 1550 ml IV Total 450 ml Output Urine Total 0 ml Drainage Total 25 ml # Voids 5 # Bowel Movements 2 General: Alert, Oriented X3, Cooperative Abdomen: Soft, Other (drain green drainage ) Labs Laboratory Tests Test 06/02/20 05:45 06/03/20 06:25 White Blood Count 6.6 x10^3/uL (4.0-11.0) 7.9 x10^3/uL (4.0-11.0) Red Blood Count 4.15 x10^6/uL (3.50-5.40) 4.04 x10^6/uL (3.50-5.40) Hemoglobin 12.0 g/dL (12.0-15.5) 11.8 g/dL (12.0-15.5) Hematocrit 36.7 % (36.0-47.0) 35.5 % (36.0-47.0) Mean Corpuscular Volume 89 fL (79-100) 88 fL (79-100) Mean Corpuscular Hemoglobin 29 pg (25-35) 29 pg (25-35) Mean Corpuscular Hemoglobin Concent 33 g/dL (31-37) 33 g/dL (31-37) Red Cell Distribution Width 17.2 % (11.5-14.5) 17.3 % (11.5-14.5) Platelet Count 256 x10^3/uL (140-400) 275 x10^3/uL (140-400) Sodium Level 139 mmol/L (136-145) 139 mmol/L (136-145) Potassium Level 4.2 mmol/L (3.5-5.1) 4.2 mmol/L (3.5-5.1) Chloride Level 106 mmol/L (98-107) 105 mmol/L (98-107) Carbon Dioxide Level 25 mmol/L (21-32) 25 mmol/L (21-32) Anion Gap 8 (6-14) 9 (6-14) Blood Urea Nitrogen 11 mg/dL (7-20) 14 mg/dL (7-20) Creatinine 0.7 mg/dL (0.6-1.0) 0.7 mg/dL (0.6-1.0) Estimated GFR (Cockcroft-Gault) 85.1 85.1 BUN/Creatinine Ratio 16 (6-20) Glucose Level 102 mg/dL (70-99) 76 mg/dL (70-99) Calcium Level 8.5 mg/dL (8.5-10.1) 8.6 mg/dL (8.5-10.1) Phosphorus Level 3.4 mg/dL (2.6-4.7) Magnesium Level 2.2 mg/dL (1.8-2.4) Total Bilirubin 0.3 mg/dL (0.2-1.0) Aspartate Amino Transf (AST/SGOT) 14 U/L (15-37) Alanine Aminotransferase (ALT/SGPT) 27 U/L (14-59) Alkaline Phosphatase 286 U/L (46-116) Total Protein 6.4 g/dL (6.4-8.2) Albumin 2.5 g/dL (3.4-5.0) Albumin/Globulin Ratio 0.6 (1.0-1.7) Triglycerides Level 87 mg/dL (0-150) Laboratory Tests Test 06/03/20 06:25 White Blood Count 7.9 x10^3/uL (4.0-11.0) Red Blood Count 4.04 x10^6/uL (3.50-5.40) Hemoglobin 11.8 g/dL (12.0-15.5) Hematocrit 35.5 % (36.0-47.0) Mean Corpuscular Volume 88 fL (79-100) Mean Corpuscular Hemoglobin 29 pg (25-35) Mean Corpuscular Hemoglobin Concent 33 g/dL (31-37) Red Cell Distribution Width 17.3 % (11.5-14.5) Platelet Count 275 x10^3/uL (140-400) Sodium Level 139 mmol/L (136-145) Potassium Level 4.2 mmol/L (3.5-5.1) Chloride Level 105 mmol/L (98-107) Carbon Dioxide Level 25 mmol/L (21-32) Anion Gap 9 (6-14) Blood Urea Nitrogen 14 mg/dL (7-20) Creatinine 0.7 mg/dL (0.6-1.0) Estimated GFR (Cockcroft-Gault) 85.1 Glucose Level 76 mg/dL (70-99) Calcium Level 8.6 mg/dL (8.5-10.1) Assessment/Plan drain, abx soft diet Justicifation of Admission Dx: Justifications for Admission: Justification of Admission Dx: Yes HERNANDEZ GARZA MD 06/03/20 1519: SURGICAL PROGRESS NOTE Assessment/Plan agree with above ANGÉLICA HENRY APRN Jun 03, 2020 12:53 HERNANDEZ GARZA MD Jun 03, 2020 15:19
[2020-06-03 15:00] VITALS: BP 120/65
[2020-06-03 19:58] VITALS: BP 117/67
[2020-06-03] MEDS ORDERED: [UNRECOGNIZED DRUG - OTHER] IV SCH (22:00)
[2020-06-03] MEDS ORDERED: DEXTROSE 70% IV SCH (22:00)
[2020-06-03] MEDS ORDERED: TOTAL PARENTERAL NUTRITION IV SCH (22:00)
[2020-06-03] MEDS ORDERED: AMINO ACID IV SCH (22:00)
[2020-06-03 23:30] VITALS: BP 118/65
[2020-06-04 03:57] VITALS: BP 111/67
[2020-06-04] MEDS: HYDROcodone/APAP 5/325MG 1 TAB TABLET PO PRN ×4 (04:06→21:32)
[2020-06-04] MEDS: PANTOPRAZOLE IV PUSH 40 MG VIAL. IVP SCH (05:58)
[2020-06-04] MEDS: PIPERACILLIN/TAZOBACTAM 3.375 GM in IV NORMAL SALINE 50ML 50 ML IV SCH ×2 (05:58→11:57)
[2020-06-04 07:00] VITALS: BP 97/68
--- NOTE | 2020-06-04 08:42 | PN ---
DATE: 06/04/2020 SUBJECTIVE: The patient is resting, slightly propped up in bed, in no apparent distress, awake, alert. Denied any complaint. She is now eating a regular diet. Her pain is much better controlled; and apparently, there is a plan for her to have another CT scan of the abdomen and pelvis on Saturday to decide on further management. PHYSICAL EXAMINATION: GENERAL: When I examined her, she was somewhat pale, no jaundice, cyanosis or thyromegaly. No jugular venous distention. No lower limb edema. VITAL SIGNS: Her heart rate was 72, blood pressure was 100/68, temperature 98, respiratory rate was 18 and oxygen saturation was 96%. ABDOMEN: Slightly distended, soft, nontender. There is no guarding or rigidity. No organomegaly. All hernial orifice intact. Bowel sounds normal. NEUROLOGIC: She is awake, alert, responding appropriately. All her cranial nerves are intact. She moves extremities without difficulty. She ambulates without assistance or assistive devices. Her intake was 2000, no output was recorded. LABORATORY DATA: As of yesterday, her white cell count was 7900, hemoglobin 12, hematocrit 36, MCV 88 and platelet count 275,000. Her chemistry showed a BUN of 14, creatinine 0.7. ASSESSMENT: 1. Diverticulitis with an abscess, status post drainage, did culture, which grew Escherichia coli. 2. Immunosuppression, on steroids. 3. T11 compression fracture. 4. Rheumatoid arthritis. 5. Protein-calorie malnutrition. 6. Chronic obstructive pulmonary disease. PLAN: To continue with IV Zosyn and fluconazole. Continue with pain medication and nutritional support. Apparently, she is scheduled to have a CT scan of the abdomen and pelvis on Saturday. ANIBAL HUSSEIN MD DR: JEFFREY/rodo JOB#: [id number] / [id number]
[2020-06-04] MEDS: sulfaSALAzine 500 MG TABLET PO SCH ×2 (09:11→09:30)
[2020-06-04] MEDS: FLUCONAZOLE 400MG/200ML PREMIX 200 ML IV SCH (09:12)
--- NOTE | 2020-06-04 09:52 | PDOC ---
Infectious Disease Note Subjective Subjective Comfortable, denies pain Tolerating GI diet Still on TPN ROS ROS Deneis N/V/D Deneis F/C/S Denies SOA/cough Vital Sign Vital Signs Vital Signs Date Time Temp Pulse Resp B/P (MAP) Pulse Ox O2 Delivery O2 Flow Rate FiO2 06/04/20 07:00 98.1 72 18 97/68 (78) 96 Room Air 98.1 06/03/20 14:51 2.0 Physical Exam PHYSICAL EXAM GENERAL: Propped up in bed, alert, smiling HEENT: Pupils equal and reactive. Oral cavity, pharynx is clear. NECK: Supple. Good range of motion. LUNGS: Clear to auscultation bilaterally. HEART: S1, S2. ABDOMEN: Distended, bowel sounds present, soft, nontender. ABIGAIL drain in place + purulence EXTREMITIES: Without clubbing, cyanosis or gross edema. SKIN: Warm to touch without signs of rash. NEUROLOGIC: Alert, nonfocal. RUE-PICC (05/27) without signs of complications Labs Micro 05/31. ANAEROBIC-AEROBIC CULTURE Preliminary FINAL ID= [LACTOBACILLUS RHAMNOSUS] FEW ANAEROBIC GRAM NEGATIVE RODS on 06/03/20 at 1343 FINAL ID= [BACTEROIDES UNIFORMIS] ESCHERICHIA COLI LACTOBACILLUS RHAMNOSUS BACTEROIDES OVATUS GROUP BACTEROIDES OVATUS GROUP BACTEROIDES UNIFORMIS ANTIMICROBIAL SUSCEPTIBILITY Preliminary NEG THIAGO 56 ESCHERICHIA COLI ANTIBIOTIC RESULT INTERPRETATION AMPICILLIN/SULBACTAM >16/8 R AMIKACIN <=16 S AMPICILLIN >16 R AMOXICILLIN/K CLAVULANATE >16/8 R AZTREONAM 16 I CEFTRIAXONE 2 I CEFTAZIDIME >16 R CEFOTAXIME 8 S CEFOXITIN >16 R CIPROFLOXACIN >2 R CEFEPIME <=2 S CEFUROXIME >16 R CEFTAZIDIME/AVIBACTAM <=4 S ERTAPENEM <=0.5 S GENTAMICIN <=2 S LEVOFLOXACIN >4 R MEROPENEM <=1 S PIPERACILLIN/TAZOBACTAM 64 I TRIMETHOPRIM/SULFAMETHOXAZOLE <=0.5/9.5 S TETRACYCLINE >8 R TOBRAMYCIN <=2 S Objective Assessment Diverticulitis with abscess s/p drainage 05/31,,,E. coli, bacteroides, lactobacillus Leukocytosis - better Fever improved Immunosuppression - on steroids T 11 compression fracture RA Plan Plan of Care Cont Zosyn and Fluconazole Follow-up cultures Monitor WBC/temp PICC care Monitor ABIGAIL drainage CT A/P on Saturday D/w nursing and at bedside Attending Co-Sign The patient was seen and interviewed as well as examined at the bedside. The chart was reviewed. The case was discussed. Agree with the plan of care. E coli is I to Zosyn, will change to meropenem ROBERTO MARIEE APRN Jun 04, 2020 09:52 YADI DE JESUS MD Jun 04, 2020 12:41
[2020-06-04 10:55] VITALS: BP 132/78
[2020-06-04] MEDS: TPN PER PHARMACY MC PRN (11:13)
--- NOTE | 2020-06-04 11:13 | NUR ---
Pharmacy TPN Dosing Note S: JANICE RAMIREZ is a 59 year old F Currently receiving Central Continuous TPN started 05/27/20 B:Pertinent PMH: Diverticulitis with Abscess, NPO Height: 5 feet, 6 inches Weight: 79.649409 kg Current diet: NPO LABS: Sodium: 139 Potassium: 4.2 Chloride: 105 Calcium: 8.6 Corrected Calcium: 9.88 Magnesium: 2.2 CO2: 25 SCr: 0.8 Glucose: 76 Albumin: 2.4 AST: 18 ALT: 28 TPN FORMULA: TPN TYPE: Central Continuous AMINO ACIDS: 80 gm DEXTROSE: 250 gm LIPIDS: 30 gm SODIUM CHLORIDE: 110 mEq SODIUM ACETATE: - mEq SODIUM PHOSPHATE: - mmol POTASSIUM CHLORIDE: 50 mEq POTASSIUM ACETATE: - mEq POTASSIUM PHOSPHATE: 13.6 mmol MAGNESIUM: 10 mEq CALCIUM: 10 mEq INSULIN: - units MULTIPLE VITAMIN: 10 ml TRACE ELEMENTS: 1 ml ml(s) TPN PLAN: No labs today, WNL yesterday. No changes, BMP and mag in AM. R: Continue TPN ABOVE. Will monitor electrolytes, glucose, and tolerance to TPN. LLOYD ENRIQUEZ [facility], 06/04/20 1112
[2020-06-04 15:45] VITALS: BP 117/48
--- NOTE | 2020-06-04 16:29 | PDOC ---
SURGICAL PROGRESS NOTE DATE: 06/04/20 TIME: 16:28 Subjective resting feels well no complaints Vital Signs Vital Signs Date Time Temp Pulse Resp B/P (MAP) Pulse Ox O2 Delivery O2 Flow Rate FiO2 06/04/20 15:45 98.0 78 18 117/48 (71) 98 Room Air 98.0 06/04/20 08:00 2.0 I&O Intake and Output 06/04/20 07:00 Intake Total 1050 ml Output Total 15 ml Balance 1035 ml Intake Oral 850 ml IV Total 200 ml Drainage Total 15 ml # Voids 7 # Bowel Movements 1 General: Alert, Oriented X3, Cooperative Abdomen: Soft, Other (drain purulent now ) Labs Laboratory Tests Test 06/03/20 06:25 White Blood Count 7.9 x10^3/uL (4.0-11.0) Red Blood Count 4.04 x10^6/uL (3.50-5.40) Hemoglobin 11.8 g/dL (12.0-15.5) Hematocrit 35.5 % (36.0-47.0) Mean Corpuscular Volume 88 fL (79-100) Mean Corpuscular Hemoglobin 29 pg (25-35) Mean Corpuscular Hemoglobin Concent 33 g/dL (31-37) Red Cell Distribution Width 17.3 % (11.5-14.5) Platelet Count 275 x10^3/uL (140-400) Sodium Level 139 mmol/L (136-145) Potassium Level 4.2 mmol/L (3.5-5.1) Chloride Level 105 mmol/L (98-107) Carbon Dioxide Level 25 mmol/L (21-32) Anion Gap 9 (6-14) Blood Urea Nitrogen 14 mg/dL (7-20) Creatinine 0.7 mg/dL (0.6-1.0) Estimated GFR (Cockcroft-Gault) 85.1 Glucose Level 76 mg/dL (70-99) Calcium Level 8.6 mg/dL (8.5-10.1) Assessment/Plan d/w ID plans for CT saturday continue abx drain purulent now Justicifation of Admission Dx: Justifications for Admission: Justification of Admission Dx: Yes ANGÉLICA HENRY PROFESSIONAL DEVELOPMENT DIRECTOR Jun 04, 2020 16:29
[2020-06-04] MEDS: MEROPENEM 500 MG in IV NORMAL SALINE 50ML 50 ML IV SCH ×2 (16:56→21:31)
[2020-06-04 19:28] VITALS: BP 131/86
[2020-06-04] MEDS ORDERED: TOTAL PARENTERAL NUTRITION IV SCH (22:00)
[2020-06-04] MEDS ORDERED: DEXTROSE 70% IV SCH (22:00)
[2020-06-04] MEDS ORDERED: AMINO ACID IV SCH (22:00)
[2020-06-04] MEDS ORDERED: [UNRECOGNIZED DRUG - OTHER] IV SCH (22:00)
[2020-06-04 23:51] VITALS: BP 136/73
[2020-06-05] MEDS: HYDROcodone/APAP 5/325MG 1 TAB TABLET PO PRN ×4 (01:43→21:01)
[2020-06-05 03:25] VITALS: BP 145/83
[2020-06-05] MEDS: PANTOPRAZOLE IV PUSH 40 MG VIAL. IVP SCH (05:31)
[2020-06-05] MEDS: MEROPENEM 500 MG in IV NORMAL SALINE 50ML 50 ML IV SCH ×3 (05:31→22:45)
[2020-06-05 05:36] LABS: HEMATOCRIT 35.2 % (36.0-47.0); HEMOGLOBIN 11.6 g/dL (12.0-15.5); RED BLOOD COUNT 3.99 x10^6/uL (3.50-5.40); RED CELL DISTRIBUTION WIDTH 17.6 % (11.5-14.5); WHITE BLOOD COUNT 6.8 x10^3/uL (4.0-11.0)
[2020-06-05 06:11] LABS: CALCIUM 8.8 mg/dL (8.5-10.1); CREATININE 0.8 mg/dL (0.6-1.0); GFR 72.9; POTASSIUM 3.8 mmol/L (3.5-5.1)
[2020-06-05 07:59] VITALS: BP 134/81
[2020-06-05] MEDS: sulfaSALAzine 500 MG TABLET PO SCH ×2 (07:59→21:01)
--- NOTE | 2020-06-05 08:20 | PN ---
DATE: 06/05/2020 SUBJECTIVE: The patient is resting, slightly propped up in bed, in no apparent distress, awake, alert. On questioning her, denied any complaint, in particular denied any abdominal pain, no nausea, no vomiting. She is tolerating her diet. TPN was discontinued. PHYSICAL EXAMINATION: GENERAL: When I examined her, she looked well and was clearly in no apparent respiratory distress, pale. No jaundice, cyanosis or thyromegaly. No jugular venous distention. No lower limb edema. VITAL SIGNS: Her heart rate was 83, blood pressure was 145/83, temperature 97.7, respiratory rate 20 and oxygen saturation was 93%. The rest of clinical exam is stable. Her intake was 1050, no output was recorded. LABORATORY DATA: As of this morning, her serum sodium 140, potassium 3.8, chloride 104, bicarbonate 28, anion gap of 8, BUN 13, creatinine 0.8, estimated GFR was 73 mL per minute, her glucose was 70, calcium was 8.8, magnesium 2. Her white cell count is 6800, hemoglobin 11.6, hematocrit 35, MCV 88 and platelet count of 284,000. ASSESSMENT: 1. Acute diverticulitis with an abscess, status post drainage and a culture, which grew Escherichia coli. 2. Immunosuppression, on steroids. 3. T11 compression fracture. 4. Rheumatoid arthritis. 5. Protein-calorie malnutrition. 6. Chronic obstructive pulmonary disease. PLAN: To continue with IV Zosyn and fluconazole. Her TPN was discontinued. Currently, she is scheduled for a CT scan of the abdomen and pelvis tomorrow and perhaps even discharging her home tomorrow. ANIBAL HUSSEIN MD DR: JEFFREY/rodo JOB#: [id number] / [id number]
--- NOTE | 2020-06-05 09:58 | PDOC ---
Infectious Disease Note Subjective Subjective Comfortable, denies pain/N/V/F/C Tolerating GI diet ROS ROS as mentioned above Vital Sign Vital Signs Vital Signs Date Time Temp Pulse Resp B/P (MAP) Pulse Ox O2 Delivery O2 Flow Rate FiO2 06/05/20 08:59 20 Room Air 06/05/20 07:59 98.4 84 134/81 (98) 94 98.4 06/04/20 08:00 2.0 Physical Exam PHYSICAL EXAM GENERAL: Sitting in the chair, alert, smiling HEENT: Pupils equal and reactive. Oral cavity, pharynx is clear. NECK: Supple. Good range of motion. LUNGS: Clear to auscultation bilaterally. HEART: S1, S2. ABDOMEN: Distended, bowel sounds present, soft, nontender. ABIAGIL drain in place + purulence EXTREMITIES: Without clubbing, cyanosis or gross edema. SKIN: Warm to touch without signs of rash. NEUROLOGIC: Alert, oriented, nonfocal. RUE-PICC (05/27) without signs of complications Labs Lab Laboratory Tests Test 06/05/20 04:45 White Blood Count 6.8 x10^3/uL (4.0-11.0) Red Blood Count 3.99 x10^6/uL (3.50-5.40) Hemoglobin 11.6 g/dL (12.0-15.5) Hematocrit 35.2 % (36.0-47.0) Mean Corpuscular Volume 88 fL (79-100) Mean Corpuscular Hemoglobin 29 pg (25-35) Mean Corpuscular Hemoglobin Concent 33 g/dL (31-37) Red Cell Distribution Width 17.6 % (11.5-14.5) Platelet Count 284 x10^3/uL (140-400) Sodium Level 140 mmol/L (136-145) Potassium Level 3.8 mmol/L (3.5-5.1) Chloride Level 104 mmol/L (98-107) Carbon Dioxide Level 28 mmol/L (21-32) Anion Gap 8 (6-14) Blood Urea Nitrogen 13 mg/dL (7-20) Creatinine 0.8 mg/dL (0.6-1.0) Estimated GFR (Cockcroft-Gault) 72.9 Glucose Level 70 mg/dL (70-99) Calcium Level 8.8 mg/dL (8.5-10.1) Magnesium Level 2.0 mg/dL (1.8-2.4) Micro 05/31. ANAEROBIC-AEROBIC CULTURE Preliminary FINAL ID= [LACTOBACILLUS RHAMNOSUS] FEW ANAEROBIC GRAM NEGATIVE RODS on 06/03/20 at 1343 FINAL ID= [BACTEROIDES UNIFORMIS] ESCHERICHIA COLI LACTOBACILLUS RHAMNOSUS BACTEROIDES OVATUS GROUP BACTEROIDES OVATUS GROUP BACTEROIDES UNIFORMIS ANTIMICROBIAL SUSCEPTIBILITY Preliminary NEG THIAGO 56 ESCHERICHIA COLI ANTIBIOTIC RESULT INTERPRETATION AMPICILLIN/SULBACTAM >/8 R AMIKACIN <=16 S AMPICILLIN >16 R AMOXICILLIN/K CLAVULANATE >16/8 R AZTREONAM 16 I CEFTRIAXONE 2 I CEFTAZIDIME >16 R CEFOTAXIME 8 S CEFOXITIN >16 R CIPROFLOXACIN >2 R CEFEPIME <=2 S CEFUROXIME >16 R CEFTAZIDIME/AVIBACTAM <=4 S ERTAPENEM <=0.5 S GENTAMICIN <=2 S LEVOFLOXACIN >4 R MEROPENEM <=1 S PIPERACILLIN/TAZOBACTAM 64 I TRIMETHOPRIM/SULFAMETHOXAZOLE <=0.5/9.5 S TETRACYCLINE >8 R TOBRAMYCIN <=2 S Objective Assessment Diverticulitis with abscess s/p drainage 05/31,,,E. coli (I-Zosyn), bacteroides, lactobacillus Leukocytosis - better Fever improved Immunosuppression - on steroids T 11 compression fracture RA Plan Plan of Care Continue meropenem (started 06/04) and Fluconazole Monitor WBC/temp PICC care Monitor ABIGAIL drainage CT A/P on Saturday D/w at bedside Attending Co-Sign The patient was seen and interviewed as well as examined at the bedside. The chart was reviewed. The case was discussed. Agree with the plan of care. ROBERTO MARIEE APRN Jun 05, 2020 09:58 YADI DE JESUS MD Jun 05, 2020 10:44
[2020-06-05] MEDS: FLUCONAZOLE 400MG/200ML PREMIX 200 ML IV SCH (10:05)
[2020-06-05 11:14] VITALS: BP 138/85
--- NOTE | 2020-06-05 12:26 | PDOC ---
ANGÉLICA HENRY DISC RECORDIST 06/05/20 1226: SURGICAL PROGRESS NOTE DATE: 06/05/20 TIME: 12:25 Subjective feeling well having stools tolerating diet Vital Signs Vital Signs Date Time Temp Pulse Resp B/P (MAP) Pulse Ox O2 Delivery O2 Flow Rate FiO2 06/05/20 11:14 98.5 81 18 138/85 (102) 94 Room Air 98.5 06/05/20 08:00 2.0 I&O Intake and Output 06/05/20 07:00 Intake Total 1000 ml Output Total 20 ml Balance 980 ml Intake Oral 1000 ml Stool Total 0 ml Drainage Total 20 ml # Voids 3 General: Alert, Oriented X3, Cooperative Abdomen: Soft, Other (ND, drain purulent ) Labs Laboratory Tests Test 06/05/20 04:45 White Blood Count 6.8 x10^3/uL (4.0-11.0) Red Blood Count 3.99 x10^6/uL (3.50-5.40) Hemoglobin 11.6 g/dL (12.0-15.5) Hematocrit 35.2 % (36.0-47.0) Mean Corpuscular Volume 88 fL (79-100) Mean Corpuscular Hemoglobin 29 pg (25-35) Mean Corpuscular Hemoglobin Concent 33 g/dL (31-37) Red Cell Distribution Width 17.6 % (11.5-14.5) Platelet Count 284 x10^3/uL (140-400) Sodium Level 140 mmol/L (136-145) Potassium Level 3.8 mmol/L (3.5-5.1) Chloride Level 104 mmol/L (98-107) Carbon Dioxide Level 28 mmol/L (21-32) Anion Gap 8 (6-14) Blood Urea Nitrogen 13 mg/dL (7-20) Creatinine 0.8 mg/dL (0.6-1.0) Estimated GFR (Cockcroft-Gault) 72.9 Glucose Level 70 mg/dL (70-99) Calcium Level 8.8 mg/dL (8.5-10.1) Magnesium Level 2.0 mg/dL (1.8-2.4) Laboratory Tests Test 06/05/20 04:45 White Blood Count 6.8 x10^3/uL (4.0-11.0) Red Blood Count 3.99 x10^6/uL (3.50-5.40) Hemoglobin 11.6 g/dL (12.0-15.5) Hematocrit 35.2 % (36.0-47.0) Mean Corpuscular Volume 88 fL (79-100) Mean Corpuscular Hemoglobin 29 pg (25-35) Mean Corpuscular Hemoglobin Concent 33 g/dL (31-37) Red Cell Distribution Width 17.6 % (11.5-14.5) Platelet Count 284 x10^3/uL (140-400) Sodium Level 140 mmol/L (136-145) Potassium Level 3.8 mmol/L (3.5-5.1) Chloride Level 104 mmol/L (98-107) Carbon Dioxide Level 28 mmol/L (21-32) Anion Gap 8 (6-14) Blood Urea Nitrogen 13 mg/dL (7-20) Creatinine 0.8 mg/dL (0.6-1.0) Estimated GFR (Cockcroft-Gault) 72.9 Glucose Level 70 mg/dL (70-99) Calcium Level 8.8 mg/dL (8.5-10.1) Magnesium Level 2.0 mg/dL (1.8-2.4) Assessment/Plan continue drain abx plans for CT in AM Justicifation of Admission Dx: Justifications for Admission: Justification of Admission Dx: Yes HERNANDEZ GARZA MD 06/06/20 1332: SURGICAL PROGRESS NOTE Assessment/Plan Agree with above ANGÉLICA HENRY APRN Jun 05, 2020 12:26 HERNANDEZ GARZA MD Jun 06, 2020 13:32
[2020-06-05 15:59] VITALS: BP 144/80
[2020-06-05 19:42] VITALS: BP 144/74
[2020-06-05 22:37] VITALS: BP 143/74
[2020-06-06 02:51] VITALS: BP 122/80
[2020-06-06] MEDS: HYDROcodone/APAP 5/325MG 1 TAB TABLET PO PRN ×3 (05:47→14:16)
[2020-06-06] MEDS: MEROPENEM 500 MG in IV NORMAL SALINE 50ML 50 ML IV SCH (05:48)
[2020-06-06 07:00] VITALS: BP 127/79
[2020-06-06] MEDS: PANTOPRAZOLE IV PUSH 40 MG VIAL. IVP SCH (07:51)
[2020-06-06] MEDS ORDERED: HYDR-3164 PO (08:14)
--- NOTE | 2020-06-06 08:16 | SNU/HH DC ---
DISCHARGE WITH HOME HEALTH DISCHARGE INFORMATION: Discharge Date: Jun 06, 2020 Final Diagnosis: acute diverticulitis intraabdominal abscess s/p drainage Condition on Discharge: Stable CODE STATUS: Code Status: Full HOME HEALTH: Face to Face: I certify this patient is under my care and that I, or a nurse practitioner or physician's patient assistant working with me, had a face to face encounter that meets the physician face to face encounter requirements with this patient on 06/06/2020 Medical Complications: Other Group Home For: Admin/Educate Injections RN For Eval/Treatment: Yes Physical Therapy For: Evalulation/Treatment Occupational Therapy For: Evaluation/Treatment Pt Meets Homebound Status: Extreme weakness w/ amb. POST DISCHARGE ORDERS: DIET AFTER DISCHARGE: Regular CERTIFICATION STATEMENT: Certification Statement: Certification Statement: Based on the above finding, I certify that this patient is confined to the home and needs intermittent long-term care, physical therapy and/or speech therapy, or continues to need occupational therapy.~ This patient is under my care, and I have initiated the establishment of the plan of care.~ This patient will be followed by myself or a community physician who will periodically review the plan of care. Home Meds Reported Medications Pantoprazole Sodium (PROTONIX) 20 Mg Tablet.dr, 40 MG PO DAILY for GERD, TAB 05/25/20 Sulfasalazine (SULFASALAZINE) 500 Mg Tablet, 1000 MG PO BID for arthritis, TAB 05/25/20 Loratadine/Pseudoephedrine (CLARITIN-D 12 HOUR TABLET) 1 Each Tab.er.12h, 1 TAB PO BID for ALLERGIES, #20 TAB 06/23/19 Esomeprazole Magnesium (NEXIUM CAPSULE) 20 Mg Capsule.dr, 20 MG PO DAILYAC for GERD, #30 CAP 0 Refills 06/23/19 Tramadol Hcl (TRAMADOL HCL) 50 Mg Tablet, 50 MG PO Q6HRS PRN for PAIN, TAB 06/23/19 Sulfasalazine (SULFASALAZINE) 500 Mg Tablet, 500 MG PO QID for ARTHRITIS, TAB 06/23/19 ANIBAL HUSSEIN MD Jun 06, 2020 08:16
[2020-06-06] MEDS ORDERED: IOHEXOL 240 MG/ML 50ML VIAL. PO ONE (08:45)
[2020-06-06] MEDS ORDERED: IOHEXOL 300 MG/ML 100ML VIAL. IV ONE (08:45)
--- NOTE | 2020-06-06 09:32 | PDOC ---
Infectious Disease Note Subjective: Subjective Pt doing well denies pain/N/V/F/C had a bm Tolerating GI diet Vital Signs: Vital Signs Vital Signs Date Time Temp Pulse Resp B/P (MAP) Pulse Ox O2 Delivery O2 Flow Rate FiO2 06/06/20 07:00 98.3 82 16 127/79 (95) 93 Room Air 98.3 06/05/20 08:00 2.0 Physical Exam: PHYSICAL EXAM GENERAL: Sitting in the chair, alert, smiling HEENT: Pupils equal and reactive. Oral cavity, pharynx is clear. NECK: Supple. Good range of motion. LUNGS: Clear to auscultation bilaterally. HEART: S1, S2. ABDOMEN: Distended, bowel sounds present, soft, nontender. ABIGAIL drain in place + purulence EXTREMITIES: Without clubbing, cyanosis or gross edema. SKIN: Warm to touch without signs of rash. NEUROLOGIC: Alert, oriented, nonfocal. RUE-PICC (05/27) without signs of complications Medications: Inpatient Meds: Current Medications Medications (Trade) Dose Ordered Sig/Kateryna Start Time Stop Time Status Last Admin Dose Admin Acetaminophen (Tylenol Supp) 650 mg PRN Q6HRS PRN 05/25/20 18:00 Acetaminophen (Tylenol) 650 mg PRN Q6HRS PRN 05/25/20 18:00 05/25/20 18:18 650 MG Acetaminophen/ Hydrocodone Bitart (Lortab 5/325) 1 tab PRN Q4HRS PRN 06/03/20 09:15 06/06/20 05:47 1 TAB Diphenhydramine HCl (Benadryl) 25 mg PRN Q6HRS PRN 06/03/20 09:15 Fentanyl Citrate (Fentanyl 2ml Vial) 50 mcg 1X ONCE 05/31/20 13:00 05/31/20 13:10 DC 05/31/20 13:08 50 MCG Fluconazole/ Sodium Chloride 200 ml @ 100 mls/hr Q24H 05/26/20 10:00 06/05/20 10:05 100 MLS/HR Info (CONTRAST GIVEN -- Rx MONITORING) 1 each PRN DAILY PRN 05/31/20 13:15 06/02/20 13:14 DC Info (Tpn Per Pharmacy) 1 each PRN DAILY PRN 05/27/20 09:45 06/04/20 11:28 DC 06/04/20 11:13 1 EACH Iohexol (Omnipaque 240 Mg/ml) 50 ml 1X ONCE 06/06/20 08:45 06/06/20 08:46 DC 06/06/20 08:58 50 ML Iohexol (Omnipaque 300 Mg/ml) 75 ml 1X ONCE 06/06/20 08:45 06/06/20 08:46 DC Ketorolac Tromethamine (Toradol 15mg Vial) 15 mg PRN Q6HRS PRN 05/26/20 17:00 05/27/20 17:00 DC 05/27/20 11:50 15 MG Lidocaine HCl (Buffered Lidocaine 1%) 4 ml 1X ONCE 05/31/20 13:00 05/31/20 13:10 DC 05/31/20 13:08 4 ML Meropenem 500 mg/ Sodium Chloride 50 ml @ 100 mls/hr Q8HRS 06/04/20 14:00 06/06/20 05:48 100 MLS/HR Midazolam HCl (Versed) 1 mg 1X ONCE 05/31/20 13:00 05/31/20 13:10 DC 05/31/20 13:08 1 MG Morphine Sulfate (Morphine Sulfate) 4 mg PRN Q4HRS PRN 05/26/20 11:15 06/02/20 18:58 4 MG Ondansetron HCl (Zofran) 4 mg PRN Q4HRS PRN 05/25/20 15:30 Pantoprazole Sodium (PROTONIX VIAL for IV PUSH) 40 mg DAILYAC 05/31/20 10:30 06/06/20 07:51 40 MG Pantoprazole Sodium (Protonix) 40 mg DAILYAC 05/26/20 12:00 05/31/20 09:41 DC 05/30/20 07:30 40 MG Piperacillin Sod/ Tazobactam Sod 3.375 gm/Sodium Chloride 50 ml @ 100 mls/hr Q6HRS 05/25/20 18:00 06/04/20 12:42 DC 06/04/20 11:57 100 MLS/HR Potassium Chloride/Dextrose/ Sod Cl 1,000 ml @ 100 mls/hr Q10H 05/25/20 15:30 05/30/20 11:20 DC 05/27/20 09:42 100 MLS/HR Sodium Chloride 90 meq/Potassium Chloride 50 meq/ Potassium Phosphate 13.6 mmol/Magnesium Sulfate 10 meq/ Calcium Gluconate 10 meq/ Multivitamins 10 ml/Chromium/ Copper/Manganese/ Seleni/Zn 1 ml/ Total Parenteral Nutrition/Amino Acids/Dextrose/ Fat Emulsion Intravenous 1,512 ml @ 63 mls/hr TPN CONT 05/28/20 22:00 05/29/20 21:59 DC 05/28/20 22:07 63 MLS/HR Sodium Chloride 110 meq/Potassium Chloride 50 meq/ Potassium Phosphate 13.6 mmol/Magnesium Sulfate 10 meq/ Calcium Gluconate 10 meq/ Multivitamins 10 ml/Chromium/ Copper/Manganese/ Seleni/Zn 1 ml/ Total Parenteral Nutrition/Amino Acids/Dextrose/ Fat Emulsion Intravenous 1,512 ml @ 63 mls/hr TPN CONT 06/04/20 22:00 06/04/20 11:28 DC Sulfasalazine (Azulfidine) 1,000 mg BID 05/26/20 12:00 06/05/20 21:01 1,000 MG Labs: Micro RUN DATE: 06/05/20 [facility] LAB *LIVE* PAGE 1 RUN TIME: 1009 Specimen Inquiry PATIENT: JANICE RAMIREZ ACCT: [id number] LOC: [address] [place] [address] U: [id number] AGE/SX: 59/F ROOM: 426 RE05/25/[address]: ANIBAL HUSSEIN MD : 1960 BED: 1 DIS: STATUS: ADM IN TLOC: SPEC #: [id number] RONALD: 05/31/20 STATUS: COMP REQ #: [id number] RECD: 05/31/[address] [facility] [address]: ANIBAL HUSSEIN MD SOURCE: ABD FLUID ENTR: 05/31/20-[address]: BRANDON ELLIOTT MD SPDESC: CASI PICHARDO MD, SCOTT S MD RESCH,KYMBERLY ALFRED MD ORDERED: FER/ANGEL/JORGE COMMENTS: ABDOMINAL ABSCESS FLUID Procedure Result GRAM STAIN Final Final GRAM NEGATIVE RODS:FEW GRAM POSITIVE COCCI:FEW SQUAMOUS EPI CELL:NOT APPLICABLE PMN (WBCs):MANY ANAEROBIC-AEROBIC CULTURE Final Final MODERATE GRAM NEGATIVE RODS on 06/01/20 at 1048 FINAL ID= [ESCHERICHIA COLI] RARE ANAEROBIC GRAM NEGATIVE RODS on 06/02/20 at 1447 FINAL ID= [BACTEROIDES OVATUS GROUP] MODERATE GRAM POSITIVE RODS on 06/03/20 at 1102 FINAL ID= [LACTOBACILLUS RHAMNOSUS] FEW ANAEROBIC GRAM NEGATIVE RODS on 06/03/20 at 1343 FINAL ID= [BACTEROIDES UNIFORMIS] ESCHERICHIA COLI LACTOBACILLUS RHAMNOSUS BACTEROIDES OVATUS GROUP BACTEROIDES OVATUS GROUP BACTEROIDES UNIFORMIS ANTIMICROBIAL SUSCEPTIBILITY Final Comment NEG THIAGO 56 ESCHERICHIA COLI ANTIBIOTIC RESULT INTERPRETATION AMPICILLIN/SULBACTAM >16/8 R AMIKACIN <=16 S AMPICILLIN >16 R AMOXICILLIN/K CLAVULANATE >16/8 R AZTREONAM 16 I CEFTRIAXONE 2 I CEFTAZIDIME >16 R CEFOTAXIME 8 S CONTINUED ON NEXT PAGE --------- --- RUN DATE: 06/05/20 [facility] LAB *LIVE* PAGE 2 RUN TIME: 1009 Specimen Inquiry SPEC: [id number] PATIENT: JANICE RAMIREZ [id number] (Continued) Procedure Result ANTIMICROBIAL SUSCEPTIBILITY Final (continued) CEFOXITIN >16 R CIPROFLOXACIN >2 R CEFEPIME <=2 S CEFUROXIME >16 R CEFTAZIDIME/AVIBACTAM <=4 S ERTAPENEM <=0.5 S GENTAMICIN <=2 S LEVOFLOXACIN >4 R MEROPENEM <=1 S PIPERACILLIN/TAZOBACTAM 64 I TRIMETHOPRIM/SULFAMETHOXAZOLE <=0.5/9.5 S TETRACYCLINE >8 R TOBRAMYCIN <=2 S Unless otherwise specified, Testing Performed by: [address] [address] For Inquires, the Physician may contact the Microbiology department at [phone] Objective: Assessment: Diverticulitis with abscess s/p drainage 05/31,,,E. coli (I-Zosyn), bacteroides, lactobacillus Leukocytosis - better Fever improved Immunosuppression - on steroids T 11 compression fracture RA Plan: Plan of Care Continue meropenem (started 06/04) and Fluconazole f/u ct abdomen /pelvis today PICC care Monitor ABIGAIL drainage D/w at bedside d/w HAL Barrios MD Jun 06, 2020 09:32
--- NOTE | 2020-06-06 10:45 | NUR ---
KEATON following. Discussed with RN, pt needing IV Invanz daily at discharge. KEATON met with pt (no isolation precautions at the time), pt would like to do home infusion, does not have a preference of provider. Pt would like home health through [facility], if possible. KEATON contacted [facility] (ph: [phone], fax: [phone]) to determine insurance networks and availability. [facility] are in network with pt's insurance. KEATON faxed infusion referral to [facility] to determine benefits for home infusion, faxed home health referral to [facility]. KEATON will continue to follow. Addendum: 06/06/20 at 1307 by TERRY PUGH Pt accepted with [facility]. Benefits for home infusion are $31.97 a day. KEATON notified pt, pt agreeable. [facility] will come to do the teach today, pt can discharge after first dose of Invanz. RN notified. Addendum: 06/06/20 at 1510 by TERRY PUGH Pt choice of vendor form completed. Pt discharging home today with [facility] and [facility].
--- NOTE | 2020-06-06 10:54 | PDOC ---
Date of Service: DATE: 06/06/20 TIME: 10:52 Subjective: Subjective: Really wants to go home. Tolerating diet, minimal abd pain, less drainage. Loose stools. Objective: Vital Signs: Vital Signs Date Time Temp Pulse Resp B/P (MAP) Pulse Ox O2 Delivery O2 Flow Rate FiO2 06/06/20 09:45 93 Room Air 2.0 06/06/20 07:00 98.3 82 16 127/79 (95) 98.3 Imaging: CT A/P 06/06 pending PE: GEN: NAD LUNGS: CTAB HEART: RRR ABD: soft, non-tender, drain brown/green (scant) NEURO/PSYCH: A & O 3 A/P: Diverticulitis/abscess/fistula - s/p drain -- Awaiting interval CT. Justicifation of Admission Dx: Justifications for Admission: Justification of Admission Dx: Yes RONY CARDOZA Jun 06, 2020 10:54
[2020-06-06] MEDS: FLUCONAZOLE 400MG/200ML PREMIX 200 ML IV SCH (11:10)
[2020-06-06] MEDS: sulfaSALAzine 500 MG TABLET PO SCH (11:10)
[2020-06-06 11:11] VITALS: BP 136/80
--- NOTE | 2020-06-06 11:17 | RAD ---
CT abdomen and pelvis with IV contrast HISTORY: Diverticulitis with peritoneal abscess COMPARISON: May 30, 2020 Technique: Computed tomographic imaging of the abdomen and pelvis were performed following the uneventful intravenous administration of 75 cc Omnipaque 300 iodinated nonionic contrast material Patient ingested 50 cc of iodinated oral contrast PQRS Compliance Statement: One or more of the following individualized dose reduction techniques were utilized for this examination: 1. Automated exposure control 2. Adjustment of the mA and/or kV according to patient size 3. Use of iterative reconstruction technique dose reduction FINDINGS: Atelectasis and possible nodules in the lung bases unchanged Multiple low-density lesions in the liver are tiny but seem more apparent on the current study. Gallbladder unremarkable Spleen stable Pancreas unremarkable Adrenal glands stable including the left adrenal gland nodule Kidneys unremarkable Appendix normal Abscess drainage cavity is now seen in the anterior pelvis. Decreased fluid around the inflamed sigmoid colon. Uterus and ovaries appear stable. No new fluid collections are apparent. The bladder appears unremarkable Levoscoliosis of the lumbar spine appear stable Old T11 compression fracture is again noted. IMPRESSION: Atelectasis or possibly nodules again partially visualized in the lung bases and dedicated CT chest is recommended for follow-up. Pericolonic abscess with interval drain placement and decreased fluid in the interim Inflammation of the sigmoid colon consistent with diverticulitis and associated perforation Multiple low-density lesions are very small in size but now apparent in the liver and these are of uncertain clinical significance as they're too small to accurately characterize. There is suggestion of active infection is present then follow-up imaging to evaluate for possible developing hepatic abscesses. Electronically signed by: Conrad Calvert MD (06/06/2020 11:14 AM) [id number]
[2020-06-06] MEDS ORDERED: ERTAPENEM 1GM IVPB (GENERIC) 50 ML IV ONE (12:00)
--- NOTE | 2020-06-06 12:40 | PDOC ---
ANGÉLICA HENRY Rafal [employer] 06/06/20 1240: SURGICAL PROGRESS NOTE DATE: 06/06/20 TIME: 12:38 Subjective tolerating diet no pain Vital Signs Vital Signs Date Time Temp Pulse Resp B/P (MAP) Pulse Ox O2 Delivery O2 Flow Rate FiO2 06/06/20 12:10 93 Room Air 2.0 06/06/20 11:11 99.1 80 18 136/80 (98) 99.1 I&O Intake and Output 06/06/20 07:00 Intake Total 650 ml Balance 650 ml Intake Oral 650 ml General: Alert, Oriented X3, Cooperative Abdomen: Soft, Other (Nd, drain purulent) Labs Laboratory Tests Test 06/05/20 04:45 White Blood Count 6.8 x10^3/uL (4.0-11.0) Red Blood Count 3.99 x10^6/uL (3.50-5.40) Hemoglobin 11.6 g/dL (12.0-15.5) Hematocrit 35.2 % (36.0-47.0) Mean Corpuscular Volume 88 fL (79-100) Mean Corpuscular Hemoglobin 29 pg (25-35) Mean Corpuscular Hemoglobin Concent 33 g/dL (31-37) Red Cell Distribution Width 17.6 % (11.5-14.5) Platelet Count 284 x10^3/uL (140-400) Sodium Level 140 mmol/L (136-145) Potassium Level 3.8 mmol/L (3.5-5.1) Chloride Level 104 mmol/L (98-107) Carbon Dioxide Level 28 mmol/L (21-32) Anion Gap 8 (6-14) Blood Urea Nitrogen 13 mg/dL (7-20) Creatinine 0.8 mg/dL (0.6-1.0) Estimated GFR (Cockcroft-Gault) 72.9 Glucose Level 70 mg/dL (70-99) Calcium Level 8.8 mg/dL (8.5-10.1) Magnesium Level 2.0 mg/dL (1.8-2.4) Assessment/Plan stable abx per ID would continue drain--FU with Dm 2 week Justicifation of Admission Dx: Justifications for Admission: Justification of Admission Dx: Yes HERNANDEZ GARZA MD 06/06/20 1333: SURGICAL PROGRESS NOTE Assessment/Plan Reviewed, agree with above ANGÉLICA HENRY APRN Jun 06, 2020 12:40 HERNANDEZ GARZA MD Jun 06, 2020 13:33
[2020-06-06 15:33] VITALS: BP 139/86
--- NOTE | 2020-06-06 15:38 | NUR ---
Discharge Note: JANICE RAMIREZ [address] [place] [address] Discharge instructions and discharge home medications reviewed with Patient and a copy given. All questions have been answered and understanding verbalized. The following instructions and handouts were given: dIET, ACTIVITY, MEDICATION LIST AND FOLLOW UP INSTRUCTIONS PROVIDED TO PATIENT. DRAIN TEACHING PROVIDED. PICC LINE CARE PROVIDED. Discontinued lines and drains: PICC Line DL intact. Patient discharged to Home w/services withSpousevia Wheelchair
[2020-06-06 16:03] LABS: ALBUMIN/GLOBULIN RATIO 0.8 (1.0-1.7); CALCIUM 8.2 mg/dL (8.5-10.1); CREATININE 0.9 mg/dL (0.6-1.0); GFR 63.7; MAGNESIUM 2.1 mg/dL (1.8-2.4); PHOSPHORUS 3.5 mg/dL (2.6-4.7); POTASSIUM 3.6 mmol/L (3.5-5.1); TOTAL BILIRUBIN 0.1 mg/dL (0.2-1.0); TOTAL PROTEIN 6.7 g/dL (6.4-8.2)
[2020-06-07] MEDS ORDERED: PANTOPRAZOLE 40 MG TABLET.DR. PO SCH (07:30)
--- NOTE | 2020-06-30 10:33 | DS ---
DATE OF DISCHARGE: 06/06/2020 HOSPITAL COURSE: The patient is a 59-year-old female patient who was originally admitted with abdominal pain. Her symptoms started late February and she was subsequently diagnosed with diverticulitis and had a CT scan performed on 04/05/2020. She was placed on ciprofloxacin as well as prednisone, but continued to have complication. On 03/29/2020, she began a 14-day course of Augmentin and Flagyl and was continued on prednisone as well and had had a repeat CT scan on 05/09/2020. She was then setup for evaluation by Dr. Schneider. She began to take a bowel prep and was supposed to have colonoscopy done on the day before discharge. However, her abdominal pain became very severe and she therefore presented to [facility] where she was evaluated in the Emergency Room and was found to have white cell count of 22,000. She has had another CT scan, which showed extensive inflammatory changes surrounding the mid sigmoid colon that have progressed since 04/28/2020. There was an abscess that measures 3.5 x 4 x 4.6 along the sigmoid colon. Additionally, she was found to have new superior endplate compression fracture around T11. She was transferred to [facility] for further evaluation and to consult the surgical team, Infectious Disease team as well as interventional radiologist. She was started on IV antibiotic and seen by the playground director who recommended drainage of the abscess and this was done by the interventional radiologist. The patient initially was kept n.p.o. and then was started on a clear liquid diet and eventually her diet was advanced, and as she remained hemodynamically stable and afebrile, a decision was made to discharge her home to continue on IV antibiotic as recommended by the Infectious Disease specialist. She has had a repeat CT scan which showed that the abscess was completely drained and the plan is for her to have ultimately resection of the sigmoid colon after she completes the antibiotic treatment. She will be followed in 2 weeks' time by the Infectious Disease specialist as well as Dr. Chaidez, the general surgeon. PHYSICAL EXAMINATION: GENERAL: On the day of discharge, she looked well and was clearly in no apparent respiratory distress. Somewhat pale, but no jaundice, cyanosis or thyromegaly. No jugular venous distention. No limb edema. VITAL SIGNS: Her heart rate was 80, blood pressure was 139/86, temperature was 98.1, respiratory rate was 16, and oxygen saturation was 94%. HEAD, EYES, EARS, NOSE AND THROAT: Showed normocephalic, atraumatic. NECK: Supple. HEART: Normal first and second heart sounds. No gallop or murmur. CHEST: Shows central trachea, equal bilateral chest expansion, air entry, vesicular breath sounds. No crepitation or rhonchi. ABDOMEN: Distended, soft, nontender. NEUROLOGIC: She was awake, alert, responding appropriately. All cranial nerves intact. She moves extremities without difficulty. She ambulates without assistance or assistive devices. Her intake was 650. No output was recorded. LABORATORY DATA: Her lab work showed a white cell count 6800, hemoglobin 11.6, hematocrit 35, MCV 88 and platelet count 284,000. Her prothrombin time was 14.9, INR of 1.2. Her chemistry showed a serum sodium 140, potassium 3.6, chloride 104, bicarbonate 27, anion gap of 9, BUN 11, creatinine 0.9. Estimated GFR was 64 mL per minute. Her glucose was 119. Calcium was 8.2, phosphorus 3.5, magnesium was 2.1. Total bilirubin, AST, ALT were normal. Alkaline phosphatase slightly elevated. Total protein 6.7, albumin was 3. Her serum triglycerides were slightly elevated at 162. DISCHARGE MEDICATIONS: The patient was discharged home to continue on following medications: 1. Hydrocodone/APAP 5/325 one tablet every 4 hours as needed. 2. Nexium 20 mg once a day. 3. Claritin-D one tablet twice a day. 4. Protonix 40 mg daily. 5. Sulfasalazine 500 mg four times a day. 6. Sulfasalazine 1000 mg p.o. b.i.d. 7. Tramadol 50 mg every 6 hours. She should also continue on her meropenem and eraxis as per Infectious Disease specialist recommendation. She should follow with Dr. Rivera in 2 weeks' time. FINAL DISCHARGE DIAGNOSES: 1. Acute diverticulitis with an abscess status post drainage. The culture has grown Escherichia coli. 2. Immunosuppression, on steroids. 3. T-11 compression fracture. 4. Rheumatoid arthritis. 5. Protein-calorie malnutrition. 6. Chronic obstructive pulmonary disease. ANIBAL HUSSEIN MD DR: JEFFREY/rodo JOB#: [id number] / [id number]
== END 2020-06-06 15:35 | disposition home health service (06) | DRG 377 ==
LOC: 4 NORTH 15:15
PROVIDERS: ADMIT Internal Medicine; ATTEND Internal Medicine
PROC: 02HV33Z Insertion of Infusion Device into Superior Vena Cava, Percutaneous Approach (ICD-10-PCS; principal; 2020-05-27)
PROC: B5181ZA Fluoroscopy of Superior Vena Cava using Low Osmolar Contrast, Guidance (ICD-10-PCS; 2020-05-27)
PROC: B548ZZA Ultrasonography of Superior Vena Cava, Guidance (ICD-10-PCS; 2020-05-27)
PROC: 0W9H30Z Drainage of Retroperitoneum with Drainage Device, Percutaneous Approach (ICD-10-PCS; 2020-05-30)
DX: K57.21 Diverticulitis of large intestine with perforation and abscess with bleeding (principal); K65.1 Peritoneal abscess; E46 Unspecified protein-calorie malnutrition; J98.11 Atelectasis; M48.54XA Collapsed vertebra, not elsewhere classified, thoracic region, initial encounter for fracture; K56.7 Ileus, unspecified; N13.30 Unspecified hydronephrosis; D64.9 Anemia, unspecified; J44.9 Chronic obstructive pulmonary disease, unspecified; K52.9 Noninfective gastroenteritis and colitis, unspecified; M06.9 Rheumatoid arthritis, unspecified; N73.9 Female pelvic inflammatory disease, unspecified; Z80.0 Family history of malignant neoplasm of digestive organs; Z80.3 Family history of malignant neoplasm of breast; Z83.3 Family history of diabetes mellitus; Z87.440 Personal history of urinary (tract) infections; Z87.891 Personal history of nicotine dependence; K21.9 Gastro-esophageal reflux disease without esophagitis; Z68.28 Body mass index [BMI] 28.0-28.9, adult; Z88.8 Allergy status to other drugs, medicaments and biological substances; Z79.899 Other long term (current) drug therapy; B96.20 Unspecified Escherichia coli [E. coli] as the cause of diseases classified elsewhere
CPT/HCPCS: 36415; 36573; 49406; 74177; 77001; 80048; 80053; 82378; 82607; 83540; 83550; 83735; 84100; 84478; 85007; 85025; 85027; 85610; 86301; 86304; 87015; 87071; 87075; 87076; 87077; 87186; 99152; 99153; C1729; C1751; C1892; C9113; J0610; J1335; J1450; J1885; J2185; J2250; J2270; J2543; J3010; J3475; J3480; J3490; Q9966; Q9967; G0378

== ENCOUNTER 2020-07-05 17:56 | Inpatient (IN) | payer BC ==
[~2020-07-05] VITALS: Ht 167.6 cm; Wt 80.3 kg
[~2020-07-05 17:56] MED LIST changes: +HYDR-3164 PO; +PANT20TA2 PO
--- NOTE | 2020-07-05 18:38 | PHYS DOC ---
Past Medical History Smoking Status: Former Smoker General Adult EDM: Chief Complaint: ABDOMINAL PAIN HPI: HPI: Patient is a 59 year old female with past medical history of diverticulitis and intra-abdominal abscess presents with the chief complaint of abdominal pain. 05/26-06/06 admitted for Diverticulitis with abscess. During hopitalization patient had Drain placed by IR. Removed was removed 1 week ago. LLQ abdominal pain started 4 days ago. Patient was on outpatient antibiotics. Review of Systems: Review of Systems: Constitutional: Denies fever or chills. [] Eyes: Denies change in visual acuity. [] HENT: Denies nasal congestion or sore throat. [] Respiratory: Denies cough or shortness of breath. [] Cardiovascular: Denies chest pain or edema. [] GI: positive abdominal pain and nausea, no vomiting, bloody stools or diarrhea. [] : Denies dysuria. [] Musculoskeletal: Denies back pain or joint pain. [] Integument: Denies rash. [] Neurologic: Denies headache, focal weakness or sensory changes. [] Endocrine: Denies polyuria or polydipsia. [] Lymphatic: Denies swollen glands. [] Psychiatric: Denies depression or anxiety. [] Heart Score: Risk Factors: Risk Factors: DM, Current or recent (<one month) smoker, HTN, HLP, family history of CAD, obesity. Risk Scores: Score 0 - 3: 2.5% MACE over next 6 weeks - Discharge Home Score 4 - 6: 20.3% MACE over next 6 weeks - Admit for Clinical Observation Score 7 - 10: 72.7% MACE over next 6 weeks - Early Invasive Strategies Allergies: Allergies: Allergies Coded Allergies Type Severity Reaction Last Updated Verified tizanidine Allergy Severe 05/25/20 Yes oxycodone Allergy Intermediate PRURITIS 05/25/20 Yes Physical Exam: PE: Constitutional: Well developed, well nourished, no acute distress, non-toxic appearance. [] HENT: Normocephalic, atraumatic, bilateral external ears normal, oropharynx moist, no oral exudates, nose normal. [] Eyes: PERRLA, EOMI, conjunctiva normal, no discharge. [] Neck: Normal range of motion, no tenderness, supple, no stridor. [] Cardiovascular:Heart rate regular rhythm, no murmur [] Lungs & Thorax: Bilateral breath sounds clear to auscultation [] Abdomen: Bowel sounds normal, soft, tenderness left lower quadrant no rebound or guarding, no masses, no pulsatile masses. [] Skin: Warm, dry, no erythema, no rash. [] Back: No tenderness, no CVA tenderness. [] Extremities: No tenderness, no cyanosis, no clubbing, ROM intact, no edema. [] Neurologic: Alert and oriented X 3, normal motor function, normal sensory function, no focal deficits noted. [] Psychologic: Affect normal, judgement normal, mood normal. [] EKG: EKG: ekg 1823hrs heart rate 96 nsr no stemi [] Radiology/Procedures: Radiology/Procedures: [] Impression: IMPRESSION: Changes of sigmoid diverticulitis with associated with a fluid collection measuring 4.4 cm. Interval removal of drain, now with foci of gas extending to the anterior abdominal wall along the previous drain tract, extending to the left rectus abdominis muscle. Course & Med Decision Making: Course & Med Decision Making Pertinent Labs and Imaging studies reviewed. (See chart for details) [] Dragon Disclaimer: Dragon Disclaimer: This electronic medical record was generated, in whole or in part, using a voice recognition dictation system. Departure Departure Impression: Primary Impression: Acute diverticulitis Additional Impression: Intra-abdominal abscess Disposition: ADMITTED INPATIENT Admitting Physician: Madi. Jiménez Condition: STABLE Referrals: SPENCER OSUNA (PCP) Justicifation of Admission Dx: Justifications for Admission: Justification of Admission Dx: Yes ROMIE HOFFMAN I DO Jul 05, 2020 18:38
[2020-07-05 18:58] LABS: BASO # 0.1 x10^3/uL (0.0-0.2); BASO % 1 % (0-3); EOS # 0.2 x10^3/uL (0.0-0.7); EOS % 3 % (0-3); HEMATOCRIT 39.4 % (36.0-47.0); HEMOGLOBIN 13.1 g/dL (12.0-15.5); LYMPH # 1.1 x10^3/uL (1.0-4.8); LYMPH % 12 % (24-48); MEAN CORPUSCULAR HEMOGLOBIN 29 pg (25-35); MEAN CORPUSCULAR HGB CONC 33 g/dL (31-37); MEAN CORPUSCULAR VOLUME 86 fL (79-100); MONO # 0.7 x10^3/uL (0.0-1.1); MONO % 8 % (0-9); NEUT # 6.6 x10^3/uL (1.8-7.7); NEUT % 76 % (31-73); PLATELET COUNT 215 x10^3/uL (140-400); RED BLOOD COUNT 4.56 x10^6/uL (3.50-5.40); RED CELL DISTRIBUTION WIDTH 16.2 % (11.5-14.5); WHITE BLOOD COUNT 8.7 x10^3/uL (4.0-11.0)
[2020-07-05 19:16] LABS: CALCIUM 8.6 mg/dL (8.5-10.1); CREATININE 0.7 mg/dL (0.6-1.0); GFR 85.1; POTASSIUM 3.2 mmol/L (3.5-5.1)
[2020-07-05 19:23] LABS: ALBUMIN 3.4 g/dL (3.4-5.0); ALBUMIN/GLOBULIN RATIO 1.2 (1.0-1.7); TOTAL BILIRUBIN 0.4 mg/dL (0.2-1.0); TOTAL PROTEIN 6.2 g/dL (6.4-8.2)
[2020-07-05] MEDS ORDERED: IOHEXOL 300 MG/ML 100ML VIAL. IV ONE (19:30)
[2020-07-05] MEDS ORDERED: CONTRAST GIVEN. MC PRN (19:45)
--- NOTE | 2020-07-05 20:09 | RAD ---
EXAM: CT Abdomen and Pelvis with IV contrast CLINICAL HISTORY: abd pain, History diverticulitis. COMPARISON: 06/06/2020, 05/30/2020 TECHNIQUE: Helical CT of the abdomen and pelvis was performed following the administration of IV contrast. Axial, coronal and sagittal reformatted images were generated. ---PQRS compliance statement - One or more of the following individualized dose reduction techniques were utilized for this study: 1. Automated exposure control 2. Adjustment of the mA and/or kV according to patient size 3. Use of iterative reconstruction technique--- FINDINGS: Lower chest: Linear opacities lower lobes and middle lobe likely scarring/atelectasis. Bilateral breast implants are partially profiled. Abdomen and pelvis: Liver and biliary system: No focal liver lesion. Gallbladder is normal. No biliary ductal dilatation. Spleen: Unremarkable Pancreas: Unremarkable Adrenal glands: Small left adrenal nodule is unchanged. Right adrenal gland is unremarkable. Kidneys: Symmetric nephrograms. No focal renal lesion. No hydronephrosis. No hydroureter. Lymph nodes/retroperitoneum: Prominent pelvic lymph nodes, likely reactive. No lymphadenopathy by size criteria. Vessels: Aorta is normal in caliber with intermittent atherosclerotic calcifications. Bowel/Peritoneal cavity: Duodenal diverticulum is seen. Appendix is normal. No small or large bowel dilatation to suggest bowel obstruction. Changes of colonic diverticulitis of the sigmoid colon is again seen with associated loculated fluid collection measuring approximately 4.4 x 3.1 cm, with interval removal of the associated drain. However foci of gas are seen extending to the anterior abdominal wall along the tract of the prior drain, extending to the level of the left rectus abdominis muscle belly. No abdominal or pelvic ascites. Abdominal wall: See above, otherwise unremarkable Bladder: Unremarkable Bones: No aggressive osseous lesion is seen. Hip joint degenerative changes in spine degenerative changes are seen. IMPRESSION: Changes of sigmoid diverticulitis with associated with a fluid collection measuring 4.4 cm. Interval removal of drain, now with foci of gas extending to the anterior abdominal wall along the previous drain tract, extending to the left rectus abdominis muscle. Electronically signed by: Kenneth Benavides MD (07/05/2020 8:06 PM) [facility]
[2020-07-05] MEDS ORDERED: ONDANSETRON PF 4 MG/2 ML VIAL. IV PRN (21:15)
[2020-07-05] MEDS ORDERED: PIPERACILLIN/TAZOBACTAM 4.5 GM in IV NORMAL SALINE 100ML 100 ML IV ONE (21:30)
[2020-07-05 22:30] VITALS: BP 133/88
--- NOTE | 2020-07-05 22:30 | NUR ---
Pt. arrived on unit at 2230 by wheelchair from ER. Patient complains of pain and rates it 5/10. Bed is in lowest position and call light within reach. Will continue to monitor.
[2020-07-05] MEDS: MORPHINE SULFATE 4 MG/ML VIAL. IV PRN (23:31)
[2020-07-06] VITALS (16 sets, daily range): BP systolic 121–149; BP diastolic 71–89
--- NOTE | 2020-07-06 03:25 | NUR ---
Pt. does not eat anything with seeds due to her diverticulitis. Addendum: 07/06/20 at 0338 by LIAM BROWN RN Amended: Links added.
--- NOTE | 2020-07-06 04:26 | EKG ---
[facility] [address] [place] [address] Test Date: 2020-07-05 Test Time: 18:23:15 Pat Name: JANICE RAMIREZ Department: Room: 424 1 Gender: F Fishing Manager: : 1960 Requested By: ROMIE HOFFMAN Order Number: [id number] Reading MD: Measurements Intervals [place] Rate: 96 P: -24 TX: 120 QRS: 6 QRSD: 84 T: 8 QT: 366 QTc: 463 Interpretive Statements SINUS RHYTHM NORMAL ECG RI6.02 No previous ECG available for comparison
[2020-07-06] MEDS: MORPHINE SULFATE 4 MG/ML VIAL. IV PRN ×4 (05:45→19:14)
[2020-07-06] MEDS: POTASSIUM CL 40MEQ D5-0.45NACL 1,000 ML IV SCH (05:49)
[2020-07-06] MEDS ORDERED: PIPERACILLIN/TAZOBACTAM 4.5 GM in IV NORMAL SALINE 100ML 100 ML IV SCH (06:00)
[2020-07-06] MEDS ORDERED: DAPTOmycin (GENERIC) IVPB 480 MG in IV NORMAL SALINE 50ML 50 ML IV SCH (08:00)
--- NOTE | 2020-07-06 08:28 | PDOC2 ---
ANGÉLICA HENRY CLOTHES DRIER REPAIRER 07/06/20 0828: CONSULT Date of Consult Date of Consult DATE: 07/06/20 TIME: 08:21 Reason for Consult Reason for Consult: diverticulitis Referring Physician Referring Physician: ER Identification/Chief Complaint Chief Complaint abdominal pain Source Source: Chart review, Patient History of Present Illness Reason for Visit: Patient known from previous admission last month with diverticulitis, controlled fistula. Had drain placement, IV abx-showed improvement. Discharged home with IV abx and drain. Seen in clinic last week with Dr Chaidez, drain without output and removed. Plans for Outpt colonoscopy 2 months, ID had switched to oral abx about a week ago. Saturday developed worsening lower abdominal pain with nausea and diarrhea. Past Medical History Pulmonary: Asthma GI: GERD Past Surgical History Past Surgical History: Family History Family History: Other Social History ALCOHOL: occassional Drugs: None Lives: with Family Current Medications Current Medications Current Medications Iohexol (Omnipaque 300 Mg/ml) 75 ml 1X ONCE IV Last administered on 07/05/20at 19:34; Start 07/05/20 at 19:30; Stop 07/05/20 at 19:32; Status DC Info (CONTRAST GIVEN -- Rx MONITORING) 1 each PRN DAILY PRN MC SEE COMMENTS; Start 07/05/20 at 19:45; Stop 07/07/20 at 19:44 Piperacillin Sod/ Tazobactam Sod 4.5 gm/Sodium Chloride 100 ml @ 200 mls/hr 1X ONCE IV Last administered on 07/05/20at 21:08; Start 07/05/20 at 21:30; Stop 07/05/20 at 21:59; Status DC Ondansetron HCl (Zofran) 4 mg PRN Q8HRS PRN IV NAUSEA/VOMITING; Start 07/05/20 at 21:15; Stop 07/06/20 at 21:14 Morphine Sulfate (Morphine Sulfate) 4 mg PRN Q2HR PRN IV PAIN Last administered on 07/06/20at 05:45; Start 07/05/20 at 21:15; Stop 07/06/20 at 21:14 Piperacillin Sod/ Tazobactam Sod 4.5 gm/Sodium Chloride 100 ml @ 200 mls/hr Q6HRS IV Last administered on 07/06/20at 05:50; Start 07/06/20 at 06:00; Stop 07/06/20 at 07:20; Status DC Potassium Chloride/Dextrose/ Sod Cl 1,000 ml @ 100 mls/hr Q10H IV Last administered on 07/06/20at 05:49; Start 07/06/20 at 06:00 Meropenem 1 gm/ Sodium Chloride 100 ml @ 200 mls/hr Q8HRS IV ; Start 07/06/20 at 08:00 Fluconazole/ Sodium Chloride 200 ml @ 100 mls/hr Q24H IV ; Start 07/06/20 at 09:00 Daptomycin 480 mg/ Sodium Chloride 50 ml @ 100 mls/hr Q24H IV ; Start 07/06/20 at 08:00 Active Scripts Active [place] 5-325 Tablet (Acetaminophen/Hydrocodone Bitart) 1 Each Tablet 1 Tab PO Q4H PRN 10 Days Reported Protonix (Pantoprazole Sodium) 20 Mg Tablet.dr 40 Mg PO DAILY Sulfasalazine 500 Mg Tablet 1,000 Mg PO BID Claritin-D 12 Hour Tablet (Loratadine/Pseudoephedrine) 1 Each Tab.er.12h 1 Tab PO BID Nexium Capsule (Esomeprazole Magnesium) 20 Mg Capsule.dr 20 Mg PO DAILYAC Tramadol Hcl 50 Mg Tablet 50 Mg PO Q6HRS PRN Sulfasalazine 500 Mg Tablet 500 Mg PO QID Allergies Allergies: Coded Allergies: tizanidine (Verified Allergy, Severe, 05/25/20) Swelling of the tongue and throat oxycodone (Verified Allergy, Intermediate, PRURITIS, 05/25/20) ROS General: YES: Other (+ fever on admission ); No: Chills PSYCHOLOGICAL ROS: No: Anxiety, Depression Eyes: No Blurry vision, No Double vision HEENT: No: Heacaches, Sore Throat Hematological and Lymphatic: No: Bleeding Problems, Blood Clots Respiratory: No: Cough, Shortness of breath Cardiovascular: No Chest Pain, No Palpitations Gastrointestinal: Yes Other (see hpi) Genitourinary: No Dysuria, No Hematuria Musculoskeletal: No Joint Pain, No Muscle Pain Neurological: No Impaired Coord/balance, No Numbness/Tingling Skin: No Pruritus, No Rash Physical Exam General: Alert, Oriented X3, Cooperative HEENT: Atraumatic, PERRLA Lungs: Clear to auscultation, Normal air movement Heart: Regular rate, Normal S1, Normal S2 Abdomen: Soft, Other (LLQ ttp, some swelling to LUQ) Extremities: No clubbing, No cyanosis Skin: No rashes, No breakdown Neuro: Normal gait, Normal speech Psych/Mental Status: Mental status NL, Mood NL MUSCULOSKELETAL: No deformity, No swelling Vitals VITALS Vital Signs Date Time Temp Pulse Resp B/P (MAP) Pulse Ox O2 Delivery O2 Flow Rate FiO2 07/06/20 07:00 98.3 85 18 121/77 (92) 94 Room Air 98.3 07/06/20 03:08 Labs Labs Laboratory Tests Test 07/05/20 18:45 White Blood Count 8.7 x10^3/uL (4.0-11.0) Red Blood Count 4.56 x10^6/uL (3.50-5.40) Hemoglobin 13.1 g/dL (12.0-15.5) Hematocrit 39.4 % (36.0-47.0) Mean Corpuscular Volume 86 fL (79-100) Mean Corpuscular Hemoglobin 29 pg (25-35) Mean Corpuscular Hemoglobin Concent 33 g/dL (31-37) Red Cell Distribution Width 16.2 % (11.5-14.5) Platelet Count 215 x10^3/uL (140-400) Neutrophils (%) (Auto) 76 % (31-73) Lymphocytes (%) (Auto) 12 % (24-48) Monocytes (%) (Auto) 8 % (0-9) Eosinophils (%) (Auto) 3 % (0-3) Basophils (%) (Auto) 1 % (0-3) Neutrophils # (Auto) 6.6 x10^3/uL (1.8-7.7) Lymphocytes # (Auto) 1.1 x10^3/uL (1.0-4.8) Monocytes # (Auto) 0.7 x10^3/uL (0.0-1.1) Eosinophils # (Auto) 0.2 x10^3/uL (0.0-0.7) Basophils # (Auto) 0.1 x10^3/uL (0.0-0.2) Sodium Level 141 mmol/L (136-145) Potassium Level 3.2 mmol/L (3.5-5.1) Chloride Level 103 mmol/L (98-107) Carbon Dioxide Level 29 mmol/L (21-32) Anion Gap 9 (6-14) Blood Urea Nitrogen 6 mg/dL (7-20) Creatinine 0.7 mg/dL (0.6-1.0) Estimated GFR (Cockcroft-Gault) 85.1 BUN/Creatinine Ratio 9 (6-20) Glucose Level 93 mg/dL (70-99) Calcium Level 8.6 mg/dL (8.5-10.1) Total Bilirubin 0.4 mg/dL (0.2-1.0) Aspartate Amino Transf (AST/SGOT) 10 U/L (15-37) Alanine Aminotransferase (ALT/SGPT) 14 U/L (14-59) Alkaline Phosphatase 119 U/L (46-116) Total Protein 6.2 g/dL (6.4-8.2) Albumin 3.4 g/dL (3.4-5.0) Albumin/Globulin Ratio 1.2 (1.0-1.7) Lipase 110 U/L (73-393) Laboratory Tests Test 07/05/20 18:45 White Blood Count 8.7 x10^3/uL (4.0-11.0) Red Blood Count 4.56 x10^6/uL (3.50-5.40) Hemoglobin 13.1 g/dL (12.0-15.5) Hematocrit 39.4 % (36.0-47.0) Mean Corpuscular Volume 86 fL (79-100) Mean Corpuscular Hemoglobin 29 pg (25-35) Mean Corpuscular Hemoglobin Concent 33 g/dL (31-37) Red Cell Distribution Width 16.2 % (11.5-14.5) Platelet Count 215 x10^3/uL (140-400) Neutrophils (%) (Auto) 76 % (31-73) Lymphocytes (%) (Auto) 12 % (24-48) Monocytes (%) (Auto) 8 % (0-9) Eosinophils (%) (Auto) 3 % (0-3) Basophils (%) (Auto) 1 % (0-3) Neutrophils # (Auto) 6.6 x10^3/uL (1.8-7.7) Lymphocytes # (Auto) 1.1 x10^3/uL (1.0-4.8) Monocytes # (Auto) 0.7 x10^3/uL (0.0-1.1) Eosinophils # (Auto) 0.2 x10^3/uL (0.0-0.7) Basophils # (Auto) 0.1 x10^3/uL (0.0-0.2) Sodium Level 141 mmol/L (136-145) Potassium Level 3.2 mmol/L (3.5-5.1) Chloride Level 103 mmol/L (98-107) Carbon Dioxide Level 29 mmol/L (21-32) Anion Gap 9 (6-14) Blood Urea Nitrogen 6 mg/dL (7-20) Creatinine 0.7 mg/dL (0.6-1.0) Estimated GFR (Cockcroft-Gault) 85.1 BUN/Creatinine Ratio 9 (6-20) Glucose Level 93 mg/dL (70-99) Calcium Level 8.6 mg/dL (8.5-10.1) Total Bilirubin 0.4 mg/dL (0.2-1.0) Aspartate Amino Transf (AST/SGOT) 10 U/L (15-37) Alanine Aminotransferase (ALT/SGPT) 14 U/L (14-59) Alkaline Phosphatase 119 U/L (46-116) Total Protein 6.2 g/dL (6.4-8.2) Albumin 3.4 g/dL (3.4-5.0) Albumin/Globulin Ratio 1.2 (1.0-1.7) Lipase 110 U/L (73-393) Assessment/Plan Assessment/Plan Diverticulitis with abscess--drain removed last week continue IV abx d/w Dr Chaidez, tentative plan for OR saturday will have IR perc drain abscess to assist improvement for surgery Saturday HERNANDEZ CHAIDEZ MD 07/06/20 1139: CONSULT Assessment/Plan Assessment/Plan Pt seen and examined by myself; Pt returns with recurrent lower abdominal pain; previously treated with suspected perforated diverticulitis, perc drainage done with good result, but suggestive of fistula; did improve clinically and drain was removed; now with recurrent pain, CT showing ongoing inflammation, small abscess; PMH/PSH/ROS/SH as above; exam: alert, no distress, lungs clear, RR and R, abdomen soft, some tenderness lower abdomen, no guarding, mild disten dmitry; A/P) Diverticulitis; given recurrence I believe will need surgery; plan for initial antibiotics, drainage of abscess in attempt to improve inflammatory response in preparation for surgery; will tentatively schedule for Saturday AM. ANGÉLICA HENRY APRN Jul 06, 2020 08:28 HERNANDEZ CHAIDEZ MD Jul 06, 2020 11:39
[2020-07-06] MEDS: MEROPENEM 1 GM in IV NORMAL SALINE 100ML 100 ML IV SCH ×3 (08:43→20:45)
--- NOTE | 2020-07-06 09:15 | PDOC ---
Infectious Disease Note Subjective Subjective Known to service - Please see Consult 05/26 and last progress note 06/06 D/c'd home on IV Invanz and then changed to po Cefdinir approx a week ago Had ABIGAIL drain removed last week 07/02 began to have decreased appetite and abd pain followed by nausea/loose stool. Subject F/C/S No dysuria or resp issues Has left ant rib pain when wearing bra - no rash Presented back to [facility] 07/05 ROS ROS o/w neg Vital Sign Vital Signs Vital Signs Date Time Temp Pulse Resp B/P (MAP) Pulse Ox O2 Delivery O2 Flow Rate FiO2 07/06/20 07:00 98.3 85 18 121/77 (92) 94 Room Air 98.3 07/06/20 03:08 Physical Exam PHYSICAL EXAM GENERAL: Sitting in bed, alert, smiling HEENT: Pupils equal and reactive. Oral cavity, pharynx is clear. NECK: Supple. Good range of motion. LUNGS: Clear to auscultation bilaterally. HEART: S1, S2. ABDOMEN: No guard, bowel sounds present, soft, gen tender but more on left. EXTREMITIES: Without clubbing, cyanosis or gross edema. SKIN: Warm to touch without signs of rash. NEUROLOGIC: Alert, oriented, nonfocal. PIV Labs Lab Laboratory Tests Test 07/05/20 18:45 White Blood Count 8.7 x10^3/uL (4.0-11.0) Red Blood Count 4.56 x10^6/uL (3.50-5.40) Hemoglobin 13.1 g/dL (12.0-15.5) Hematocrit 39.4 % (36.0-47.0) Mean Corpuscular Volume 86 fL (79-100) Mean Corpuscular Hemoglobin 29 pg (25-35) Mean Corpuscular Hemoglobin Concent 33 g/dL (31-37) Red Cell Distribution Width 16.2 % (11.5-14.5) Platelet Count 215 x10^3/uL (140-400) Neutrophils (%) (Auto) 76 % (31-73) Lymphocytes (%) (Auto) 12 % (24-48) Monocytes (%) (Auto) 8 % (0-9) Eosinophils (%) (Auto) 3 % (0-3) Basophils (%) (Auto) 1 % (0-3) Neutrophils # (Auto) 6.6 x10^3/uL (1.8-7.7) Lymphocytes # (Auto) 1.1 x10^3/uL (1.0-4.8) Monocytes # (Auto) 0.7 x10^3/uL (0.0-1.1) Eosinophils # (Auto) 0.2 x10^3/uL (0.0-0.7) Basophils # (Auto) 0.1 x10^3/uL (0.0-0.2) Sodium Level 141 mmol/L (136-145) Potassium Level 3.2 mmol/L (3.5-5.1) Chloride Level 103 mmol/L (98-107) Carbon Dioxide Level 29 mmol/L (21-32) Anion Gap 9 (6-14) Blood Urea Nitrogen 6 mg/dL (7-20) Creatinine 0.7 mg/dL (0.6-1.0) Estimated GFR (Cockcroft-Gault) 85.1 BUN/Creatinine Ratio 9 (6-20) Glucose Level 93 mg/dL (70-99) Calcium Level 8.6 mg/dL (8.5-10.1) Total Bilirubin 0.4 mg/dL (0.2-1.0) Aspartate Amino Transf (AST/SGOT) 10 U/L (15-37) Alanine Aminotransferase (ALT/SGPT) 14 U/L (14-59) Alkaline Phosphatase 119 U/L (46-116) Total Protein 6.2 g/dL (6.4-8.2) Albumin 3.4 g/dL (3.4-5.0) Albumin/Globulin Ratio 1.2 (1.0-1.7) Lipase 110 U/L (73-393) Micro CT scan 07/05 IMPRESSION: Changes of sigmoid diverticulitis with associated with a fluid collection measuring 4.4 cm. Interval removal of drain, now with foci of gas extending to the anterior abdominal wall along the previous drain tract, extending to the left rectus abdominis muscle. Culture 05/31 ANAEROBIC-AEROBIC CULTURE Final Final MODERATE GRAM NEGATIVE RODS on 06/01/20 at 1048 FINAL ID= [ESCHERICHIA COLI] RARE ANAEROBIC GRAM NEGATIVE RODS on 06/02/20 at 1447 FINAL ID= [BACTEROIDES OVATUS GROUP] MODERATE GRAM POSITIVE RODS on 06/03/20 at 1102 FINAL ID= [LACTOBACILLUS RHAMNOSUS] FEW ANAEROBIC GRAM NEGATIVE RODS on 06/03/20 at 1343 FINAL ID= [BACTEROIDES UNIFORMIS] ESCHERICHIA COLI LACTOBACILLUS RHAMNOSUS BACTEROIDES OVATUS GROUP BACTEROIDES OVATUS GROUP BACTEROIDES UNIFORMIS ANTIMICROBIAL SUSCEPTIBILITY Final Comment NEG THIAGO 56 ESCHERICHIA COLI ANTIBIOTIC RESULT INTERPRETATION AMPICILLIN/SULBACTAM >16/8 R AMIKACIN <=16 S AMPICILLIN >16 R AMOXICILLIN/K CLAVULANATE >16/8 R AZTREONAM 16 I CEFTRIAXONE 2 I CEFTAZIDIME >16 R CEFOTAXIME 8 S CONTINUED ON NEXT PAGE RUN DATE: 06/05/20 [facility] *LIVE* PAGE 2 RUN TIME: 1009 Specimen Inquiry --------- --- SPEC: [id number] PATIENT: JANICE RAMIREZ [id number] (Continued) Procedure Result ANTIMICROBIAL SUSCEPTIBILITY Final (continued) CEFOXITIN >16 R CIPROFLOXACIN >2 R CEFEPIME <=2 S CEFUROXIME >16 R CEFTAZIDIME/AVIBACTAM <=4 S ERTAPENEM <=0.5 S GENTAMICIN <=2 S LEVOFLOXACIN >4 R MEROPENEM <=1 S PIPERACILLIN/TAZOBACTAM 64 I TRIMETHOPRIM/SULFAMETHOXAZOLE <=0.5/9.5 S TETRACYCLINE >8 R TOBRAMYCIN <=2 S Objective Assessment Recurrent abd abscess - drain removed last week H/o Diverticulitis with abscess s/p drainage 05/31,,,E. coli (I-Zosyn), bacteroides, lactobacillus Immunosuppression - on steroids T 11 compression fracture RA Plan Plan of Care Consulted this am and restarted meropenem, Fluconazole and added Daptomycin Await surgical f/u F/u labs in am and cults Left ant rib pain per primary D/w at bedside D/w nursing CASI PICHARDO MD Jul 06, 2020 09:14
--- NOTE | 2020-07-06 09:47 | NUR ---
SW following. Discussed with RN, pt from home with , was discharged last admission with home health and IV abx. Pt started on IV meropenem, fluconazole and daptomycin. Surgical consult pending. KEATON will continue to follow.
[2020-07-06] MEDS: FLUCONAZOLE 400MG/200ML PREMIX 200 ML IV SCH (10:37)
--- NOTE | 2020-07-06 10:52 | NUR ---
Patient complained of pruritus on her back and abdomen. Upon assessment, her skin is red on the back, arms and abdomen; no wheals noted. She does not complain of shortness of breath. Reviewed with her any reaction to medications, she claimed to have no adverse effects from prior antibiotics given 2 weeks ago. Daptomycin is new to her, notified Dr. Irene at 1050. We will continue to monitor.
[2020-07-06 10:56] LABS: PROTHROMBIN TIME PATIENT 14.3 SEC (11.7-14.0)
[2020-07-06] MEDS ORDERED: diphenhydrAMINE 50 MG/ML VIAL IM ONE (11:00)
[2020-07-06] MEDS ORDERED: diphenhydrAMINE 50 MG/ML VIAL IVP ONE (11:15)
[2020-07-06] MEDS ORDERED: LIDOCAINE WITH 8.4% SOD BICARB 3 ML DISP.SYRIN. ONE (11:34)
[2020-07-06] MEDS ORDERED: fentaNYL PF VIAL 100 MCG/2 ML VIAL ONE (11:37)
[2020-07-06] MEDS ORDERED: MIDAZOLAM HCL/PF 2 MG/2 ML VIAL. ONE (11:37)
[2020-07-06] MEDS ORDERED: fentaNYL PF VIAL 100 MCG/2 ML VIAL IV ONE (11:45)
[2020-07-06] MEDS ORDERED: MIDAZOLAM HCL/PF 2 MG/2 ML VIAL. IV ONE (11:45)
[2020-07-06] MEDS ORDERED: LIDOCAINE WITH 8.4% SOD BICARB 3 ML DISP.SYRIN. IJ ONE (11:45)
--- NOTE | 2020-07-06 12:21 | PDOC ---
MODERATE SEDATION ASSESSMENT RISKS/ALTERNATIVES Risks/Alternatives Risks and alternatives of this type of sedation and procedure discussed with: RISK/ALTERNATIVES: Patient H & P ON CHART H & P H & P on chart and reviewed for co-morbid conditions and appropriate labs. H&P ON CHART: Yes STATUS PREG STATUS ASSESSED: Yes MEDS/ALLERGIES REVIEWED Meds/Allergies Reviewed Medications and Allergies including time and route of recently administered narcotics and sedatives. MEDS/ALLERGIES REVIEWED: Yes ASA RATING ASA RATING: II AIRWAY ASSESSMENT Airway Assessment Airway patency, oral function limitations, presence of caps, crowns, dentures, partials, and ability to extend neck assessed. AIRWAY ASSESSMENT: Yes MALLAMPATI SCORE MALLAMPATI SCORE: II PRE-SEDATION ASSESSMENT PRE-SEDATION ASSESSMENT: Yes ANALISA NICHOLE MD Jul 06, 2020 12:21
--- NOTE | 2020-07-06 12:21 | PDOC ---
BRIEF OPERATIVE NOTE Pre-Op Diagnosis abdominal abscess Post-Op Diagnosis same Procedure Performed CT drain Surgeon Melanie Anesthesia Type: Conscious Sedation Specimens Obtained 10cc harshil pus Findings 12F drain Complications No immediate ANALISA NICHOLE MD Jul 06, 2020 12:20
--- NOTE | 2020-07-06 12:34 | NUR ---
Patient underwent CT guided placement of drain in her pelvis. She came back to the unit at 1230, alert, oriented x 4, VSS, and denies pain. A sanguineous drainage is noted; drain site is clean, dry and intact. We will continue to monitor.
[2020-07-06 13:03] LABS: CALCIUM 8.5 mg/dL (8.5-10.1); CREATININE 0.9 mg/dL (0.6-1.0); GFR 63.7
--- NOTE | 2020-07-06 13:39 | HP ---
ADMIT DATE: 07/05/2020 HISTORY OF PRESENT ILLNESS: The patient is a 59-year-old female patient who apparently was admitted to this facility on 05/25/2020 and was discharged on 06/06/2020. She apparently was discharged home on IV Invanz and her antibiotics were eventually switched to cefdinir. Apparently, her ABIGAIL drain was removed last week and on 07/02, she began to have decreased appetite, abdominal pain followed by nausea and loose stools, subjective fever and chills. She has also diaphoresis. She also has left anterior rib pain when wearing bra and was evaluated in the Emergency Room where she was extensively investigated and her CT scan of the abdomen showed that she has changes of sigmoid diverticulitis with associated fluid collection measuring 4.4 cm, interval removal of the drain, now with foci of gas extending to the anterior abdominal wall along the previous drain tract extending to the left rectus abdominis muscle. The patient was admitted, kept n.p.o., started on IV fluid, IV antibiotic, antiemetic and pain medication and we did consult the surgeon as well as the Infectious Disease. PAST MEDICAL HISTORY: Significant for acute rheumatoid arthritis, gastroesophageal reflux disease, history of COPD, has a history of Streptococcus pneumoniae for which she was treated with IV ceftriaxone and history of urinary tract infection, obviously has history of diverticulitis and intra-abdominal abscess which she has a drain placed in by the interventional radiologist and she was discharged home to continue with IV Invanz as she grew gram-negative rods and gram-positive cocci identified as Escherichia coli as well as Bacteroides ovatus and Bacteroides uniformis as well as Lactobacillus rhamnosus. PAST SURGICAL HISTORY: Significant for 2 C-sections, tonsillectomy after mass was found, breast surgery after a mass was found, and ablation as well as hemorrhoidectomy. ALLERGIES: SHE IS ALLERGIC TO MAGIC MOUTHWASH THAT CAUSED SWELLING, OXYCODONE, AND TIZANIDINE. FAMILY HISTORY: Positive for rheumatoid arthritis and diabetes in her family. Her grandmother had stomach cancer and also breast cancer in her family as well. SOCIAL HISTORY: She is and lives with her . She has 2 sons. She quit smoking about 6 years ago. Does not drink alcohol or use any recreational drugs. 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 MEDICATIONS: She was on following medications: She was on loratadine/pseudoephedrine for Claritin-D one tablet twice a day, sulfasalazine 500 mg 4 times a day, sulfasalazine 1000 mg twice a day, hydrocodone/acetomenophin 5/325 one tablet every 4 hours as needed, tramadol 50 mg every 6 hours, Nexium 20 mg daily, and Protonix 40 mg daily. REVIEW OF SYSTEMS: As per history of present illness. PHYSICAL EXAMINATION: GENERAL: On arrival to the Emergency Room, she was somewhat pale, but no jaundice, cyanosis or thyromegaly. No jugular venous distention. No limb edema. VITAL SIGNS: Her heart rate was 95, blood pressure was 143/74, temperature was 98.6, respiratory rate was 18, and oxygen saturation was 90% on room air. HEAD, EYES, EARS, NOSE AND THROAT: Showed normocephalic, atraumatic. NECK: Supple. HEART: Showed normal first and second heart sounds. No gallop or murmur. CHEST: Clear to auscultation. No crepitation or rhonchi. ABDOMEN: Distended, soft, with tenderness mostly in the left lower quadrant. No guarding or rigidity. No organomegaly. All hernial orifice intact. Bowel sounds normal. NEUROLOGIC: She was awake, alert, responding appropriately. All cranial nerves intact. EXTREMITIES: She moves extremities without difficulty. She ambulates without assistance or assistive devices. LABORATORY DATA: Showed a white cell count of 8700, hemoglobin 13, hematocrit 39, MCV 86, and platelet count 215,000. Her prothrombin time was 14.3, INR 1.2, APTT was 29. Her serum sodium was 141, potassium 3.2, chloride 103, bicarbonate 29, anion gap of 9, BUN 6, creatinine 0.7, estimated GFR was 85 mL per minute. Her glucose was 93, calcium was 8.6. Total bilirubin, AST, ALT were normal. Alkaline phosphatase slightly elevated. Total protein was 6.2, albumin 3.4 and lipase was 110. Her CT scan of the abdomen and pelvis with IV contrast showed that there are lower chest linear opacities in the lower lobes and middle lobes, likely scarring, atelectasis, bilateral breast implants are partially profiled. The abdomen and pelvis, liver, and biliary system. No focal liver lesion. Gallbladder is normal. No biliary ductal dilatation. Spleen, pancreas, adrenal glands and kidneys are unremarkable. There are prominent pelvic lymph nodes, likely reactive. No lymphadenopathy by size criteria. The aorta is normal in caliber with intermittent atherosclerotic calcification. Duodenal diverticulum is seen. Appendix is normal. No small or large bowel dilatation to suggest bowel obstruction. There are changes of colonic diverticulitis in sigmoid colon again seen with associated loculated fluid collection measuring approximately 4.4 x 3.1 cm with interval removal of the associated drain; however, foci of gas are seen extending to the anterior abdominal wall along the tract of the prior drain extending to the level of the left rectus abdominis muscle belly. In summary, this is a 59-year-old female patient that again came in with diverticulitis and abscess, status post drainage on 05/31. She grew Escherichia coli and Bacteroides and Lactobacillus. She has T12 compression fracture and rheumatoid arthritis. PLAN: I did start her on IV fluid in the form of D5 half normal with 40 mEq of potassium chloride as potassium is low, started her on Zosyn, morphine and Zofran and consulted the surgical team as well as the Infectious Disease team. ANIBAL HUSSEIN MD DR: JEFFREY/rodo JOB#: [id number] / [id number]
--- NOTE | 2020-07-06 14:00 | PN ---
DATE: 07/06/2020 SUBJECTIVE: The patient was admitted yesterday with abdominal pain, nausea, vomiting, chills, rigors or fever. The CT scan showed that the finding consistent with acute diverticulitis and an abdominal abscess associated diverticulitis, that is 4.4 cm with interval removal of the drain with foci of gas extending to the anterior abdominal wall along the previous drain tract extending to the left rectus abdominis muscle She was admitted, kept n.p.o., started on IV fluid as well as IV initially Zosyn and start her on morphine as well as Zofran. The patient apparently was seen by the Infectious Disease specialist this morning and her antibiotic was switched to daptomycin, but the patient apparently had an allergic reaction required injection of the treatment with diphenhydramine and her antibiotics were switched again to meropenem as well as fluconazole. She was seen by the surgical team and the plan is for her to have drain placed by interventional radiologist today with the aim of doing sigmoid colectomy and hopefully end-to-end anastomosis next Saturday. However, she might have to have a temporary colostomy for 3-6 months before taking it down. PHYSICAL EXAMINATION: GENERAL: When I examined her today, she looked well and was clearly in no apparent respiratory distress. No pallor, jaundice, cyanosis or thyromegaly. No jugular venous distention. No limb edema. VITAL SIGNS: Her heart rate was 82, blood pressure was 127/79, temperature was 98.3, respiratory rate was 16, and oxygen saturation was 93%. HEAD, EYES, EARS, NOSE AND THROAT: Normocephalic, atraumatic. NECK: Supple. HEART: Showed normal first and second heart sounds with no gallop or murmur. CHEST: Clear to auscultation. No crepitation or rhonchi. ABDOMEN: Distended, soft with tenderness mostly in the left lower quadrant. No guarding or rigidity. No organomegaly. All hernial orifice intact. Bowel sounds normal. NEUROLOGIC: She was grossly intact. ASSESSMENT: Acute diverticulitis with associated abscess 4.4 for which she is scheduled for placement of a drain by interventional radiologist and ultimately she will to have sigmoidectomy with hopefully end-to-end anastomosis feasible. Other medical problems include chronic obstructive pulmonary disease, rheumatoid arthritis, T11 compression fracture and hypokalemia. PLAN: My plan is to continue with IV antibiotic as recommended by Infectious Disease specialist. Continue with IV fluid, pain medication and antiemetic. We will check her labs this morning to make sure that her potassium is replenished. Monitor her on a daily basis. ANIBAL HUSSEIN MD DR: JEFFREY/rodo JOB#: [id number] / [id number]
--- NOTE | 2020-07-06 16:36 | RAD ---
Procedure: CT-guided pelvic drain placement Clinical Indication: Adult female with pelvic abscess, recurrent Sedation: Conscious sedation was administered with a total intraprocedural [id number] time of 20 minutes. The patient was monitored by a qualified independent observer throughout the time of sedation. Please refer to the medical record for exact doses of medications utilized to achieve moderate sedation. Antibiotics: None Sterility: The procedure was performed in its entirety using appropriate elements of sterile technique. Consent: The procedure was explained in its entirety to the patient or the patients designated sales representative groceries by a member of the treatment team, including a discussion of the risks, benefits and commonly accepted alternatives to the procedure, as well as the expected consequences of no therapy whatsoever. Discussion of the risks included, but was not limited to, those that are most frequent and those that are rare but possibly severe or life-threatening, as well as the possibility of unforeseen complications. Technique and Findings: Following informed consent, the patient was prepped and draped in usual sterile fashion. Preliminary CT scan of the area of interest was performed. 1% lidocaine was used to achieve local anesthesia over the area of interest. A small dermatotomy was made. Under periodic CT surveillance, a Seldinger needle was advanced into the fluid pocket in harshil pus was aspirated. The needle was then exchanged over wire for a 12 [place] pigtail drainage catheter which was sutured to the skin and placed to bulb suction. 10 cc specimen of pus was sent for microbiologic analysis. Complications: No immediate Impression: 1. CT-guided pelvic drain placement as described. PQRS Compliance Statement: One or more of the following individualized dose reduction techniques were utilized for this examination: 1. Automated exposure control 2. Adjustment of the mA and/or kV according to patient size 3. Use of iterative reconstruction technique
[2020-07-06] MEDS: HYDROcodone/APAP 5/325MG 1 TAB TABLET PO PRN (20:44)
[2020-07-07] MEDS: POTASSIUM CL 40MEQ D5-0.45NACL 1,000 ML IV SCH ×4 (01:38→22:00)
[2020-07-07] MEDS: HYDROcodone/APAP 5/325MG 1 TAB TABLET PO PRN ×5 (01:39→20:19)
[2020-07-07 03:00] VITALS: BP 105/59
[2020-07-07] MEDS: MEROPENEM 1 GM in IV NORMAL SALINE 100ML 100 ML IV SCH ×3 (05:46→23:46)
[2020-07-07 06:06] LABS: BASO % 1 % (0-3); EOS # 0.3 x10^3/uL (0.0-0.7); EOS % 7 % (0-3); LYMPH # 1.1 x10^3/uL (1.0-4.8); LYMPH % 22 % (24-48); MEAN CORPUSCULAR HEMOGLOBIN 29 pg (25-35); MEAN CORPUSCULAR HGB CONC 33 g/dL (31-37); MEAN CORPUSCULAR VOLUME 87 fL (79-100); MONO # 0.5 x10^3/uL (0.0-1.1); MONO % 10 % (0-9); NEUT # 2.9 x10^3/uL (1.8-7.7); NEUT % 60 % (31-73); PLATELET COUNT 195 x10^3/uL (140-400); RED BLOOD COUNT 4.14 x10^6/uL (3.50-5.40); RED CELL DISTRIBUTION WIDTH 16.4 % (11.5-14.5); WHITE BLOOD COUNT 4.8 x10^3/uL (4.0-11.0)
[2020-07-07 06:13] LABS: ALBUMIN 2.7 g/dL (3.4-5.0); ALBUMIN/GLOBULIN RATIO 0.9 (1.0-1.7); CALCIUM 8.5 mg/dL (8.5-10.1); CREATININE 0.5 mg/dL (0.6-1.0); GFR 125.4; POTASSIUM 3.9 mmol/L (3.5-5.1); TOTAL BILIRUBIN 0.3 mg/dL (0.2-1.0); TOTAL PROTEIN 5.6 g/dL (6.4-8.2)
[2020-07-07 07:05] VITALS: BP 136/77
[2020-07-07] MEDS: FLUCONAZOLE 400MG/200ML PREMIX 200 ML IV SCH (08:35)
--- NOTE | 2020-07-07 09:27 | PDOC ---
ANGÉLICA HNERY WAISTLINE JOINER OVERLOCK 07/07/20 0927: SURGICAL PROGRESS NOTE DATE: 07/07/20 TIME: 09:26 Subjective feeling well no significant pain Vital Signs Vital Signs Date Time Temp Pulse Resp B/P (MAP) Pulse Ox O2 Delivery O2 Flow Rate FiO2 07/07/20 07:05 98.0 76 19 136/77 (96) 95 Room Air 98.0 07/07/20 06:41 2.0 I&O Intake and Output 07/07/20 07:00 Intake Total 2260 ml Output Total 35 ml Balance 2225 ml Intake Oral 1260 ml IV Total 1000 ml Output Drainage Total 35 ml # Voids 4 # Bowel Movements 1 General: Alert, Oriented X3, Cooperative Abdomen: Soft, Other (drain purulent drainage) Labs Laboratory Tests Test 07/05/20 18:45 07/06/20 10:17 07/07/20 03:57 White Blood Count 8.7 x10^3/uL (4.0-11.0) 4.8 x10^3/uL (4.0-11.0) Red Blood Count 4.56 x10^6/uL (3.50-5.40) 4.14 x10^6/uL (3.50-5.40) Hemoglobin 13.1 g/dL (12.0-15.5) 12.0 g/dL (12.0-15.5) Hematocrit 39.4 % (36.0-47.0) 36.0 % (36.0-47.0) Mean Corpuscular Volume 86 fL (79-100) 87 fL (79-100) Mean Corpuscular Hemoglobin 29 pg (25-35) 29 pg (25-35) Mean Corpuscular Hemoglobin Concent 33 g/dL (31-37) 33 g/dL (31-37) Red Cell Distribution Width 16.2 % (11.5-14.5) 16.4 % (11.5-14.5) Platelet Count 215 x10^3/uL (140-400) 195 x10^3/uL (140-400) Neutrophils (%) (Auto) 76 % (31-73) 60 % (31-73) Lymphocytes (%) (Auto) 12 % (24-48) 22 % (24-48) Monocytes (%) (Auto) 8 % (0-9) 10 % (0-9) Eosinophils (%) (Auto) 3 % (0-3) 7 % (0-3) Basophils (%) (Auto) 1 % (0-3) 1 % (0-3) Neutrophils # (Auto) 6.6 x10^3/uL (1.8-7.7) 2.9 x10^3/uL (1.8-7.7) Lymphocytes # (Auto) 1.1 x10^3/uL (1.0-4.8) 1.1 x10^3/uL (1.0-4.8) Monocytes # (Auto) 0.7 x10^3/uL (0.0-1.1) 0.5 x10^3/uL (0.0-1.1) Eosinophils # (Auto) 0.2 x10^3/uL (0.0-0.7) 0.3 x10^3/uL (0.0-0.7) Basophils # (Auto) 0.1 x10^3/uL (0.0-0.2) 0.0 x10^3/uL (0.0-0.2) Sodium Level 141 mmol/L (136-145) 142 mmol/L (136-145) 143 mmol/L (136-145) Potassium Level 3.2 mmol/L (3.5-5.1) 4.0 mmol/L (3.5-5.1) 3.9 mmol/L (3.5-5.1) Chloride Level 103 mmol/L (98-107) 106 mmol/L (98-107) 108 mmol/L (98-107) Carbon Dioxide Level 29 mmol/L (21-32) 31 mmol/L (21-32) 28 mmol/L (21-32) Anion Gap 9 (6-14) 5 (6-14) 7 (6-14) Blood Urea Nitrogen 6 mg/dL (7-20) 6 mg/dL (7-20) 3 mg/dL (7-20) Creatinine 0.7 mg/dL (0.6-1.0) 0.9 mg/dL (0.6-1.0) 0.5 mg/dL (0.6-1.0) Estimated GFR (Cockcroft-Gault) 85.1 63.7 125.4 BUN/Creatinine Ratio 9 (6-20) 6 (6-20) Glucose Level 93 mg/dL (70-99) 84 mg/dL (70-99) 94 mg/dL (70-99) Calcium Level 8.6 mg/dL (8.5-10.1) 8.5 mg/dL (8.5-10.1) 8.5 mg/dL (8.5-10.1) Total Bilirubin 0.4 mg/dL (0.2-1.0) 0.3 mg/dL (0.2-1.0) Aspartate Amino Transf (AST/SGOT) 10 U/L (15-37) 12 U/L (15-37) Alanine Aminotransferase (ALT/SGPT) 14 U/L (14-59) 11 U/L (14-59) Alkaline Phosphatase 119 U/L (46-116) 90 U/L (46-116) Total Protein 6.2 g/dL (6.4-8.2) 5.6 g/dL (6.4-8.2) Albumin 3.4 g/dL (3.4-5.0) 2.7 g/dL (3.4-5.0) Albumin/Globulin Ratio 1.2 (1.0-1.7) 0.9 (1.0-1.7) Lipase 110 U/L (73-393) Prothrombin Time 14.3 SEC (11.7-14.0) Prothromb Time International Ratio 1.2 (0.8-1.1) Activated Partial Thromboplast Time 29 SEC (24-38) Laboratory Tests Test 07/06/20 10:17 07/07/20 03:57 Prothrombin Time 14.3 SEC (11.7-14.0) Prothromb Time International Ratio 1.2 (0.8-1.1) Activated Partial Thromboplast Time 29 SEC (24-38) Sodium Level 142 mmol/L (136-145) 143 mmol/L (136-145) Potassium Level 4.0 mmol/L (3.5-5.1) 3.9 mmol/L (3.5-5.1) Chloride Level 106 mmol/L (98-107) 108 mmol/L (98-107) Carbon Dioxide Level 31 mmol/L (21-32) 28 mmol/L (21-32) Anion Gap 5 (6-14) 7 (6-14) Blood Urea Nitrogen 6 mg/dL (7-20) 3 mg/dL (7-20) Creatinine 0.9 mg/dL (0.6-1.0) 0.5 mg/dL (0.6-1.0) Estimated GFR (Cockcroft-Gault) 63.7 125.4 Glucose Level 84 mg/dL (70-99) 94 mg/dL (70-99) Calcium Level 8.5 mg/dL (8.5-10.1) 8.5 mg/dL (8.5-10.1) White Blood Count 4.8 x10^3/uL (4.0-11.0) Red Blood Count 4.14 x10^6/uL (3.50-5.40) Hemoglobin 12.0 g/dL (12.0-15.5) Hematocrit 36.0 % (36.0-47.0) Mean Corpuscular Volume 87 fL (79-100) Mean Corpuscular Hemoglobin 29 pg (25-35) Mean Corpuscular Hemoglobin Concent 33 g/dL (31-37) Red Cell Distribution Width 16.4 % (11.5-14.5) Platelet Count 195 x10^3/uL (140-400) Neutrophils (%) (Auto) 60 % (31-73) Lymphocytes (%) (Auto) 22 % (24-48) Monocytes (%) (Auto) 10 % (0-9) Eosinophils (%) (Auto) 7 % (0-3) Basophils (%) (Auto) 1 % (0-3) Neutrophils # (Auto) 2.9 x10^3/uL (1.8-7.7) Lymphocytes # (Auto) 1.1 x10^3/uL (1.0-4.8) Monocytes # (Auto) 0.5 x10^3/uL (0.0-1.1) Eosinophils # (Auto) 0.3 x10^3/uL (0.0-0.7) Basophils # (Auto) 0.0 x10^3/uL (0.0-0.2) BUN/Creatinine Ratio 6 (6-20) Total Bilirubin 0.3 mg/dL (0.2-1.0) Aspartate Amino Transf (AST/SGOT) 12 U/L (15-37) Alanine Aminotransferase (ALT/SGPT) 11 U/L (14-59) Alkaline Phosphatase 90 U/L (46-116) Total Protein 5.6 g/dL (6.4-8.2) Albumin 2.7 g/dL (3.4-5.0) Albumin/Globulin Ratio 0.9 (1.0-1.7) Assessment/Plan abx, drain clears until OR will add ppn over weekend Justicifation of Admission Dx: Justifications for Admission: Justification of Admission Dx: Yes HERNANDEZ GARZA MD 07/07/20 1229: SURGICAL PROGRESS NOTE Assessment/Plan Agree with above ANGÉLICA HENRY WAISTLINE JOINER OVERLOCK Jul 07, 2020 09:27 HERNANDEZ GARZA MD Jul 07, 2020 12:29
--- NOTE | 2020-07-07 09:53 | NUR ---
SW following. Discussed with RN, pt had a drain placed yesterday, IV abx. Tentative plans for surgery on Saturday (07/11/2020). SW will continue to follow.
--- NOTE | 2020-07-07 10:07 | PDOC ---
Infectious Disease Note Subjective Subjective Better today. Pain controlled but taking med Had itch rash with Dapto and is better today after Benadryl No F/c/s/n/V/SOA Drain output initially very bloody ROS ROS o/w neg Vital Sign Vital Signs Vital Signs Date Time Temp Pulse Resp B/P (MAP) Pulse Ox O2 Delivery O2 Flow Rate FiO2 07/07/20 07:05 98.0 76 19 136/77 (96) 95 Room Air 98.0 07/07/20 06:41 2.0 Physical Exam PHYSICAL EXAM GENERAL: Sitting in bed, alert, smiling HEENT: Pupils equal and reactive. Oral cavity, pharynx is clear. NECK: Supple. Good range of motion. LUNGS: Clear to auscultation bilaterally. HEART: S1, S2. ABDOMEN: No guard, bowel sounds present, soft, gen tender but more on left. ABIGAIL drain with dark fluid EXTREMITIES: Without clubbing, cyanosis or gross edema. SKIN: Warm to touch without signs of rash. NEUROLOGIC: Alert, oriented, nonfocal. PIV Labs Lab Laboratory Tests Test 07/06/20 10:17 07/07/20 03:57 Prothrombin Time 14.3 SEC (11.7-14.0) Prothromb Time International Ratio 1.2 (0.8-1.1) Activated Partial Thromboplast Time 29 SEC (24-38) Sodium Level 142 mmol/L (136-145) 143 mmol/L (136-145) Potassium Level 4.0 mmol/L (3.5-5.1) 3.9 mmol/L (3.5-5.1) Chloride Level 106 mmol/L (98-107) 108 mmol/L (98-107) Carbon Dioxide Level 31 mmol/L (21-32) 28 mmol/L (21-32) Anion Gap 5 (6-14) 7 (6-14) Blood Urea Nitrogen 6 mg/dL (7-20) 3 mg/dL (7-20) Creatinine 0.9 mg/dL (0.6-1.0) 0.5 mg/dL (0.6-1.0) Estimated GFR (Cockcroft-Gault) 63.7 125.4 Glucose Level 84 mg/dL (70-99) 94 mg/dL (70-99) Calcium Level 8.5 mg/dL (8.5-10.1) 8.5 mg/dL (8.5-10.1) White Blood Count 4.8 x10^3/uL (4.0-11.0) Red Blood Count 4.14 x10^6/uL (3.50-5.40) Hemoglobin 12.0 g/dL (12.0-15.5) Hematocrit 36.0 % (36.0-47.0) Mean Corpuscular Volume 87 fL (79-100) Mean Corpuscular Hemoglobin 29 pg (25-35) Mean Corpuscular Hemoglobin Concent 33 g/dL (31-37) Red Cell Distribution Width 16.4 % (11.5-14.5) Platelet Count 195 x10^3/uL (140-400) Neutrophils (%) (Auto) 60 % (31-73) Lymphocytes (%) (Auto) 22 % (24-48) Monocytes (%) (Auto) 10 % (0-9) Eosinophils (%) (Auto) 7 % (0-3) Basophils (%) (Auto) 1 % (0-3) Neutrophils # (Auto) 2.9 x10^3/uL (1.8-7.7) Lymphocytes # (Auto) 1.1 x10^3/uL (1.0-4.8) Monocytes # (Auto) 0.5 x10^3/uL (0.0-1.1) Eosinophils # (Auto) 0.3 x10^3/uL (0.0-0.7) Basophils # (Auto) 0.0 x10^3/uL (0.0-0.2) BUN/Creatinine Ratio 6 (6-20) Total Bilirubin 0.3 mg/dL (0.2-1.0) Aspartate Amino Transf (AST/SGOT) 12 U/L (15-37) Alanine Aminotransferase (ALT/SGPT) 11 U/L (14-59) Alkaline Phosphatase 90 U/L (46-116) Total Protein 5.6 g/dL (6.4-8.2) Albumin 2.7 g/dL (3.4-5.0) Albumin/Globulin Ratio 0.9 (1.0-1.7) Micro 07/06 GRAM STAIN Final Final NO ORGANISMS SEEN. RBC:MODERATE SQUAMOUS EPI CELL:NONE SEEN PMN (WBCs):MANY CT scan 07/05 IMPRESSION: Changes of sigmoid diverticulitis with associated with a fluid collection measuring 4.4 cm. Interval removal of drain, now with foci of gas extending to the anterior abdominal wall along the previous drain tract, extending to the left rectus abdominis muscle. Culture 05/31 ANAEROBIC-AEROBIC CULTURE Final Final MODERATE GRAM NEGATIVE RODS on 06/01/20 at 1048 FINAL ID= [ESCHERICHIA COLI] RARE ANAEROBIC GRAM NEGATIVE RODS on 06/02/20 at 1447 FINAL ID= [BACTEROIDES OVATUS GROUP] MODERATE GRAM POSITIVE RODS on 06/03/20 at 1102 FINAL ID= [LACTOBACILLUS RHAMNOSUS] FEW ANAEROBIC GRAM NEGATIVE RODS on 06/03/20 at 1343 FINAL ID= [BACTEROIDES UNIFORMIS] ESCHERICHIA COLI LACTOBACILLUS RHAMNOSUS BACTEROIDES OVATUS GROUP BACTEROIDES OVATUS GROUP BACTEROIDES UNIFORMIS ANTIMICROBIAL SUSCEPTIBILITY Final Comment NEG THIAGO 56 ESCHERICHIA COLI ANTIBIOTIC RESULT INTERPRETATION AMPICILLIN/SULBACTAM >16/8 R AMIKACIN <=16 S AMPICILLIN >16 R AMOXICILLIN/K CLAVULANATE >16/8 R AZTREONAM 16 I CEFTRIAXONE 2 I CEFTAZIDIME >16 R CEFOTAXIME 8 S CONTINUED ON NEXT PAGE RUN DATE: 06/05/20 [facility] LAB *LIVE* PAGE 2 RUN TIME: 1009 Specimen Inquiry SPEC: [id number] PATIENT: JANICE RAMIREZ [id number] (Continued) Procedure Result ANTIMICROBIAL SUSCEPTIBILITY Final (continued) CEFOXITIN >16 R CIPROFLOXACIN >2 R CEFEPIME <=2 S CEFUROXIME >16 R CEFTAZIDIME/AVIBACTAM <=4 S ERTAPENEM <=0.5 S GENTAMICIN <=2 S LEVOFLOXACIN >4 R MEROPENEM <=1 S PIPERACILLIN/TAZOBACTAM 64 I TRIMETHOPRIM/SULFAMETHOXAZOLE <=0.5/9.5 S TETRACYCLINE >8 R TOBRAMYCIN <=2 S Objective Assessment Recurrent abd abscess - drain removed last week. s/p drain 07/06 H/o Diverticulitis with abscess s/p drainage 05/31,,,E. coli (I-Zosyn), bacteroides, lactobacillus Immunosuppression - on steroids T 11 compression fracture RA Daptomycin reaction Plan Plan of Care Continue meropenem, Fluconazole and added Daptomycin Await surgical f/u F/u labs in am and cults Left ant rib pain per primary D/w at bedside D/w nursing CASI PICHARDO MD Jul 07, 2020 10:07
[2020-07-07 11:05] VITALS: BP 141/88
[2020-07-07] MEDS ORDERED: diphenhydrAMINE HCL 25 MG CAPSULE PO PRN (12:00)
--- NOTE | 2020-07-07 12:03 | PN ---
DATE: 07/07/2020 SUBJECTIVE: The patient is resting, slightly propped up in bed, no apparent distress, awake, alert. On questioning her, she continued to have abdominal pain that is much better controlled by oral pain medication; however, she has been complaining of generalized pruritus. She is tolerating her clear liquid diet and she is apparently scheduled for sigmoid colectomy on Saturday. PHYSICAL EXAMINATION: GENERAL: When I examined her, she looked pale, but no jaundice, cyanosis or thyromegaly. No jugular venous distention. No lower limb edema. VITAL SIGNS: Her heart rate was 81, blood pressure was 141/88, temperature was 97.7, respiratory rate 20, and oxygen saturation was 94% on room air. HEAD, EYES, EARS, NOSE AND THROAT: Showed normocephalic, atraumatic. NECK: Supple. HEART: Showed normal first and second heart sounds. No gallop, rub or murmur. CHEST: Clear to auscultation. No crepitation or rhonchi. ABDOMEN: Distended, soft, nontender. NEUROLOGIC: She was awake, alert, responding appropriately. All cranial nerves intact. She moves extremities without difficulty. Her intake was 2260, no output was recorded. LABORATORY DATA: Her lab work this morning showed a white cell count 4800, hemoglobin 12, hematocrit 36, MCV 87 and a platelet count of 195,000. Her chemistry showed a serum sodium 143, potassium 3.9, chloride 108, bicarbonate 28, anion gap of 7, BUN 3, creatinine 0.5, estimated GFR was 125 mL per minute. Her glucose was 94, calcium was 8.5. Total bilirubin, AST, ALT, alkaline phosphatase were normal. Total protein was 5.6, albumin was 2.7. ASSESSMENT: Acute diverticulitis with associated abscess that is 4.4 for which she has had a drain placed by interventional radiologist. She has multiple other medical problems include rheumatoid arthritis, gastroesophageal reflux disease, chronic obstructive pulmonary disease. PLAN: To continue with IV antibiotic. I added Benadryl for generalized pruritus. Continue with hydrocodone for pain management. Fluconazole, meropenem for infection as she has grown before Escherichia coli and bacteroides. ANIBAL HUSSEIN MD DR: JEFFREY/rodo JOB#: [id number] / [id number]
[2020-07-07] MEDS: AMINO AC 3%/ELECTROLYTE/GLYCER 1,000 ML IV SCH ×2 (14:22→23:46)
[2020-07-07 15:05] VITALS: BP 128/90
[2020-07-07 19:00] VITALS: BP 143/81
[2020-07-07 23:00] VITALS: BP 138/81
[2020-07-08 03:34] VITALS: BP 138/75
[2020-07-08] MEDS: MEROPENEM 1 GM in IV NORMAL SALINE 100ML 100 ML IV SCH ×3 (05:34→21:20)
[2020-07-08 06:00] LABS: CALCIUM 9.2 mg/dL (8.5-10.1); CREATININE 0.6 mg/dL (0.6-1.0); GFR 101.6; POTASSIUM 4.2 mmol/L (3.5-5.1)
[2020-07-08 07:05] VITALS: BP 96/75
[2020-07-08] MEDS: POTASSIUM CL 40MEQ D5-0.45NACL 1,000 ML IV SCH ×2 (08:00→18:00)
[2020-07-08] MEDS: HYDROcodone/APAP 5/325MG 1 TAB TABLET PO PRN ×2 (08:28→18:08)
[2020-07-08] MEDS: FLUCONAZOLE 400MG/200ML PREMIX 200 ML IV SCH (08:29)
[2020-07-08] MEDS: AMINO AC 3%/ELECTROLYTE/GLYCER 1,000 ML IV SCH ×2 (08:30→21:15)
--- NOTE | 2020-07-08 09:10 | PDOC ---
ANGÉLICA HENRY MATCHER 07/08/20 0910: SURGICAL PROGRESS NOTE DATE: 07/08/20 TIME: 09:08 Subjective no complaints, except not a fan of clear liquids Vital Signs Vital Signs Date Time Temp Pulse Resp B/P (MAP) Pulse Ox O2 Delivery O2 Flow Rate FiO2 07/08/20 08:28 Room Air 07/08/20 07:05 98.0 76 18 96/75 (82) 90 98.0 I&O Intake and Output 07/08/20 06:59 Intake Total 250 ml Balance 250 ml Intake Oral 250 ml # Voids 4 General: Alert, Oriented X3, Cooperative Abdomen: Soft, Other (mild ttp lower abdomen, drain purulent ) Labs Laboratory Tests Test 07/06/20 10:17 07/07/20 03:57 07/08/20 04:20 Prothrombin Time 14.3 SEC (11.7-14.0) Prothromb Time International Ratio 1.2 (0.8-1.1) Activated Partial Thromboplast Time 29 SEC (24-38) Sodium Level 142 mmol/L (136-145) 143 mmol/L (136-145) 142 mmol/L (136-145) Potassium Level 4.0 mmol/L (3.5-5.1) 3.9 mmol/L (3.5-5.1) 4.2 mmol/L (3.5-5.1) Chloride Level 106 mmol/L (98-107) 108 mmol/L (98-107) 106 mmol/L (98-107) Carbon Dioxide Level 31 mmol/L (21-32) 28 mmol/L (21-32) 29 mmol/L (21-32) Anion Gap 5 (6-14) 7 (6-14) 7 (6-14) Blood Urea Nitrogen 6 mg/dL (7-20) 3 mg/dL (7-20) 5 mg/dL (7-20) Creatinine 0.9 mg/dL (0.6-1.0) 0.5 mg/dL (0.6-1.0) 0.6 mg/dL (0.6-1.0) Estimated GFR (Cockcroft-Gault) 63.7 125.4 101.6 Glucose Level 84 mg/dL (70-99) 94 mg/dL (70-99) 88 mg/dL (70-99) Calcium Level 8.5 mg/dL (8.5-10.1) 8.5 mg/dL (8.5-10.1) 9.2 mg/dL (8.5-10.1) White Blood Count 4.8 x10^3/uL (4.0-11.0) Red Blood Count 4.14 x10^6/uL (3.50-5.40) Hemoglobin 12.0 g/dL (12.0-15.5) Hematocrit 36.0 % (36.0-47.0) Mean Corpuscular Volume 87 fL (79-100) Mean Corpuscular Hemoglobin 29 pg (25-35) Mean Corpuscular Hemoglobin Concent 33 g/dL (31-37) Red Cell Distribution Width 16.4 % (11.5-14.5) Platelet Count 195 x10^3/uL (140-400) Neutrophils (%) (Auto) 60 % (31-73) Lymphocytes (%) (Auto) 22 % (24-48) Monocytes (%) (Auto) 10 % (0-9) Eosinophils (%) (Auto) 7 % (0-3) Basophils (%) (Auto) 1 % (0-3) Neutrophils # (Auto) 2.9 x10^3/uL (1.8-7.7) Lymphocytes # (Auto) 1.1 x10^3/uL (1.0-4.8) Monocytes # (Auto) 0.5 x10^3/uL (0.0-1.1) Eosinophils # (Auto) 0.3 x10^3/uL (0.0-0.7) Basophils # (Auto) 0.0 x10^3/uL (0.0-0.2) BUN/Creatinine Ratio 6 (6-20) Total Bilirubin 0.3 mg/dL (0.2-1.0) Aspartate Amino Transf (AST/SGOT) 12 U/L (15-37) Alanine Aminotransferase (ALT/SGPT) 11 U/L (14-59) Alkaline Phosphatase 90 U/L (46-116) Total Protein 5.6 g/dL (6.4-8.2) Albumin 2.7 g/dL (3.4-5.0) Albumin/Globulin Ratio 0.9 (1.0-1.7) Laboratory Tests Test 07/08/20 04:20 Sodium Level 142 mmol/L (136-145) Potassium Level 4.2 mmol/L (3.5-5.1) Chloride Level 106 mmol/L (98-107) Carbon Dioxide Level 29 mmol/L (21-32) Anion Gap 7 (6-14) Blood Urea Nitrogen 5 mg/dL (7-20) Creatinine 0.6 mg/dL (0.6-1.0) Estimated GFR (Cockcroft-Gault) 101.6 Glucose Level 88 mg/dL (70-99) Calcium Level 9.2 mg/dL (8.5-10.1) Assessment/Plan clears this weekend, surgery saturday Justicifation of Admission Dx: Justifications for Admission: Justification of Admission Dx: Yes HERNANDEZ GARZA MD 07/09/20 0613: SURGICAL PROGRESS NOTE Assessment/Plan Agree with above ANGÉLICA HENRY APRN Jul 08, 2020 09:10 HERNANDEZ GARZA MD Jul 09, 2020 06:13
--- NOTE | 2020-07-08 09:52 | NUR ---
SW following. Discussed with RN, pt on room air, clear liquid diet, IV abx. Plans for surgery Saturday (07/11/2020). SW will continue to follow.
--- NOTE | 2020-07-08 10:55 | PDOC ---
Infectious Disease Note Subjective Subjective Better today. Pain controlled and taking less med Had itch rash with Dapto and has resolved No F/c/s/n/V/SOA Drain output initially very bloody now looks bile Vital Sign Vital Signs Vital Signs Date Time Temp Pulse Resp B/P (MAP) Pulse Ox O2 Delivery O2 Flow Rate FiO2 07/08/20 09:33 Room Air 07/08/20 07:05 98.0 76 18 96/75 (82) 90 98.0 Physical Exam PHYSICAL EXAM GENERAL: Sitting in bed, alert, smiling HEENT: Pupils equal and reactive. Oral cavity, pharynx is clear. NECK: Supple. Good range of motion. LUNGS: Clear to auscultation bilaterally. HEART: S1, S2. ABDOMEN: No guard, bowel sounds present, soft, gen tender but more on left. ABIGAIL drain with dark fluid EXTREMITIES: Without clubbing, cyanosis or gross edema. SKIN: Warm to touch without signs of rash. NEUROLOGIC: Alert, oriented, nonfocal. PIV Labs Lab Laboratory Tests Test 07/08/20 04:20 Sodium Level 142 mmol/L (136-145) Potassium Level 4.2 mmol/L (3.5-5.1) Chloride Level 106 mmol/L (98-107) Carbon Dioxide Level 29 mmol/L (21-32) Anion Gap 7 (6-14) Blood Urea Nitrogen 5 mg/dL (7-20) Creatinine 0.6 mg/dL (0.6-1.0) Estimated GFR (Cockcroft-Gault) 101.6 Glucose Level 88 mg/dL (70-99) Calcium Level 9.2 mg/dL (8.5-10.1) Micro 07/06 GRAM STAIN Final Final NO ORGANISMS SEEN. RBC:MODERATE SQUAMOUS EPI CELL:NONE SEEN PMN (WBCs):MANY CT scan 07/05 IMPRESSION: Changes of sigmoid diverticulitis with associated with a fluid collection measuring 4.4 cm. Interval removal of drain, now with foci of gas extending to the anterior abdominal wall along the previous drain tract, extending to the left rectus abdominis muscle. Culture 05/31 ANAEROBIC-AEROBIC CULTURE Final Final MODERATE GRAM NEGATIVE RODS on 06/01/20 at 1048 FINAL ID= [ESCHERICHIA COLI] RARE ANAEROBIC GRAM NEGATIVE RODS on 06/02/20 at 1447 FINAL ID= [BACTEROIDES OVATUS GROUP] MODERATE GRAM POSITIVE RODS on 06/03/20 at 1102 FINAL ID= [LACTOBACILLUS RHAMNOSUS] FEW ANAEROBIC GRAM NEGATIVE RODS on 06/03/20 at 1343 FINAL ID= [BACTEROIDES UNIFORMIS] ESCHERICHIA COLI LACTOBACILLUS RHAMNOSUS BACTEROIDES OVATUS GROUP BACTEROIDES OVATUS GROUP BACTEROIDES UNIFORMIS ANTIMICROBIAL SUSCEPTIBILITY Final Comment NEG THIAGO 56 ESCHERICHIA COLI ANTIBIOTIC RESULT INTERPRETATION AMPICILLIN/SULBACTAM >16/8 R AMIKACIN <=16 S AMPICILLIN >16 R AMOXICILLIN/K CLAVULANATE >16/8 R AZTREONAM 16 I CEFTRIAXONE 2 I CEFTAZIDIME >16 R CEFOTAXIME 8 S CONTINUED ON NEXT PAGE RUN DATE: 06/05/20 [facility] *LIVE* PAGE 2 RUN TIME: 1009 Specimen Inquiry SPEC: [id number] PATIENT: JANICE RAMIREZ [id number] (Continued) Procedure Result ANTIMICROBIAL SUSCEPTIBILITY Final (continued) CEFOXITIN >16 R CIPROFLOXACIN >2 R CEFEPIME <=2 S CEFUROXIME >16 R CEFTAZIDIME/AVIBACTAM <=4 S ERTAPENEM <=0.5 S GENTAMICIN <=2 S LEVOFLOXACIN >4 R MEROPENEM <=1 S PIPERACILLIN/TAZOBACTAM 64 I TRIMETHOPRIM/SULFAMETHOXAZOLE <=0.5/9.5 S TETRACYCLINE >8 R TOBRAMYCIN <=2 S Objective Assessment Recurrent abd abscess - drain removed last week. s/p drain 07/06 Enterococcus so far H/o Diverticulitis with abscess s/p drainage 05/31,,,E. coli (I-Zosyn), bacteroides, lactobacillus Immunosuppression - on steroids T 11 compression fracture RA Daptomycin reaction Plan Plan of Care Continue meropenem, Fluconazole Dose Zyvox and f/u sensitivites of Enterococcus Await surgical f/u F/u labs in am and cults Left ant rib pain per primary D/w at bedside D/w nursing CASI PICHARDO MD Jul 08, 2020 10:55
[2020-07-08 11:05] VITALS: BP 138/85
--- NOTE | 2020-07-08 12:01 | PN ---
DATE: 07/08/2020 SUBJECTIVE: The patient is resting, slightly propped up in bed, in no apparent respiratory distress. She is awake, alert, responding appropriately. Her pain is well controlled. Continue to have some itching, but she is trying to avoid diphenhydramine as it interacts with some of the antibiotics according to Dr. Solorzano. PHYSICAL EXAMINATION: GENERAL: When I examined her, she looked well and was clearly in no apparent distress. VITAL SIGNS: Her heart rate was 76, blood pressure 96/75, temperature 98, respiratory rate was 18 and oxygen saturation was 90%. ABDOMEN: Distended, soft, nontender. Her intake was 2216, output was recorded. LABORATORY DATA: As of this morning showed a serum sodium 142, potassium 4.2, chloride 100, bicarbonate 29, anion gap of 7, BUN 5, creatinine was 0.6. ASSESSMENT AND PLAN: To obviously continue with nutritional support. Continue with IV antibiotic and she is scheduled for surgery on Saturday. ANIBAL HUSSEIN MD DR: JEFFREY/rodo JOB#: [id number] / [id number]
[2020-07-08 15:05] VITALS: BP 150/100
[2020-07-08 19:15] VITALS: BP 153/84
[2020-07-08 22:54] VITALS: BP 135/81
[2020-07-09] MEDS: HYDROcodone/APAP 5/325MG 1 TAB TABLET PO PRN ×2 (01:41→10:05)
[2020-07-09 03:30] VITALS: BP 148/77
[2020-07-09] MEDS: POTASSIUM CL 40MEQ D5-0.45NACL 1,000 ML IV SCH ×2 (04:00→14:00)
[2020-07-09] MEDS: MEROPENEM 1 GM in IV NORMAL SALINE 100ML 100 ML IV SCH ×3 (06:04→21:52)
[2020-07-09 07:00] VITALS: BP 155/90
[2020-07-09] MEDS: FLUCONAZOLE 400MG/200ML PREMIX 200 ML IV SCH (07:59)
--- NOTE | 2020-07-09 08:03 | PDOC ---
Infectious Disease Note Subjective Subjective Ok but has gone through multiple IVs Pain controlled and taking less med Had itch rash with Dapto and has resolved No F/c/s/n/V/SOA Drain output initially very bloody now looks bile Vital Sign Vital Signs Vital Signs Date Time Temp Pulse Resp B/P (MAP) Pulse Ox O2 Delivery O2 Flow Rate FiO2 07/09/20 03:30 97.7 72 18 148/77 (100) 97 Room Air 97.7 Physical Exam PHYSICAL EXAM GENERAL: Sitting in bed, alert, smiling HEENT: Pupils equal and reactive. Oral cavity, pharynx is clear. NECK: Supple. Good range of motion. LUNGS: Clear to auscultation bilaterally. HEART: S1, S2. ABDOMEN: No guard, bowel sounds present, soft, gen tender but more on left. ABIGAIL drain with dark fluid EXTREMITIES: Without clubbing, cyanosis or gross edema. SKIN: Warm to touch without signs of rash. NEUROLOGIC: Alert, oriented, nonfocal. PIV Labs Lab Laboratory Tests Test 07/08/20 18:14 SARS-CoV-2 Antigen (Rapid) Negative (NEGATIVE) Micro 07/06 GRAM STAIN Final Final NO ORGANISMS SEEN. RBC:MODERATE SQUAMOUS EPI CELL:NONE SEEN PMN (WBCs):MANY CT scan 07/05 IMPRESSION: Changes of sigmoid diverticulitis with associated with a fluid collection measuring 4.4 cm. Interval removal of drain, now with foci of gas extending to the anterior abdominal wall along the previous drain tract, extending to the left rectus abdominis muscle. Culture 05/31 ANAEROBIC-AEROBIC CULTURE Final Final MODERATE GRAM NEGATIVE RODS on 06/01/20 at 1048 FINAL ID= [ESCHERICHIA COLI] RARE ANAEROBIC GRAM NEGATIVE RODS on 06/02/20 at 1447 FINAL ID= [BACTEROIDES OVATUS GROUP] MODERATE GRAM POSITIVE RODS on 06/03/20 at 1102 FINAL ID= [LACTOBACILLUS RHAMNOSUS] FEW ANAEROBIC GRAM NEGATIVE RODS on 06/03/20 at 1343 FINAL ID= [BACTEROIDES UNIFORMIS] ESCHERICHIA COLI LACTOBACILLUS RHAMNOSUS BACTEROIDES OVATUS GROUP BACTEROIDES OVATUS GROUP BACTEROIDES UNIFORMIS ANTIMICROBIAL SUSCEPTIBILITY Final Comment NEG THIAGO 56 ESCHERICHIA COLI ANTIBIOTIC RESULT INTERPRETATION AMPICILLIN/SULBACTAM >16/8 R AMIKACIN <=16 S AMPICILLIN >16 R AMOXICILLIN/K CLAVULANATE >16/8 R AZTREONAM 16 I CEFTRIAXONE 2 I CEFTAZIDIME >16 R CEFOTAXIME 8 S CONTINUED ON NEXT PAGE -------- ---- RUN DATE: 06/05/20 [facility] *LIVE* PAGE 2 RUN TIME: 1009 Specimen Inquiry SPEC: [id number] PATIENT: JANICE RAMIREZ [id number] (Continued) Procedure Result ANTIMICROBIAL SUSCEPTIBILITY Final (continued) CEFOXITIN >16 R CIPROFLOXACIN >2 R CEFEPIME <=2 S CEFUROXIME >16 R CEFTAZIDIME/AVIBACTAM <=4 S ERTAPENEM <=0.5 S GENTAMICIN <=2 S LEVOFLOXACIN >4 R MEROPENEM <=1 S PIPERACILLIN/TAZOBACTAM 64 I TRIMETHOPRIM/SULFAMETHOXAZOLE <=0.5/9.5 S TETRACYCLINE >8 R TOBRAMYCIN <=2 S Objective Assessment Recurrent abd abscess - drain removed last week. s/p drain 07/06 Enterococcus so far H/o Diverticulitis with abscess s/p drainage 05/31,,,E. coli (I-Zosyn), bacteroides, lactobacillus Immunosuppression - on steroids T 11 compression fracture RA Daptomycin reaction Plan Plan of Care PICc line Continue meropenem, Fluconazole Dose Zyvox and f/u sensitivites of Enterococcus Await surgical f/u F/u labs in am and cults Left ant rib pain per primary D/w nursing CASI PICHARDO MD Jul 09, 2020 08:03
[2020-07-09 11:00] VITALS: BP 140/86
--- NOTE | 2020-07-09 11:36 | PN ---
DATE: 07/09/2020 SUBJECTIVE: The patient is resting, slightly propped up in bed, in no apparent distress. On questioning her, she stated her pain is well controlled. She has no nausea, no vomiting. Nursing staff did not voice any concern. PHYSICAL EXAMINATION: GENERAL: When I examined her this morning, she looked well and was clearly in no apparent respiratory distress. No pallor, jaundice, cyanosis or thyromegaly. No jugular venous distention. No lower limb edema. VITAL SIGNS: Her heart rate was 85, blood pressure was 155/90, temperature 98.2, respiratory rate was 18 and oxygen saturation was 95%. HEENT: Showed normocephalic, atraumatic. NECK: Supple. CARDIAC: Normal first and second heart sounds. No gallop, rub or murmur. CHEST: Clear to auscultation. No crepitation or rhonchi. ABDOMEN: Distended, soft, mild tenderness in the left lower quadrant. No guarding or rigidity. No organomegaly. All hernial orifices are intact. Bowel sounds are normal. NEUROLOGIC: She is grossly intact. Her intake was 215, no output was recorded. LABORATORY DATA: As of yesterday, her serum sodium was 142, potassium 4.2, chloride 106, bicarbonate 29, anion gap of 7, BUN 5, creatinine 0.6, estimated GFR was 101 mL per minute. Her glucose was 88, calcium 9.2. Her white cell count was 4800, hemoglobin 12, hematocrit 36, MCV 87 and platelet count of 195,000. ASSESSMENT: 1. Acute diverticulitis with associated abscess that is 4.4 for which she has a drain placed by interventional radiologist. 2. She has multiple other medical problems including: A. Rheumatoid arthritis. B. Gastroesophageal reflux disease. C. Chronic obstructive pulmonary disease. PLAN: 1. Continue with IV antibiotics. 2. Continue nutritional support. 3. Continue with pain management. The patient is scheduled for surgery on Saturday. ANIBAL HUSSEIN MD DR: JEFFREY/rodo JOB#: [id number] / [id number]
[2020-07-09 15:00] VITALS: BP 146/86
--- NOTE | 2020-07-09 15:20 | PDOC ---
SURGICAL PROGRESS NOTE DATE: 07/09/20 TIME: 15:19 Subjective Pt without new c/o, randa some clears Vital Signs Vital Signs Date Time Temp Pulse Resp B/P (MAP) Pulse Ox O2 Delivery O2 Flow Rate FiO2 07/09/20 15:00 98.0 92 20 146/86 (106) 96 Room Air 98.0 I&O Intake and Output 07/09/20 06:59 Intake Total 240 ml Balance 240 ml Intake Oral 240 ml # Voids 3 General: Alert, Oriented X3, Cooperative, No acute distress Abdomen: Soft, No tenderness, Other (drain with purulent drainage) Labs Laboratory Tests Test 07/08/20 04:20 07/08/20 18:14 Sodium Level 142 mmol/L (136-145) Potassium Level 4.2 mmol/L (3.5-5.1) Chloride Level 106 mmol/L (98-107) Carbon Dioxide Level 29 mmol/L (21-32) Anion Gap 7 (6-14) Blood Urea Nitrogen 5 mg/dL (7-20) Creatinine 0.6 mg/dL (0.6-1.0) Estimated GFR (Cockcroft-Gault) 101.6 Glucose Level 88 mg/dL (70-99) Calcium Level 9.2 mg/dL (8.5-10.1) SARS-CoV-2 Antigen (Rapid) Negative (NEGATIVE) Laboratory Tests Test 07/08/20 18:14 SARS-CoV-2 Antigen (Rapid) Negative (NEGATIVE) Problem List perforated diverticulitis tentative surgery on 07/11 Justicifation of Admission Dx: Justifications for Admission: Justification of Admission Dx: Yes BRANDON ELLIOTT MD Jul 09, 2020 15:20
[2020-07-09] MEDS: AMINO AC 3%/ELECTROLYTE/GLYCER 1,000 ML IV SCH (18:40)
--- NOTE | 2020-07-09 18:57 | RAD ---
Exam: Chest one view INDICATION: Verify PICC placement TECHNIQUE: Frontal view of the chest Comparisons: None FINDINGS: Right-sided PICC with tip at the atrial caval junction. The cardiomediastinal silhouette and pulmonary vessels are within normal limits. The lung and pleural spaces are clear. IMPRESSION: Lines and tubes described above. Electronically signed by: Jm Becerra MD (07/09/2020 6:54 PM) [id number]
[2020-07-09 19:00] VITALS: BP 147/79
[2020-07-09 23:00] VITALS: BP 138/73
[2020-07-10] MEDS: POTASSIUM CL 40MEQ D5-0.45NACL 1,000 ML IV SCH
[2020-07-10] MEDS: AMINO AC 3%/ELECTROLYTE/GLYCER 1,000 ML IV SCH ×2 (00:08→12:30)
[2020-07-10 03:00] VITALS: BP 117/88
[2020-07-10] MEDS: MEROPENEM 1 GM in IV NORMAL SALINE 100ML 100 ML IV SCH ×3 (06:22→21:36)
[2020-07-10] MEDS: HYDROcodone/APAP 5/325MG 1 TAB TABLET PO PRN ×3 (06:23→22:30)
[2020-07-10 07:00] VITALS: BP 133/83
[2020-07-10 07:29] LABS: HEMATOCRIT 42.9 % (36.0-47.0); HEMOGLOBIN 14.4 g/dL (12.0-15.5); RED BLOOD COUNT 4.97 x10^6/uL (3.50-5.40); RED CELL DISTRIBUTION WIDTH 15.6 % (11.5-14.5); WHITE BLOOD COUNT 5.7 x10^3/uL (4.0-11.0)
[2020-07-10 07:34] LABS: CALCIUM 9.4 mg/dL (8.5-10.1); CREATININE 0.7 mg/dL (0.6-1.0); GFR 85.1; POTASSIUM 4.1 mmol/L (3.5-5.1)
--- NOTE | 2020-07-10 08:17 | PDOC ---
Infectious Disease Note Subjective Subjective Doing well PICC working well Had itch rash with Dapto and has resolved No F/c/s/n/V/SOA Drain output initially very bloody now looks bile Vital Sign Vital Signs Vital Signs Date Time Temp Pulse Resp B/P (MAP) Pulse Ox O2 Delivery O2 Flow Rate FiO2 07/10/20 06:23 16 95 Room Air 07/10/20 03:00 98.8 77 117/88 (98) 98.8 Physical Exam PHYSICAL EXAM GENERAL: Sitting in bed, alert, smiling HEENT: Pupils equal and reactive. Oral cavity, pharynx is clear. NECK: Supple. Good range of motion. LUNGS: Clear to auscultation bilaterally. HEART: S1, S2. ABDOMEN: No guard, bowel sounds present, soft, gen tender but more on left. ABIGAIL drain with dark fluid EXTREMITIES: Without clubbing, cyanosis or gross edema. SKIN: Warm to touch without signs of rash. NEUROLOGIC: Alert, oriented, nonfocal. PICC RUE - clean Labs Lab Laboratory Tests Test 07/10/20 06:10 White Blood Count 5.7 x10^3/uL (4.0-11.0) Red Blood Count 4.97 x10^6/uL (3.50-5.40) Hemoglobin 14.4 g/dL (12.0-15.5) Hematocrit 42.9 % (36.0-47.0) Mean Corpuscular Volume 86 fL (79-100) Mean Corpuscular Hemoglobin 29 pg (25-35) Mean Corpuscular Hemoglobin Concent 34 g/dL (31-37) Red Cell Distribution Width 15.6 % (11.5-14.5) Platelet Count 270 x10^3/uL (140-400) Sodium Level 140 mmol/L (136-145) Potassium Level 4.1 mmol/L (3.5-5.1) Chloride Level 104 mmol/L (98-107) Carbon Dioxide Level 28 mmol/L (21-32) Anion Gap 8 (6-14) Blood Urea Nitrogen 7 mg/dL (7-20) Creatinine 0.7 mg/dL (0.6-1.0) Estimated GFR (Cockcroft-Gault) 85.1 Glucose Level 86 mg/dL (70-99) Calcium Level 9.4 mg/dL (8.5-10.1) Micro FEW GRAM POSITIVE COCCI on 07/07/20 at 1148 FINAL ID= [ENTEROCOCCUS FAECIUM] ENTEROCOCCUS FAECIUM VRE ENTEROCOCCUS FAECIUM Streptomycin Synergy Screen S Gentamicin Synergy Screen S ANTIMICROBIAL SUSCEPTIBILITY Preliminary Comment POS THIAGO TYPE 38 ENTEROCOCCUS FAECIUM VRE ANTIBIOTIC RESULT INTERPRETATION AMPICILLIN >8 R LINEZOLID 2 S VANCOMYCIN >16 R 07/06 GRAM STAIN Final Final NO ORGANISMS SEEN. RBC:MODERATE SQUAMOUS EPI CELL:NONE SEEN PMN (WBCs):MANY CT scan 07/05 IMPRESSION: Changes of sigmoid diverticulitis with associated with a fluid collection measuring 4.4 cm. Interval removal of drain, now with foci of gas extending to the anterior abdominal wall along the previous drain tract, extending to the left rectus abdominis muscle. Culture 05/31 ANAEROBIC-AEROBIC CULTURE Final Final MODERATE GRAM NEGATIVE RODS on 06/01/20 at 1048 FINAL ID= [ESCHERICHIA COLI] RARE ANAEROBIC GRAM NEGATIVE RODS on 06/02/20 at 1447 FINAL ID= [BACTEROIDES OVATUS GROUP] MODERATE GRAM POSITIVE RODS on 06/03/20 at 1102 FINAL ID= [LACTOBACILLUS RHAMNOSUS] FEW ANAEROBIC GRAM NEGATIVE RODS on 06/03/20 at 1343 FINAL ID= [BACTEROIDES UNIFORMIS] ESCHERICHIA COLI LACTOBACILLUS RHAMNOSUS BACTEROIDES OVATUS GROUP BACTEROIDES OVATUS GROUP BACTEROIDES UNIFORMIS ANTIMICROBIAL SUSCEPTIBILITY Final Comment NEG THIAGO 56 ESCHERICHIA COLI ANTIBIOTIC RESULT INTERPRETATION AMPICILLIN/SULBACTAM >16/8 R AMIKACIN <=16 S AMPICILLIN >16 R AMOXICILLIN/K CLAVULANATE >16/8 R AZTREONAM 16 I CEFTRIAXONE 2 I CEFTAZIDIME >16 R CEFOTAXIME 8 S CONTINUED ON NEXT PAGE RUN DATE: 06/05/20 [facility] *LIVE* PAGE 2 RUN TIME: 1009 Specimen Inquiry SPEC: [id number] PATIENT: JANICE RAMIREZ [id number] (Continued) Procedure Result ANTIMICROBIAL SUSCEPTIBILITY Final (continued) CEFOXITIN >16 R CIPROFLOXACIN >2 R CEFEPIME <=2 S CEFUROXIME >16 R CEFTAZIDIME/AVIBACTAM <=4 S ERTAPENEM <=0.5 S GENTAMICIN <=2 S LEVOFLOXACIN >4 R MEROPENEM <=1 S PIPERACILLIN/TAZOBACTAM 64 I TRIMETHOPRIM/SULFAMETHOXAZOLE <=0.5/9.5 S TETRACYCLINE >8 R TOBRAMYCIN <=2 S Objective Assessment Recurrent abd abscess - drain removed last week. s/p drain 07/06 so far VRE H/o Diverticulitis with abscess s/p drainage 05/31,,,E. coli (I-Zosyn), bacteroides, lactobacillus Immunosuppression - on steroids T 11 compression fracture RA Daptomycin reaction Plan Plan of Care Contact isolation Continue meropenem, Fluconazole Dose Zyvox and f/u sensitivites of Enterococcus Await Surgery in am F/u labs in am and cults Left ant rib pain per primary D/w nursing CASI PICHARDO MD Jul 10, 2020 08:17
[2020-07-10 11:00] VITALS: BP 132/80
[2020-07-10] MEDS: FLUCONAZOLE 400MG/200ML PREMIX 200 ML IV SCH (11:04)
--- NOTE | 2020-07-10 12:23 | PN ---
DATE: 07/10/2020 SUBJECTIVE: The patient is resting, slightly propped up in bed, in no apparent respiratory distress. She is awake, alert. Denied any complaint except that she would like to have some liquid. For some reason, she was kept n.p.o. She has had her PICC line placed successfully. PHYSICAL EXAMINATION: GENERAL: When I examined her, she looked well and was clearly in no apparent respiratory distress. No pallor, jaundice, cyanosis or thyromegaly. No jugular venous distention. No lower limb edema. VITAL SIGNS: Her heart rate was 79, blood pressure was 133/83, temperature 98, respiratory rate was 18 and oxygen saturation was 94% on room air. The rest of clinical exam is stable. LABORATORY DATA: Showed a white cell count 5700, hemoglobin 14.4, hematocrit 43, MCV 86 and platelet count 270,000. Her serum sodium was 140, potassium 4.1, chloride 104, bicarbonate 28, anion gap of 8, BUN 7, creatinine 0.7, estimated GFR was 85 mL per minute. Her glucose was 86, calcium was 9.4. ASSESSMENT: 1. Acute diverticulitis. She had abscess that is 4.4, which she has a drain placed by interventional radiologist. 2. She has multiple other medical problems including: A. Rheumatoid arthritis. B. Gastroesophageal reflux disease. C. Chronic obstructive pulmonary disease. D. T11 compression fracture. PLAN: 1. Continue with IV antibiotics. 2. Continue nutritional support. 3. Continue with pain management. She apparently scheduled for surgery tomorrow. ANIBAL HUSSEIN MD DR: JEFFREY/rodo JOB#: [id number] / [id number]
[2020-07-10 15:00] VITALS: BP 128/72
[2020-07-10 19:00] VITALS: BP 156/101
--- NOTE | 2020-07-10 19:51 | PDOC ---
SURGICAL PROGRESS NOTE DATE: 07/10/20 TIME: 19:48 Subjective Pt reports doing well, anticipating surgery tomorrow Vital Signs Vital Signs Date Time Temp Pulse Resp B/P (MAP) Pulse Ox O2 Delivery O2 Flow Rate FiO2 07/10/20 18:23 Room Air 07/10/20 15:00 98.0 80 20 128/72 (90) 98 98.0 I&O Intake and Output 07/10/20 07:00 Intake Total 240 ml Balance 240 ml Intake Oral 240 ml # Voids 3 General: Alert, Oriented X3, Cooperative, No acute distress Abdomen: Soft Labs Laboratory Tests Test 07/10/20 06:10 White Blood Count 5.7 x10^3/uL (4.0-11.0) Red Blood Count 4.97 x10^6/uL (3.50-5.40) Hemoglobin 14.4 g/dL (12.0-15.5) Hematocrit 42.9 % (36.0-47.0) Mean Corpuscular Volume 86 fL (79-100) Mean Corpuscular Hemoglobin 29 pg (25-35) Mean Corpuscular Hemoglobin Concent 34 g/dL (31-37) Red Cell Distribution Width 15.6 % (11.5-14.5) Platelet Count 270 x10^3/uL (140-400) Sodium Level 140 mmol/L (136-145) Potassium Level 4.1 mmol/L (3.5-5.1) Chloride Level 104 mmol/L (98-107) Carbon Dioxide Level 28 mmol/L (21-32) Anion Gap 8 (6-14) Blood Urea Nitrogen 7 mg/dL (7-20) Creatinine 0.7 mg/dL (0.6-1.0) Estimated GFR (Cockcroft-Gault) 85.1 Glucose Level 86 mg/dL (70-99) Calcium Level 9.4 mg/dL (8.5-10.1) Laboratory Tests Test 07/10/20 06:10 White Blood Count 5.7 x10^3/uL (4.0-11.0) Red Blood Count 4.97 x10^6/uL (3.50-5.40) Hemoglobin 14.4 g/dL (12.0-15.5) Hematocrit 42.9 % (36.0-47.0) Mean Corpuscular Volume 86 fL (79-100) Mean Corpuscular Hemoglobin 29 pg (25-35) Mean Corpuscular Hemoglobin Concent 34 g/dL (31-37) Red Cell Distribution Width 15.6 % (11.5-14.5) Platelet Count 270 x10^3/uL (140-400) Sodium Level 140 mmol/L (136-145) Potassium Level 4.1 mmol/L (3.5-5.1) Chloride Level 104 mmol/L (98-107) Carbon Dioxide Level 28 mmol/L (21-32) Anion Gap 8 (6-14) Blood Urea Nitrogen 7 mg/dL (7-20) Creatinine 0.7 mg/dL (0.6-1.0) Estimated GFR (Cockcroft-Gault) 85.1 Glucose Level 86 mg/dL (70-99) Calcium Level 9.4 mg/dL (8.5-10.1) Problem List diverticulitis plan sigmoid colectomy with Dr. Chaidez tomorrow. R/R/B/A d/w pt and pt's supportive . Risks, including, but not limited to: bleeding, infection, damage to surrounding structures, risk of anesthesia. They appear to understand, their questions are answered and they elect to proceed. Justicifation of Admission Dx: Justifications for Admission: Justification of Admission Dx: Yes BRANDON ELLIOTT MD Jul 10, 2020 19:51
[2020-07-10 23:00] VITALS: BP 133/91
[2020-07-11] VITALS (11 sets, daily range): BP systolic 121–153; BP diastolic 70–90
[2020-07-11] MEDS: AMINO AC 3%/ELECTROLYTE/GLYCER 1,000 ML IV SCH ×3 (00:12→20:41)
[2020-07-11] MEDS: MEROPENEM 1 GM in IV NORMAL SALINE 100ML 100 ML IV SCH ×3 (06:13→22:49)
[2020-07-11] MEDS ORDERED: IV RINGERS,LACTATED 1000ML 1,000 ML IV SCH (07:00)
[2020-07-11] MEDS ORDERED: MORPHINE SULFATE 2 MG/ML VIAL. IV PRN (07:00)
[2020-07-11] MEDS ORDERED: ONDANSETRON PF 4 MG/2 ML VIAL. IV PRN (07:00)
[2020-07-11] MEDS ORDERED: PROCHLORPERAZINE 10 MG/2 ML VIAL. IV PRN (07:00)
[2020-07-11] MEDS ORDERED: fentaNYL PF VIAL 100 MCG/2 ML VIAL IV PRN (07:00)
[2020-07-11] MEDS ORDERED: LIDOCAINE 1% PF 2 ML VIAL. ID PRN (07:00)
--- NOTE | 2020-07-11 07:13 | NUR ---
IP: Pt's pelvic abscess came back positive for VRE requiring contact precautions.
[2020-07-11] MEDS: FLUCONAZOLE 400MG/200ML PREMIX 200 ML IV SCH ×2 (07:52→09:47)
[2020-07-11] MEDS ORDERED: LIDOCAINE 2% PF 5 ML VIAL. ONE (08:19)
[2020-07-11] MEDS ORDERED: SUCCINYLCHOLINE 200 MG/10 ML VIAL. ONE (08:19)
[2020-07-11] MEDS ORDERED: PROPOFOL 10 MG/ML (20ML) VIAL. IV ONE (08:19)
[2020-07-11] MEDS ORDERED: fentaNYL PF VIAL 100 MCG/2 ML VIAL ONE ×2 (08:20→10:15)
[2020-07-11] MEDS ORDERED: ROCURONIUM 50 MG/5 ML VIAL. ONE (08:20)
[2020-07-11] MEDS ORDERED: busPIRone 10 MG TABLET. PO SCH (09:00)
--- NOTE | 2020-07-11 09:14 | PDOC ---
Infectious Disease Note Subjective Subjective feeling ok, going for surgery ROS ROS no n/v/d/ Vital Sign Vital Signs Vital Signs Date Time Temp Pulse Resp B/P (MAP) Pulse Ox O2 Delivery O2 Flow Rate FiO2 07/11/20 07:00 98.1 72 18 140/90 (107) 90 Room Air 98.1 Physical Exam PHYSICAL EXAM GENERAL: Sitting in bed, alert, smiling HEENT: Pupils equal and reactive. Oral cavity, pharynx is clear. NECK: Supple. Good range of motion. LUNGS: Clear to auscultation bilaterally. HEART: S1, S2. ABDOMEN: No guard, bowel sounds present, soft, gen tender but more on left. ABIGAIL drain with dark fluid EXTREMITIES: Without clubbing, cyanosis or gross edema. SKIN: Warm to touch without signs of rash. NEUROLOGIC: Alert, oriented, nonfocal. PICC RUE - clean Labs Micro GRAM STAIN Final Final NO ORGANISMS SEEN. RBC:MODERATE SQUAMOUS EPI CELL:NONE SEEN PMN (WBCs):MANY Unless otherwise specified, Testing Performed by: [address] [address] For Inquires, the Physician may contact the Microbiology department at [phone] ANAEROBIC-AEROBIC CULTURE Final Final FEW GRAM POSITIVE COCCI on 07/07/20 at 1148 FINAL ID= [ENTEROCOCCUS FAECIUM VRE] NO ANAEROBIC ORGANISMS ISOLATED on 07/11/20 at 0904 ENTEROCOCCUS FAECIUM VRE Streptomycin Synergy Screen S Gentamicin Synergy Screen S ANTIMICROBIAL SUSCEPTIBILITY Final Comment POS THIAGO TYPE 38 ENTEROCOCCUS FAECIUM VRE ANTIBIOTIC RESULT INTERPRETATION AMPICILLIN >8 R LINEZOLID 2 S VANCOMYCIN >16 R Unless otherwise specified, Testing Performed by: [address] [address] For Inquires, the Physician may contact the Microbiology department at [phone] END OF REPORT Objective Assessment Recurrent abd abscess - drain removed last week. s/p drain 07/06 so far VRE H/o Diverticulitis with abscess s/p drainage 05/31,,,E. coli (I-Zosyn), bacteroides, lactobacillus Immunosuppression - on steroids T 11 compression fracture RA Daptomycin reaction Plan Plan of Care Contact isolation Continue meropenem, Fluconazole Dose Zyvox and f/u sensitivites of Enterococcus Await Surgery in am F/u labs in am and cults Left ant rib pain per primary D/w nursing YADI DE JESUS MD Jul 11, 2020 09:14
--- NOTE | 2020-07-11 09:48 | NUR ---
SW following. Discussed with RN, pt having surgery today for a sigmoid resection. SW will continue to follow.
[2020-07-11] MEDS ORDERED: DEXAMETHASONE SOD PHOS 20 MG/5 ML VIAL. ONE ×2 (09:53→10:07)
[2020-07-11] MEDS ORDERED: DESFLURANE 61 TO 120 MINUTES IH ONE (09:53)
[2020-07-11] MEDS ORDERED: ONDANSETRON PF 4 MG/2 ML VIAL. ONE (10:03)
[2020-07-11] MEDS ORDERED: GLYCOPYRROLATE 1 MG/5 ML VIAL. ONE (10:10)
[2020-07-11] MEDS ORDERED: NEOSTIGMINE METHYLSULFATE 5 MG/5 ML SYRINGE. ONE (10:10)
[2020-07-11] MEDS ORDERED: MORPHINE SULFATE 10 MG/ML VIAL. ONE (10:27)
[2020-07-11] MEDS ORDERED: ESMOLOL 100 MG/10 ML VIAL. IVP ONE (10:29)
[2020-07-11] MEDS ORDERED: PHENYLEPHRINE in 0.9% NACL PF 1 MG/10 ML SYRINGE. IV ONE (10:35)
[2020-07-11] MEDS ORDERED: METOPROLOL TARTRATE 5 MG/5 ML VIAL. IVP ONE (11:06)
[2020-07-11] MEDS: fentaNYL PF VIAL 100 MCG/2 ML VIAL IV PRN ×2 (14:07→14:24)
[2020-07-11] MEDS: IV NORMAL SALINE 1000ML BAG 1,000 ML IV SCH ×2 (14:14→20:41)
--- NOTE | 2020-07-11 14:14 | PDOC4 ---
Operative Note Operative Note Operative Note: Preoperative Diagnosis: Sigmoid diverticulitis with abscess Postoperative Diagnosis: Same Procedure: Sigmoid colon resection with diverting loop ileostomy, splenic flexure takedown Surgeon: Dm [employer] Case Worker: Dr Rafi NOWAK Anesthesia: General EBL: 250 mL Specimen: Sigmoid colon to pathology, stitch at proximal margin Drains: Griselda drain to subq tissue Complications: None Indication: The patient is a 59-year-old female who has had issues with recurrent diverticulitis. Recently she has had problems with rupture and abscess requiring percutaneous drainage. Due to her ongoing problems we recommend surgical treatment. The plan is for sigmoid colon resection. She is aware of the possibility of requiring an ostomy depending on operative conditions. Risks of surgery were discussed which include bleeding, infection, anastomotic leak, pain, visceral injury, ureteral injury, hernia formation, potential need for additional surgery procedure. She understands and would like to proceed. Description: The patient was taken to the operating room and placed supine in the operating table. General anesthesia was performed. She was then placed in lithotomy. The abdomen is prepped with ChloraPrep and draped in a standard surgical manner. A lower vertical midline incision was made excising her prior scar. The incision was carried superior to the umbilicus. Cautery dissection was carried down to the fascia. The fascia and peritoneum were divided and the abdominal cavity was explored. The Omni retractor was used for the remainder of the case to facilitate exposure. In the pelvis there was an obvious inflammatory reaction as expected in the region of the sigmoid colon. The sigmoid colon had an intense fibrotic reaction with some adherence to the anterior abdominal wall. Manual dissection was used to free up these chronic and fibrotic adhesions. We began mobilizing the remainder of the sigmoid colon. All of the lateral peritoneal attachments were divided. This was continued up along the descending colon. The distal descending colon was then divided with a ROSALINA-75 stapling device. The mesentery of the sigmoid colon was then dissected. Blood vessels were ligated with 2-0 silk and divided. The LigaSure device assisted with mesenteric dissection. We continued mobilizing the distal sigmoid colon to the level of the proximal rectum. There remained a very prominent inflammatory reaction which required mobilizing the rectum down to just above the peritoneal reflection. We were able to then divide the rectum distal to the involved segment in a more normal soft area of bowel. The rectum was divided with the contour stapling device and sent to pathology as a specimen. The pelv is was irrigated which was then suctioned. We elected for a primary anastomosis with a protective loop ileostomy. In order for the descending colon to reach the rectum we mobilized the remainder of the descending colon and took down all of the splenic flexure attachments. In addition we entered the lesser sac and freed off some of the omentum from the splenic flexure. This allowed the descending colon to reach the rectum with no undue tension. A two layer end-to-end handsewn anastomosis was constructed. The posterior seromuscular layer was developed first with interrupted 3-0 Vicryl. The staple lines were then excised. The next layer was then constructed with 3-0 PDS in a running locked fashion. The anterior seromuscular was then completed with 3-0 Vicryl. A small circular incision was made in the right lower quadrant with the cautery. A cruciate incision was then made in the fascial layers and a loop of distal ileum was delivered for planned loop ileostomy. Hemostasis was good and no other gross abnormalities were identified. The posterior fascial layer was closed with 0 Vicryl. The anterior fascia layer was approximated with a running 1 PDS suture. The incision was covered and the loop ileostomy was matured to the skin with interrupted 3-0 Vicryl. The subcutaneous tissue was then approximated over a [place] drain which exited inferiorly. The skin was then closed with 4-0 Monocryl. A sterile dressing was then applied. The patient tolerated the procedure well and was sent to the recovery room in stable condition. At the end of the case all counts were correct. HERNANDEZ GARZA MD Jul 11, 2020 14:14
[2020-07-11] MEDS ORDERED: NALOXONE 0.4 MG/ML VIAL. IV PRN (14:15)
[2020-07-11] MEDS ORDERED: HYDROmorphone 12mg/30ml PCA 30 ML IV PRN (14:15)
--- NOTE | 2020-07-11 14:21 | RAD ---
EXAM: KUB 07/11/2020 12:00 AM CLINICAL INDICATION:Postop KUB in OR COMPARISON:CT abdomen pelvis 07/05/2020 TECHNIQUE:AP portable supine view of the abdomen FINDINGS:The far upper and left lateral aspects of the abdomen are not included in the [id number]. There is a long tubular structure projecting over the the lower lumbar spine, sacrum, and pelvis extending toward the right groin, likely a surgical drain. No definite retained radiopaque foreign body. No evidence of small bowel obstruction. No acute osseous abnormality. IMPRESSION:New probable surgical drain projecting over the pelvis. No definite radiopaque foreign body. Electronically signed by: Sophy Hendrix MD (07/11/2020 2:18 PM) [id number]
[2020-07-11] MEDS ORDERED: HYDROmorphone 2 MG/ML VIAL ONE (14:30)
[2020-07-11] MEDS: HYDROmorphone 2 MG/ML VIAL IV PRN ×3 (14:35→15:29)
[2020-07-11] MEDS ORDERED: IPRATRPIUM/ALBUTEROL 0.5/2.5MG 3 ML NEBU. ONE (14:35)
[2020-07-11] MEDS ORDERED: IPRATRPIUM/ALBUTEROL 0.5/2.5MG 3 ML NEBU. NEB ONE (14:45)
[2020-07-11] MEDS: ENOXAPARIN 40 MG/0.4 ML SYRINGE. SQ SCH (15:00)
[2020-07-12 03:00] VITALS: BP 141/86
[2020-07-12] MEDS: MEROPENEM 1 GM in IV NORMAL SALINE 100ML 100 ML IV SCH ×3 (05:38→21:16)
[2020-07-12 06:29] LABS: BASO % 0 % (0-3); EOS % 0 % (0-3); HEMATOCRIT 34.9 % (36.0-47.0); HEMOGLOBIN 11.8 g/dL (12.0-15.5); LYMPH # 0.6 x10^3/uL (1.0-4.8); LYMPH % 6 % (24-48); MEAN CORPUSCULAR HEMOGLOBIN 29 pg (25-35); MEAN CORPUSCULAR HGB CONC 34 g/dL (31-37); MEAN CORPUSCULAR VOLUME 85 fL (79-100); MONO # 0.7 x10^3/uL (0.0-1.1); MONO % 7 % (0-9); NEUT # 9.1 x10^3/uL (1.8-7.7); NEUT % 88 % (31-73); PLATELET COUNT 225 x10^3/uL (140-400); RED BLOOD COUNT 4.09 x10^6/uL (3.50-5.40); RED CELL DISTRIBUTION WIDTH 15.7 % (11.5-14.5); WHITE BLOOD COUNT 10.4 x10^3/uL (4.0-11.0)
[2020-07-12 06:34] LABS: CALCIUM 9.2 mg/dL (8.5-10.1); CREATININE 0.7 mg/dL (0.6-1.0); GFR 85.1; POTASSIUM 4.6 mmol/L (3.5-5.1)
[2020-07-12 07:00] VITALS: BP 129/80
[2020-07-12 08:39] LABS: % BANDS 16 % (0-9); % LYMPHS 6 % (24-48); % MONOS 4 % (0-10); % SEGS 74 % (35-66)
[2020-07-12 08:40] LABS: ANISOCYTOSIS SLIGHT; PLT ESTIMATE ADEQUATE (ADEQUATE)
--- NOTE | 2020-07-12 08:54 | PDOC ---
ANG[facility]LICA [facility] 07/12/20 0854: SURGICAL PROGRESS NOTE DATE: 07/12/20 TIME: 08:53 Subjective no significant pain no n/v no bowel function Vital Signs Vital Signs Date Time Temp Pulse Resp B/P (MAP) Pulse Ox O2 Delivery O2 Flow Rate FiO2 07/12/20 07:00 98.3 86 18 129/80 (96) 96 Room Air 98.3 07/11/20 16:20 2.0 I&O Intake and Output 07/12/20 07:00 Intake Total 850 ml Output Total 2275 ml Balance -1425 ml Intake Oral 0 ml IV Total 850 ml Output Urine Total 2025 ml Estimated Blood Loss 250 ml PATIENT HAS A ALMANZA: Yes General: Alert, Oriented X3, Cooperative Abdomen: Soft, Other (ND, dressing dry, stoma pink) Labs Laboratory Tests Test 07/12/20 05:30 White Blood Count 10.4 x10^3/uL (4.0-11.0) Red Blood Count 4.09 x10^6/uL (3.50-5.40) Hemoglobin 11.8 g/dL (12.0-15.5) Hematocrit 34.9 % (36.0-47.0) Mean Corpuscular Volume 85 fL (79-100) Mean Corpuscular Hemoglobin 29 pg (25-35) Mean Corpuscular Hemoglobin Concent 34 g/dL (31-37) Red Cell Distribution Width 15.7 % (11.5-14.5) Platelet Count 225 x10^3/uL (140-400) Neutrophils (%) (Auto) 88 % (31-73) Lymphocytes (%) (Auto) 6 % (24-48) Monocytes (%) (Auto) 7 % (0-9) Eosinophils (%) (Auto) 0 % (0-3) Basophils (%) (Auto) 0 % (0-3) Neutrophils # (Auto) 9.1 x10^3/uL (1.8-7.7) Lymphocytes # (Auto) 0.6 x10^3/uL (1.0-4.8) Monocytes # (Auto) 0.7 x10^3/uL (0.0-1.1) Eosinophils # (Auto) 0.0 x10^3/uL (0.0-0.7) Basophils # (Auto) 0.0 x10^3/uL (0.0-0.2) Segmented Neutrophils % 74 % (35-66) Band Neutrophils % 16 % (0-9) Lymphocytes % 6 % (24-48) Monocytes % 4 % (0-10) Platelet Estimate Adequate (ADEQUATE) Anisocytosis Slight Sodium Level 139 mmol/L (136-145) Potassium Level 4.6 mmol/L (3.5-5.1) Chloride Level 105 mmol/L (98-107) Carbon Dioxide Level 29 mmol/L (21-32) Anion Gap 5 (6-14) Blood Urea Nitrogen 15 mg/dL (7-20) Creatinine 0.7 mg/dL (0.6-1.0) Estimated GFR (Cockcroft-Gault) 85.1 Glucose Level 158 mg/dL (70-99) Calcium Level 9.2 mg/dL (8.5-10.1) Laboratory Tests Test 07/12/20 05:30 White Blood Count 10.4 x10^3/uL (4.0-11.0) Red Blood Count 4.09 x10^6/uL (3.50-5.40) Hemoglobin 11.8 g/dL (12.0-15.5) Hematocrit 34.9 % (36.0-47.0) Mean Corpuscular Volume 85 fL (79-100) Mean Corpuscular Hemoglobin 29 pg (25-35) Mean Corpuscular Hemoglobin Concent 34 g/dL (31-37) Red Cell Distribution Width 15.7 % (11.5-14.5) Platelet Count 225 x10^3/uL (140-400) Neutrophils (%) (Auto) 88 % (31-73) Lymphocytes (%) (Auto) 6 % (24-48) Monocytes (%) (Auto) 7 % (0-9) Eosinophils (%) (Auto) 0 % (0-3) Basophils (%) (Auto) 0 % (0-3) Neutrophils # (Auto) 9.1 x10^3/uL (1.8-7.7) Lymphocytes # (Auto) 0.6 x10^3/uL (1.0-4.8) Monocytes # (Auto) 0.7 x10^3/uL (0.0-1.1) Eosinophils # (Auto) 0.0 x10^3/uL (0.0-0.7) Basophils # (Auto) 0.0 x10^3/uL (0.0-0.2) Segmented Neutrophils % 74 % (35-66) Band Neutrophils % 16 % (0-9) Lymphocytes % 6 % (24-48) Monocytes % 4 % (0-10) Platelet Estimate Adequate (ADEQUATE) Anisocytosis Slight Sodium Level 139 mmol/L (136-145) Potassium Level 4.6 mmol/L (3.5-5.1) Chloride Level 105 mmol/L (98-107) Carbon Dioxide Level 29 mmol/L (21-32) Anion Gap 5 (6-14) Blood Urea Nitrogen 15 mg/dL (7-20) Creatinine 0.7 mg/dL (0.6-1.0) Estimated GFR (Cockcroft-Gault) 85.1 Glucose Level 158 mg/dL (70-99) Calcium Level 9.2 mg/dL (8.5-10.1) Assessment/Plan s/p resection, loop ileostomy await bowel function Justicifation of Admission Dx: Justifications for Admission: Justification of Admission Dx: Yes HERNANDEZ GARZA MD 07/12/20 1556: SURGICAL PROGRESS NOTE Assessment/Plan agree with above ANG[facility]LICA [facility] [employer] Jul 12, 2020 08:54 HERNANDEZ GARZA MD Jul 12, 2020 15:56
[2020-07-12] MEDS: AMINO AC 3%/ELECTROLYTE/GLYCER 1,000 ML IV SCH ×2 (09:40→20:29)
--- NOTE | 2020-07-12 09:47 | NUR ---
SW following. Discussed with RN, pt had surgery yesterday (07/11/2020). Pt still NPO, and 2 IV abx. SW will continue to follow for discharge planning needs. Last admission, pt discharged home with home infusion and home health.
--- NOTE | 2020-07-12 10:08 | PDOC ---
Infectious Disease Note Subjective Subjective feeling better ROS ROS no n/v/d/sob Vital Sign Vital Signs Vital Signs Date Time Temp Pulse Resp B/P (MAP) Pulse Ox O2 Delivery O2 Flow Rate FiO2 07/12/20 07:00 98.3 86 18 129/80 (96) 96 Room Air 98.3 07/11/20 16:20 2.0 Physical Exam PHYSICAL EXAM GENERAL: Sitting in bed, alert, smiling HEENT: Pupils equal and reactive. Oral cavity, pharynx is clear. NECK: Supple. Good range of motion. LUNGS: Clear to auscultation bilaterally. HEART: S1, S2. ABDOMEN: soft nt, ostomy in place EXTREMITIES: Without clubbing, cyanosis or gross edema. SKIN: Warm to touch without signs of rash. NEUROLOGIC: Alert, oriented, nonfocal. PICC RUE - clean Labs Lab Laboratory Tests Test 07/12/20 05:30 White Blood Count 10.4 x10^3/uL (4.0-11.0) Red Blood Count 4.09 x10^6/uL (3.50-5.40) Hemoglobin 11.8 g/dL (12.0-15.5) Hematocrit 34.9 % (36.0-47.0) Mean Corpuscular Volume 85 fL (79-100) Mean Corpuscular Hemoglobin 29 pg (25-35) Mean Corpuscular Hemoglobin Concent 34 g/dL (31-37) Red Cell Distribution Width 15.7 % (11.5-14.5) Platelet Count 225 x10^3/uL (140-400) Neutrophils (%) (Auto) 88 % (31-73) Lymphocytes (%) (Auto) 6 % (24-48) Monocytes (%) (Auto) 7 % (0-9) Eosinophils (%) (Auto) 0 % (0-3) Basophils (%) (Auto) 0 % (0-3) Neutrophils # (Auto) 9.1 x10^3/uL (1.8-7.7) Lymphocytes # (Auto) 0.6 x10^3/uL (1.0-4.8) Monocytes # (Auto) 0.7 x10^3/uL (0.0-1.1) Eosinophils # (Auto) 0.0 x10^3/uL (0.0-0.7) Basophils # (Auto) 0.0 x10^3/uL (0.0-0.2) Segmented Neutrophils % 74 % (35-66) Band Neutrophils % 16 % (0-9) Lymphocytes % 6 % (24-48) Monocytes % 4 % (0-10) Platelet Estimate Adequate (ADEQUATE) Anisocytosis Slight Sodium Level 139 mmol/L (136-145) Potassium Level 4.6 mmol/L (3.5-5.1) Chloride Level 105 mmol/L (98-107) Carbon Dioxide Level 29 mmol/L (21-32) Anion Gap 5 (6-14) Blood Urea Nitrogen 15 mg/dL (7-20) Creatinine 0.7 mg/dL (0.6-1.0) Estimated GFR (Cockcroft-Gault) 85.1 Glucose Level 158 mg/dL (70-99) Calcium Level 9.2 mg/dL (8.5-10.1) Micro GRAM STAIN Final Final NO ORGANISMS SEEN. RBC:MODERATE SQUAMOUS EPI CELL:NONE SEEN PMN (WBCs):MANY Unless otherwise specified, Testing Performed by: [address] [address] For Inquires, the Physician may contact the Microbiology department at [phone] ANAEROBIC-AEROBIC CULTURE Final Final FEW GRAM POSITIVE COCCI on 07/07/20 at 1148 FINAL ID= [ENTEROCOCCUS FAECIUM VRE] NO ANAEROBIC ORGANISMS ISOLATED on 07/11/20 at 0904 ENTEROCOCCUS FAECIUM VRE Streptomycin Synergy Screen S Gentamicin Synergy Screen S ANTIMICROBIAL SUSCEPTIBILITY Final Comment POS THIAGO TYPE 38 ENTEROCOCCUS FAECIUM VRE ANTIBIOTIC RESULT INTERPRETATION AMPICILLIN >8 R LINEZOLID 2 S VANCOMYCIN >16 R Unless otherwise specified, Testing Performed by: [address] [address] For Inquires, the Physician may contact the Microbiology department at [phone] END OF REPORT Objective Assessment Recurrent abd abscess - drain removed last week. s/p drain 07/06 so far VRE H/o Diverticulitis with abscess s/p drainage 05/31,,,E. coli (I-Zosyn), bacteroides, lactobacillus Immunosuppression - on steroids T 11 compression fracture RA Daptomycin reaction Plan Plan of Care Contact isolation Continue meropenem, Fluconazole Dose Zyvox s/p Sigmoid colon resection with diverting loop ileostomy, splenic flexure takedown on 07/11 F/u labs in am and cults D/w nursing YADI DE JESUS MD Jul 12, 2020 10:08
[2020-07-12 11:00] VITALS: BP 124/72
[2020-07-12] MEDS: FLUCONAZOLE 400MG/200ML PREMIX 200 ML IV SCH (11:02)
--- NOTE | 2020-07-12 12:04 | PN ---
DATE: SUBJECTIVE: The patient is resting, slightly propped up in bed, in no apparent distress. She underwent sigmoid colon resection with diverting loop ileostomy, splenic flexure takedown. PHYSICAL EXAMINATION: GENERAL: When I saw her this morning, she looked well and was clearly in no apparent respiratory distress. No pallor, jaundice, cyanosis or thyromegaly. No jugular venous distention. No limb edema. VITAL SIGNS: Her heart rate was 92, blood pressure was 124/72, temperature was 98, respiratory rate was 18, and oxygen saturation was 92%. HEAD, EYES, EARS, NOSE AND THROAT: Normocephalic, atraumatic. NECK: Supple. HEART: Showed normal first and second heart sounds. No gallop or murmur. CHEST: Clear to auscultation. No crepitation or rhonchi. ABDOMEN: Distended, soft, nontender. No guarding or rigidity. No organomegaly. All hernial orifice intact. Bowel sounds are sluggish. NEUROLOGIC: She is grossly intact. Her intake over the last 24 hours was 1380, no output was recorded. LABORATORY DATA: Her lab work this morning showed a white cell count was 10,400, hemoglobin 12, hematocrit 34, MCV 85 and platelet count 225,000. Serum sodium was 139, potassium 4.6, chloride 105, bicarbonate 29, anion gap of 5, BUN 15, creatinine 0.7, estimated GFR was 85 mL per minute. Her glucose was 158 and calcium was 9.2. ASSESSMENT: Acute diverticulitis with an abscess that is 4.4, for which a drain has been placed by Interventional Radiology. She underwent sigmoid colon resection with diverting loop ileostomy and splenic flexure takedown The patient has multiple other medical problems including: A. Rheumatoid arthritis. B. Gastroesophageal reflux disease. C. Chronic obstructive pulmonary disease. D. T11 compression fracture. PLAN: Continue with IV antibiotic. Continue with pain management. Continue with NG tube to intermittent suction. ANIBAL HUSSEIN MD DR: JEFFREY/rodo JOB#: [id number] / [id number]
--- NOTE | 2020-07-12 14:00 | NUR ---
ostomy care spoke with patient in regards to ostomy teaching, set up teaching for 07/14/2020 at noon.
[2020-07-12 15:00] VITALS: BP 134/77
[2020-07-12] MEDS: ENOXAPARIN 40 MG/0.4 ML SYRINGE. SQ SCH (15:13)
[2020-07-12 19:00] VITALS: BP 142/76
[2020-07-12 22:55] VITALS: BP 143/73
[2020-07-13 03:10] VITALS: BP 130/80
[2020-07-13 03:39] LABS: HEMATOCRIT 31.8 % (36.0-47.0); HEMOGLOBIN 10.6 g/dL (12.0-15.5); RED BLOOD COUNT 3.7 x10^6/uL (3.50-5.40); RED CELL DISTRIBUTION WIDTH 16.3 % (11.5-14.5); WHITE BLOOD COUNT 9.7 x10^3/uL (4.0-11.0)
[2020-07-13 04:16] LABS: ALBUMIN 2.7 g/dL (3.4-5.0); CALCIUM 8.7 mg/dL (8.5-10.1); CREATININE 0.5 mg/dL (0.6-1.0); GFR 125.4; POTASSIUM 4.3 mmol/L (3.5-5.1); TOTAL BILIRUBIN 0.2 mg/dL (0.2-1.0); TOTAL PROTEIN 5.4 g/dL (6.4-8.2)
[2020-07-13] MEDS: MEROPENEM 1 GM in IV NORMAL SALINE 100ML 100 ML IV SCH ×3 (05:25→21:55)
[2020-07-13 07:00] VITALS: BP 132/75
--- NOTE | 2020-07-13 09:03 | PDOC ---
Infectious Disease Note Subjective Subjective feeling better ROS ROS no n/v/d/ or abd pain Vital Sign Vital Signs Vital Signs Date Time Temp Pulse Resp B/P (MAP) Pulse Ox O2 Delivery O2 Flow Rate FiO2 07/13/20 07:00 98.3 90 18 132/75 (94) 95 Room Air 98.3 Physical Exam PHYSICAL EXAM GENERAL: Sitting in bed, alert, smiling HEENT: Pupils equal and reactive. Oral cavity, pharynx is clear. NECK: Supple. Good range of motion. LUNGS: Clear to auscultation bilaterally. HEART: S1, S2. ABDOMEN: soft nt, ostomy in place EXTREMITIES: Without clubbing, cyanosis or gross edema. SKIN: Warm to touch without signs of rash. NEUROLOGIC: Alert, oriented, nonfocal. PICC RUE - clean Labs Lab Laboratory Tests Test 07/13/20 03:30 White Blood Count 9.7 x10^3/uL (4.0-11.0) Red Blood Count 3.70 x10^6/uL (3.50-5.40) Hemoglobin 10.6 g/dL (12.0-15.5) Hematocrit 31.8 % (36.0-47.0) Mean Corpuscular Volume 86 fL (79-100) Mean Corpuscular Hemoglobin 29 pg (25-35) Mean Corpuscular Hemoglobin Concent 33 g/dL (31-37) Red Cell Distribution Width 16.3 % (11.5-14.5) Platelet Count 199 x10^3/uL (140-400) Sodium Level 139 mmol/L (136-145) Potassium Level 4.3 mmol/L (3.5-5.1) Chloride Level 105 mmol/L (98-107) Carbon Dioxide Level 29 mmol/L (21-32) Anion Gap 5 (6-14) Blood Urea Nitrogen 16 mg/dL (7-20) Creatinine 0.5 mg/dL (0.6-1.0) Estimated GFR (Cockcroft-Gault) 125.4 BUN/Creatinine Ratio 32 (6-20) Glucose Level 105 mg/dL (70-99) Calcium Level 8.7 mg/dL (8.5-10.1) Total Bilirubin 0.2 mg/dL (0.2-1.0) Aspartate Amino Transf (AST/SGOT) 16 U/L (15-37) Alanine Aminotransferase (ALT/SGPT) 16 U/L (14-59) Alkaline Phosphatase 77 U/L (46-116) Total Protein 5.4 g/dL (6.4-8.2) Albumin 2.7 g/dL (3.4-5.0) Albumin/Globulin Ratio 1.0 (1.0-1.7) Micro GRAM STAIN Final Final NO ORGANISMS SEEN. RBC:MODERATE SQUAMOUS EPI CELL:NONE SEEN PMN (WBCs):MANY Unless otherwise specified, Testing Performed by: [address] [address] For Inquires, the Physician may contact the Microbiology department at [phone] ANAEROBIC-AEROBIC CULTURE Final Final FEW GRAM POSITIVE COCCI on 07/07/20 at 1148 FINAL ID= [ENTEROCOCCUS FAECIUM VRE] NO ANAEROBIC ORGANISMS ISOLATED on 07/11/20 at 0904 ENTEROCOCCUS FAECIUM VRE Streptomycin Synergy Screen S Gentamicin Synergy Screen S ANTIMICROBIAL SUSCEPTIBILITY Final Comment POS THIAGO TYPE 38 ENTEROCOCCUS FAECIUM VRE ANTIBIOTIC RESULT INTERPRETATION AMPICILLIN >8 R LINEZOLID 2 S VANCOMYCIN >16 R Unless otherwise specified, Testing Performed by: [address] [address] For Inquires, the Physician may contact the Microbiology department at [phone] END OF REPORT Objective Assessment Recurrent abd abscess - drain removed last week. s/p drain 07/06 so far VRE H/o Diverticulitis with abscess s/p drainage 05/31,,,E. coli (I-Zosyn), bacteroides, lactobacillus Immunosuppression - on steroids T 11 compression fracture RA Daptomycin reaction Plan Plan of Care Contact isolation Continue meropenem, Fluconazole Dose Zyvox s/p Sigmoid colon resection with diverting loop ileostomy, splenic flexure takedown on 07/11 F/u labs in am and cults D/w nursing YADI DE JESUS MD Jul 13, 2020 09:03
--- NOTE | 2020-07-13 09:03 | PDOC ---
ANGÉLICA [facility]RY [facility] [employer] 07/13/20 0903: SURGICAL PROGRESS NOTE DATE: 07/13/20 TIME: 09:02 Subjective hungry no nausea pain managed Vital Signs Vital Signs Date Time Temp Pulse Resp B/P (MAP) Pulse Ox O2 Delivery O2 Flow Rate FiO2 07/13/20 07:00 98.3 90 18 132/75 (94) 95 Room Air 98.3 I&O Intake and Output 07/13/20 07:00 Intake Total 0 ml Output Total 4350 ml Balance -4350 ml Intake Oral 0 ml Output Urine Total 4350 ml PATIENT HAS A HYATT: Yes (dc today) General: Alert, Oriented X3, Cooperative Abdomen: Soft, Other (incision c/d/i, no erythema, tomer in place, stoma pink) Labs Laboratory Tests Test 07/12/20 05:30 07/13/20 03:30 White Blood Count 10.4 x10^3/uL (4.0-11.0) 9.7 x10^3/uL (4.0-11.0) Red Blood Count 4.09 x10^6/uL (3.50-5.40) 3.70 x10^6/uL (3.50-5.40) Hemoglobin 11.8 g/dL (12.0-15.5) 10.6 g/dL (12.0-15.5) Hematocrit 34.9 % (36.0-47.0) 31.8 % (36.0-47.0) Mean Corpuscular Volume 85 fL (79-100) 86 fL (79-100) Mean Corpuscular Hemoglobin 29 pg (25-35) 29 pg (25-35) Mean Corpuscular Hemoglobin Concent 34 g/dL (31-37) 33 g/dL (31-37) Red Cell Distribution Width 15.7 % (11.5-14.5) 16.3 % (11.5-14.5) Platelet Count 225 x10^3/uL (140-400) 199 x10^3/uL (140-400) Neutrophils (%) (Auto) 88 % (31-73) Lymphocytes (%) (Auto) 6 % (24-48) Monocytes (%) (Auto) 7 % (0-9) Eosinophils (%) (Auto) 0 % (0-3) Basophils (%) (Auto) 0 % (0-3) Neutrophils # (Auto) 9.1 x10^3/uL (1.8-7.7) Lymphocytes # (Auto) 0.6 x10^3/uL (1.0-4.8) Monocytes # (Auto) 0.7 x10^3/uL (0.0-1.1) Eosinophils # (Auto) 0.0 x10^3/uL (0.0-0.7) Basophils # (Auto) 0.0 x10^3/uL (0.0-0.2) Segmented Neutrophils % 74 % (35-66) Band Neutrophils % 16 % (0-9) Lymphocytes % 6 % (24-48) Monocytes % 4 % (0-10) Platelet Estimate Adequate (ADEQUATE) Anisocytosis Slight Sodium Level 139 mmol/L (136-145) 139 mmol/L (136-145) Potassium Level 4.6 mmol/L (3.5-5.1) 4.3 mmol/L (3.5-5.1) Chloride Level 105 mmol/L (98-107) 105 mmol/L (98-107) Carbon Dioxide Level 29 mmol/L (21-32) 29 mmol/L (21-32) Anion Gap 5 (6-14) 5 (6-14) Blood Urea Nitrogen 15 mg/dL (7-20) 16 mg/dL (7-20) Creatinine 0.7 mg/dL (0.6-1.0) 0.5 mg/dL (0.6-1.0) Estimated GFR (Cockcroft-Gault) 85.1 125.4 Glucose Level 158 mg/dL (70-99) 105 mg/dL (70-99) Calcium Level 9.2 mg/dL (8.5-10.1) 8.7 mg/dL (8.5-10.1) BUN/Creatinine Ratio 32 (6-20) Total Bilirubin 0.2 mg/dL (0.2-1.0) Aspartate Amino Transf (AST/SGOT) 16 U/L (15-37) Alanine Aminotransferase (ALT/SGPT) 16 U/L (14-59) Alkaline Phosphatase 77 U/L (46-116) Total Protein 5.4 g/dL (6.4-8.2) Albumin 2.7 g/dL (3.4-5.0) Albumin/Globulin Ratio 1.0 (1.0-1.7) Laboratory Tests Test 07/13/20 03:30 White Blood Count 9.7 x10^3/uL (4.0-11.0) Red Blood Count 3.70 x10^6/uL (3.50-5.40) Hemoglobin 10.6 g/dL (12.0-15.5) Hematocrit 31.8 % (36.0-47.0) Mean Corpuscular Volume 86 fL (79-100) Mean Corpuscular Hemoglobin 29 pg (25-35) Mean Corpuscular Hemoglobin Concent 33 g/dL (31-37) Red Cell Distribution Width 16.3 % (11.5-14.5) Platelet Count 199 x10^3/uL (140-400) Sodium Level 139 mmol/L (136-145) Potassium Level 4.3 mmol/L (3.5-5.1) Chloride Level 105 mmol/L (98-107) Carbon Dioxide Level 29 mmol/L (21-32) Anion Gap 5 (6-14) Blood Urea Nitrogen 16 mg/dL (7-20) Creatinine 0.5 mg/dL (0.6-1.0) Estimated GFR (Cockcroft-Gault) 125.4 BUN/Creatinine Ratio 32 (6-20) Glucose Level 105 mg/dL (70-99) Calcium Level 8.7 mg/dL (8.5-10.1) Total Bilirubin 0.2 mg/dL (0.2-1.0) Aspartate Amino Transf (AST/SGOT) 16 U/L (15-37) Alanine Aminotransferase (ALT/SGPT) 16 U/L (14-59) Alkaline Phosphatase 77 U/L (46-116) Total Protein 5.4 g/dL (6.4-8.2) Albumin 2.7 g/dL (3.4-5.0) Albumin/Globulin Ratio 1.0 (1.0-1.7) Assessment/Plan dc hyatt await bowel function Justicifation of Admission Dx: Justifications for Admission: Justification of Admission Dx: Yes HERNANDEZ GARZA MD 07/13/20 1503: SURGICAL PROGRESS NOTE Assessment/Plan Agree with above ANGÉLICA HENRY [facility] [employer] Jul 13, 2020 09:03 HERNANDEZ GARZA MD Jul 13, 2020 15:03
--- NOTE | 2020-07-13 09:08 | PATHOLOGY ---
[facility] Accession Number: [id number] . 01 Material submitted: . sigmoid colon - RECTO-SIGMOID COLON STITCH AT PROXIMAL MARGIN . 01 Clinical history: . DIVERTICULITIS SIGMOID COLON RESECTION . 02 Frozen section diagnosis: . INTRAOPERATIVE CONSULTATION WITH GROSS IMPRESSION: Segment of colon with attached mesocolic/pericolic tissue, sigmoid colon resection: - Diverticulosis and diverticulitis with marked narrowing of mid portion of specimen - no evidence of malignancy. . The results are displayed to Dr. Chaidez in the operating room. The specimen is fixed in formalin prior to additional sectioning. . (JPM:daphne; 07/11/2020) . . INTRAOPERATIVE GROSS DESCRIPTION The specimen is received fresh for intraoperative consultation and is designated "recto-sigmoid colon". This consists of a segment of colon with attached mesocolic and pericolic fatty tissue which measures up to 18 cm in length and 6.0 cm in width. The segment is stapled closed at both ends. There is a suture attached to the proximal end. The serosa is pinkish brown and erythematous. There is hemorrhage and induration of the mesocolic and pericolic fatty tissue of the mid portion of the specimen. The specimen is opened longitudinally along the anti-mesocolic aspect. There is a small amount of green stool within the proximal colon. The lumen of the colon is severely narrowed within the mid portion in the area of hemorrhage and induration of the mesocolic/pericolic soft tissue. The mucosa in this area is pink-hewitt and somewhat redundant, and there is marked fibrous thickening of the wall of the colon. There are several diverticula present within the area of narrowing. Distal to the area of narrowing, the colon is tortuous and is lined by a pink-dalton mucosa. There is a small polyp showing a punctate focus of hemorrhage measuring 0.3 cm. There are no other polyps or tumor masses. (JPM:nautical instrument mechanic; 07/11/2020) . Frozen section performed at [facility], [address] [place] [id number]. ARON/ASHA . 02 Diagnosis: Segment of colon and attached mesocolon, rectosigmoid colon resection: - Diverticulosis. - Acute and chronic diverticulitis with focal pericolic abscess and fistula formation, and showing focal marked luminal stenosis. - Small hyperplastic polyp. (JPM:nautical instrument mechanic; 07/12/2020) MBR 07/12/2020 1712 Local . 02 Comment: There is no evidence of malignancy. (JPM:nautical instrument mechanic; 07/12/2020) . 02 Electronically signed: . Palomo Zeng MD, Pathologist NPI- [id number] . 01 Gross description: . Manager Target sections are submitted as follows: . A1: Proximal margin A2: Distal margin A3: Polyp A4-A6: Diverticula (SDY; 07/11/2020) SYU/SYU 07/11/2020 1500 Local . 02 Pathologist provided ICD-10: K57.30, K57.32, K56.609, K63.5 . 02 CPT . 605250, 944300 Specimen Comment: A courtesy copy of this report has been sent to [phone] Specimen Comment: Report sent to Performed at: 01 [facility] [address] [facility] [address], [place] [id number] MD Reed Puente MD Phone: [phone] Performed at: 02 [facility] [address] [place], [place] [id number] MD Palomo Zeng MD Phone: [phone]
[2020-07-13] MEDS: PANTOPRAZOLE 40 MG TABLET.DR. PO SCH (09:33)
[2020-07-13] MEDS: FLUCONAZOLE 400MG/200ML PREMIX 200 ML IV SCH (09:34)
[2020-07-13] MEDS: AMINO AC 3%/ELECTROLYTE/GLYCER 1,000 ML IV SCH ×2 (09:35→20:51)
--- NOTE | 2020-07-13 09:35 | NUR ---
SW following. 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 Awaiting return of bowel function. Ostomy teaching scheduled for noon on 07/14/2020. Pt on 3 abx. SW will continue to follow.
[2020-07-13] MEDS: ONDANSETRON PF 4 MG/2 ML VIAL. IVP PRN ×3 (10:09→19:20)
[2020-07-13 11:00] VITALS: BP 152/85
--- NOTE | 2020-07-13 12:13 | PN ---
DATE: 07/13/2020 SUBJECTIVE: The patient is resting, slightly propped up in bed, in no apparent respiratory distress. She is awake, alert. She apparently has some nausea this morning, had no vomiting. Does responded to Zofran. She continued to be on n.p.o., just on ice chips and PPN. PHYSICAL EXAMINATION: GENERAL: When I examined her, she looked pale, no jaundice, cyanosis or thyromegaly. No jugular venous distention. No lower limb edema. VITAL SIGNS: Her heart rate was 78, blood pressure 152/85, temperature was 98.3, respiratory rate was 16, and oxygen saturation was 93%. HEENT: Examination of head, eyes, ears, nose and throat showed normocephalic, atraumatic. NECK: Supple. HEART: Showed normal first and second heart sounds. No gallop or murmur. CHEST: Clear to auscultation. No crepitation or rhonchi. ABDOMEN: Distended with a midline surgical incision, healing nicely. She has an ileostomy in the right lower quadrant. There is no guarding or rigidity. No organomegaly. All hernial orifice intact. Bowel sounds normal. NEUROLOGIC: She is grossly intact. Her intake over the last 24 hours was 850, output was 2275. LABORATORY DATA: As of this morning, her white cell count is 9700, hemoglobin 10.6, hematocrit 31.8, MCV 86 and platelet count of 199,000. Her chemistry showed a serum sodium 139, potassium 4.3, chloride 105, bicarbonate 29, anion gap of 5, BUN 16, creatinine 0.5, estimated GFR was 125 mL per minute. Her glucose was 105, calcium was 8.7. Total bilirubin, AST, ALT, alkaline phosphatase were normal. Total protein was 5.4, albumin 2.7. The culture from the intra-abdominal abscess showed growth of few gram-positive cocci identified as Enterococcus faecium that is vancomycin resistant, apparently susceptible to linezolid, but resistant to vancomycin. ASSESSMENT: 1. Acute diverticulitis with an abscess that is 4.4 cm for which a drain has been placed by interventional radiologist. 2. She underwent sigmoid colon resection with diverting loop ileostomy and splenic flexure takedown. 3. The patient has multiple other medical problems including: A. Rheumatoid arthritis. B. Gastroesophageal reflux disease. C. Chronic obstructive pulmonary disease. D. T11 compression fracture. PLAN: Plan is to continue with IV antibiotic. Continue with pain management. Continue with antiemetic and TPN for nutritional support. ANIBAL HUSSEIN MD DR: JEFFREY/rodo JOB#: [id number] / [id number]
[2020-07-13] MEDS: IV NORMAL SALINE 1000ML BAG 1,000 ML IV SCH ×2 (14:06→22:00)
[2020-07-13] MEDS: ENOXAPARIN 40 MG/0.4 ML SYRINGE. SQ SCH (14:22)
[2020-07-13 15:00] VITALS: BP 133/8
[2020-07-13 19:00] VITALS: BP 121/78
[2020-07-13 23:00] VITALS: BP 133/55
[2020-07-14 03:00] VITALS: BP 130/76
[2020-07-14] MEDS: MEROPENEM 1 GM in IV NORMAL SALINE 100ML 100 ML IV SCH ×3 (06:01→22:01)
[2020-07-14] MEDS: PANTOPRAZOLE 40 MG TABLET.DR. PO SCH (06:01)
[2020-07-14 06:22] LABS: HEMATOCRIT 33.1 % (36.0-47.0); HEMOGLOBIN 11.1 g/dL (12.0-15.5); RED BLOOD COUNT 3.86 x10^6/uL (3.50-5.40); RED CELL DISTRIBUTION WIDTH 15.8 % (11.5-14.5); WHITE BLOOD COUNT 6.2 x10^3/uL (4.0-11.0)
[2020-07-14 06:46] LABS: ALBUMIN 2.8 g/dL (3.4-5.0); ALBUMIN/GLOBULIN RATIO 0.8 (1.0-1.7); CALCIUM 8.5 mg/dL (8.5-10.1); CREATININE 0.6 mg/dL (0.6-1.0); GFR 101.6; POTASSIUM 4.2 mmol/L (3.5-5.1); TOTAL BILIRUBIN 0.3 mg/dL (0.2-1.0); TOTAL PROTEIN 6.1 g/dL (6.4-8.2)
[2020-07-14 07:00] VITALS: BP 136/81
[2020-07-14] MEDS: ONDANSETRON PF 4 MG/2 ML VIAL. IVP PRN (08:30)
--- NOTE | 2020-07-14 09:46 | NUR ---
SW following. Discussed with RN, awaiting return of bowel function, still NPO and with a AMBULATORY CARE. IV abx. Ostomy teaching today at noon. SW will continue to follow.
--- NOTE | 2020-07-14 10:16 | PDOC ---
Infectious Disease Note Subjective Subjective feeling ok, some abd discomfort and bloating ROS ROS no n/v/d/fever Vital Sign Vital Signs Vital Signs Date Time Temp Pulse Resp B/P (MAP) Pulse Ox O2 Delivery O2 Flow Rate FiO2 07/14/20 08:08 Room Air 07/14/20 07:00 97.6 93 17 136/81 (99) 92 97.6 Physical Exam PHYSICAL EXAM GENERAL: Sitting in bed, alert, smiling HEENT: Pupils equal and reactive. Oral cavity, pharynx is clear. NECK: Supple. Good range of motion. LUNGS: Clear to auscultation bilaterally. HEART: S1, S2. ABDOMEN: soft nt, ostomy in place EXTREMITIES: Without clubbing, cyanosis or gross edema. SKIN: Warm to touch without signs of rash. NEUROLOGIC: Alert, oriented, nonfocal. PICC RUE - clean Labs Lab Laboratory Tests Test 07/14/20 06:00 White Blood Count 6.2 x10^3/uL (4.0-11.0) Red Blood Count 3.86 x10^6/uL (3.50-5.40) Hemoglobin 11.1 g/dL (12.0-15.5) Hematocrit 33.1 % (36.0-47.0) Mean Corpuscular Volume 86 fL (79-100) Mean Corpuscular Hemoglobin 29 pg (25-35) Mean Corpuscular Hemoglobin Concent 33 g/dL (31-37) Red Cell Distribution Width 15.8 % (11.5-14.5) Platelet Count 195 x10^3/uL (140-400) Sodium Level 137 mmol/L (136-145) Potassium Level 4.2 mmol/L (3.5-5.1) Chloride Level 103 mmol/L (98-107) Carbon Dioxide Level 28 mmol/L (21-32) Anion Gap 6 (6-14) Blood Urea Nitrogen 13 mg/dL (7-20) Creatinine 0.6 mg/dL (0.6-1.0) Estimated GFR (Cockcroft-Gault) 101.6 BUN/Creatinine Ratio 22 (6-20) Glucose Level 87 mg/dL (70-99) Calcium Level 8.5 mg/dL (8.5-10.1) Total Bilirubin 0.3 mg/dL (0.2-1.0) Aspartate Amino Transf (AST/SGOT) 18 U/L (15-37) Alanine Aminotransferase (ALT/SGPT) 17 U/L (14-59) Alkaline Phosphatase 90 U/L (46-116) Total Protein 6.1 g/dL (6.4-8.2) Albumin 2.8 g/dL (3.4-5.0) Albumin/Globulin Ratio 0.8 (1.0-1.7) Micro GRAM STAIN Final Final NO ORGANISMS SEEN. RBC:MODERATE SQUAMOUS EPI CELL:NONE SEEN PMN (WBCs):MANY Unless otherwise specified, Testing Performed by: [address] [address] For Inquires, the Physician may contact the Microbiology department at [phone] ANAEROBIC-AEROBIC CULTURE Final Final FEW GRAM POSITIVE COCCI on 07/07/20 at 1148 FINAL ID= [ENTEROCOCCUS FAECIUM VRE] NO ANAEROBIC ORGANISMS ISOLATED on 07/11/20 at 0904 ENTEROCOCCUS FAECIUM VRE Streptomycin Synergy Screen S Gentamicin Synergy Screen S ANTIMICROBIAL SUSCEPTIBILITY Final Comment POS THIAGO TYPE 38 ENTEROCOCCUS FAECIUM VRE ANTIBIOTIC RESULT INTERPRETATION AMPICILLIN >8 R LINEZOLID 2 S VANCOMYCIN >16 R Unless otherwise specified, Testing Performed by: [address] [address] For Inquires, the Physician may contact the Microbiology department at [phone] END OF REPORT Objective Assessment Recurrent abd abscess - drain removed last week. s/p drain 07/06 so far VRE H/o Diverticulitis with abscess s/p drainage 05/31,,,E. coli (I-Zosyn), bacteroides, lactobacillus Immunosuppression - on steroids T 11 compression fracture RA Daptomycin reaction Plan Plan of Care Contact isolation Continue meropenem, Fluconazole Dose Zyvox s/p Sigmoid colon resection with diverting loop ileostomy, splenic flexure takedown on 9/14 F/u labs in am and cults D/w nursing YADI DE JESUS MD Jul 14, 2020 10:15
[2020-07-14] MEDS: AMINO AC 3%/ELECTROLYTE/GLYCER 1,000 ML IV SCH ×2 (10:37→22:00)
--- NOTE | 2020-07-14 10:48 | PDOC ---
SURGICAL PROGRESS NOTE DATE: 07/14/20 TIME: 10:46 Subjective more nausea, no emesis reports ambulating Vital Signs Vital Signs Date Time Temp Pulse Resp B/P (MAP) Pulse Ox O2 Delivery O2 Flow Rate FiO2 07/14/20 08:08 Room Air 07/14/20 07:00 97.6 93 17 136/81 (99) 92 97.6 I&O Intake and Output 07/14/20 07:00 Intake Total 1750 ml Balance 1750 ml Intake Oral 50 ml IV Total 1700 ml # Voids 1 General: Alert, Oriented X3, Cooperative Abdomen: Soft, Other (mildly distended, ostomy without stool or flatus, dressing dry) Labs Laboratory Tests Test 07/13/20 03:30 07/14/20 06:00 White Blood Count 9.7 x10^3/uL (4.0-11.0) 6.2 x10^3/uL (4.0-11.0) Red Blood Count 3.70 x10^6/uL (3.50-5.40) 3.86 x10^6/uL (3.50-5.40) Hemoglobin 10.6 g/dL (12.0-15.5) 11.1 g/dL (12.0-15.5) Hematocrit 31.8 % (36.0-47.0) 33.1 % (36.0-47.0) Mean Corpuscular Volume 86 fL (79-100) 86 fL (79-100) Mean Corpuscular Hemoglobin 29 pg (25-35) 29 pg (25-35) Mean Corpuscular Hemoglobin Concent 33 g/dL (31-37) 33 g/dL (31-37) Red Cell Distribution Width 16.3 % (11.5-14.5) 15.8 % (11.5-14.5) Platelet Count 199 x10^3/uL (140-400) 195 x10^3/uL (140-400) Sodium Level 139 mmol/L (136-145) 137 mmol/L (136-145) Potassium Level 4.3 mmol/L (3.5-5.1) 4.2 mmol/L (3.5-5.1) Chloride Level 105 mmol/L (98-107) 103 mmol/L (98-107) Carbon Dioxide Level 29 mmol/L (21-32) 28 mmol/L (21-32) Anion Gap 5 (6-14) 6 (6-14) Blood Urea Nitrogen 16 mg/dL (7-20) 13 mg/dL (7-20) Creatinine 0.5 mg/dL (0.6-1.0) 0.6 mg/dL (0.6-1.0) Estimated GFR (Cockcroft-Gault) 125.4 101.6 BUN/Creatinine Ratio 32 (6-20) 22 (6-20) Glucose Level 105 mg/dL (70-99) 87 mg/dL (70-99) Calcium Level 8.7 mg/dL (8.5-10.1) 8.5 mg/dL (8.5-10.1) Total Bilirubin 0.2 mg/dL (0.2-1.0) 0.3 mg/dL (0.2-1.0) Aspartate Amino Transf (AST/SGOT) 16 U/L (15-37) 18 U/L (15-37) Alanine Aminotransferase (ALT/SGPT) 16 U/L (14-59) 17 U/L (14-59) Alkaline Phosphatase 77 U/L (46-116) 90 U/L (46-116) Total Protein 5.4 g/dL (6.4-8.2) 6.1 g/dL (6.4-8.2) Albumin 2.7 g/dL (3.4-5.0) 2.8 g/dL (3.4-5.0) Albumin/Globulin Ratio 1.0 (1.0-1.7) 0.8 (1.0-1.7) Laboratory Tests Test 07/14/20 06:00 White Blood Count 6.2 x10^3/uL (4.0-11.0) Red Blood Count 3.86 x10^6/uL (3.50-5.40) Hemoglobin 11.1 g/dL (12.0-15.5) Hematocrit 33.1 % (36.0-47.0) Mean Corpuscular Volume 86 fL (79-100) Mean Corpuscular Hemoglobin 29 pg (25-35) Mean Corpuscular Hemoglobin Concent 33 g/dL (31-37) Red Cell Distribution Width 15.8 % (11.5-14.5) Platelet Count 195 x10^3/uL (140-400) Sodium Level 137 mmol/L (136-145) Potassium Level 4.2 mmol/L (3.5-5.1) Chloride Level 103 mmol/L (98-107) Carbon Dioxide Level 28 mmol/L (21-32) Anion Gap 6 (6-14) Blood Urea Nitrogen 13 mg/dL (7-20) Creatinine 0.6 mg/dL (0.6-1.0) Estimated GFR (Cockcroft-Gault) 101.6 BUN/Creatinine Ratio 22 (6-20) Glucose Level 87 mg/dL (70-99) Calcium Level 8.5 mg/dL (8.5-10.1) Total Bilirubin 0.3 mg/dL (0.2-1.0) Aspartate Amino Transf (AST/SGOT) 18 U/L (15-37) Alanine Aminotransferase (ALT/SGPT) 17 U/L (14-59) Alkaline Phosphatase 90 U/L (46-116) Total Protein 6.1 g/dL (6.4-8.2) Albumin 2.8 g/dL (3.4-5.0) Albumin/Globulin Ratio 0.8 (1.0-1.7) Assessment/Plan await bowel function if worsening may need to consider NG d/w walking, limiting CO PILOT Justicifation of Admission Dx: Justifications for Admission: Justification of Admission Dx: Yes ANGÉLICA HENRY CLINICAL RESOURCE COORDINATOR Jul 14, 2020 10:48
[2020-07-14 10:58] VITALS: BP 137/86
--- NOTE | 2020-07-14 11:40 | PN ---
DATE: 07/14/2020 SUBJECTIVE: The patient is sitting in her recliner, complaining that she is bloated. She has not had any bowel movement and passed any gas and she has some nausea, but no vomiting. PHYSICAL EXAMINATION: GENERAL: When I examined her, she looked pale, no jaundice, cyanosis or thyromegaly. No jugular venous distention. No lower limb edema. VITAL SIGNS: Her heart rate was 84, blood pressure was 137/86, temperature 97.4, respiratory rate was 18 and oxygen saturation was 93% on room air. HEAD, EYES, EARS, NOSE, AND THROAT: Showed normocephalic, atraumatic. NECK: Supple. HEART: Showed normal first and second heart sounds. No gallop, rub or murmur. CHEST: Clear to auscultation. No crepitation or rhonchi. ABDOMEN: Distended with some tenderness. No guarding or rigidity. No organomegaly. Bowel sounds are audible. She has an ileostomy in the right lower quadrant. NEUROLOGIC: She is grossly intact. Her intake over the last 24 hours was incompletely recorded, output was 4350. LABORATORY DATA: As of this morning, her white cell count was 6200, hemoglobin 11, hematocrit 33, MCV 86 and platelet count of 195,000. Her serum sodium was 137, potassium 4.2, chloride 103, bicarbonate 28, anion gap of 6, BUN 13, creatinine 0.6, estimated GFR was 101 mL per minute. Her glucose was 87, calcium was 8.5. Total bilirubin, AST, ALT, alkaline phosphatase were normal. Total protein 6.1, albumin was 2.8. ASSESSMENT: 1. Acute diverticulitis with an abscess, initially drained by interventional radiologist. 2. She underwent sigmoid colon resection with diverting loop ileostomy and splenic flexure takedown. The patient has multiple other medical problems including: A. Rheumatoid arthritis. B. Gastroesophageal reflux disease. C. Chronic obstructive pulmonary disease. D. T11 compression fracture. PLAN: Continue with IV antibiotic. Continue with pain management. Continue with antiemetic and TPN for nutritional support. The patient was encouraged to move around and if possible minimize the pain medication. If the symptoms continue apparently an NG tube is an option. ANIBAL HUSSEIN MD DR: JEFFREY/rodo JOB#: [id number] / [id number]
--- NOTE | 2020-07-14 12:30 | NUR ---
ostomy care patient seen for ostomy teaching. patient and patients present at this time. ostomy education done at this time, patient enrolled in the [facility] program at this time. ostomy care team will continue to f/u.
[2020-07-14 15:00] VITALS: BP 133/86
[2020-07-14] MEDS: ENOXAPARIN 40 MG/0.4 ML SYRINGE. SQ SCH (16:51)
[2020-07-14 19:25] VITALS: BP 127/70
[2020-07-14 23:00] VITALS: BP 122/73
[2020-07-15 03:37] VITALS: BP 110/80
[2020-07-15] MEDS: PANTOPRAZOLE 40 MG TABLET.DR. PO SCH (05:36)
[2020-07-15] MEDS: MEROPENEM 1 GM in IV NORMAL SALINE 100ML 100 ML IV SCH ×3 (05:37→22:32)
[2020-07-15 06:21] LABS: ALBUMIN 2.9 g/dL (3.4-5.0); ALBUMIN/GLOBULIN RATIO 0.9 (1.0-1.7); CREATININE 0.6 mg/dL (0.6-1.0); GFR 101.6; POTASSIUM 4.3 mmol/L (3.5-5.1); TOTAL BILIRUBIN 0.7 mg/dL (0.2-1.0); TOTAL PROTEIN 6.3 g/dL (6.4-8.2)
[2020-07-15 07:00] VITALS: BP 121/79
[2020-07-15] MEDS: FLUCONAZOLE 400MG/200ML PREMIX 200 ML IV SCH (08:06)
--- NOTE | 2020-07-15 09:51 | PDOC ---
SURGICAL PROGRESS NOTE DATE: 07/15/20 TIME: 09:50 Subjective feeling better stool in ostomy Vital Signs Vital Signs Date Time Temp Pulse Resp B/P (MAP) Pulse Ox O2 Delivery O2 Flow Rate FiO2 07/15/20 08:00 Room Air 07/15/20 07:00 97.6 96 18 121/79 (93) 93 97.6 I&O Intake and Output 07/15/20 07:00 Intake Total 1500 ml Output Total 150 ml Balance 1350 ml Intake Oral 100 ml IV Total 1400 ml Gastric Drainage Total 150 ml # Voids 4 General: Alert, Oriented X3, Cooperative Abdomen: Soft, Other (mild distention, ostomy with air and small amount of stool) Labs Laboratory Tests Test 07/14/20 06:00 07/15/20 05:45 White Blood Count 6.2 x10^3/uL (4.0-11.0) Red Blood Count 3.86 x10^6/uL (3.50-5.40) Hemoglobin 11.1 g/dL (12.0-15.5) Hematocrit 33.1 % (36.0-47.0) Mean Corpuscular Volume 86 fL (79-100) Mean Corpuscular Hemoglobin 29 pg (25-35) Mean Corpuscular Hemoglobin Concent 33 g/dL (31-37) Red Cell Distribution Width 15.8 % (11.5-14.5) Platelet Count 195 x10^3/uL (140-400) Sodium Level 137 mmol/L (136-145) 137 mmol/L (136-145) Potassium Level 4.2 mmol/L (3.5-5.1) 4.3 mmol/L (3.5-5.1) Chloride Level 103 mmol/L (98-107) 102 mmol/L (98-107) Carbon Dioxide Level 28 mmol/L (21-32) 27 mmol/L (21-32) Anion Gap 6 (6-14) 8 (6-14) Blood Urea Nitrogen 13 mg/dL (7-20) 14 mg/dL (7-20) Creatinine 0.6 mg/dL (0.6-1.0) 0.6 mg/dL (0.6-1.0) Estimated GFR (Cockcroft-Gault) 101.6 101.6 BUN/Creatinine Ratio 22 (6-20) 23 (6-20) Glucose Level 87 mg/dL (70-99) 114 mg/dL (70-99) Calcium Level 8.5 mg/dL (8.5-10.1) 9.0 mg/dL (8.5-10.1) Total Bilirubin 0.3 mg/dL (0.2-1.0) 0.7 mg/dL (0.2-1.0) Aspartate Amino Transf (AST/SGOT) 18 U/L (15-37) 24 U/L (15-37) Alanine Aminotransferase (ALT/SGPT) 17 U/L (14-59) 20 U/L (14-59) Alkaline Phosphatase 90 U/L (46-116) 104 U/L (46-116) Total Protein 6.1 g/dL (6.4-8.2) 6.3 g/dL (6.4-8.2) Albumin 2.8 g/dL (3.4-5.0) 2.9 g/dL (3.4-5.0) Albumin/Globulin Ratio 0.8 (1.0-1.7) 0.9 (1.0-1.7) Laboratory Tests Test 07/15/20 05:45 Sodium Level 137 mmol/L (136-145) Potassium Level 4.3 mmol/L (3.5-5.1) Chloride Level 102 mmol/L (98-107) Carbon Dioxide Level 27 mmol/L (21-32) Anion Gap 8 (6-14) Blood Urea Nitrogen 14 mg/dL (7-20) Creatinine 0.6 mg/dL (0.6-1.0) Estimated GFR (Cockcroft-Gault) 101.6 BUN/Creatinine Ratio 23 (6-20) Glucose Level 114 mg/dL (70-99) Calcium Level 9.0 mg/dL (8.5-10.1) Total Bilirubin 0.7 mg/dL (0.2-1.0) Aspartate Amino Transf (AST/SGOT) 24 U/L (15-37) Alanine Aminotransferase (ALT/SGPT) 20 U/L (14-59) Alkaline Phosphatase 104 U/L (46-116) Total Protein 6.3 g/dL (6.4-8.2) Albumin 2.9 g/dL (3.4-5.0) Albumin/Globulin Ratio 0.9 (1.0-1.7) Assessment/Plan 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
--- NOTE | 2020-07-15 09:57 | PDOC ---
Infectious Disease Note Subjective Subjective feeling good, ostomy working ROS ROS no n/v/d/sob Vital Sign Vital Signs Vital Signs Date Time Temp Pulse Resp B/P (MAP) Pulse Ox O2 Delivery O2 Flow Rate FiO2 07/15/20 08:00 Room Air 07/15/20 07:00 97.6 96 18 121/79 (93) 93 97.6 Physical Exam PHYSICAL EXAM GENERAL: Sitting in bed, alert, smiling HEENT: Pupils equal and reactive. Oral cavity, pharynx is clear. NECK: Supple. Good range of motion. LUNGS: Clear to auscultation bilaterally. HEART: S1, S2. ABDOMEN: soft nt, ostomy in place EXTREMITIES: Without clubbing, cyanosis or gross edema. SKIN: Warm to touch without signs of rash. NEUROLOGIC: Alert, oriented, nonfocal. PICC RUE - clean Labs Lab Laboratory Tests Test 07/15/20 05:45 Sodium Level 137 mmol/L (136-145) Potassium Level 4.3 mmol/L (3.5-5.1) Chloride Level 102 mmol/L (98-107) Carbon Dioxide Level 27 mmol/L (21-32) Anion Gap 8 (6-14) Blood Urea Nitrogen 14 mg/dL (7-20) Creatinine 0.6 mg/dL (0.6-1.0) Estimated GFR (Cockcroft-Gault) 101.6 BUN/Creatinine Ratio 23 (6-20) Glucose Level 114 mg/dL (70-99) Calcium Level 9.0 mg/dL (8.5-10.1) Total Bilirubin 0.7 mg/dL (0.2-1.0) Aspartate Amino Transf (AST/SGOT) 24 U/L (15-37) Alanine Aminotransferase (ALT/SGPT) 20 U/L (14-59) Alkaline Phosphatase 104 U/L (46-116) Total Protein 6.3 g/dL (6.4-8.2) Albumin 2.9 g/dL (3.4-5.0) Albumin/Globulin Ratio 0.9 (1.0-1.7) Micro GRAM STAIN Final Final NO ORGANISMS SEEN. RBC:MODERATE SQUAMOUS EPI CELL:NONE SEEN PMN (WBCs):MANY Unless otherwise specified, Testing Performed by: [address] [address] For Inquires, the Physician may contact the Microbiology department at [phone] ANAEROBIC-AEROBIC CULTURE Final Final FEW GRAM POSITIVE COCCI on 07/07/20 at 1148 FINAL ID= [ENTEROCOCCUS FAECIUM VRE] NO ANAEROBIC ORGANISMS ISOLATED on 07/11/20 at 0904 ENTEROCOCCUS FAECIUM VRE Streptomycin Synergy Screen S Gentamicin Synergy Screen S ANTIMICROBIAL SUSCEPTIBILITY Final Comment POS THIAGO TYPE 38 ENTEROCOCCUS FAECIUM VRE ANTIBIOTIC RESULT INTERPRETATION AMPICILLIN >8 R LINEZOLID 2 S VANCOMYCIN >16 R Unless otherwise specified, Testing Performed by: [address] [address] For Inquires, the Physician may contact the Microbiology department at [phone] END OF REPORT Objective Assessment Recurrent abd abscess - drain removed last week. s/p drain 07/06 so far VRE H/o Diverticulitis with abscess s/p drainage 05/31,,,E. coli (I-Zosyn), bacteroides, lactobacillus Immunosuppression - on steroids T 11 compression fracture RA Daptomycin reaction Plan Plan of Care Contact isolation Continue meropenem, Fluconazole Dose Zyvox s/p Sigmoid colon resection with diverting loop ileostomy, splenic flexure takedown on 07/11 F/u labs in am and cults D/w nursing YADI DE JESUS MD Jul 15, 2020 09:57
[2020-07-15] MEDS ORDERED: HYDROmorphone 2 MG/ML VIAL IVP PRN (10:00)
[2020-07-15] MEDS: oxyCODONE/APAP 5/325 1 TAB TABLET PO PRN (10:08)
--- NOTE | 2020-07-15 10:12 | NUR ---
SW following. 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 Pt stooled through ostomy overnight, IV abx. RN advised pt will likely be here through the weekend. SW will continue to follow.
--- NOTE | 2020-07-15 10:41 | PN ---
DATE: 07/15/2020 SUBJECTIVE: The patient is resting, slightly propped up in bed, in no apparent distress. She is awake, alert, has had no nausea or vomiting. Her bowel is moving. The ileostomy bag has some stool in it. Her MANPOWER DEVELOPMENT SPECIALIST MANAGER will be discontinued and she will be starting on a clear liquid diet. PHYSICAL EXAMINATION: GENERAL: When I examined her, she looked well and was clearly in no apparent respiratory distress. No pallor, jaundice, cyanosis or thyromegaly. No jugular venous distention. No lower limb edema. VITAL SIGNS: Her heart rate was 96, blood pressure was 121/79, temperature was 97.6, respiratory rate was 18 and oxygen saturation was 93%. HEAD, EYES, EARS, NOSE AND THROAT: Shows normocephalic, atraumatic. NECK: Supple. HEART: Showed normal first and second heart sounds. No gallop, rub or murmur. CHEST: Clear to auscultation. No crepitation or rhonchi. ABDOMEN: Distended, soft with ileostomy bag in the right lower quadrant with stool in it. No tenderness. No guarding or rigidity. NEUROLOGIC: She is grossly intact. Her intake over the last 24 hours was incompletely recorded, output was 4350. LABORATORY DATA: As of this morning, her serum sodium was 137, potassium 4.3, chloride 102, bicarbonate 27, anion gap of 8, BUN of 14, creatinine 0.6, estimated GFR was 101, glucose was 114, calcium was 9. Total bilirubin, AST, ALT, alkaline phosphatase were normal. Total protein 6.3, albumin 2.9. ASSESSMENT: 1. Acute diverticulitis and abscess. Initially drained by interventional radiologist. 2. She underwent sigmoid colon resection with diverting loop ileostomy and splenic flexure takedown. 3. The patient has multiple other medical problems including: A. Rheumatoid arthritis. B. Gastroesophageal reflux disease. C. Chronic obstructive pulmonary disease. D. T11 compression fracture. PLAN: To discontinue the MANPOWER DEVELOPMENT SPECIALIST MANAGER. She was started on a clear liquid diet. I will also start her on oral pain medication. Meanwhile, we will continue with physical and occupational therapy. ANIBAL HUSSEIN MD DR: JEFFREY/rodo JOB#: [id number] / [id number]
[2020-07-15 11:04] VITALS: BP 138/80
[2020-07-15] MEDS: AMINO AC 3%/ELECTROLYTE/GLYCER 1,000 ML IV SCH ×2 (11:13→22:32)
[2020-07-15] MEDS: ONDANSETRON PF 4 MG/2 ML VIAL. IVP PRN ×2 (13:58→18:06)
[2020-07-15] MEDS: ENOXAPARIN 40 MG/0.4 ML SYRINGE. SQ SCH (14:05)
[2020-07-15 15:00] VITALS: BP 123/60
[2020-07-15 19:18] VITALS: BP 137/73
[2020-07-15 23:16] VITALS: BP 136/81
[2020-07-16 02:39] VITALS: BP 127/56
[2020-07-16] MEDS: PANTOPRAZOLE 40 MG TABLET.DR. PO SCH (05:57)
[2020-07-16] MEDS: MEROPENEM 1 GM in IV NORMAL SALINE 100ML 100 ML IV SCH ×3 (05:58→22:24)
[2020-07-16 06:38] LABS: ALBUMIN 2.8 g/dL (3.4-5.0); ALBUMIN/GLOBULIN RATIO 0.9 (1.0-1.7); CALCIUM 8.6 mg/dL (8.5-10.1); CREATININE 0.6 mg/dL (0.6-1.0); GFR 101.6; POTASSIUM 4.4 mmol/L (3.5-5.1); TOTAL BILIRUBIN 0.5 mg/dL (0.2-1.0); TOTAL PROTEIN 5.8 g/dL (6.4-8.2)
[2020-07-16 06:45] LABS: HEMATOCRIT 33.8 % (36.0-47.0); HEMOGLOBIN 11.3 g/dL (12.0-15.5); RED BLOOD COUNT 3.97 x10^6/uL (3.50-5.40); RED CELL DISTRIBUTION WIDTH 15.8 % (11.5-14.5); WHITE BLOOD COUNT 5.2 x10^3/uL (4.0-11.0)
[2020-07-16 07:00] VITALS: BP 140/79
[2020-07-16] MEDS: oxyCODONE/APAP 5/325 1 TAB TABLET PO PRN ×3 (09:23→21:36)
--- NOTE | 2020-07-16 10:59 | PDOC ---
PROGRESS NOTES Date of Service DATE: 07/16/20 TIME: 10:58 Subjective Subjective doing well, wanting to advance diet Objective Objective Vital Signs Date Time Temp Pulse Resp B/P (MAP) Pulse Ox O2 Delivery O2 Flow Rate FiO2 07/16/20 09:23 20 Room Air 07/16/20 07:00 97.5 82 140/79 (99) 94 97.5 07/11/20 16:20 2.0 Intake and Output 07/16/20 07:00 Intake Total 2750 ml Balance 2750 ml Intake Oral 750 ml IV Total 2000 ml # Voids 3 Physical Exam Abdomen: Soft Assessment Assessment S/P colon resection Plan Plan of Care Advance diet Comment Review of Relevant I have reviewed the following items ladarius (where applicable) has been applied. Labs Laboratory Tests Test 07/15/20 05:45 07/16/20 06:00 Sodium Level 137 mmol/L (136-145) 138 mmol/L (136-145) Potassium Level 4.3 mmol/L (3.5-5.1) 4.4 mmol/L (3.5-5.1) Chloride Level 102 mmol/L (98-107) 104 mmol/L (98-107) Carbon Dioxide Level 27 mmol/L (21-32) 27 mmol/L (21-32) Anion Gap 8 (6-14) 7 (6-14) Blood Urea Nitrogen 14 mg/dL (7-20) 12 mg/dL (7-20) Creatinine 0.6 mg/dL (0.6-1.0) 0.6 mg/dL (0.6-1.0) Estimated GFR (Cockcroft-Gault) 101.6 101.6 BUN/Creatinine Ratio 23 (6-20) 20 (6-20) Glucose Level 114 mg/dL (70-99) 105 mg/dL (70-99) Calcium Level 9.0 mg/dL (8.5-10.1) 8.6 mg/dL (8.5-10.1) Total Bilirubin 0.7 mg/dL (0.2-1.0) 0.5 mg/dL (0.2-1.0) Aspartate Amino Transf (AST/SGOT) 24 U/L (15-37) 29 U/L (15-37) Alanine Aminotransferase (ALT/SGPT) 20 U/L (14-59) 30 U/L (14-59) Alkaline Phosphatase 104 U/L (46-116) 111 U/L (46-116) Total Protein 6.3 g/dL (6.4-8.2) 5.8 g/dL (6.4-8.2) Albumin 2.9 g/dL (3.4-5.0) 2.8 g/dL (3.4-5.0) Albumin/Globulin Ratio 0.9 (1.0-1.7) 0.9 (1.0-1.7) White Blood Count 5.2 x10^3/uL (4.0-11.0) Red Blood Count 3.97 x10^6/uL (3.50-5.40) Hemoglobin 11.3 g/dL (12.0-15.5) Hematocrit 33.8 % (36.0-47.0) Mean Corpuscular Volume 85 fL (79-100) Mean Corpuscular Hemoglobin 29 pg (25-35) Mean Corpuscular Hemoglobin Concent 34 g/dL (31-37) Red Cell Distribution Width 15.8 % (11.5-14.5) Platelet Count 202 x10^3/uL (140-400) Laboratory Tests Test 07/16/20 06:00 White Blood Count 5.2 x10^3/uL (4.0-11.0) Red Blood Count 3.97 x10^6/uL (3.50-5.40) Hemoglobin 11.3 g/dL (12.0-15.5) Hematocrit 33.8 % (36.0-47.0) Mean Corpuscular Volume 85 fL (79-100) Mean Corpuscular Hemoglobin 29 pg (25-35) Mean Corpuscular Hemoglobin Concent 34 g/dL (31-37) Red Cell Distribution Width 15.8 % (11.5-14.5) Platelet Count 202 x10^3/uL (140-400) Sodium Level 138 mmol/L (136-145) Potassium Level 4.4 mmol/L (3.5-5.1) Chloride Level 104 mmol/L (98-107) Carbon Dioxide Level 27 mmol/L (21-32) Anion Gap 7 (6-14) Blood Urea Nitrogen 12 mg/dL (7-20) Creatinine 0.6 mg/dL (0.6-1.0) Estimated GFR (Cockcroft-Gault) 101.6 BUN/Creatinine Ratio 20 (6-20) Glucose Level 105 mg/dL (70-99) Calcium Level 8.6 mg/dL (8.5-10.1) Total Bilirubin 0.5 mg/dL (0.2-1.0) Aspartate Amino Transf (AST/SGOT) 29 U/L (15-37) Alanine Aminotransferase (ALT/SGPT) 30 U/L (14-59) Alkaline Phosphatase 111 U/L (46-116) Total Protein 5.8 g/dL (6.4-8.2) Albumin 2.8 g/dL (3.4-5.0) Albumin/Globulin Ratio 0.9 (1.0-1.7) Microbiology 07/06/20 Gram Stain - Final, Complete 07/06/20 Aerobic and Anaerobic Culture - Final, Complete 07/06/20 Antimicrobic Susceptibility - Final, Complete Medications Current Medications Iohexol (Omnipaque 300 Mg/ml) 75 ml 1X ONCE IV Last administered on 07/05/20at 19:34; Start 07/05/20 at 19:30; Stop 07/05/20 at 19:32; Status DC Info (CONTRAST GIVEN -- Rx MONITORING) 1 each PRN DAILY PRN MC SEE COMMENTS; Start 07/05/20 at 19:45; Stop 07/07/20 at 19:44; Status DC Piperacillin Sod/ Tazobactam Sod 4.5 gm/Sodium Chloride 100 ml @ 200 mls/hr 1X ONCE IV Last administered on 07/05/20at 21:08; Start 07/05/20 at 21:30; Stop 07/05/20 at 21:59; Status DC Ondansetron HCl (Zofran) 4 mg PRN Q8HRS PRN IV NAUSEA/VOMITING; Start 07/05/20 at 21:15; Stop 07/06/20 at 21:14; Status DC Morphine Sulfate (Morphine Sulfate) 4 mg PRN Q2HR PRN IV PAIN Last administered on 07/06/20at 19:14; Start 07/05/20 at 21:15; Stop 07/06/20 at 21:14; Status DC Piperacillin Sod/ Tazobactam Sod 4.5 gm/Sodium Chloride 100 ml @ 200 mls/hr Q6HRS IV Last administered on 07/06/20at 05:50; Start 07/06/20 at 06:00; Stop 07/06/20 at 07:20; Status DC Potassium Chloride/Dextrose/ Sod Cl 1,000 ml @ 100 mls/hr Q10H IV Last administered on 07/07/20at 01:38; Start 07/06/20 at 06:00; Stop 07/10/20 at 11:43; Status DC Meropenem 1 gm/ Sodium Chloride 100 ml @ 200 mls/hr Q8HRS IV Last administered on 07/16/20at 05:58; Start 07/06/20 at 08:00 Fluconazole/ Sodium Chloride 200 ml @ 100 mls/hr Q24H IV Last administered on 07/15/20at 08:06; Start 07/06/20 at 09:00 Daptomycin 480 mg/ Sodium Chloride 50 ml @ 100 mls/hr Q24H IV Last administered on 07/06/20at 09:35; Start 07/06/20 at 08:00; Stop 07/06/20 at 10:56; Status DC Diphenhydramine HCl (Benadryl) 25 mg 1X ONCE IM ; Start 07/06/20 at 11:00; Stop 07/06/20 at 11:01; Status Cancel Diphenhydramine HCl (Benadryl) 25 mg 1X ONCE IVP Last administered on 07/06/20at 11:19; Start 07/06/20 at 11:15; Stop 07/06/20 at 11:16; Status DC Lidocaine HCl (Buffered Lidocaine 1%) 3 ml STK-MED ONCE .ROUTE ; Start 07/06/20 at 11:34; Stop 07/06/20 at 11:35; Status DC Midazolam HCl (Versed) 2 mg STK-MED ONCE .ROUTE ; Start 07/06/20 at 11:37; Stop 07/06/20 at 11:37; Status DC Fentanyl Citrate (Fentanyl 2ml Vial) 100 mcg STK-MED ONCE .ROUTE ; Start 07/06/20 at 11:37; Stop 07/06/20 at 11:37; Status DC Lidocaine HCl (Buffered Lidocaine 1%) 3 ml 1X ONCE IJ Last administered on 07/06/20at 12:24; Start 07/06/20 at 11:45; Stop 07/06/20 at 11:53; Status DC Midazolam HCl (Versed) 2 mg 1X ONCE IV Last administered on 07/06/20at 12:24; Start 07/06/20 at 11:45; Stop 07/06/20 at 11:53; Status DC Fentanyl Citrate (Fentanyl 2ml Vial) 100 mcg 1X ONCE IV Last administered on 07/06/20at 12:24; Start 07/06/20 at 11:45; Stop 07/06/20 at 11:53; Status DC Acetaminophen/ Hydrocodone Bitart (Lortab 5/325) 1 tab PRN Q4HRS PRN PO PAIN Last administered on 07/10/20at 22:30; Start 07/06/20 at 20:00 Amino Acids/ Glycerin/ Electrolytes 1,000 ml @ 80 mls/hr [id number] IV Last administered on 07/15/20at 22:32; Start 07/07/20 at 09:30 Diphenhydramine HCl (Benadryl) 25 mg PRN Q6HRS PRN PO ITCHING; Start 07/07/20 at 12:00 Linezolid/Dextrose 300 ml @ 300 mls/hr Q12HR IV Last administered on 07/16/20at 09:25; Start 07/08/20 at 12:00 Ondansetron HCl (Zofran) 4 mg PRN Q6HRS PRN IV NAUSEA/VOMITING; Start 07/11/20 at 07:00; Stop 07/12/20 at 06:59; Status DC Fentanyl Citrate (Fentanyl 2ml Vial) 25 mcg PRN Q5MIN PRN IV MILD PAIN 1-3; Start 07/11/20 at 07:00; Stop 07/12/20 at 06:59; Status DC Fentanyl Citrate (Fentanyl 2ml Vial) 50 mcg PRN Q5MIN PRN IV MODERATE TO SEVERE PAIN Last administered on 07/11/20at 14:24; Start 07/11/20 at 07:00; Stop 07/12/20 at 06:59; Status DC Morphine Sulfate (Morphine Sulfate) 1 mg PRN Q10MIN PRN IV SEVERE PAIN 7-10; Start 07/11/20 at 07:00; Stop 07/12/20 at 06:59; Status DC Ringer's Solution 1,000 ml @ 30 mls/hr Q24H IV ; Start 07/11/20 at 07:00; Stop 07/11/20 at 18:59; Status DC Lidocaine HCl (Xylocaine-Mpf 1% 2ml Vial) 2 ml PRN 1X PRN ID PRIOR TO IV START; Start 07/11/20 at 07:00; Stop 07/12/20 at 06:59; Status DC Hydromorphone HCl (Dilaudid) 0.5 mg PRN Q10MIN PRN IV SEV PAIN, Second choice Last administered on 07/11/20at 15:29; Start 07/11/20 at 07:00; Stop 07/12/20 at 06:59; Status DC Prochlorperazine Edisylate (Compazine) 5 mg PACU PRN PRN IV NAUSEA, MRX1; Start 07/11/20 at 07:00; Stop 07/12/20 at 06:59; Status DC Buspirone HCl (Buspar) 10 mg DAILY PO ; Start 07/11/20 at 09:00; Stop 07/10/20 at 17:14; Status DC Propofol (Diprivan) 200 mg STK-MED ONCE IV ; Start 07/11/20 at 08:19; Stop at 08:19; Status DC Lidocaine HCl (Lidocaine Pf 2% Vial) 5 ml STK-MED ONCE .ROUTE ; Start 07/11/20 at 08:19; Stop 07/11/20 at 08:19; Status DC Succinylcholine Chloride (Anectine) 200 mg STK-MED ONCE .ROUTE ; Start 07/11/20 at 08:19; Stop 07/11/20 at 08:20; Status DC Fentanyl Citrate (Fentanyl 2ml Vial) 100 mcg STK-MED ONCE .ROUTE ; Start 07/11/20 at 08:20; Stop 07/11/20 at 08:20; Status DC Rocuronium [place] (Zemuron) 50 mg STK-MED ONCE .ROUTE ; Start 07/11/20 at 08:20; Stop 07/11/20 at 08:20; Status DC Dexamethasone Sodium Phosphate (Decadron) 20 mg STK-MED ONCE .ROUTE ; Start 07/11/20 at 09:53; Stop 07/11/20 at 09:53; Status DC Desflurane (Suprane) 60 ml STK-MED ONCE IH ; Start 07/11/20 at 09:53; Stop 07/11/20 at 09:53; Status DC Ondansetron HCl (Zofran) 4 mg STK-MED ONCE .ROUTE ; Start 07/11/20 at 10:03; Stop 07/11/20 at 10:03; Status DC Dexamethasone Sodium Phosphate (Decadron) 20 mg STK-MED ONCE .ROUTE ; Start 07/11/20 at 10:07; Stop 07/11/20 at 10:07; Status DC Neostigmine [place] (Neostigmine Methylsulfate) 5 mg STK-MED ONCE .ROUTE ; Start 07/11/20 at 10:10; Stop 07/11/20 at 10:10; Status DC Glycopyrrolate (Robinul) 1 mg STK-MED ONCE .ROUTE ; Start 07/11/20 at 10:10; Stop 07/11/20 at 10:10; Status DC Fentanyl Citrate (Fentanyl 2ml Vial) 100 mcg STK-MED ONCE .ROUTE ; Start 07/11/20 at 10:15; Stop 07/11/20 at 10:15; Status DC Morphine Sulfate (Morphine Sulfate) 10 mg STK-MED ONCE .ROUTE ; Start 07/11/20 at 10:27; Stop 07/11/20 at 10:28; Status DC Esmolol HCl (Brevibloc) 100 mg STK-MED ONCE IVP ; Start 07/11/20 at 10:29; Stop 07/11/20 at 10:29; Status DC Phenylephrine HCl (PHENYLEPHRINE in 0.9% NACL PF) 1 mg STK-MED ONCE IV ; Start 07/11/20 at 10:35; Stop 07/11/20 at 10:36; Status DC Metoprolol Tartrate (Lopressor Vial) 5 mg STK-MED ONCE IVP ; Start 07/11/20 at 11:06; Stop 07/11/20 at 11:06; Status DC Naloxone HCl (Narcan) 0.4 mg PRN Q2MIN PRN IV SEE INSTRUCTIONS; Start 07/11/20 at 14:15 Sodium Chloride 1,000 ml @ 25 mls/hr Q24H IV Last administered on 07/13/20at 22:00; Start 07/11/20 at 14:14; Stop 07/15/20 at 09:59; Status DC Hydromorphone HCl 30 ml @ 0 mls/hr CONT PRN PRN IV PER PROTOCOL Last administered on 07/11/20at 15:50; Start 07/11/20 at 14:15; Stop 07/15/20 at 09:49; Status DC Enoxaparin Sodium (Lovenox 40mg Syringe) 40 mg Q24H SQ Last administered on 07/15/20at 14:05; Start 07/11/20 at 15:00 Hydromorphone HCl (Dilaudid) 2 mg STK-MED ONCE .ROUTE ; Start 07/11/20 at 14:30; Stop 07/11/20 at 14:30; Status DC Albuterol/ Ipratropium (Duoneb) 3 ml STK-MED ONCE .ROUTE ; Start 07/11/20 at 14:35; Stop 07/11/20 at 14:35; Status DC Albuterol/ Ipratropium (Duoneb) 3 ml 1X ONCE NEB Last administered on 0at 14:45; Start 07/11/20 at 14:45; Stop 07/11/20 at 14:46; Status DC Pantoprazole Sodium (Protonix) 40 mg DAILYAC PO Last administered on 07/16/20at 05:57; Start 07/13/20 at 09:30 Ondansetron HCl (Zofran) 4 mg PRN Q4HRS PRN IVP NAUSEA/VOMITING Last admi nistered on 07/15/20at 18:06; Start 07/13/20 at 10:00 Hydromorphone HCl (Dilaudid) 0.4 mg PRN Q4HRS PRN IVP PAIN; Start 07/15/20 at 10:00; Stop 07/15/20 at 09:59; Status DC Oxycodone/ Acetaminophen (Percocet 5/325) 1 tab PRN Q4HRS PRN PO PAIN Last administered on 07/16/20at 09:23; Start 07/15/20 at 10:00 Active Scripts Active Cecil 5-325 Tablet (Acetaminophen/Hydrocodone Bitart) 1 Each Tablet 1 Tab PO Q4H PRN 10 Days Reported Protonix (Pantoprazole Sodium) 20 Mg Tablet.dr 40 Mg PO DAILY Sulfasalazine 500 Mg Tablet 1,000 Mg PO BID Claritin-D 12 Hour Tablet (Loratadine/Pseudoephedrine) 1 Each Tab.er.12h 1 Tab PO BID Nexium Capsule (Esomeprazole Magnesium) 20 Mg Capsule.dr 20 Mg PO DAILYAC Tramadol Hcl 50 Mg Tablet 50 Mg PO Q6HRS PRN Sulfasalazine 500 Mg Tablet 500 Mg PO QID Vitals/I & O Vital Sign - Last 24 Hours 07/15/20 07/15/20 07/15/20 07/15/20 11:04 15:00 19:18 20:00 Temp 98.2 97.7 97.9 98.2 97.7 97.9 Pulse 95 94 86 Resp B/P (MAP) 138/80 (99) 123/60 (81) 137/73 (94) Pulse Ox 95 95 97 O2 Delivery Room Air Room Air Room Air Room Air 07/15/20 07/16/20 07/16/20 07/16/20 23:16 02:39 07:00 09:23 Temp 97.6 98.2 97.5 97.6 98.2 97.5 Pulse 79 95 82 Resp 20 B/P (MAP) 136/81 (99) 127/56 (79) 140/79 (99) Pulse Ox 97 94 94 O2 Delivery Room Air Room Air Room Air Room Air Intake and Output 07/15/20 07/15/20 07/16/20 15:00 23:00 07:00 Intake Total 2150 ml 600 ml Balance 2150 ml 600 ml Justifications for Admission Other Justification HERNANDEZ GARZA MD Jul 16, 2020 10:59
[2020-07-16 11:00] VITALS: BP 136/71
[2020-07-16] MEDS: FLUCONAZOLE 400MG/200ML PREMIX 200 ML IV SCH (12:24)
--- NOTE | 2020-07-16 12:32 | PDOC ---
Infectious Disease Note Subjective Subjective Feeling well Diet advanced to GI soft Denies pain/N/V/F/C Looking forward to going home soon ROS ROS as mentioned above Vital Sign Vital Signs Vital Signs Date Time Temp Pulse Resp B/P (MAP) Pulse Ox O2 Delivery O2 Flow Rate FiO2 07/16/20 11:00 98.2 90 20 136/71 (92) 93 Room Air 98.2 Physical Exam PHYSICAL EXAM GENERAL: Propped up in bed, alert and smiling HEENT: Pupils equal and reactive. Oral cavity, pharynx is clear. NECK: Supple. Good range of motion. LUNGS: Clear to auscultation bilaterally. HEART: S1, S2. ABDOMEN: Mild distention, soft, nontender, ostomy in place, dressing dry EXTREMITIES: Without clubbing, cyanosis or gross edema. SKIN: Warm to touch without signs of rash. NEUROLOGIC: Alert, oriented, nonfocal. PICC RUE - clean Labs Lab Laboratory Tests Test 07/16/20 06:00 White Blood Count 5.2 x10^3/uL (4.0-11.0) Red Blood Count 3.97 x10^6/uL (3.50-5.40) Hemoglobin 11.3 g/dL (12.0-15.5) Hematocrit 33.8 % (36.0-47.0) Mean Corpuscular Volume 85 fL (79-100) Mean Corpuscular Hemoglobin 29 pg (25-35) Mean Corpuscular Hemoglobin Concent 34 g/dL (31-37) Red Cell Distribution Width 15.8 % (11.5-14.5) Platelet Count 202 x10^3/uL (140-400) Sodium Level 138 mmol/L (136-145) Potassium Level 4.4 mmol/L (3.5-5.1) Chloride Level 104 mmol/L (98-107) Carbon Dioxide Level 27 mmol/L (21-32) Anion Gap 7 (6-14) Blood Urea Nitrogen 12 mg/dL (7-20) Creatinine 0.6 mg/dL (0.6-1.0) Estimated GFR (Cockcroft-Gault) 101.6 BUN/Creatinine Ratio 20 (6-20) Glucose Level 105 mg/dL (70-99) Calcium Level 8.6 mg/dL (8.5-10.1) Total Bilirubin 0.5 mg/dL (0.2-1.0) Aspartate Amino Transf (AST/SGOT) 29 U/L (15-37) Alanine Aminotransferase (ALT/SGPT) 30 U/L (14-59) Alkaline Phosphatase 111 U/L (46-116) Total Protein 5.8 g/dL (6.4-8.2) Albumin 2.8 g/dL (3.4-5.0) Albumin/Globulin Ratio 0.9 (1.0-1.7) Micro Microbiology 07/06/20 Gram Stain - Final, Complete 07/06/20 Aerobic and Anaerobic Culture - Final, Complete 07/06/20 Antimicrobic Susceptibility - Final, Complete Objective Assessment Recurrent abd abscess - drain removed last week. s/p drain 07/06 VRE (amp-R) H/o Diverticulitis with abscess s/p drainage 05/31,,,E. coli (I-Zosyn), bacteroides, lactobacillus s/p Sigmoid colon resection with diverting loop ileostomy, splenic flexure takedown on 07/11 Immunosuppression - on steroids T 11 compression fracture RA Daptomycin reaction Plan Plan of Care Zyvox, meropenem and Fluconazole Monitor WBC/temp PICC care Contact isolation for VRE D/w nursing and at bedside Attending Co-Sign The patient was seen and interviewed as well as examined at the bedside. The chart was reviewed. The case was discussed. Agree with the plan of care. ROBERTO MARIEE APRN Jul 16, 2020 12:32 YADI DE JESUS MD Jul 16, 2020 13:57
--- NOTE | 2020-07-16 14:00 | PN ---
DATE: 07/16/2020 SUBJECTIVE: The patient is resting, slightly propped up in bed, in no apparent distress. She, on questioning her, denied any complaints. Her bowels are moving. She has no nausea, no vomiting. Pain is well controlled. 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 The plan for discharging home on Saturday. PHYSICAL EXAMINATION: GENERAL: When I examined her this morning, she looked pale, but no jaundice, cyanosis or thyromegaly. No jugular venous distention. No limb edema. VITAL SIGNS: Her heart rate was 82, blood pressure was 140/79, temperature 97.5, respiratory rate 20, and oxygen saturation was 94%. The rest of the exam is stable. ABDOMEN: She has an ileostomy in the right lower quadrant. Her intake was 1500, no output was recorded. LABORATORY DATA: Her lab work this morning showed a white cell count 5200, hemoglobin 11, hematocrit 33, MCV 85 and platelet count 202,000. Her chemistry showed a serum sodium 138, potassium 4.4, chloride 104, bicarbonate 27, anion gap of 7, BUN 12, creatinine 0.6, estimated GFR was 101, glucose 105, calcium was 8.6. Total bilirubin, AST, ALT, alkaline phosphatase were normal. Total protein was 5.8, albumin was 2.8. ASSESSMENT: 1. Acute diverticulitis and abscess by interventional radiologist. 2. She underwent sigmoid colon resection with diverting loop ileostomy and splenic flexure takedown. 3. The patient has multiple other medical problems including: A. Rheumatoid arthritis. B. Gastroesophageal reflux disease. C. Chronic obstructive pulmonary disease. D. T11 compression fracture. 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 Meanwhile, we will continue with physical and occupational therapy. ANIBAL HUSSEIN MD DR: JEFFREY/rodo JOB#: [id number] / [id number]
[2020-07-16 15:00] VITALS: BP 139/83
[2020-07-16] MEDS: ENOXAPARIN 40 MG/0.4 ML SYRINGE. SQ SCH (17:16)
[2020-07-16] MEDS: ONDANSETRON PF 4 MG/2 ML VIAL. IVP PRN (17:20)
[2020-07-16 19:25] VITALS: BP 126/70
[2020-07-16 23:10] VITALS: BP 117/66
[2020-07-17] MEDS: ONDANSETRON PF 4 MG/2 ML VIAL. IVP PRN ×2 (02:35→09:06)
[2020-07-17 03:18] VITALS: BP 117/65
[2020-07-17] MEDS: PANTOPRAZOLE 40 MG TABLET.DR. PO SCH (05:37)
[2020-07-17] MEDS: MEROPENEM 1 GM in IV NORMAL SALINE 100ML 100 ML IV SCH (05:39)
[2020-07-17 07:00] VITALS: BP 148/81
[2020-07-17] MEDS: FLUCONAZOLE 400MG/200ML PREMIX 200 ML IV SCH (09:08)
--- NOTE | 2020-07-17 09:39 | PN ---
DATE: 07/17/2020 SUBJECTIVE: The patient is resting, slightly propped up in bed, in no apparent distress. She denied any complaint, in particular denied any nausea or vomiting. Denied any abdominal pain. She was apparently trained to change her ileostomy bag and expressed her desire to go home. She is tolerating her diet without any problem. PHYSICAL EXAMINATION: GENERAL: On examining her, she looked pale. No jaundice, cyanosis or thyromegaly. No jugular venous distension. No limb edema. VITAL SIGNS: Her heart rate was 97, blood pressure was 148/81, temperature 97.8, respiratory rate was 16, and oxygen saturation was 92% on room air. The rest of clinical exam is stable. Her intake over the last 24 hours was 2715. No output was recorded. LABORATORY DATA: As of yesterday, her white cell count was 5200, hemoglobin 11, hematocrit 33, MCV 85 and platelet count 202,000. Her chemistry showed a serum sodium 138, potassium 4.4, chloride 104, bicarbonate 27, anion gap of 7, BUN 12, creatinine 0.6, estimated GFR was 101, glucose 105, calcium was 8.6. Total bilirubin, AST, ALT, alkaline phosphatase were normal. Total protein was 5.8, albumin was 2.8. ASSESSMENT: 1. Acute diverticulitis and abscess, status post drainage by interventional radiologist. 2. She underwent sigmoid colon resection with diverting loop ileostomy and splenic flexure takedown. 3. The patient has multiple other medical problems including: A. Rheumatoid arthritis. B. Gastroesophageal reflux disease. C. Chronic obstructive pulmonary disease. D. T11 compression fracture. I gave the patient prescription for Percocet and Zofran. As long as the surgical team and infectious teams are okay with her being discharged, she can go home today. ANIBAL HUSSEIN MD DR: JEFFREY/rodo JOB#: [id number] / [id number]
--- NOTE | 2020-07-17 10:31 | PDOC ---
Infectious Disease Note Subjective Subjective Tolerated 75% breakfast Denies pain/N/V/F/C Looking forward to going home ROS ROS as mentioned above Vital Sign Vital Signs Vital Signs Date Time Temp Pulse Resp B/P (MAP) Pulse Ox O2 Delivery O2 Flow Rate FiO2 07/17/20 08:00 Room Air 3.0 07/17/20 07:00 97.8 97 16 148/81 (103) 92 97.8 Physical Exam PHYSICAL EXAM GENERAL: Propped up in bed, alert and smiling HEENT: Pupils equal and reactive. Oral cavity, pharynx is clear. NECK: Supple. Good range of motion. LUNGS: Clear to auscultation bilaterally. HEART: S1, S2. ABDOMEN: Mild distention, soft, nontender, ostomy in place, dressing dry EXTREMITIES: Without clubbing, cyanosis or gross edema. SKIN: Warm to touch without signs of rash. NEUROLOGIC: Alert, oriented, nonfocal. PICC RUE - clean Labs Micro Microbiology 07/06/20 Gram Stain - Final, Complete 07/06/20 Aerobic and Anaerobic Culture - Final, Complete 07/06/20 Antimicrobic Susceptibility - Final, Complete Objective Assessment Recurrent abd abscess - drain removed last week. s/p drain 07/06 VRE (amp-R) H/o Diverticulitis with abscess s/p drainage 05/31,,,E. coli (I-Zosyn), bacteroides, lactobacillus s/p Sigmoid colon resection with diverting loop ileostomy, splenic flexure takedown on 07/11 Immunosuppression - on steroids T 11 compression fracture RA Daptomycin reaction Plan Plan of Care Zyvox, meropenem and Fluconazole Monitor WBC/temp PICC care Contact isolation for VRE D/w nursing and Antibiotcs can be changed to Zyvox and Augmentin for discharge She will need to follow up in our office in 2 weeks Weekly CBC on Mondays. Fax results to [phone] Call for appt [phone] Attending Co-Sign The patient was seen and interviewed as well as examined at the bedside. The chart was reviewed. The case was discussed. Agree with the plan of care. ROBERTO MARIEE APRN Jul 17, 2020 10:31 YADI DE JESUS MD Jul 17, 2020 12:14
[2020-07-17 11:00] VITALS: BP 130/67
--- NOTE | 2020-07-17 12:33 | PDOC ---
PROGRESS NOTES Date of Service DATE: 07/17/20 TIME: 12:32 Subjective Subjective doing well, wants to go home Objective Objective Vital Signs Date Time Temp Pulse Resp B/P (MAP) Pulse Ox O2 Delivery O2 Flow Rate FiO2 07/17/20 11:00 98.1 58 18 130/67 (88) 100 Room Air 98.1 07/17/20 08:00 3.0 Intake and Output 07/17/20 07:00 Intake Total 780 ml Balance 780 ml Intake Oral 780 ml # Voids 6 Physical Exam Abdomen: Soft (ileostomy functioning) Assessment Assessment S/P sigmoid resection, ileostomy Plan Plan of Care OK to discharge, FU in 2 weeks Comment Review of Relevant I have reviewed the following items ladarius (where applicable) has been applied. Labs Laboratory Tests Test 07/16/20 06:00 White Blood Count 5.2 x10^3/uL (4.0-11.0) Red Blood Count 3.97 x10^6/uL (3.50-5.40) Hemoglobin 11.3 g/dL (12.0-15.5) Hematocrit 33.8 % (36.0-47.0) Mean Corpuscular Volume 85 fL (79-100) Mean Corpuscular Hemoglobin 29 pg (25-35) Mean Corpuscular Hemoglobin Concent 34 g/dL (31-37) Red Cell Distribution Width 15.8 % (11.5-14.5) Platelet Count 202 x10^3/uL (140-400) Sodium Level 138 mmol/L (136-145) Potassium Level 4.4 mmol/L (3.5-5.1) Chloride Level 104 mmol/L (98-107) Carbon Dioxide Level 27 mmol/L (21-32) Anion Gap 7 (6-14) Blood Urea Nitrogen 12 mg/dL (7-20) Creatinine 0.6 mg/dL (0.6-1.0) Estimated GFR (Cockcroft-Gault) 101.6 BUN/Creatinine Ratio 20 (6-20) Glucose Level 105 mg/dL (70-99) Calcium Level 8.6 mg/dL (8.5-10.1) Total Bilirubin 0.5 mg/dL (0.2-1.0) Aspartate Amino Transf (AST/SGOT) 29 U/L (15-37) Alanine Aminotransferase (ALT/SGPT) 30 U/L (14-59) Alkaline Phosphatase 111 U/L (46-116) Total Protein 5.8 g/dL (6.4-8.2) Albumin 2.8 g/dL (3.4-5.0) Albumin/Globulin Ratio 0.9 (1.0-1.7) Microbiology 07/06/20 Gram Stain - Final, Complete 07/06/20 Aerobic and Anaerobic Culture - Final, Complete 07/06/20 Antimicrobic Susceptibility - Final, Complete Medications Current Medications Iohexol (Omnipaque 300 Mg/ml) 75 ml 1X ONCE IV Last administered on 07/05/20at 19:34; Start 07/05/20 at 19:30; Stop 07/05/20 at 19:32; Status DC Info (CONTRAST GIVEN -- Rx MONITORING) 1 each PRN DAILY PRN MC SEE COMMENTS; Start 07/05/20 at 19:45; Stop 07/07/20 at 19:44; Status DC Piperacillin Sod/ Tazobactam Sod 4.5 gm/Sodium Chloride 100 ml @ 200 mls/hr 1X ONCE IV Last administered on 07/05/20at 21:08; Start 07/05/20 at 21:30; Stop 07/05/20 at 21:59; Status DC Ondansetron HCl (Zofran) 4 mg PRN Q8HRS PRN IV NAUSEA/VOMITING; Start 07/05/20 at 21:15; Stop 07/06/20 at 21:14; Status DC Morphine Sulfate (Morphine Sulfate) 4 mg PRN Q2HR PRN IV PAIN Last administered on 07/06/20at 19:14; Start 07/05/20 at 21:15; Stop 07/06/20 at 21:14; Status DC Piperacillin Sod/ Tazobactam Sod 4.5 gm/Sodium Chloride 100 ml @ 200 mls/hr Q6HRS IV Last administered on 07/06/20at 05:50; Start 07/06/20 at 06:00; Stop 07/06/20 at 07:20; Status DC Potassium Chloride/Dextrose/ Sod Cl 1,000 ml @ 100 mls/hr Q10H IV Last administered on 07/07/20at 01:38; Start 07/06/20 at 06:00; Stop 07/10/20 at 11:43; Status DC Meropenem 1 gm/ Sodium Chloride 100 ml @ 200 mls/hr Q8HRS IV Last administered on 07/17/20at 05:39; Start 07/06/20 at 08:00 Fluconazole/ Sodium Chloride 200 ml @ 100 mls/hr Q24H IV Last administered on 07/17/20at 09:08; Start 07/06/20 at 09:00 Daptomycin 480 mg/ Sodium Chloride 50 ml @ 100 mls/hr Q24H IV Last administered on 07/06/20at 09:35; Start 07/06/20 at 08:00; Stop 07/06/20 at 10:56; Status DC Diphenhydramine HCl (Benadryl) 25 mg 1X ONCE IM ; Start 07/06/20 at 11:00; Stop 07/06/20 at 11:01; Status Cancel Diphenhydramine HCl (Benadryl) 25 mg 1X ONCE IVP Last administered on 07/06/20at 11:19; Start 07/06/20 at 11:15; Stop 07/06/20 at 11:16; Status DC Lidocaine HCl (Buffered Lidocaine 1%) 3 ml STK-MED ONCE .ROUTE ; Start 07/06/20 at 11:34; Stop 07/06/20 at 11:35; Status DC Midazolam HCl (Versed) 2 mg STK-MED ONCE .ROUTE ; Start 07/06/20 at 11:37; Stop 07/06/20 at 11:37; Status DC Fentanyl Citrate (Fentanyl 2ml Vial) 100 mcg STK-MED ONCE .ROUTE ; Start 07/06/20 at 11:37; Stop 07/06/20 at 11:37; Status DC Lidocaine HCl (Buffered Lidocaine 1%) 3 ml 1X ONCE IJ Last administered on 07/06/20at 12:24; Start 07/06/20 at 11:45; Stop 07/06/20 at 11:53; Status DC Midazolam HCl (Versed) 2 mg 1X ONCE IV Last administered on 07/06/20at 12:24; Start 07/06/20 at 11:45; Stop 07/06/20 at 11:53; Status DC Fentanyl Citrate (Fentanyl 2ml Vial) 100 mcg 1X ONCE IV Last administered on at 12:24; Start 07/06/20 at 11:45; Stop 07/06/20 at 11:53; Status DC Acetaminophen/ Hydrocodone Bitart (Lortab 5/325) 1 tab PRN Q4HRS PRN PO PAIN, 1st CHOICE Last administered on 07/10/20at 22:30; Start 07/06/20 at 20:00 Amino Acids/ Glycerin/ Electrolytes 1,000 ml @ 80 mls/hr [id number] IV Last administered on 07/15/20at 22:32; Start 07/07/20 at 09:30; Stop 07/16/20 at 11:01; Status DC Diphenhydramine HCl (Benadryl) 25 mg PRN Q6HRS PRN PO ITCHING; Start 07/07/20 at 12:00 Linezolid/Dextrose 300 ml @ 300 mls/hr Q12HR IV Last administered on 07/17/20at 09:07; Start 07/08/20 at 12:00 Ondansetron HCl (Zofran) 4 mg PRN Q6HRS PRN IV NAUSEA/VOMITING; Start 07/11/20 at 07:00; Stop 07/12/20 at 06:59; Status DC Fentanyl Citrate (Fentanyl 2ml Vial) 25 mcg PRN Q5MIN PRN IV MILD PAIN 1-3; Start 07/11/20 at 07:00; Stop 07/12/20 at 06:59; Status DC Fentanyl Citrate (Fentanyl 2ml Vial) 50 mcg PRN Q5MIN PRN IV MODERATE TO SEVERE PAIN Last administered on 07/11/20at 14:24; Start 07/11/20 at 07:00; Stop 07/12/20 at 06:59; Status DC Morphine Sulfate (Morphine Sulfate) 1 mg PRN Q10MIN PRN IV SEVERE PAIN 7-10; Start 07/11/20 at 07:00; Stop 07/12/20 at 06:59; Status DC Ringer's Solution 1,000 ml @ 30 mls/hr Q24H IV ; Start 07/11/20 at 07:00; Stop 07/11/20 at 18:59; Status DC Lidocaine HCl (Xylocaine-Mpf 1% 2ml Vial) 2 ml PRN 1X PRN ID PRIOR TO IV START; Start 07/11/20 at 07:00; Stop 07/12/20 at 06:59; Status DC Hydromorphone HCl (Dilaudid) 0.5 mg PRN Q10MIN PRN IV SEV PAIN, Second choice Last administered on 07/11/20at 15:29; Start 07/11/20 at 07:00; Stop 07/12/20 at 06:59; Status DC Prochlorperazine Edisylate (Compazine) 5 mg PACU PRN PRN IV NAUSEA, MRX1; Start 07/11/20 at 07:00; Stop 07/12/20 at 06:59; Status DC Buspirone HCl (Buspar) 10 mg DAILY PO ; Start 07/11/20 at 09:00; Stop 07/10/20 at 17:14; Status DC Propofol (Diprivan) 200 mg STK-MED ONCE IV ; Start 07/11/20 at 08:19; Stop 07/11/20 at 08:19; Status DC Lidocaine HCl (Lidocaine Pf 2% Vial) 5 ml STK-MED ONCE .ROUTE ; Start 07/11/20 at 08:19; Stop 07/11/20 at 08:19; Status DC Succinylcholine Chloride (Anectine) 200 mg STK-MED ONCE .ROUTE ; Start 07/11/20 at 08:19; Stop 07/11/20 at 08:20; Status DC Fentanyl Citrate (Fentanyl 2ml Vial) 100 mcg STK-MED ONCE .ROUTE ; Start 07/11/20 at 08:20; Stop 07/11/20 at 08:20; Status DC Rocuronium [place] (Zemuron) 50 mg STK-MED ONCE .ROUTE ; Start 07/11/20 at 08:20; Stop 07/11/20 at 08:20; Status DC Dexamethasone Sodium Phosphate (Decadron) 20 mg STK-MED ONCE .ROUTE ; Start 07/11/20 at 09:53; Stop 07/11/20 at 09:53; Status DC Desflurane (Suprane) 60 ml STK-MED ONCE IH ; Start 07/11/20 at 09:53; Stop 07/11/20 at 09:53; Status DC Ondansetron HCl (Zofran) 4 mg STK-MED ONCE .ROUTE ; Start 07/11/20 at 10:03; Stop 07/11/20 at 10:03; Status DC Dexamethasone Sodium Phosphate (Decadron) 20 mg STK-MED ONCE .ROUTE ; Start 07/11/20 at 10:07; Stop 07/11/20 at 10:07; Status DC Neostigmine [place] (Neostigmine Methylsulfate) 5 mg STK-MED ONCE .ROUTE ; Start 07/11/20 at 10:10; Stop 07/11/20 at 10:10; Status DC Glycopyrrolate (Robinul) 1 mg STK-MED ONCE .ROUTE ; Start 07/11/20 at 10:10; Stop 07/11/20 at 10:10; Status DC Fentanyl Citrate (Fentanyl 2ml Vial) 100 mcg STK-MED ONCE .ROUTE ; Start 07/11/20 at 10:15; Stop 07/11/20 at 10:15; Status DC Morphine Sulfate (Morphine Sulfate) 10 mg STK-MED ONCE .ROUTE ; Start 07/11/20 at 10:27; Stop 07/11/20 at 10:28; Status DC Esmolol HCl (Brevibloc) 100 mg STK-MED ONCE IVP ; Start 07/11/20 at 10:29; Stop 07/11/20 at 10:29; Status DC Phenylephrine HCl (PHENYLEPHRINE in 0.9% NACL PF) 1 mg STK-MED ONCE IV ; Start 07/11/20 at 10:35; Stop 07/11/20 at 10:36; Status DC Metoprolol Tartrate (Lopressor Vial) 5 mg STK-MED ONCE IVP ; Start 07/11/20 at 11:06; Stop 07/11/20 at 11:06; Status DC Naloxone HCl (Narcan) 0.4 mg PRN Q2MIN PRN IV SEE INSTRUCTIONS; Start 07/11/20 at 14:15 Sodium Chloride 1,000 ml @ 25 mls/hr Q24H IV Last administered on 07/13/20at 22:00; Start 07/11/20 at 14:14; Stop 07/15/20 at 09:59; Status DC Hydromorphone HCl 30 ml @ 0 mls/hr CONT PRN PRN IV PER PROTOCOL Last administered on 07/11/20at 15:50; Start 07/11/20 at 14:15; Stop 07/15/20 at 09:49; Status DC Enoxaparin Sodium (Lovenox 40mg Syringe) 40 mg Q24H SQ Last administered on 07/16/20at 17:16; Start 07/11/20 at 15:00 Hydromorphone HCl (Dilaudid) 2 mg STK-MED ONCE .ROUTE ; Start 07/11/20 at 14:30; Stop 07/11/20 at 14:30; Status DC Albuterol/ Ipratropium (Duoneb) 3 ml STK-MED ONCE .ROUTE ; Start 07/11/20 at 14:35; Stop 07/11/20 at 14:35; Status DC Albuterol/ Ipratropium (Duoneb) 3 ml 1X ONCE NEB Last administered on 07/11/20at 14:45; Start 07/11/20 at 14:45; Stop 07/11/20 at 14:46; Status DC Pantoprazole Sodium (Protonix) 40 mg DAILYAC PO Last administered on 07/17/20at 05:37; Start 07/13/20 at 09:30 Ondansetron HCl (Zofran) 4 mg PRN Q4HRS PRN IVP NAUSEA/VOMITING Last administ ered on 07/17/20at 09:06; Start 07/13/20 at 10:00 Hydromorphone HCl (Dilaudid) 0.4 mg PRN Q4HRS PRN IVP PAIN; Start 07/15/20 at 10:00; Stop 07/15/20 at 09:59; Status DC Oxycodone/ Acetaminophen (Percocet 5/325) 1 tab PRN Q4HRS PRN PO PAIN, 2nd CHOICE Last administered on 07/16/20at 21:36; Start 07/15/20 at 10:00 Active Scripts Active [place] 5-325 Tablet (Acetaminophen/Hydrocodone Bitart) 1 Each Tablet 1 Tab PO Q4H PRN 10 Days Reported Protonix (Pantoprazole Sodium) 20 Mg Tablet.dr 40 Mg PO DAILY Sulfasalazine 500 Mg Tablet 1,000 Mg PO BID Claritin-D 12 Hour Tablet (Loratadine/Pseudoephedrine) 1 Each Tab.er.12h 1 Tab PO BID Nexium Capsule (Esomeprazole Magnesium) 20 Mg Capsule.dr 20 Mg PO DAILYAC Tramadol Hcl 50 Mg Tablet 50 Mg PO Q6HRS PRN Sulfasalazine 500 Mg Tablet 500 Mg PO QID Vitals/I & O Vital Sign - Last 24 Hours 07/16/20 07/16/20 07/16/20 07/16/20 15:00 17:17 18:17 19:25 Temp 98.1 98.2 98.1 98.2 Pulse 98 94 Resp 20 18 B/P (MAP) 139/83 (101) 126/70 (88) Pulse Ox 96 96 93 O2 Delivery Room Air Room Air Room Air Room Air 07/16/20 07/16/20 07/16/20 07/16/20 19:30 21:36 22:57 23:10 Temp 98.0 98.0 Pulse 87 Resp 18 B/P (MAP) 117/66 (83) Pulse Ox 94 O2 Delivery Room Air Room Air Room Air Room Air 07/17/20 07/17/20 07/17/20 07/17/20 03:18 07:00 08:00 11:00 Temp 97.7 97.8 98.1 97.7 97.8 98.1 Pulse 86 97 58 Resp 18 16 18 B/P (MAP) 117/65 (82) 148/81 (103) 130/67 (88) Pulse Ox 93 92 100 O2 Delivery Room Air Room Air Room Air Room Air O2 Flow Rate 3.0 Intake and Output 07/16/20 07/16/20 07/17/20 15:00 23:00 07:00 Intake Total 780 ml Balance 780 ml Justifications for Admission Other Justification HERNANDEZ GARZA MD Jul 17, 2020 12:33
[2020-07-17] MEDS ORDERED: traMADol 50 MG TABLET PO PRN (14:45)
--- NOTE | 2020-07-17 15:40 | NUR ---
discharge teaching completed. PICC line removed without difficulty. [place] drain removed without difficulty. Wound care taught to patient and spouse and dressing sent with patient. She has previously received ostomy training and supplies. She was discharge to home with spouse, escorted out by staff via w/c.
[2020-07-17] MEDS ORDERED: sulfaSALAzine 500 MG TABLET PO SCH (17:00)
[2020-07-17] MEDS ORDERED: LORATADINE PO SCH (21:00)
[2020-07-17] MEDS ORDERED: PSEUDOEPHEDRINE PO SCH (21:00)
[2020-07-18] MEDS ORDERED: NON FORMULARY ITEM (Pantoprazole Sodium (Protonix) 40 MG) PO SCH (09:00)
== END 2020-07-17 15:42 | disposition home or self-care (01) | DRG 330 ==
LOC: ER 17:56 → 4 NORTH 21:35 → OBSVTOIN 21:35 → 4 NORTH 07-15 12:09
PROVIDERS: ADMIT Internal Medicine; ATTEND Internal Medicine
PROC: 02HV33Z Insertion of Infusion Device into Superior Vena Cava, Percutaneous Approach (ICD-10-PCS; 2020-07-05)
PROC: 0J9C30Z Drainage of Pelvic Region Subcutaneous Tissue and Fascia with Drainage Device, Percutaneous Approach (ICD-10-PCS; 2020-07-06)
PROC: 0DTN0ZZ Resection of Sigmoid Colon, Open Approach (ICD-10-PCS; 2020-07-11)
PROC: 0D1B0Z4 Bypass Ileum to Cutaneous, Open Approach (ICD-10-PCS; principal; 2020-07-11 09:30)
DX: K57.20 Diverticulitis of large intestine with perforation and abscess without bleeding (principal); M48.54XA Collapsed vertebra, not elsewhere classified, thoracic region, initial encounter for fracture; E87.6 Hypokalemia; J44.9 Chronic obstructive pulmonary disease, unspecified; Z20.828 Contact with and (suspected) exposure to other viral communicable diseases; K21.9 Gastro-esophageal reflux disease without esophagitis; L29.9 Pruritus, unspecified; M06.9 Rheumatoid arthritis, unspecified; Z80.0 Family history of malignant neoplasm of digestive organs; Z80.3 Family history of malignant neoplasm of breast; Z83.3 Family history of diabetes mellitus; Z87.440 Personal history of urinary (tract) infections; Z87.891 Personal history of nicotine dependence
CPT/HCPCS: 36415; 36569; 49406; 71045; 74018; 74177; 80048; 80053; 83690; 85007; 85025; 85027; 85610; 85730; 87071; 87075; 87077; 87102; 87186; 87426; 88307; 93005; 96365; 99152; 99285; A7015; C1729; C1769; J0330; J0878; J1100; J1170; J1200; J1450; J1650; J2020; J2185; J2250; J2270; J2370; J2405; J2543; J2704; J2710; J3010; J3480; J3490; J7030; J7120; Q9967; A4461; G0378; U0003-CS

== ENCOUNTER → 2020-09-02 | Outpatient (CLI) | payer BC ==
[~2020-09-02] MED LIST changes: +IOHEXOL 300 MG/ML 100ML VIAL. PR ONE
--- NOTE | 2020-09-02 09:53 | RAD ---
EXAM: Water-soluble enema. HISTORY: 60-year-old female presents for evaluation prior to ileostomy takedown. Request is made for single contrast water-soluble contrast administration per rectum. TECHNIQUE: A furnace operator and tender image of the abdomen was obtained. The patient was then placed in a right lateral decubitus position and a balloon tip catheter was inserted into the rectum. Water-soluble contrast was then instilled with the aid of gravity through the catheter into the colon. Fluoroscopic spot images were obtained in multiple projections. Standard overhead images and a postevacuation image were also obtained. The total fluoroscopy time was 1 minute. 17 images were obtained. COMPARISON: CT dated 07/05/2020. FINDINGS: The furnace operator and tender image of the abdomen demonstrates a nonobstructive bowel gas pattern. There is incidental lumbar scoliosis. There are few pelvic phleboliths. The images obtained during the administration of water subtle contrast into the rectum demonstrate contrast opacification of the colon and distal small bowel. There are few small filling defects within the colon likely due to a small amount of stool. There is no extravasation. There is no stricture. Evaluation for intrinsic mucosal lesion is limited due to the absence of double contrast images. IMPRESSION: Single contrast water soluble enema demonstrate opacification of the entire colon and distal small bowel. There is no evidence of extravasation or stricture. Evaluate for a mucosal lesion is limited in the absence of the contrast imaging. Electronically signed by: Janice Covarrubias MD (09/02/2020 9:50 AM) [id number]
== END ==
LOC: RAD 14:06
PROVIDERS: ATTEND Surgery
DX: K57.92 Diverticulitis of intestine, part unspecified, without perforation or abscess without bleeding (principal); I87.8 Other specified disorders of veins; M41.86 Other forms of scoliosis, lumbar region
CPT/HCPCS: 74270; Q9967

== ENCOUNTER → 2020-09-15 | Outpatient (CLI) | payer BC ==
[~2020-09-15] MED LIST changes: -IOHEXOL 300 MG/ML 100ML VIAL. PR ONE
== END ==
LOC: LAB 13:26
PROVIDERS: ATTEND Surgery
DX: Z01.812 Encounter for preprocedural laboratory examination (principal); Z20.828 Contact with and (suspected) exposure to other viral communicable diseases
CPT/HCPCS: U0003

== ENCOUNTER 2020-09-19 07:57 | Inpatient (IN) | payer BC ==
[~2020-09-19] VITALS: Ht 167.6 cm; Wt 76.5 kg
[~2020-09-19 07:57] MED LIST changes: +HYDROmorphone 2 MG/ML VIAL IV PRN; +LIDOCAINE 1% PF 2 ML VIAL. ID PRN; +ONDANSETRON PF 4 MG/2 ML VIAL. IV PRN; +fentaNYL PF VIAL 100 MCG/2 ML VIAL IV PRN
[2020-09-19] MEDS ORDERED: LIDOCAINE 2% PF 5 ML VIAL. ONE (08:39)
[2020-09-19] MEDS ORDERED: PROPOFOL 10 MG/ML (20ML) VIAL. IV ONE (08:39)
[2020-09-19] MEDS ORDERED: MIDAZOLAM HCL/PF 2 MG/2 ML VIAL. ONE (08:40)
[2020-09-19] MEDS ORDERED: ROCURONIUM 50 MG/5 ML VIAL. ONE ×2 (08:40→10:41)
[2020-09-19] MEDS ORDERED: fentaNYL PF VIAL 250 MCG/5 ML VIAL ONE (08:40)
[2020-09-19] MEDS: IV RINGERS,LACTATED 1000ML 1,000 ML IV SCH ×2 (08:45→12:47)
[2020-09-19] MEDS ORDERED: DEXAMETHASONE SOD PHOS 4 MG/ML VIAL ONE (10:32)
[2020-09-19] MEDS ORDERED: ONDANSETRON PF 4 MG/2 ML VIAL. ONE (10:32)
[2020-09-19] MEDS ORDERED: SEVOFLURANE > 120 MINUTES. IH ONE (10:32)
[2020-09-19] MEDS ORDERED: HYDROmorphone 2 MG/ML VIAL ONE (10:35)
[2020-09-19] MEDS ORDERED: GLYCOPYRROLATE 1 MG/5 ML VIAL. ONE (11:07)
[2020-09-19] MEDS ORDERED: NEOSTIGMINE METHYLSULFATE 5 MG/5 ML SYRINGE. ONE (11:07)
[2020-09-19] MEDS ORDERED: LABETALOL 20 MG/4 ML DISP.SYRIN. IVP ONE (11:59)
[2020-09-19] MEDS: IV NORMAL SALINE 1000ML BAG 1,000 ML IV SCH (12:30)
[2020-09-19] MEDS ORDERED: HYDROmorphone 12mg/30ml PCA 30 ML IV PRN (12:30)
[2020-09-19] MEDS ORDERED: 0.9 % SODIUM CHLORIDE 10 ML DISP.SYRIN. IV PRN (12:30)
[2020-09-19] MEDS ORDERED: NALOXONE 0.4 MG/ML VIAL. IV PRN (12:30)
--- NOTE | 2020-09-19 12:35 | PDOC4 ---
Operative Note Operative Note Operative Note: Preoperative Diagnosis: Perforated diverticulitis Postoperative Diagnosis: Same Procedure: Ileostomy takedown Surgeon: Dm Publication Designer: Efrem GRANGER Anesthesia: General EBL: 75 mL Specimen: Loop ileostomy to pathology Drains: [place] drain to subcutaneous space Complications: None Indication: The patient is a 60-year-old female who underwent a prior sigmoid colon resection with loop ileostomy due to perforated diverticulitis. The plan is to proceed with an ileostomy takedown. The risks of surgery were discussed which include bleeding, infection, anastomotic leak, pain, anesthetic risk, bowel obstruction, hernia formation, potential need for additional surgery procedure. She understands and would like to proceed Description: The patient was taken the operating room and placed supine in the operating table. General anesthesia was performed. The abdomen is prepped with ChloraPrep and draped in a standard surgical manner. An elliptical incision was made around the loop ileostomy in the right lower quadrant. Cautery dissection was carried into the subcutaneous tissues. The dissection was continued down to the fascia and the ileostomy was mobilized from the surrounding tissues. We continued with lysis of adhesions freeing the ileostomy completely. The ileum was then divided proximal and distal to the ostomy using a [id number] stapling device. The mesentery of the specimen was dissected. Blood vessels were ligated with 2-0 Vicryl and divided. The LigaSure device assisted with mesenteric dissection. The ostomy was then sent to pathology for evaluation. A stapled [id number], functional end-to-end anastomosis was then developed. The stapler was introduced into both limbs of the ileum. The stapler was then deployed creating the anastomosis. The common enterotomy was oversewn with 3-0 PDS. The staple lines were reinforced in the seromuscular layer with interrupted 3-0 Vicryl. The anastomosis was delivered back into the abdominal cavity. The posterior fascial layer was closed with 0 PDS. The anterior fascia layer was approximated 1 PDS. A [place] drain was left in subcutaneous space which exited laterally. This was secured to the skin with 3-0 Vicryl. Subcutaneous tissue was closed with 3-0 Vicryl and skin approximated with 4-0 Monocryl. A sterile dressing was then applied. The patient tolerated the procedure well and was sent to the recovery room in stable condition. At the end of the case all counts were correct. HERNANDEZ GARZA MD Sep 19, 2020 12:35
[2020-09-19] MEDS ORDERED: PROCHLORPERAZINE 10 MG/2 ML VIAL. ONE (12:45)
[2020-09-19] MEDS: PROCHLORPERAZINE 10 MG/2 ML VIAL. IV PRN ×2 (12:48→13:23)
[2020-09-19] MEDS ORDERED: MORPHINE SULFATE 2 MG/ML VIAL. ONE (13:03)
[2020-09-19] MEDS ORDERED: fentaNYL PF VIAL 100 MCG/2 ML VIAL ONE (13:03)
[2020-09-19] MEDS: fentaNYL PF VIAL 100 MCG/2 ML VIAL IV PRN ×2 (13:24→13:36)
[2020-09-19] MEDS: MORPHINE SULFATE 2 MG/ML VIAL. IV PRN ×2 (13:37→13:55)
[2020-09-19] MEDS: POTASSIUM CL 20MEQ D5-0.45NACL 1,000 ML IV SCH (14:19)
[2020-09-19] MEDS ORDERED: FAMOTIDINE 20 MG/2 ML VIAL IVP ONE (15:00)
[2020-09-19 16:29] VITALS: BP 116/62
[2020-09-19 19:29] VITALS: BP 115/64
[2020-09-19] MEDS: ONDANSETRON PF 4 MG/2 ML VIAL. IVP PRN (22:22)
[2020-09-19 22:23] VITALS: BP 124/76
[2020-09-20 03:07] VITALS: BP 132/73
[2020-09-20] MEDS: POTASSIUM CL 20MEQ D5-0.45NACL 1,000 ML IV SCH ×2 (04:20→09:39)
[2020-09-20] MEDS: ONDANSETRON PF 4 MG/2 ML VIAL. IVP PRN ×2 (04:21→09:33)
[2020-09-20 06:49] VITALS: BP 142/7
[2020-09-20 08:35] LABS: BASO % 0 % (0-3); EOS % 0 % (0-3); HEMATOCRIT 38.7 % (36.0-47.0); HEMOGLOBIN 12.8 g/dL (12.0-15.5); LYMPH % 10 % (24-48); MEAN CORPUSCULAR HEMOGLOBIN 28 pg (25-35); MEAN CORPUSCULAR HGB CONC 33 g/dL (31-37); MEAN CORPUSCULAR VOLUME 85 fL (79-100); MONO # 0.6 x10^3/uL (0.0-1.1); MONO % 6 % (0-9); NEUT # 8.5 x10^3/uL (1.8-7.7); NEUT % 84 % (31-73); PLATELET COUNT 207 x10^3/uL (140-400); RED BLOOD COUNT 4.54 x10^6/uL (3.50-5.40); RED CELL DISTRIBUTION WIDTH 16.2 % (11.5-14.5); WHITE BLOOD COUNT 10.1 x10^3/uL (4.0-11.0)
[2020-09-20] MEDS ORDERED: MORPHINE SULFATE 30 ML IV PRN (09:00)
[2020-09-20] MEDS: IV NORMAL SALINE 1000ML BAG 1,000 ML IV SCH ×4 (09:00→22:00)
[2020-09-20] MEDS ORDERED: NALOXONE 0.4 MG/ML VIAL. IV PRN (09:00)
[2020-09-20 09:05] LABS: CALCIUM 8.8 mg/dL (8.5-10.1); CREATININE 0.7 mg/dL (0.6-1.0); GFR 84.8
--- NOTE | 2020-09-20 09:09 | PDOC ---
ANGÉLICA HENRY HYDROELECTRIC MECHANIC 09/20/20 0908: SURGICAL PROGRESS NOTE DATE: 09/20/20 TIME: 09:04 Subjective nausea, emesis overnight--thinks med related--happened last admission--does seem worse after using PLATING TANK OPERATOR no flatus Vital Signs Vital Signs Date Time Temp Pulse Resp B/P (MAP) Pulse Ox O2 Delivery O2 Flow Rate FiO2 09/20/20 06:49 98.2 86 18 142/7 (52) 96 Room Air 98.2 09/19/20 17:10 2.0 I&O Intake and Output 09/20/20 07:00 Intake Total 2250 ml Output Total 820 ml Balance 1430 ml Intake Oral 0 ml IV Total 2250 ml Output Urine Total 745 ml Estimated Blood Loss 75 ml PATIENT HAS A HYATT: Yes (dc today) General: Alert, Oriented X3, Cooperative Abdomen: Soft, Other (ND, dressing intact, some shadowing on dressing ) Labs Laboratory Tests Test 09/20/20 07:40 White Blood Count 10.1 x10^3/uL (4.0-11.0) Red Blood Count 4.54 x10^6/uL (3.50-5.40) Hemoglobin 12.8 g/dL (12.0-15.5) Hematocrit 38.7 % (36.0-47.0) Mean Corpuscular Volume 85 fL (79-100) Mean Corpuscular Hemoglobin 28 pg (25-35) Mean Corpuscular Hemoglobin Concent 33 g/dL (31-37) Red Cell Distribution Width 16.2 % (11.5-14.5) Platelet Count 207 x10^3/uL (140-400) Neutrophils (%) (Auto) 84 % (31-73) Lymphocytes (%) (Auto) 10 % (24-48) Monocytes (%) (Auto) 6 % (0-9) Eosinophils (%) (Auto) 0 % (0-3) Basophils (%) (Auto) 0 % (0-3) Neutrophils # (Auto) 8.5 x10^3/uL (1.8-7.7) Lymphocytes # (Auto) 1.0 x10^3/uL (1.0-4.8) Monocytes # (Auto) 0.6 x10^3/uL (0.0-1.1) Eosinophils # (Auto) 0.0 x10^3/uL (0.0-0.7) Basophils # (Auto) 0.0 x10^3/uL (0.0-0.2) Laboratory Tests Test 09/20/20 07:40 White Blood Count 10.1 x10^3/uL (4.0-11.0) Red Blood Count 4.54 x10^6/uL (3.50-5.40) Hemoglobin 12.8 g/dL (12.0-15.5) Hematocrit 38.7 % (36.0-47.0) Mean Corpuscular Volume 85 fL (79-100) Mean Corpuscular Hemoglobin 28 pg (25-35) Mean Corpuscular Hemoglobin Concent 33 g/dL (31-37) Red Cell Distribution Width 16.2 % (11.5-14.5) Platelet Count 207 x10^3/uL (140-400) Neutrophils (%) (Auto) 84 % (31-73) Lymphocytes (%) (Auto) 10 % (24-48) Monocytes (%) (Auto) 6 % (0-9) Eosinophils (%) (Auto) 0 % (0-3) Basophils (%) (Auto) 0 % (0-3) Neutrophils # (Auto) 8.5 x10^3/uL (1.8-7.7) Lymphocytes # (Auto) 1.0 x10^3/uL (1.0-4.8) Monocytes # (Auto) 0.6 x10^3/uL (0.0-1.1) Eosinophils # (Auto) 0.0 x10^3/uL (0.0-0.7) Basophils # (Auto) 0.0 x10^3/uL (0.0-0.2) Assessment/Plan POD#1 ileostomy takedown--await bowel function will change 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
[2020-09-20] MEDS: ENOXAPARIN 40 MG/0.4 ML SYRINGE. SQ SCH (09:33)
[2020-09-20] MEDS: PANTOPRAZOLE IV PUSH 40 MG VIAL. IVP SCH (09:33)
--- NOTE | 2020-09-20 09:44 | NUR ---
SW following. Discussed with RN, pt from home with spouse, room air, NPO, FILLER IN. Pt had surgery 09/19/2020. Negative COVID-19 on 09/15. SW will continue to follow.
[2020-09-20 11:00] VITALS: BP 92/42
[2020-09-20 15:00] VITALS: BP 132/68
[2020-09-20 19:00] VITALS: BP 139/77
[2020-09-20 23:00] VITALS: BP 130/73
[2020-09-21 03:00] VITALS: BP 121/74
[2020-09-21] MEDS: IV NORMAL SALINE 1000ML BAG 1,000 ML IV SCH ×3 (05:51→21:40)
[2020-09-21] MEDS: PANTOPRAZOLE IV PUSH 40 MG VIAL. IVP SCH ×2 (05:54→06:01)
[2020-09-21] MEDS: ONDANSETRON PF 4 MG/2 ML VIAL. IVP PRN (07:59)
[2020-09-21 08:05] VITALS: BP 128/71
--- NOTE | 2020-09-21 08:54 | PDOC ---
ANGÉLICA HENRY TOOL TENDER 09/21/20 0854: SURGICAL PROGRESS NOTE DATE: 09/21/20 TIME: 08:47 Subjective Doing ok, headache developed the later half of night No further development in symptoms after fluids and SANDFILL OPERATOR SURFACE changed no flatus Vital Signs Vital Signs Date Time Temp Pulse Resp B/P (MAP) Pulse Ox O2 Delivery O2 Flow Rate FiO2 09/21/20 08:05 98.0 77 20 128/71 (90) 96 Room Air 98.0 09/20/20 10:02 2.0 I&O Intake and Output 09/21/20 07:00 Intake Total 0 ml Balance 0 ml Intake Oral 0 ml # Voids 4 PATIENT HAS A ALMANZA: No General: Alert, No acute distress Abdomen: Soft, Other (bowel sounds noted predominately in lower quadrants, incision intact and tomer is intact) Labs Laboratory Tests Test 09/20/20 07:40 White Blood Count 10.1 x10^3/uL (4.0-11.0) Red Blood Count 4.54 x10^6/uL (3.50-5.40) Hemoglobin 12.8 g/dL (12.0-15.5) Hematocrit 38.7 % (36.0-47.0) Mean Corpuscular Volume 85 fL (79-100) Mean Corpuscular Hemoglobin 28 pg (25-35) Mean Corpuscular Hemoglobin Concent 33 g/dL (31-37) Red Cell Distribution Width 16.2 % (11.5-14.5) Platelet Count 207 x10^3/uL (140-400) Neutrophils (%) (Auto) 84 % (31-73) Lymphocytes (%) (Auto) 10 % (24-48) Monocytes (%) (Auto) 6 % (0-9) Eosinophils (%) (Auto) 0 % (0-3) Basophils (%) (Auto) 0 % (0-3) Neutrophils # (Auto) 8.5 x10^3/uL (1.8-7.7) Lymphocytes # (Auto) 1.0 x10^3/uL (1.0-4.8) Monocytes # (Auto) 0.6 x10^3/uL (0.0-1.1) Eosinophils # (Auto) 0.0 x10^3/uL (0.0-0.7) Basophils # (Auto) 0.0 x10^3/uL (0.0-0.2) Sodium Level 137 mmol/L (136-145) Potassium Level 4.0 mmol/L (3.5-5.1) Chloride Level 103 mmol/L (98-107) Carbon Dioxide Level 28 mmol/L (21-32) Anion Gap 6 (6-14) Blood Urea Nitrogen 9 mg/dL (7-20) Creatinine 0.7 mg/dL (0.6-1.0) Estimated GFR (Cockcroft-Gault) 84.8 Glucose Level 132 mg/dL (70-99) Calcium Level 8.8 mg/dL (8.5-10.1) Problem List Ilesostomy take down 1. Headache- start Tylenlol 500mg q6hrs, PRN Await bowel function CMP and CBC in the am Ambulation in the hallway Justicifation of Admission Dx: Justifications for Admission: Justification of Admission Dx: Yes HERNANDEZ GARZA MD 09/21/20 1249: SURGICAL PROGRESS NOTE Assessment/Plan Agree with above ANGÉLICA HENRY TOOL TENDER Sep 21, 2020 08:54 HERNANDEZ GARZA MD Sep 21, 2020 12:49
[2020-09-21] MEDS ORDERED: ACETAMINOPHEN 500 MG TABLET PO PRN (09:00)
[2020-09-21] MEDS: ACETAMINOPHEN 500 MG TABLET PO PRN ×2 (09:00→14:51)
[2020-09-21] MEDS: ENOXAPARIN 40 MG/0.4 ML SYRINGE. SQ SCH (09:01)
--- NOTE | 2020-09-21 09:37 | NUR ---
SW following. Discussed with RN, pt from home with spouse, room air, NPO with sips of water. 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 Pt has been ambulating in the hallway. Awaiting return of bowel function. SW will continue to follow.
[2020-09-21 11:25] VITALS: BP 131/73
[2020-09-21 15:30] VITALS: BP 149/78
[2020-09-21 19:00] VITALS: BP 112/47
[2020-09-21 23:00] VITALS: BP 111/57
[2020-09-21] MEDS ORDERED: PANTOPRAZOLE IV PUSH 40 MG VIAL. IVP ONE (23:45)
[2020-09-22 03:00] VITALS: BP 139/62
[2020-09-22 05:44] LABS: BASO % 0 % (0-3); EOS # 0.4 x10^3/uL (0.0-0.7); EOS % 5 % (0-3); HEMATOCRIT 32.6 % (36.0-47.0); HEMOGLOBIN 10.8 g/dL (12.0-15.5); LYMPH # 1.2 x10^3/uL (1.0-4.8); LYMPH % 15 % (24-48); MEAN CORPUSCULAR HEMOGLOBIN 28 pg (25-35); MEAN CORPUSCULAR HGB CONC 33 g/dL (31-37); MEAN CORPUSCULAR VOLUME 85 fL (79-100); MONO # 0.6 x10^3/uL (0.0-1.1); MONO % 7 % (0-9); NEUT # 5.9 x10^3/uL (1.8-7.7); NEUT % 73 % (31-73); PLATELET COUNT 164 x10^3/uL (140-400); RED BLOOD COUNT 3.82 x10^6/uL (3.50-5.40); RED CELL DISTRIBUTION WIDTH 15.7 % (11.5-14.5); WHITE BLOOD COUNT 8.1 x10^3/uL (4.0-11.0)
[2020-09-22 06:00] LABS: CALCIUM 8.4 mg/dL (8.5-10.1); CREATININE 0.6 mg/dL (0.6-1.0); GFR 101.3; POTASSIUM 3.5 mmol/L (3.5-5.1)
[2020-09-22] MEDS: IV NORMAL SALINE 1000ML BAG 1,000 ML IV SCH ×3 (06:30→15:30)
[2020-09-22 07:00] VITALS: BP 145/70
[2020-09-22] MEDS: PANTOPRAZOLE IV PUSH 40 MG VIAL. IVP SCH (09:16)
[2020-09-22] MEDS: ENOXAPARIN 40 MG/0.4 ML SYRINGE. SQ SCH (09:16)
[2020-09-22 11:00] VITALS: BP 134/68
--- NOTE | 2020-09-22 14:34 | PDOC ---
SURGICAL PROGRESS NOTE DATE: 09/22/20 TIME: 14:33 Subjective Pt without c/o, randa clears, passing stools Vital Signs Vital Signs Date Time Temp Pulse Resp B/P (MAP) Pulse Ox O2 Delivery O2 Flow Rate FiO2 09/22/20 11:00 98.8 78 18 134/68 (90) 95 Room Air 98.8 General: Alert, Oriented X3, Cooperative, No acute distress Abdomen: Soft, No tenderness, Other (dressing c/d/i) Labs Laboratory Tests Test 09/22/20 04:00 White Blood Count 8.1 x10^3/uL (4.0-11.0) Red Blood Count 3.82 x10^6/uL (3.50-5.40) Hemoglobin 10.8 g/dL (12.0-15.5) Hematocrit 32.6 % (36.0-47.0) Mean Corpuscular Volume 85 fL (79-100) Mean Corpuscular Hemoglobin 28 pg (25-35) Mean Corpuscular Hemoglobin Concent 33 g/dL (31-37) Red Cell Distribution Width 15.7 % (11.5-14.5) Platelet Count 164 x10^3/uL (140-400) Neutrophils (%) (Auto) 73 % (31-73) Lymphocytes (%) (Auto) 15 % (24-48) Monocytes (%) (Auto) 7 % (0-9) Eosinophils (%) (Auto) 5 % (0-3) Basophils (%) (Auto) 0 % (0-3) Neutrophils # (Auto) 5.9 x10^3/uL (1.8-7.7) Lymphocytes # (Auto) 1.2 x10^3/uL (1.0-4.8) Monocytes # (Auto) 0.6 x10^3/uL (0.0-1.1) Eosinophils # (Auto) 0.4 x10^3/uL (0.0-0.7) Basophils # (Auto) 0.0 x10^3/uL (0.0-0.2) Sodium Level 143 mmol/L (136-145) Potassium Level 3.5 mmol/L (3.5-5.1) Chloride Level 107 mmol/L (98-107) Carbon Dioxide Level 24 mmol/L (21-32) Anion Gap 12 (6-14) Blood Urea Nitrogen 7 mg/dL (7-20) Creatinine 0.6 mg/dL (0.6-1.0) Estimated GFR (Cockcroft-Gault) 101.3 Glucose Level 60 mg/dL (70-99) Calcium Level 8.4 mg/dL (8.5-10.1) Laboratory Tests Test 09/22/20 04:00 White Blood Count 8.1 x10^3/uL (4.0-11.0) Red Blood Count 3.82 x10^6/uL (3.50-5.40) Hemoglobin 10.8 g/dL (12.0-15.5) Hematocrit 32.6 % (36.0-47.0) Mean Corpuscular Volume 85 fL (79-100) Mean Corpuscular Hemoglobin 28 pg (25-35) Mean Corpuscular Hemoglobin Concent 33 g/dL (31-37) Red Cell Distribution Width 15.7 % (11.5-14.5) Platelet Count 164 x10^3/uL (140-400) Neutrophils (%) (Auto) 73 % (31-73) Lymphocytes (%) (Auto) 15 % (24-48) Monocytes (%) (Auto) 7 % (0-9) Eosinophils (%) (Auto) 5 % (0-3) Basophils (%) (Auto) 0 % (0-3) Neutrophils # (Auto) 5.9 x10^3/uL (1.8-7.7) Lymphocytes # (Auto) 1.2 x10^3/uL (1.0-4.8) Monocytes # (Auto) 0.6 x10^3/uL (0.0-1.1) Eosinophils # (Auto) 0.4 x10^3/uL (0.0-0.7) Basophils # (Auto) 0.0 x10^3/uL (0.0-0.2) Sodium Level 143 mmol/L (136-145) Potassium Level 3.5 mmol/L (3.5-5.1) Chloride Level 107 mmol/L (98-107) Carbon Dioxide Level 24 mmol/L (21-32) Anion Gap 12 (6-14) Blood Urea Nitrogen 7 mg/dL (7-20) Creatinine 0.6 mg/dL (0.6-1.0) Estimated GFR (Cockcroft-Gault) 101.3 Glucose Level 60 mg/dL (70-99) Calcium Level 8.4 mg/dL (8.5-10.1) Problem List s/p ileostomy takedown ADAT and change to PO pain meds plan d/c home in AM Justicifation of Admission Dx: Justifications for Admission: Justification of Admission Dx: Yes BRANDON ELLIOTT MD Sep 22, 2020 14:33
[2020-09-22] MEDS ORDERED: HYDROcodone/APAP 5/325MG 1 TAB TABLET PO PRN (14:45)
[2020-09-22 15:00] VITALS: BP 141/78
[2020-09-22] MEDS: DOCUSATE SODIUM 100 MG CAPSULE. PO SCH (16:00)
[2020-09-22 19:19] VITALS: BP 110/60
[2020-09-22 23:18] VITALS: BP 121/67
[2020-09-23] MEDS: IV NORMAL SALINE 1000ML BAG 1,000 ML IV SCH ×2 (01:30→11:21)
[2020-09-23 03:05] VITALS: BP 135/75
[2020-09-23 07:00] VITALS: BP 139/78
[2020-09-23] MEDS: PANTOPRAZOLE IV PUSH 40 MG VIAL. IVP SCH (07:30)
[2020-09-23] MEDS: DOCUSATE SODIUM 100 MG CAPSULE. PO SCH (09:00)
[2020-09-23] MEDS: ENOXAPARIN 40 MG/0.4 ML SYRINGE. SQ SCH (09:00)
[2020-09-23 11:00] VITALS: BP 146/87
[2020-09-23] MEDS ORDERED: HYDR-2761 PO (13:17)
[2020-09-23] MEDS ORDERED: DOCU-153 PO (13:17)
--- NOTE | 2020-09-23 13:20 | PDOC3 ---
Discharge Summary Visit Information Date of Admission: Sep 19, 2020 Date of Discharge: Sep 23, 2020 Admitting Diagnosis: Diverticulitis Brief Hospital Course Allergies Allergies Coded Allergies Type Severity Reaction Last Updated Verified tizanidine Allergy Severe Swelling of the tongue and throat 09/19/20 Yes daptomycin Allergy Intermediate Rash 09/19/20 Yes I S O L A T I O N *CONTACT* Allergy Unknown VRE 09/19/20 Yes oxycodone Adverse Reaction Intermediate PRURITIS 09/19/20 Yes Uncoded Allergies Type Severity Reaction Last Updated Verified MAGIC MOUTHWASH Allergy Intermediate FACIAL AND THROAT SWELLING 09/13/20 Vital Signs Vital Signs Date Time Temp Pulse Resp B/P (MAP) Pulse Ox O2 Delivery O2 Flow Rate FiO2 09/23/20 11:00 97.9 85 18 146/87 (106) 95 Room Air 97.9 Lab Results Laboratory Tests Test 09/22/20 04:00 White Blood Count 8.1 x10^3/uL (4.0-11.0) Red Blood Count 3.82 x10^6/uL (3.50-5.40) Hemoglobin 10.8 g/dL (12.0-15.5) Hematocrit 32.6 % (36.0-47.0) Mean Corpuscular Volume 85 fL (79-100) Mean Corpuscular Hemoglobin 28 pg (25-35) Mean Corpuscular Hemoglobin Concent 33 g/dL (31-37) Red Cell Distribution Width 15.7 % (11.5-14.5) Platelet Count 164 x10^3/uL (140-400) Neutrophils (%) (Auto) 73 % (31-73) Lymphocytes (%) (Auto) 15 % (24-48) Monocytes (%) (Auto) 7 % (0-9) Eosinophils (%) (Auto) 5 % (0-3) Basophils (%) (Auto) 0 % (0-3) Neutrophils # (Auto) 5.9 x10^3/uL (1.8-7.7) Lymphocytes # (Auto) 1.2 x10^3/uL (1.0-4.8) Monocytes # (Auto) 0.6 x10^3/uL (0.0-1.1) Eosinophils # (Auto) 0.4 x10^3/uL (0.0-0.7) Basophils # (Auto) 0.0 x10^3/uL (0.0-0.2) Sodium Level 143 mmol/L (136-145) Potassium Level 3.5 mmol/L (3.5-5.1) Chloride Level 107 mmol/L (98-107) Carbon Dioxide Level 24 mmol/L (21-32) Anion Gap 12 (6-14) Blood Urea Nitrogen 7 mg/dL (7-20) Creatinine 0.6 mg/dL (0.6-1.0) Estimated GFR (Cockcroft-Gault) 101.3 Glucose Level 60 mg/dL (70-99) Calcium Level 8.4 mg/dL (8.5-10.1) Brief Hospital Course Ms. Simpson is a 60 old F who presented with diverticulitis, s/p sigmoid colectomy with ileostomy. She underwent ileostomy takedown and did well. Devika diet and having stools and stable for d/c home. Discharge Information Condition at Discharge: Improved Follow Up: Weeks (2) Disposition/Orders: D/C to Home Scheduled Pantoprazole Sodium (Protonix) 20 Mg Tablet.dr, 40 MG PO DAILY for GERD, (Reported) Entered as Reported by: OCTAVIA GOMEZ RN on 05/25/20 160 Last Action: Reviewed on 09/16/201556 by HERACLIO GARCIA Sulfasalazine (Sulfasalazine) 500 Mg Tablet, 1,000 MG PO BID for ARTHRITIS, (Reported) Entered as Reported by: SHAZIA MITCHELL on 06/23/191616 Last Action: Edited on 09/16/201557 by HERACLIO GARCIA Scheduled PRN Tramadol Hcl (Tramadol Hcl) 50 Mg Tablet, 50 MG PO Q6HRS PRN for PAIN, (Reported) Entered as Reported by: SHAZIA MITCHELL on 06/23/191616 Last Action: Reviewed on 09/16/201556 by HERACLIO GARCIA Justicifation of Admission Dx: Justifications for Admission: Justification of Admission Dx: Yes BRANDON ELLIOTT MD Sep 23, 2020 13:20
--- NOTE | 2020-09-23 13:56 | NUR ---
Patient discharged today via wheelchair accompanied by aid and spouse. Prescriptions and discharge paperwork given to patient and Pt verbalized understand discharge instruction.
--- NOTE | 2020-09-23 15:07 | PATHOLOGY ---
[facility] Accession Number: [id number] . 01 Material submitted: . abdomen - LOOP ILEOSTOMY . 01 Clinical history: . DIVERTICULITIS . 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 ([facility] 09/23/2020) P 09/23/2020 1435 Local . 02 Electronically signed: . Palomo Zegn MD, Pathologist NPI- [id number] . 01 Gross description: . The specimen is received in formalin, labeled "Mayi Simpson, loop ileostomy" and consists of a segment of small bowel measuring 10.6 cm in length and up to 2.0 cm in diameter. Both margins are closed with a line of jovani. At the mid aspect of the specimen there is an elliptical segment of pink-monsivais skin measuring 4.7 x 2.8 cm displaying bulging hewitt brown mucosa. Opening reveals a green hewitt mucosa with no gross lesions. [employer] sections are submitted in A1-A2. (SDY; 09/21/2020) SYU/SYU 09/21/2020 1148 Local . 02 Pathologist provided ICD-10: K57.12 . 02 CPT . 633058 Specimen Comment: A courtesy copy of this report has been sent to [phone], [phone] Specimen Comment: [id number] Specimen Comment: Report sent to / DR TORRES Performed at: 01 [facility] [address] [place] [address] [address], [place] [id number] MD Francis Jiménez MD Phone: [phone] Performed at: [address] [id number] MD Palomo Zeng MD Phone: [phone]
== END 2020-09-23 13:50 | disposition home or self-care (01) | DRG 331 ==
LOC: OPSVCIP 07:57 → 4 NORTH 15:58
PROVIDERS: ADMIT Surgery; ATTEND Surgery
PROC: 0DBB0ZZ Excision of Ileum, Open Approach (ICD-10-PCS; principal; 2020-09-19 09:30)
DX: K57.80 Diverticulitis of intestine, part unspecified, with perforation and abscess without bleeding (principal)
CPT/HCPCS: 36415; 80048; 85025; C9113; J0690; J0780; J1100; J1170; J1650; J2250; J2270; J2405; J2704; J2710; J3010; J3480; J3490; J7030; J7120; A4461; G0378